=== PATIENT | male | born 1950 | race Caucasian/White ===

== ENCOUNTER 2017-11-19 14:47 | Inpatient (IN) | payer MEDICARE, MEDICAID ==
[2017-11-19 15:17] VITALS: BP 132/80
[2017-11-19] MEDS ORDERED: Magnesium Hydroxide (MOM) 30 mL UDC PO PRN (15:17)
[2017-11-19] MEDS ORDERED: Maalox 30 mL Cup PO PRN (15:17)
--- NOTE | 2017-11-20 07:03 | History and Physical ---
History of Present Illness - HPI Chief Complaint: Psychosis HPI: 66 y/o male who was transferred from [facility] to [facility] for a 5150 hold wanting to hurt himself. Yelling and screaming. Patient was noted to have auditory hallucination and agitation. Patient's brother noted the patient frequently hears voices at home. Patient was having increased agitation and screaming. Patient's home medications include .. seroquel 200mg PO HS, Lexapro 20mg PO daily, Hydroxyzine 50mg po TID, pantoprazole 40mg pO daily, and Tenormin 25mg PO daily. Initial Labwork Na 143, K 4.3 BUN/Cr 26/1.5 glu 140 WBC 11.1 H/H 13.9/40.8 plat 259K Patient was subsequently admitted to [facility] for further evaluation and treatment. Vital Signs: Last Vital Signs Temp 98.5 F 11/19/17 16:45 Pulse 97 11/19/17 16:45 Resp 20 11/19/17 16:45 BP 132/80 11/19/17 16:45 Pulse Ox 96 11/19/17 16:45 Past Medical History Cardiovascular: Report: HTN Pulmonary: Report: No Pertinent Hx PROPOSAL MANAGER WRITER: Report: No Pertinent Hx GI: Report: GERD Psych: Report: Psychosis Musculoskeletal: Report: No Pertinent Hx Rheumatologic: Report: No pertinent Hx Infectious Disease: Report: No Pertinent Hx Renal/: Report: Chronic Renal Insuff Endocrine: Report: No Pertinent Hx - Past Surgical History Past Surgical History: No pertinent Hx Family Medical History - Family Member Mother History Unknown: Yes Social History Smoke: No Alcohol: None Drugs: None Lives: With Family - Medications Home Medications: Home Medication Medication Instructions Recorded Type Atenolol [Tenormin*] 25 mg PO DAILY 11/19/17 History Escitalopram Oxalate [Lexapro] 20 mg PO DAILY 11/19/17 History Hydroxyzine Pamoate [Vistaril*] 50 mg PO TID 11/19/17 History Pantoprazole [Protonix] 40 mg PO DAILY 11/19/17 History QUEtiapine Fumarate [SEROquel] 200 mg PO HS 11/19/17 History - Allergies Allergies/Adverse Reactions: Allergies Allergy/AdvReac Type Severity Reaction Status Date / Time No Known Allergies Allergy Verified 11/19/17 15:12 Review of Systems - Review of Systems Constitutional: Report: No Significant Eyes: Report: No Significant ENT: Report: No Significant Respiratory: Report: No Significant Cardiovascular: Report: No Significant Gastrointestinal: Report: No Significant Genitourinary: Report: No Significant Musculoskeletal: Report: No Significant Skin: Report: No Significant Neurological: Report: No Significant Physical Exam - Physical Exam HEENT: Report: Ears Nose Throat within normal limits, Pharnyx within normal limits Neck: Report: Within normal limits Cardiovascular Systems: Report: +s1/s2 noted, Regular, Rate and Rhythm Respiratory: Report: Breath Sounds are within normal limits Abdomen: Report: Non-tender to palpation, Tender to palpation Back: Report: Inspection of back is within normal limits. Extremities: Report: Non-tender to palpation. Skin: Report: Color of skin is within normal limits Neuro/Psych: Report: Mood affect is within normal limits, A+Ox3 - Lab Results All Lab Results last 24 hours: Laboratory Results - last 24 hr 11/19/17 17:20 POC Glucose 106 H - Assessment Assessment: psychosis 5150 hold hypertension gerd chronic renal insufficiency - Plan Plan: admit to [facility] continue home meds.
--- NOTE | 2017-11-20 07:24 | Psychosocial Evaluation ---
DATE OF SERVICE: JUSTIFICATION FOR THE HOSPITALIZATION: The patient came to the hospital on hold, apparently suicidal, yelling, screaming, brought in by police. CHIEF COMPLAINT: "I got wild." HISTORY OF PRESENT ILLNESS: A 66-year-old male, poor historian, states he came to the hospital because "I got wild." The patient is not a good historian, unable to really tell me anything more than "I got wild." Denying depression, it is unclear as to why he got so upset or was brought in on a hold other than what is written on the hold. PAST PSYCH HISTORY: Unknown, although he states he does take medications. He does not give me a diagnosis. FAMILY HISTORY: Noncontributory. SOCIAL HISTORY: The patient was born in [place]. He states he lives in [place] with brother, not , no kids, no drugs of abuse. MEDICATIONS: Noted. MENTAL STATUS EXAMINATION: Stated age, fair eye contact. Mood, "okay." Psychomotorically normal. Affect flat. Thought processes were disorganized, somewhat disoriented. The patient was making suicidal statements. No HI. No overt psychotic symptoms. Insight and judgment diminished. PROVISIONAL DIAGNOSES: Psychosis, unspecified; mood, unspecified; anxiety, unspecified. MEDICAL: Please see full H and P. ASSESSMENT: The patient requiring inpatient hospitalization, suicidal, apparently psychotic, very upset, yelling and screaming. PLAN: We will try to find out what medications the patient had been on at home. Treatment and plan includes group as well as milieu therapy. Conditions for discharge: Improved mood, improved affect, cessation of any SI, better control of his mood symptoms. [facility]# [id number]
[2017-11-20] MEDS: Multivitamin Tab PO SCH (09:10)
[2017-11-20] MEDS: Pantoprazole 40 mg EC Tab PO SCH (09:10)
--- NOTE | 2017-11-21 08:14 | General Progress Note ---
Subjective - Review of Systems Service Date: 11/21/17 Subjective: awake, but confused. no acute distress. VS T97.9 P86 R19 BP 127/82 Objective - Results Recent Labs: Laboratory Last Values POC Glucose 106 MG/DL (70 - 105) H 11/19/17 17:20 - Physical Exam Vitals and I&O: Vital Signs Temp 97.9 F 11/21/17 06:09 Pulse 86 11/21/17 06:09 Resp 19 11/21/17 06:09 BP 127/82 11/21/17 06:09 Pulse Ox 97 11/21/17 06:09 Intake & Output 11/20/17 11/21/17 11/21/17 18:59 06:59 18:59 Intake Total 1149 Balance 1149 Intake: Oral 1149 Other: # Voids 1 # Bowel Movements 1 Active Medications: Current Medications Acetaminophen (Tylenol) 650 mg PO Q4HR PRN PRN Reason: Mild Pain / Temp above 100 Stop: 01/18/18 15:16 Al Hydrox/Mg Hydrox/Simethicone (Maalox) 30 ml PO Q4HR PRN PRN Reason: GI DISTRESS Stop: 01/18/18 15:16 Atenolol (Tenormin) 25 mg PO DAILY ISABEL Stop: 01/19/18 08:59 Last Admin: 11/20/17 09:10 Dose: 25 mg Lorazepam (Ativan) 0.5 mg PO Q4HR PRN; Protocol PRN Reason: Anxiety Stop: 12/19/17 15:16 Last Admin: 11/20/17 17:14 Dose: 0.5 mg Magnesium Hydroxide (Milk Of Magnesia) 30 ml PO HS PRN PRN Reason: Constipation Multivitamins/Vitamin C (Theragran) 1 tab PO DAILY ISABEL Stop: 01/19/18 08:59 Last Admin: 11/20/17 09:10 Dose: 1 tab Pantoprazole Sodium (Protonix) 40 mg PO DAILY ISABEL Stop: 01/19/18 08:59 Last Admin: 11/20/17 09:10 Dose: 40 mg Zolpidem Tartrate (Ambien) 5 mg PO HS PRN PRN Reason: Insomnia Stop: 01/18/18 15:16 General: Alert HEENT: Atraumatic, PERRLA, EOMI Neck: Supple Cardiovascular: Regular rate, Normal S1, Normal S2 Lungs: Clear to auscultation Abdomen: Bowel sounds, Soft Extremities: no Clubbing, no Cyanosis, no Edema Neurological: Normal gait, Normal speech - Procedures Procedures: Procedures Procedure Code Date BLOOD TRANSFUSION SERVICE 28608 06/05/03 COLONOSCOPY W/LESION REMOVAL 84058 06/05/03 EGD BIOPSY SINGLE/MULTIPLE 59659 06/05/03 EGD DIAGNOSTIC BRUSH WASH 07960 08/09/00 ENDOSC POLYPECTOMY OF LG INTEST 45.42 06/05/03 ESOPHAGOGASTRODUODENOSCOPY [EGD] W/CLOSED BIOPSY 45.16 06/05/03 OTHER ENDOSCOPY OF SM INTEST 45.13 08/09/00 PACKED CELL TRANSFUSION 99.04 06/05/03 Assessment/Plan - Assessment Assessment: psychosis 5150 hold hypertension gerd chronic renal insufficiency - Plan Plan: admit to [facility] continue home meds.
[2017-11-21] MEDS: Pantoprazole 40 mg EC Tab PO SCH (08:31)
[2017-11-21] MEDS: Multivitamin Tab PO SCH (08:32)
--- NOTE | 2017-11-21 23:44 | Progress Notes ---
DATE: 11/21/[address] Hanna. Case was discussed with staff of the patient, reviewed records. This is a 66-year-old male, who was admitted on 11/19/2017. He was suicidal and screaming, brought in by police. He was a poor historian. He reports he came to the hospital because he got wild. He was not a very good historian, unable to tell anything other than getting wild and is not clear how he got upset. Diagnosis, psychosis, ____ Dr. Hanna. He is not on any psychotropic medications. Observing the patient for further evaluation and we will continue to work with the patient in group therapy, milieu therapy, and adjust medication as needed. The patient was supposed to be on Seroquel, Ativan, Ambien, Lexapro and this information is coming from the facility where he was at. Also I will be initiating Seroquel on him because of his confusion. I am not sure of the dose he was on, but I am going to start him on a small dose. Discussed side effects We will continue to work with the patient in group therapy, milieu therapy, and adjust medication as needed. JOB# [id number]
--- NOTE | 2017-11-22 06:12 | General Progress Note ---
Subjective - Review of Systems Service Date: 11/22/17 Subjective: awake, but confused. no acute distress. VS T98 P95 R19 BP 141/86 Objective - Results Recent Labs: Laboratory Last Values POC Glucose 106 MG/DL (70 - 105) H 11/19/17 17:20 - Physical Exam Vitals and I&O: Vital Signs Temp 98 F 11/21/17 20:54 Pulse 95 11/21/17 20:54 Resp 19 11/21/17 20:54 BP 141/86 11/21/17 20:54 Pulse Ox 98 11/21/17 20:54 Intake & Output 11/21/17 11/21/17 11/22/17 06:59 18:59 06:59 Intake Total 1149 700 120 Balance 1149 700 120 Intake: Oral 1149 700 120 Other: # Voids 1 3 3 # Bowel Movements 1 1 0 Active Medications: Current Medications Acetaminophen (Tylenol) 650 mg PO Q4HR PRN PRN Reason: Mild Pain / Temp above 100 Stop: 01/18/18 15:16 Al Hydrox/Mg Hydrox/Simethicone (Maalox) 30 ml PO Q4HR PRN PRN Reason: GI DISTRESS Stop: 01/18/18 15:16 Atenolol (Tenormin) 25 mg PO DAILY [facility] Stop: 01/19/18 08:59 Last Admin: 11/21/17 08:32 Dose: 25 mg Escitalopram Oxalate (Lexapro) 5 mg PO DAILY ISABEL PRN Reason: Protocol Stop: 01/21/18 08:59 Lorazepam (Ativan) 0.5 mg PO Q4HR PRN; Protocol PRN Reason: Anxiety Stop: 12/19/17 15:16 Last Admin: 11/20/17 17:14 Dose: 0.5 mg Magnesium Hydroxide (Milk Of Magnesia) 30 ml PO HS PRN PRN Reason: Constipation Multivitamins/Vitamin C (Theragran) 1 tab PO DAILY ISABEL Stop: 01/19/18 08:59 Last Admin: 11/21/17 08:32 Dose: 1 tab Pantoprazole Sodium (Protonix) 40 mg PO DAILY ISABEL Stop: 01/19/18 08:59 Last Admin: 11/21/17 08:31 Dose: 40 mg Quetiapine Fumarate (Seroquel) 12.5 mg PO BID ISABEL PRN Reason: Protocol Stop: 01/20/18 16:59 Last Admin: 11/21/17 16:36 Dose: 12.5 mg Zolpidem Tartrate (Ambien) 5 mg PO HS PRN PRN Reason: Insomnia Stop: 01/18/18 15:16 General: Alert HEENT: Atraumatic, PERRLA, EOMI Neck: Supple Cardiovascular: Regular rate, Normal S1, Normal S2 Lungs: Clear to auscultation Abdomen: Bowel sounds, Soft Extremities: no Clubbing, no Cyanosis, no Edema Neurological: Normal gait, Normal speech - Procedures Procedures: Procedures Procedure Code Date BLOOD TRANSFUSION SERVICE 85550 06/05/03 COLONOSCOPY W/LESION REMOVAL 58597 06/05/03 EGD BIOPSY SINGLE/MULTIPLE 03910 06/05/03 EGD DIAGNOSTIC BRUSH WASH 36599 08/09/00 ENDOSC POLYPECTOMY OF LG INTEST 45.42 06/05/03 ESOPHAGOGASTRODUODENOSCOPY [EGD] W/CLOSED BIOPSY 45.16 06/05/03 OTHER ENDOSCOPY OF SM INTEST 45.13 08/09/00 PACKED CELL TRANSFUSION 99.04 06/05/03 Assessment/Plan - Assessment Assessment: psychosis 5150 hold hypertension gerd chronic renal insufficiency - Plan Plan: admit to [facility] continue home meds.
[2017-11-22] MEDS: Escitalopram Oxalate 5 mg Tab PO SCH (10:39)
[2017-11-22] MEDS: Pantoprazole 40 mg EC Tab PO SCH (10:39)
[2017-11-22] MEDS: Multivitamin Tab PO SCH (10:39)
--- NOTE | 2017-11-22 21:33 | Progress Notes ---
DATE: 11/22/[address] Hanna. SUBJECTIVE: Case was discussed with staff of the patient and reviewed records. The patient continues to be paranoid, loud, labile, unpredictable, impulsive, responding to internal stimuli, hard to be redirected, cannot make safe plan for self-care. PLAN: I did initiate him on Lexapro yesterday and he is also on Seroquel 12.5 mg twice a day that I increased yesterday to twice a day with no side effects, no sedation, no nausea, no extrapyramidal symptoms. Still not ready to go because of his psychosis, paranoia, agitation and depression and no side effects with the medication. I will continue to work the patient in group therapy, milieu therapy, and adjust medications as needed. JOB# [id number]
--- NOTE | 2017-11-23 08:33 | General Progress Note ---
Subjective - Review of Systems Service Date: 11/23/17 Subjective: awake, but confused. no acute distress. VS T97.3 P79 R20 BP 111/70 Objective - Results Recent Labs: Laboratory Last Values POC Glucose 106 MG/DL (70 - 105) H 11/19/17 17:20 - Physical Exam Vitals and I&O: Vital Signs Temp 97.3 F 11/23/17 06:41 Pulse 79 11/23/17 06:41 Resp 20 11/23/17 06:41 BP 111/70 11/23/17 06:41 Pulse Ox 97 11/23/17 06:41 Intake & Output 11/22/17 11/23/17 11/23/17 18:59 06:59 18:59 Intake Total 1200 120 Balance 1200 120 Intake: Oral 1200 120 Other: # Voids 3 3 Active Medications: Current Medications Acetaminophen (Tylenol) 650 mg PO Q4HR PRN PRN Reason: Mild Pain / Temp above 100 Stop: 01/18/18 15:16 Al Hydrox/Mg Hydrox/Simethicone (Maalox) 30 ml PO Q4HR PRN PRN Reason: GI DISTRESS Stop: 01/18/18 15:16 Atenolol (Tenormin) 25 mg PO DAILY ISABEL Stop: 01/19/18 08:59 Last Admin: 11/22/17 10:39 Dose: 25 mg Escitalopram Oxalate (Lexapro) 5 mg PO DAILY ISABEL PRN Reason: Protocol Stop: 01/21/18 08:59 Last Admin: 11/22/17 10:39 Dose: 5 mg Lorazepam (Ativan) 0.5 mg PO Q4HR PRN; Protocol PRN Reason: Anxiety Stop: 12/19/17 15:16 Last Admin: 11/22/17 21:07 Dose: 0.5 mg Magnesium Hydroxide (Milk Of Magnesia) 30 ml PO HS PRN PRN Reason: Constipation Multivitamins/Vitamin C (Theragran) 1 tab PO DAILY ISABEL Stop: 01/19/18 08:59 Last Admin: 11/22/17 10:39 Dose: 1 tab Pantoprazole Sodium (Protonix) 40 mg PO DAILY ISABEL Stop: 01/19/18 08:59 Last Admin: 11/22/17 10:39 Dose: 40 mg Quetiapine Fumarate (Seroquel) 12.5 mg PO BID ISABEL PRN Reason: Protocol Stop: 01/20/18 16:59 Last Admin: 11/22/17 18:30 Dose: 12.5 mg Zolpidem Tartrate (Ambien) 5 mg PO HS PRN PRN Reason: Insomnia Stop: 01/18/18 15:16 Last Admin: 11/22/17 21:07 Dose: 5 mg General: Alert HEENT: Atraumatic, PERRLA, EOMI Neck: Supple Cardiovascular: Regular rate, Normal S1, Normal S2 Lungs: Clear to auscultation Abdomen: Bowel sounds, Soft Extremities: no Clubbing, no Cyanosis, no Edema Neurological: Normal gait, Normal speech - Procedures Procedures: Procedures Procedure Code Date BLOOD TRANSFUSION SERVICE 86818 06/05/03 COLONOSCOPY W/LESION REMOVAL 25506 06/05/03 EGD BIOPSY SINGLE/MULTIPLE 96731 06/05/03 EGD DIAGNOSTIC BRUSH WASH 43898 08/09/00 ENDOSC POLYPECTOMY OF LG INTEST 45.42 06/05/03 ESOPHAGOGASTRODUODENOSCOPY [EGD] W/CLOSED BIOPSY 45.16 06/05/03 OTHER ENDOSCOPY OF SM INTEST 45.13 08/09/00 PACKED CELL TRANSFUSION 99.04 06/05/03 Assessment/Plan - Assessment Assessment: psychosis 5150 hold hypertension gerd chronic renal insufficiency - Plan Plan: admit to [facility] continue home meds.
[2017-11-23] MEDS: Escitalopram Oxalate 5 mg Tab PO SCH (08:57)
[2017-11-23] MEDS: Pantoprazole 40 mg EC Tab PO SCH (08:57)
[2017-11-23] MEDS: Multivitamin Tab PO SCH (08:58)
--- NOTE | 2017-11-24 08:20 | General Progress Note ---
Subjective - Review of Systems Service Date: 11/24/17 Subjective: awake, but confused. no acute distress. VS T97.9 P80 R20 BP 119/77 Objective - Results Recent Labs: Laboratory Last Values POC Glucose 106 MG/DL (70 - 105) H 11/19/17 17:20 - Physical Exam Vitals and I&O: Vital Signs Temp 97.9 F 11/24/17 06:31 Pulse 80 11/24/17 06:31 Resp 20 11/24/17 06:31 BP 119/77 11/24/17 06:31 Pulse Ox 95 11/24/17 06:31 Intake & Output 11/23/17 11/24/17 11/24/17 18:59 06:59 18:59 Intake Total 1560 Balance 1560 Intake: Oral 1560 Other: # Voids 3 Active Medications: Current Medications Acetaminophen (Tylenol) 650 mg PO Q4HR PRN PRN Reason: Mild Pain / Temp above 100 Stop: 01/18/18 15:16 Al Hydrox/Mg Hydrox/Simethicone (Maalox) 30 ml PO Q4HR PRN PRN Reason: GI DISTRESS Stop: 01/18/18 15:16 Atenolol (Tenormin) 25 mg PO DAILY ISABEL Stop: 01/19/18 08:59 Last Admin: 11/23/17 08:56 Dose: 25 mg Escitalopram Oxalate (Lexapro) 5 mg PO DAILY ISABEL PRN Reason: Protocol Stop: 01/21/18 08:59 Last Admin: 11/23/17 08:57 Dose: 5 mg Lorazepam (Ativan) 0.5 mg PO Q4HR PRN; Protocol PRN Reason: Anxiety Stop: 12/19/17 15:16 Last Admin: 11/23/17 14:06 Dose: 0.5 mg Magnesium Hydroxide (Milk Of Magnesia) 30 ml PO HS PRN PRN Reason: Constipation Multivitamins/Vitamin C (Theragran) 1 tab PO DAILY ISABEL Stop: 01/19/18 08:59 Last Admin: 11/23/17 08:58 Dose: 1 tab Pantoprazole Sodium (Protonix) 40 mg PO DAILY ISABEL Stop: 01/19/18 08:59 Last Admin: 11/23/17 08:57 Dose: 40 mg Quetiapine Fumarate (Seroquel) 12.5 mg PO BID ISABEL PRN Reason: Protocol Stop: 01/20/18 16:59 Last Admin: 11/23/17 16:45 Dose: 12.5 mg Zolpidem Tartrate (Ambien) 5 mg PO HS PRN PRN Reason: Insomnia Stop: 01/18/18 15:16 Last Admin: 11/22/17 21:07 Dose: 5 mg General: Alert HEENT: Atraumatic, PERRLA, EOMI Neck: Supple Cardiovascular: Regular rate, Normal S1, Normal S2 Lungs: Clear to auscultation Abdomen: Bowel sounds, Soft Extremities: no Clubbing, no Cyanosis, no Edema Neurological: Normal gait, Normal speech - Procedures Procedures: Procedures Procedure Code Date BLOOD TRANSFUSION SERVICE 85387 06/05/03 COLONOSCOPY W/LESION REMOVAL 06228 06/05/03 EGD BIOPSY SINGLE/MULTIPLE 26134 06/05/03 EGD DIAGNOSTIC BRUSH WASH 58107 08/09/00 ENDOSC POLYPECTOMY OF LG INTEST 45.42 06/05/03 ESOPHAGOGASTRODUODENOSCOPY [EGD] W/CLOSED BIOPSY 45.16 06/05/03 OTHER ENDOSCOPY OF SM INTEST 45.13 08/09/00 PACKED CELL TRANSFUSION 99.04 06/05/03 Assessment/Plan - Assessment Assessment: psychosis 5150 hold hypertension gerd chronic renal insufficiency - Plan Plan: admit to [facility] continue home meds.
[2017-11-24] MEDS: Multivitamin Tab PO SCH (09:50)
[2017-11-24] MEDS: Pantoprazole 40 mg EC Tab PO SCH (09:50)
[2017-11-24] MEDS: Escitalopram Oxalate 5 mg Tab PO SCH (09:50)
--- NOTE | 2017-11-24 14:42 | Progress Notes ---
DATE: 11/23/[address] Hanna. Case was discussed with staff of the patient. The patient continues to be demented and confused, continues to be internally preoccupied with episodes of agitation and irritability, unable to make safe plan for self-care, unpredictable, impulsive, needing redirection, and no side effects to the medications, no sedation, no nausea, and no extrapyramidal symptoms. PLAN: We will continue to work with the patient in group therapy, milieu therapy, and adjust the medications as needed. JOB# [id number]
--- NOTE | 2017-11-24 21:54 | Progress Notes ---
DATE: 11/24/2017 The patient in the hospital, noted to be paranoid, loud, labile, unpredictable, impulsive, responding to internal stimuli or to be redirected. Recent medications were started and adjusted. Brother at bedside, noting he is not at his baseline at this time. Does not know what happened or why he decompensated. Currently on Seroquel, but the dosage is quite a bit lower than what he was taking. Brother notes he was on a fairly high dose of Seroquel at nighttime, he is only on 12.5 mg twice daily at this time. Also, he was on Lexapro at a higher dose. The patient is feeding himself, mumbling to self, however. ASSESSMENT: The patient remains symptomatic, not at baseline per the brother. We will restart medications and slowly titrate. Discussed with brother. JOB# [id number]
--- NOTE | 2017-11-25 08:12 | General Progress Note ---
Subjective - Review of Systems Service Date: 11/25/17 Subjective: awake, but confused. no acute distress. VS T97.8 P67 R19 BP 142/73 Objective - Results Recent Labs: Laboratory Last Values POC Glucose 106 MG/DL (70 - 105) H 11/19/17 17:20 - Physical Exam Vitals and I&O: Vital Signs Temp 97.8 F 11/25/17 06:48 Pulse 67 11/25/17 06:48 Resp 19 11/25/17 06:48 BP 142/73 11/25/17 06:48 Pulse Ox 96 11/25/17 06:48 Intake & Output 11/24/17 11/25/17 11/25/17 18:59 06:59 18:59 Intake Total 1200 340 Balance 1200 340 Intake: Oral 1200 340 Other: # Voids 3 1 Active Medications: Current Medications Acetaminophen (Tylenol) 650 mg PO Q4HR PRN PRN Reason: Mild Pain / Temp above 100 Stop: 01/18/18 15:16 Al Hydrox/Mg Hydrox/Simethicone (Maalox) 30 ml PO Q4HR PRN PRN Reason: GI DISTRESS Stop: 01/18/18 15:16 Atenolol (Tenormin) 25 mg PO DAILY [facility] Stop: 01/19/18 08:59 Last Admin: 11/24/17 09:50 Dose: Not Given Escitalopram Oxalate (Lexapro) 10 mg PO DAILY ISABEL PRN Reason: Protocol Stop: 01/23/18 12:52 Lorazepam (Ativan) 0.5 mg PO Q4HR PRN; Protocol PRN Reason: Anxiety Stop: 12/19/17 15:16 Last Admin: 11/24/17 22:25 Dose: 0.5 mg Magnesium Hydroxide (Milk Of Magnesia) 30 ml PO HS PRN PRN Reason: Constipation Multivitamins/Vitamin C (Theragran) 1 tab PO DAILY ISABEL Stop: 01/19/18 08:59 Last Admin: 11/24/17 09:50 Dose: Not Given Pantoprazole Sodium (Protonix) 40 mg PO DAILY ISABEL Stop: 01/19/18 08:59 Last Admin: 11/24/17 09:50 Dose: Not Given Quetiapine Fumarate (Seroquel) 12.5 mg PO BID ISABEL PRN Reason: Protocol Stop: 01/20/18 16:59 Last Admin: 03/22/18 16:20 Dose: 12.5 mg Quetiapine Fumarate (Seroquel Xr) 100 mg PO HS ISABEL PRN Reason: Protocol Stop: 01/23/18 20:59 Last Admin: 11/24/17 21:29 Dose: Not Given Zolpidem Tartrate (Ambien) 5 mg PO HS PRN PRN Reason: Insomnia Stop: 01/18/18 15:16 Last Admin: 11/24/17 23:10 Dose: 5 mg General: Alert HEENT: Atraumatic, PERRLA, EOMI Neck: Supple Cardiovascular: Regular rate, Normal S1, Normal S2 Lungs: Clear to auscultation Abdomen: Bowel sounds, Soft Extremities: no Clubbing, no Cyanosis, no Edema Neurological: Normal gait, Normal speech - Procedures Procedures: Procedures Procedure Code Date BLOOD TRANSFUSION SERVICE 29384 06/05/03 COLONOSCOPY W/LESION REMOVAL 70329 06/05/03 EGD BIOPSY SINGLE/MULTIPLE 09742 06/05/03 EGD DIAGNOSTIC BRUSH WASH 30816 08/09/00 ENDOSC POLYPECTOMY OF LG INTEST 45.42 06/05/03 ESOPHAGOGASTRODUODENOSCOPY [EGD] W/CLOSED BIOPSY 45.16 06/05/03 OTHER ENDOSCOPY OF SM INTEST 45.13 08/09/00 PACKED CELL TRANSFUSION 99.04 06/05/03 Assessment/Plan - Assessment Assessment: psychosis 5150 hold hypertension gerd chronic renal insufficiency - Plan [facility]. Nutritional Asmnt/Malnutr-PDOC - Dietary Evaluation Malnutrition Findings (Please click <Entered> for more info): Nutritional Asmnt/Malnutrition Start: 11/24/17 13: 37 Text: Status: Complete Freq: Document 11/24/17 13:37 LCHENG (Rec: 11/24/17 13:42 [email or web address] [email or web address]) Nutritional Asmnt/Malnutrition Patient General Information Nutritional Screening Low Risk Diagnosis psychosis NOS Pertinent Medical Hx/Surgical Hx HTN, GERD, psychosis, chronic renal suff Subjective Information Pt seen sitting on bed eating lunch, confused. Family at bedside. Family stated pt likes beef. Observed pt was eating well.Per EMR, PO intake 100%. Current Diet Order/ Nutrition Support regular Pertinent Medications theragran, seroquel, protonix Pertinent Labs 11/19 POC 106 Nutritional Hx/Data Height 1.68 m Height (Calculated Centimeters) 167.6 Current Weight (lbs) 72.892 kg Weight (Calculated Kilograms) 72.9 Weight (Calculated Grams) 13203.3 [place] Body Weight 142 Body Mass Index (BMI) 25.9 Weight Status Overweight GI Symptoms GI Symptoms None Last BM 11/21 Difficult in: None Skin Integrity/Comment: intact Current %PO Good (75-100%) Estimated Nutritional Goals Calories/Kcals/Kg 28-30 based on IBW 65kg Kcals Calculated 5220-8323 Protein g/k-1.1 Protein Calculated 65-72 Fluid: ml 1625-1950ml (1ml/kcal) Nutritional Problem No current Nutrition Prob Problem N/A Malnutrition Alert Protein-Calorie Malnutrition N/A Is there a minimum of two criteria No selected? Query Text:Check all the applicable criteria. A minimum of two criteria are recommended for diagnosis of either severe or non-severe malnutrition. Intervention/Recommendation Comments 1. Continue with regular diet as ordered. 2. Monitor PO intake, wt, labs and skin integrity 3. F/U as low risk in 7 days, 12/01 Expected Outcomes/Goals Expected Outcomes/Goals 1. PO intake to meet at least 75% of nutritional needs. 2. Wt stability, skin to remain intact, labs WNL.
[2017-11-25 09:07] LABS: % EOSINOPHILS 1.3 % (0.0-5.0); % LYMPHOCYTES 17.9 % (20.0-50.0); % MONOCYTES 8.6 % (2.0-10.0); % NEUTROPHILS 72.2 % (40.0-80.0); EOSINOPHILE ABSOLUTE 0.1 Th/cmm (0.1-0.4); HEMATOCRIT 44.1 % (41.0-60); HEMOGLOBIN 14.7 gm/dL (12-16); LYMPHOCYTE ABSOLUTE 1.9 Th/cmm (1.5-3.0); MEAN CELL VOLUME 90.4 fl (80-99); MEAN CORPUSCULAR HEMOGLOBIN 30.2 pg (26.0-30.0); MEAN CORPUSCULAR HGB CONC 33.4 pg (28.0-36.0); MEAN PLATELET VOLUME 7.2 fl; MONOCYTE ABSOLUTE 0.9 Th/cmm (0.3-1.0); NEUTROPHILE ABSOLUTE 7.9 Th/cmm (1.8-8.0); PLATELET COUNT 307 Th/cmm (150-400); RED BLOOD COUNT 4.88 Mil/cmm (4.30-5.70); RED CELL DISTRIBUTION WIDTH 13.2 % (11.5-20.0); WHITE BLOOD COUNT 10.8 Th/cmm (4.8-10.8)
[2017-11-25 09:31] LABS: ANION GAP 13.2 (7.0-16.0); BUN - UREA NITROGEN 25 mg/dL (7-25); CALCIUM SERUM 9.6 mg/dL (8.6-10.3); CARBON DIOXIDE 24.2 mEq/L (21.0-31.0); CHLORIDE 111 mEq/L (98-107); CREATININE - SERUM 0.9 mg/dL (0.7-1.3); GFR AFRICAN-AMERICAN > 60.0 ml/min (>90); GFR NON AFRICAN-AMERICAN > 60.0 ml/min; GLUCOSE 155 mg/dL (70-105); POTASSIUM SERUM 3.4 mEq/L (3.5-5.1); SODIUM SERUM 145 mEq/L (136-145)
[2017-11-25] MEDS: Escitalopram Oxalate 5 mg Tab PO SCH (09:37)
[2017-11-25] MEDS: Multivitamin Tab PO SCH (09:39)
[2017-11-25] MEDS: Pantoprazole 40 mg EC Tab PO SCH (09:39)
--- NOTE | 2017-11-25 18:33 | Progress Notes ---
DATE: 11/25/2017 The patient at hospital noted to be paranoid, labile, unpredictable, still needing redirection. The patient quite not at baseline. I spoke with brother yesterday. He seems somewhat calmer today. The brother notes he is more calm, consistently calm and independent. I have been increasing his dose of medications. He was on daytime dosing of Seroquel, nighttime dosing of Seroquel as well as Lexapro. On [id number], the patient staring blankly, not answering any questions. He is awake and alert, but does not want to talk to me today. ASSESSMENT: The patient remains symptomatic, not quite yet at baseline, still unruly at times. PLAN: We will continue to monitor. I will be increasing his nighttime dosing of Seroquel to 150 mg. Continue increased dose of Lexapro as well. I will continue to titrate medications over the next day to a week. JOB# [id number]
[2017-11-26] MEDS ORDERED: Potassium Chloride 20 mEq ER Tab PO ONE (05:01)
--- NOTE | 2017-11-26 05:12 | General Progress Note ---
Subjective - Review of Systems Service Date: 11/26/17 Subjective: awake, but confused. no acute distress. VS T97.8 P98 R18 BP 131/82 Objective - Results Result Diagrams: 11/25/17 08:12 11/25/17 09:03 Recent Labs: Laboratory Last Values WBC 10.8 Th/cmm (4.8-10.8) 11/25/17 08:12 RBC 4.88 Mil/cmm (4.30-5.70) 11/25/17 08:12 Hgb 14.7 gm/dL (12-16) 11/25/17 08:12 Hct 44.1 % (41.0-60) 11/25/17 08:12 MCV 90.4 fl (80-99) 11/25/17 08:12 MCH 30.2 pg (26.0-30.0) H 11/25/17 08:12 MCHC Differential 33.4 pg (28.0-36.0) 11/25/17 08:12 RDW 13.2 % (11.5-20.0) 11/25/17 08:12 Plt Count 307 Th/cmm (150-400) 11/25/17 08:12 MPV 7.2 fl 11/25/17 08:12 Neutrophils % 72.2 % (40.0-80.0) 11/25/17 08:12 Lymphocytes % 17.9 % (20.0-50.0) L 11/25/17 08:12 Monocytes % 8.6 % (2.0-10.0) 11/25/17 08:12 Eosinophils % 1.3 % (0.0-5.0) 11/25/17 08:12 Basophils % 0.0 % (0.0-2.0) 11/25/17 08:12 Sodium 145 mEq/L (136-145) 11/25/17 09:03 Potassium 3.4 mEq/L (3.5-5.1) L 11/25/17 09:03 Chloride 111 mEq/L (98-107) H 11/25/17 09:03 Carbon Dioxide 24.2 mEq/L (21.0-31.0) 11/25/17 09:03 Anion Gap 13.2 (7.0-16.0) 11/25/17 09:03 BUN 25 mg/dL (7-25) 11/25/17 09:03 Creatinine 0.9 mg/dL (0.7-1.3) 11/25/17 09:03 Est GFR ( Amer) > 60.0 ml/min (>90) 11/25/17 09:03 Est GFR (Non-Af Amer) > 60.0 ml/min 11/25/17 09:03 BUN/Creatinine Ratio 27.8 11/25/17 09:03 Glucose 155 mg/dL (70-105) H 11/25/17 09:03 POC Glucose 106 MG/DL (70 - 105) H 11/19/17 17:20 Calcium 9.6 mg/dL (8.6-10.3) 11/25/17 09:03 - Physical Exam Vitals and I&O: Vital Signs Temp 97.8 F 11/25/17 20:51 Pulse 98 11/25/17 20:51 Resp 18 11/25/17 20:51 BP 131/82 11/25/17 20:51 Pulse Ox 94 11/25/17 20:51 Intake & Output 11/25/17 11/25/17 11/26/17 06:59 18:59 06:59 Intake Total 340 900 240 Balance 340 900 240 Intake: Oral 340 900 240 Other: # Voids 1 4 1 # Bowel Movements 1 Active Medications: Current Medications Acetaminophen (Tylenol) 650 mg PO Q4HR PRN PRN Reason: Mild Pain / Temp above 100 Stop: 01/18/18 15:16 Al Hydrox/Mg Hydrox/Simethicone (Maalox) 30 ml PO Q4HR PRN PRN Reason: GI DISTRESS Stop: 01/18/18 15:16 Atenolol (Tenormin) 25 mg PO DAILY [facility] Stop: 01/19/18 08:59 Last Admin: 11/25/17 09:38 Dose: 25 mg Escitalopram Oxalate (Lexapro) 10 mg PO DAILY [facility] PRN Reason: Protocol Stop: 01/23/18 12:52 Last Admin: 11/25/17 09:37 Dose: 10 mg Lorazepam (Ativan) 0.5 mg PO Q4HR PRN; Protocol PRN Reason: Anxiety Stop: 12/19/17 15:16 Last Admin: 11/24/17 22:25 Dose: 0.5 mg Magnesium Hydroxide (Milk Of Magnesia) 30 ml PO HS PRN PRN Reason: Constipation Multivitamins/Vitamin C (Theragran) 1 tab PO DAILY [facility] Stop: 01/19/18 08:59 Last Admin: 11/25/17 09:39 Dose: 1 tab Pantoprazole Sodium (Protonix) 40 mg PO DAILY [facility] Stop: 01/19/18 08:59 Last Admin: 11/25/17 09:39 Dose: 40 mg Potassium Chloride (Klor-Con) 20 meq PO X1 ONE Stop: 11/26/17 05:02 Quetiapine Fumarate (Seroquel) 12.5 mg PO BID [facility] PRN Reason: Protocol Stop: 01/20/18 16:59 Last Admin: 11/25/17 18:00 Dose: 12.5 mg Quetiapine Fumarate (Seroquel Xr) 150 mg PO HS [facility] PRN Reason: Protocol Stop: 01/24/18 16:02 Last Admin: 11/25/17 21:05 Dose: Not Given Zolpidem Tartrate (Ambien) 5 mg PO HS PRN PRN Reason: Insomnia Stop: 01/18/18 15:16 Last Admin: 11/25/17 21:03 Dose: 5 mg General: Alert HEENT: Atraumatic, PERRLA, EOMI Neck: Supple Cardiovascular: Regular rate, Normal S1, Normal S2 Lungs: Clear to auscultation Abdomen: Bowel sounds, Soft Extremities: no Clubbing, no Cyanosis, no Edema Neurological: Normal gait, Normal speech - Procedures Procedures: Procedures Procedure Code Date BLOOD TRANSFUSION SERVICE 72112 06/05/03 COLONOSCOPY W/LESION REMOVAL 20805 06/05/03 EGD BIOPSY SINGLE/MULTIPLE 98657 06/05/03 EGD DIAGNOSTIC BRUSH WASH 25563 08/09/00 ENDOSC POLYPECTOMY OF LG INTEST 45.42 06/05/03 ESOPHAGOGASTRODUODENOSCOPY [EGD] W/CLOSED BIOPSY 45.16 06/05/03 OTHER ENDOSCOPY OF SM INTEST 45.13 08/09/00 PACKED CELL TRANSFUSION 99.04 06/05/03 Assessment/Plan - Assessment Assessment: psychosis 5150 hold hypertension gerd chronic renal insufficiency - Plan Plan: admit to [facility] continue current treatment. Nutritional Asmnt/Malnutr-PDOC - Dietary Evaluation Malnutrition Findings (Please click <Entered> for more info): Nutritional Asmnt/Malnutrition Start: 11/24/17 13: 37 Text: Status: Complete Freq: Document 11/24/17 13:37 MAUREEN (Rec: 11/24/17 13:42 MAUREEN [email or web address]) Nutritional Asmnt/Malnutrition Patient General Information Nutritional Screening Low Risk Diagnosis psychosis NOS Pertinent Medical Hx/Surgical Hx HTN, GERD, psychosis, chronic renal suff Subjective Information Pt seen sitting on bed eating lunch, confused. Family at bedside. Family stated pt likes beef. Observed pt was eating well.Per EMR, PO intake 100%. Current Diet Order/ Nutrition Support regular Pertinent Medications theragran, seroquel, protonix Pertinent Labs 11/19 POC 106 Nutritional Hx/Data Height 1.68 m Height (Calculated Centimeters) 167.6 Current Weight (lbs) 72.892 kg Weight (Calculated Kilograms) 72.9 Weight (Calculated Grams) 05038.3 [place] Body Weight 142 Body Mass Index (BMI) 25.9 Weight Status Overweight GI Symptoms GI Symptoms None Last BM 11/21 Difficult in: None Skin Integrity/Comment: intact Current %PO Good (75-100%) Estimated Nutritional Goals Calories/Kcals/Kg 28-30 based on IBW 65kg Kcals Calculated 2128-0420 Protein g/k-1.1 Protein Calculated 65-72 Fluid: ml 1625-1950ml (1ml/kcal) Nutritional Problem No current Nutrition Prob Problem N/A Malnutrition Alert Protein-Calorie Malnutrition N/A Is there a minimum of two criteria No selected? Query Text:Check all the applicable criteria. A minimum of two criteria are recommended for diagnosis of either severe or non-severe malnutrition. Intervention/Recommendation Comments 1. Continue with regular diet as ordered. 2. Monitor PO intake, wt, labs and skin integrity 3. F/U as low risk in 7 days, 12/01 Expected Outcomes/Goals Expected Outcomes/Goals 1. PO intake to meet at least 75% of nutritional needs. 2. Wt stability, skin to remain intact, labs WNL.
[2017-11-26] MEDS: Escitalopram Oxalate 5 mg Tab PO SCH (08:55)
[2017-11-26] MEDS: Pantoprazole 40 mg EC Tab PO SCH (08:56)
[2017-11-26] MEDS: Multivitamin Tab PO SCH (09:00)
--- NOTE | 2017-11-27 05:32 | General Progress Note ---
Subjective - Review of Systems Service Date: 11/27/17 Subjective: awake, but confused. no acute distress. VS T97.8 P85 R20 BP 144/80 Objective - Results Result Diagrams: 11/25/17 08:12 11/25/17 09:03 Recent Labs: Laboratory Last Values WBC 10.8 Th/cmm (4.8-10.8) 11/25/17 08:12 RBC 4.88 Mil/cmm (4.30-5.70) 11/25/17 08:12 Hgb 14.7 gm/dL (12-16) 11/25/17 08:12 Hct 44.1 % (41.0-60) 11/25/17 08:12 MCV 90.4 fl (80-99) 11/25/17 08:12 MCH 30.2 pg (26.0-30.0) H 11/25/17 08:12 MCHC Differential 33.4 pg (28.0-36.0) 11/25/17 08:12 RDW 13.2 % (11.5-20.0) 11/25/17 08:12 Plt Count 307 Th/cmm (150-400) 11/25/17 08:12 MPV 7.2 fl 11/25/17 08:12 Neutrophils % 72.2 % (40.0-80.0) 11/25/17 08:12 Lymphocytes % 17.9 % (20.0-50.0) L 11/25/17 08:12 Monocytes % 8.6 % (2.0-10.0) 11/25/17 08:12 Eosinophils % 1.3 % (0.0-5.0) 11/25/17 08:12 Basophils % 0.0 % (0.0-2.0) 11/25/17 08:12 Sodium 145 mEq/L (136-145) 11/25/17 09:03 Potassium 3.4 mEq/L (3.5-5.1) L 11/25/17 09:03 Chloride 111 mEq/L (98-107) H 11/25/17 09:03 Carbon Dioxide 24.2 mEq/L (21.0-31.0) 11/25/17 09:03 Anion Gap 13.2 (7.0-16.0) 11/25/17 09:03 BUN 25 mg/dL (7-25) 11/25/17 09:03 Creatinine 0.9 mg/dL (0.7-1.3) 11/25/17 09:03 Est GFR ( Amer) > 60.0 ml/min (>90) 11/25/17 09:03 Est GFR (Non-Af Amer) > 60.0 ml/min 11/25/17 09:03 BUN/Creatinine Ratio 27.8 11/25/17 09:03 Glucose 155 mg/dL (70-105) H 11/25/17 09:03 POC Glucose 106 MG/DL (70 - 105) H 11/19/17 17:20 Calcium 9.6 mg/dL (8.6-10.3) 11/25/17 09:03 - Physical Exam Vitals and I&O: Vital Signs Temp 97.8 F 11/26/17 21:00 Pulse 85 11/26/17 21:00 Resp 20 11/26/17 21:00 BP 144/80 11/26/17 21:00 Pulse Ox 97 11/26/17 21:00 Intake & Output 11/26/17 11/26/17 11/27/17 06:59 18:59 06:59 Intake Total 480 1600 240 Output Total 1 Balance 479 1600 240 Intake: Oral 480 1600 240 Output: Stool 1 Other: # Voids 1 4 1 # Bowel Movements 0 Active Medications: Current Medications Acetaminophen (Tylenol) 650 mg PO Q4HR PRN PRN Reason: Mild Pain / Temp above 100 Stop: 01/18/18 15:16 Al Hydrox/Mg Hydrox/Simethicone (Maalox) 30 ml PO Q4HR PRN PRN Reason: GI DISTRESS Stop: 01/18/18 15:16 Atenolol (Tenormin) 25 mg PO DAILY [facility] Stop: 01/19/18 08:59 Last Admin: 11/26/17 08:54 Dose: 25 mg Escitalopram Oxalate (Lexapro) 10 mg PO DAILY [facility] PRN Reason: Protocol Stop: 01/23/18 12:52 Last Admin: 11/26/17 08:55 Dose: 10 mg Magnesium Hydroxide (Milk Of Magnesia) 30 ml PO HS PRN PRN Reason: Constipation Multivitamins/Vitamin C (Theragran) 1 tab PO DAILY [facility] Stop: 01/19/18 08:59 Last Admin: 11/26/17 09:00 Dose: 1 tab Pantoprazole Sodium (Protonix) 40 mg PO DAILY [facility] Stop: 01/19/18 08:59 Last Admin: 11/26/17 08:56 Dose: 40 mg Quetiapine Fumarate (Seroquel) 12.5 mg PO BID [facility] PRN Reason: Protocol Stop: 01/20/18 16:59 Last Admin: 11/26/17 17:33 Dose: 12.5 mg Quetiapine Fumarate (Seroquel Xr) 150 mg PO HS [facility] PRN Reason: Protocol Stop: 01/24/18 16:02 Last Admin: 11/26/17 21:10 Dose: Not Given General: Alert HEENT: Atraumatic, PERRLA, EOMI Neck: Supple Cardiovascular: Regular rate, Normal S1, Normal S2 Lungs: Clear to auscultation Abdomen: Bowel sounds, Soft Extremities: no Clubbing, no Cyanosis, no Edema Neurological: Normal gait, Normal speech - Procedures Procedures: Procedures Procedure Code Date BLOOD TRANSFUSION SERVICE 94825 06/05/03 COLONOSCOPY W/LESION REMOVAL 87555 06/05/03 EGD BIOPSY SINGLE/MULTIPLE 00849 06/05/03 EGD DIAGNOSTIC BRUSH WASH 77508 08/09/00 ENDOSC POLYPECTOMY OF LG INTEST 45.42 06/05/03 ESOPHAGOGASTRODUODENOSCOPY [EGD] W/CLOSED BIOPSY 45.16 06/05/03 OTHER ENDOSCOPY OF SM INTEST 45.13 08/09/00 PACKED CELL TRANSFUSION 99.04 06/05/03 Assessment/Plan - Assessment Assessment: psychosis 5150 hold hypertension gerd chronic renal insufficiency - Plan [facility]. Nutritional Asmnt/Malnutr-PDOC - Dietary Evaluation Malnutrition Findings (Please click <Entered> for more info): Nutritional Asmnt/Malnutrition Start: 11/24/17 13: 37 Text: Status: Complete Freq: Document 11/24/17 13:37 MAUREEN (Rec: 11/24/17 13:42 MAUREEN [email or web address]) Nutritional Asmnt/Malnutrition Patient General Information Nutritional Screening Low Risk Diagnosis psychosis NOS Pertinent Medical Hx/Surgical Hx HTN, GERD, psychosis, chronic renal suff Subjective Information Pt seen sitting on bed eating lunch, confused. Family at bedside. Family stated pt likes beef. Observed pt was eating well.Per EMR, PO intake 100%. Current Diet Order/ Nutrition Support regular Pertinent Medications theragran, seroquel, protonix Pertinent Labs 11/19 POC 106 Nutritional Hx/Data Height 1.68 m Height (Calculated Centimeters) 167.6 Current Weight (lbs) 72.892 kg Weight (Calculated Kilograms) 72.9 Weight (Calculated Grams) 65116.3 [place] Body Weight 142 Body Mass Index (BMI) 25.9 Weight Status Overweight GI Symptoms GI Symptoms None Last BM 11/21 Difficult in: None Skin Integrity/Comment: intact Current %PO Good (75-100%) Estimated Nutritional Goals Calories/Kcals/Kg 28-30 based on IBW 65kg Kcals Calculated 7491-1382 Protein g/k-1.1 Protein Calculated 65-72 Fluid: ml 1625-1950ml (1ml/kcal) Nutritional Problem No current Nutrition Prob Problem N/A Malnutrition Alert Protein-Calorie Malnutrition N/A Is there a minimum of two criteria No selected? Query Text:Check all the applicable criteria. A minimum of two criteria are recommended for diagnosis of either severe or non-severe malnutrition. Intervention/Recommendation Comments 1. Continue with regular diet as ordered. 2. Monitor PO intake, wt, labs and skin integrity 3. F/U as low risk in 7 days, 12/01 Expected Outcomes/Goals Expected Outcomes/Goals 1. PO intake to meet at least 75% of nutritional needs. 2. Wt stability, skin to remain intact, labs WNL.
--- NOTE | 2017-11-27 07:49 | Progress Notes ---
DATE: SUBJECTIVE: The patient was seen and evaluated. The patient's chart reviewed. This is Dr. Anderson covering for Dr. Hanna. Overnight, nursing staff reporting the patient has been verbally aggressive, refusing ADL care. IDENTIFYING DATA: A 66-year-old male, extremely poor historian "He got wild", disengaged. Today on [id number] evaluation, the patient continues to be disengaged with the interview, irritable and noted by the primary doctor to be little more calmer, has been having difficulty sleeping at times not answer to most of questions and disengaged. MENTAL STATUS EXAMINATION: Disengaged, withdrawn. ASSESSMENT AND PLAN: The patient continues to be symptomatic. We will continue increasing Seroquel to 150 mg and continue increase the dose of Lexapro without complications. He is tolerating medications well at this point without complications. JOB# [id number]
[2017-11-27] MEDS: Pantoprazole 40 mg EC Tab PO SCH (09:54)
[2017-11-27] MEDS: Multivitamin Tab PO SCH (09:54)
[2017-11-27] MEDS: Escitalopram Oxalate 5 mg Tab PO SCH (09:54)
--- NOTE | 2017-11-28 08:18 | General Progress Note ---
Subjective - Review of Systems Service Date: 11/28/17 Subjective: awake, but confused. no acute distress. VS T97 P82 R18 BP 139/75 Objective - Results Result Diagrams: 11/25/17 08:12 11/25/17 09:03 Recent Labs: Laboratory Last Values WBC 10.8 Th/cmm (4.8-10.8) 11/25/17 08:12 RBC 4.88 Mil/cmm (4.30-5.70) 11/25/17 08:12 Hgb 14.7 gm/dL (12-16) 11/25/17 08:12 Hct 44.1 % (41.0-60) 11/25/17 08:12 MCV 90.4 fl (80-99) 11/25/17 08:12 MCH 30.2 pg (26.0-30.0) H 11/25/17 08:12 MCHC Differential 33.4 pg (28.0-36.0) 11/25/17 08:12 RDW 13.2 % (11.5-20.0) 11/25/17 08:12 Plt Count 307 Th/cmm (150-400) 11/25/17 08:12 MPV 7.2 fl 11/25/17 08:12 Neutrophils % 72.2 % (40.0-80.0) 11/25/17 08:12 Lymphocytes % 17.9 % (20.0-50.0) L 11/25/17 08:12 Monocytes % 8.6 % (2.0-10.0) 11/25/17 08:12 Eosinophils % 1.3 % (0.0-5.0) 11/25/17 08:12 Basophils % 0.0 % (0.0-2.0) 11/25/17 08:12 Sodium 145 mEq/L (136-145) 11/25/17 09:03 Potassium 3.4 mEq/L (3.5-5.1) L 11/25/17 09:03 Chloride 111 mEq/L (98-107) H 11/25/17 09:03 Carbon Dioxide 24.2 mEq/L (21.0-31.0) 11/25/17 09:03 Anion Gap 13.2 (7.0-16.0) 11/25/17 09:03 BUN 25 mg/dL (7-25) 11/25/17 09:03 Creatinine 0.9 mg/dL (0.7-1.3) 11/25/17 09:03 Est GFR ( Amer) > 60.0 ml/min (>90) 11/25/17 09:03 Est GFR (Non-Af Amer) > 60.0 ml/min 11/25/17 09:03 BUN/Creatinine Ratio 27.8 11/25/17 09:03 Glucose 155 mg/dL (70-105) H 11/25/17 09:03 POC Glucose 106 MG/DL (70 - 105) H 11/19/17 17:20 Calcium 9.6 mg/dL (8.6-10.3) 11/25/17 09:03 - Physical Exam Vitals and I&O: Vital Signs Temp 97 F 11/28/17 06:42 Pulse 82 11/28/17 06:42 Resp 18 11/28/17 06:42 BP 139/75 11/28/17 06:42 Pulse Ox 97 11/28/17 06:42 Intake & Output 11/27/17 11/28/17 11/28/17 18:59 06:59 18:59 Intake Total 1600 240 Balance 1600 240 Intake: Oral 1600 240 Other: # Voids 4 1 # Bowel Movements 1 1 Stool Characteristics Soft Active Medications: Current Medications Acetaminophen (Tylenol) 650 mg PO Q4HR PRN PRN Reason: Mild Pain / Temp above 100 Stop: 01/18/18 15:16 Al Hydrox/Mg Hydrox/Simethicone (Maalox) 30 ml PO Q4HR PRN PRN Reason: GI DISTRESS Stop: 01/18/18 15:16 Atenolol (Tenormin) 25 mg PO DAILY [facility] Stop: 01/19/18 08:59 Last Admin: 11/27/17 09:54 Dose: Not Given Escitalopram Oxalate (Lexapro) 10 mg PO DAILY [facility] PRN Reason: Protocol Stop: 01/23/18 12:52 Last Admin: 11/27/17 09:54 Dose: Not Given Magnesium Hydroxide (Milk Of Magnesia) 30 ml PO HS PRN PRN Reason: Constipation Multivitamins/Vitamin C (Theragran) 1 tab PO DAILY [facility] Stop: 01/19/18 08:59 Last Admin: 11/27/17 09:54 Dose: Not Given Pantoprazole Sodium (Protonix) 40 mg PO DAILY [facility] Stop: 01/19/18 08:59 Last Admin: 11/27/17 09:54 Dose: Not Given Quetiapine Fumarate (Seroquel) 12.5 mg PO BID [facility] PRN Reason: Protocol Stop: 01/20/18 16:59 Last Admin: 11/27/17 16:50 Dose: 12.5 mg Quetiapine Fumarate (Seroquel Xr) 150 mg PO HS [facility] PRN Reason: Protocol Stop: 01/24/18 16:02 Last Admin: 11/27/17 21:06 Dose: Not Given General: Alert HEENT: Atraumatic, PERRLA, EOMI Neck: Supple Cardiovascular: Regular rate, Normal S1, Normal S2 Lungs: Clear to auscultation Abdomen: Bowel sounds, Soft Extremities: no Clubbing, no Cyanosis, no Edema Neurological: Normal gait, Normal speech - Procedures Procedures: Procedures Procedure Code Date BLOOD TRANSFUSION SERVICE 69295 06/05/03 COLONOSCOPY W/LESION REMOVAL 20467 06/05/03 EGD BIOPSY SINGLE/MULTIPLE 65583 06/05/03 EGD DIAGNOSTIC BRUSH WASH 29772 08/09/00 ENDOSC POLYPECTOMY OF LG INTEST 45.42 06/05/03 ESOPHAGOGASTRODUODENOSCOPY [EGD] W/CLOSED BIOPSY 45.16 06/05/03 OTHER ENDOSCOPY OF SM INTEST 45.13 08/09/00 PACKED CELL TRANSFUSION 99.04 06/05/03 Assessment/Plan - Assessment Assessment: psychosis 5150 hold hypertension gerd chronic renal insufficiency - Plan Plan: admit to [facility] continue current treatment. Nutritional Asmnt/Malnutr-PDOC - Dietary Evaluation Malnutrition Findings (Please click <Entered> for more info): Nutritional Asmnt/Malnutrition Start: 11/24/17 13: 37 Text: Status: Complete Freq: Document 11/24/17 13:37 LCMALENA (Rec: 11/24/17 13:42 LCMALENA JEAN-FN) Nutritional Asmnt/Malnutrition Patient General Information Nutritional Screening Low Risk Diagnosis psychosis NOS Pertinent Medical Hx/Surgical Hx HTN, GERD, psychosis, chronic renal suff Subjective Information Pt seen sitting on bed eating lunch, confused. Family at bedside. Family stated pt likes beef. Observed pt was eating well.Per EMR, PO intake 100%. Current Diet Order/ Nutrition Support regular Pertinent Medications theragran, seroquel, protonix Pertinent Labs 11/19 POC 106 Nutritional Hx/Data Height 1.68 m Height (Calculated Centimeters) 167.6 Current Weight (lbs) 72.892 kg Weight (Calculated Kilograms) 72.9 Weight (Calculated Grams) 04642.3 [place] Body Weight 142 Body Mass Index (BMI) 25.9 Weight Status Overweight GI Symptoms GI Symptoms None Last BM 11/21 Difficult in: None Skin Integrity/Comment: intact Current %PO Good (75-100%) Estimated Nutritional Goals Calories/Kcals/Kg 28-30 based on IBW 65kg Kcals Calculated 3190-2660 Protein g/k-1.1 Protein Calculated 65-72 Fluid: ml 1625-1950ml (1ml/kcal) Nutritional Problem No current Nutrition Prob Problem N/A Malnutrition Alert Protein-Calorie Malnutrition N/A Is there a minimum of two criteria No selected? Query Text:Check all the applicable criteria. A minimum of two criteria are recommended for diagnosis of either severe or non-severe malnutrition. Intervention/Recommendation Comments 1. Continue with regular diet as ordered. 2. Monitor PO intake, wt, labs and skin integrity 3. F/U as low risk in 7 days, 12/01 Expected Outcomes/Goals Expected Outcomes/Goals 1. PO intake to meet at least 75% of nutritional needs. 2. Wt stability, skin to remain intact, labs WNL.
[2017-11-28] MEDS: Pantoprazole 40 mg EC Tab PO SCH (10:00)
[2017-11-28] MEDS: Multivitamin Tab PO SCH (10:00)
[2017-11-28] MEDS: Escitalopram Oxalate 5 mg Tab PO SCH (10:00)
--- NOTE | 2017-11-28 10:05 | Progress Notes ---
DATE: 11/27/2017 SUBJECTIVE: The patient was seen and evaluated. The patient's chart reviewed. Covering for Dr. Hanna. Today on [id number] evaluation, the patient is in his room, he is eating breakfast. Upon approach, becomes very irritable interrupted with his meal and gets very angry and asks his medical doctor and a later time when asked to come and interview again, still continues to be easily irritable. MENTAL STATUS EXAMINATION: Irritable, disengaged, and withdrawn. Poor insight, judgment and impulse control. ASSESSMENT AND PLAN: The patient continues to be symptomatic, agitated, tolerating the recent increase of Seroquel to mg a day and also the Lexapro without complications or side effects of medications. We will continue with the current medication regimen reaching a steady state to target the patient residual state. JOB# [id number]
--- NOTE | 2017-11-28 20:52 | Progress Notes ---
DATE: 11/28/2017 SUBJECTIVE: The patient seen, chart reviewed, discussed with staff. The patient is very paranoid, delusional, "stay away, stay away, stay away," yelling, unruly, not at baseline. Brother still comes to visit. Staff concerned due to his paranoid behaviors. ASSESSMENT: The patient remains psychotic, irritable, not at baseline. PLAN: We will continue to monitor, increase Seroquel today. I will be increasing his nighttime dosing of Seroquel. JOB# [id number]
--- NOTE | 2017-11-29 08:32 | General Progress Note ---
Subjective - Review of Systems Service Date: 11/29/17 Subjective: awake, but confused. no acute distress. VS T98.0 P69 R20 BP 125/74 Objective - Results Result Diagrams: 11/25/17 08:12 11/25/17 09:03 Recent Labs: Laboratory Last Values WBC 10.8 Th/cmm (4.8-10.8) 11/25/17 08:12 RBC 4.88 Mil/cmm (4.30-5.70) 11/25/17 08:12 Hgb 14.7 gm/dL (12-16) 11/25/17 08:12 Hct 44.1 % (41.0-60) 11/25/17 08:12 MCV 90.4 fl (80-99) 11/25/17 08:12 MCH 30.2 pg (26.0-30.0) H 11/25/17 08:12 MCHC Differential 33.4 pg (28.0-36.0) 11/25/17 08:12 RDW 13.2 % (11.5-20.0) 11/25/17 08:12 Plt Count 307 Th/cmm (150-400) 11/25/17 08:12 MPV 7.2 fl 11/25/17 08:12 Neutrophils % 72.2 % (40.0-80.0) 11/25/17 08:12 Lymphocytes % 17.9 % (20.0-50.0) L 11/25/17 08:12 Monocytes % 8.6 % (2.0-10.0) 11/25/17 08:12 Eosinophils % 1.3 % (0.0-5.0) 11/25/17 08:12 Basophils % 0.0 % (0.0-2.0) 11/25/17 08:12 Sodium 145 mEq/L (136-145) 11/25/17 09:03 Potassium 3.4 mEq/L (3.5-5.1) L 11/25/17 09:03 Chloride 111 mEq/L (98-107) H 11/25/17 09:03 Carbon Dioxide 24.2 mEq/L (21.0-31.0) 11/25/17 09:03 Anion Gap 13.2 (7.0-16.0) 11/25/17 09:03 BUN 25 mg/dL (7-25) 11/25/17 09:03 Creatinine 0.9 mg/dL (0.7-1.3) 11/25/17 09:03 Est GFR ( Amer) > 60.0 ml/min (>90) 11/25/17 09:03 Est GFR (Non-Af Amer) > 60.0 ml/min 11/25/17 09:03 BUN/Creatinine Ratio 27.8 11/25/17 09:03 Glucose 155 mg/dL (70-105) H 11/25/17 09:03 POC Glucose 106 MG/DL (70 - 105) H 11/19/17 17:20 Calcium 9.6 mg/dL (8.6-10.3) 11/25/17 09:03 - Physical Exam Vitals and I&O: Vital Signs Temp 98 F 11/29/17 06:42 Pulse 69 11/29/17 06:42 Resp 20 11/29/17 06:42 BP 125/74 11/29/17 06:42 Pulse Ox 94 11/29/17 06:42 Intake & Output 11/28/17 11/29/17 11/29/17 18:59 06:59 18:59 Intake Total 800 240 Output Total 1 Balance 800 239 Intake: Oral 800 240 Output: Stool 1 Other: # Voids 4 3 # Bowel Movements 1 1 Stool Characteristics Soft Active Medications: Current Medications Acetaminophen (Tylenol) 650 mg PO Q4HR PRN PRN Reason: Mild Pain / Temp above 100 Stop: 01/18/18 15:16 Al Hydrox/Mg Hydrox/Simethicone (Maalox) 30 ml PO Q4HR PRN PRN Reason: GI DISTRESS Stop: 01/18/18 15:16 Atenolol (Tenormin) 25 mg PO DAILY [facility] Stop: 01/19/18 08:59 Last Admin: 11/28/17 10:00 Dose: 25 mg Escitalopram Oxalate (Lexapro) 10 mg PO DAILY [facility] Stop: 01/28/18 08:59 Magnesium Hydroxide (Milk Of Magnesia) 30 ml PO HS PRN PRN Reason: Constipation Multivitamins/Vitamin C (Theragran) 1 tab PO DAILY [facility] Stop: 01/19/18 08:59 Last Admin: 11/28/17 10:00 Dose: 1 tab Pantoprazole Sodium (Protonix) 40 mg PO DAILY [facility] Stop: 01/19/18 08:59 Last Admin: 11/28/17 10:00 Dose: 40 mg Quetiapine Fumarate (Seroquel) 12.5 mg PO BID [facility] PRN Reason: Protocol Stop: 01/20/18 16:59 Last Admin: 11/28/17 17:17 Dose: 12.5 mg Quetiapine Fumarate (Seroquel Xr) 200 mg PO HS [facility] Stop: 01/27/18 20:59 Last Admin: 11/28/17 21:00 Dose: 200 mg General: Alert HEENT: Atraumatic, PERRLA, EOMI Neck: Supple Cardiovascular: Regular rate, Normal S1, Normal S2 Lungs: Clear to auscultation Abdomen: Bowel sounds, Soft Extremities: no Clubbing, no Cyanosis, no Edema Neurological: Normal gait, Normal speech - Procedures Procedures: Procedures Procedure Code Date BLOOD TRANSFUSION SERVICE 88790 06/05/03 COLONOSCOPY W/LESION REMOVAL 66954 06/05/03 EGD BIOPSY SINGLE/MULTIPLE 96283 06/05/03 EGD DIAGNOSTIC BRUSH WASH 24637 08/09/00 ENDOSC POLYPECTOMY OF LG INTEST 45.42 06/05/03 ESOPHAGOGASTRODUODENOSCOPY [EGD] W/CLOSED BIOPSY 45.16 06/05/03 OTHER ENDOSCOPY OF SM INTEST 45.13 08/09/00 PACKED CELL TRANSFUSION 99.04 06/05/03 Assessment/Plan - Assessment Assessment: psychosis 5150 hold hypertension gerd chronic renal insufficiency - Plan Plan: admit to [facility] continue current treatment. Nutritional Asmnt/Malnutr-PDOC - Dietary Evaluation Malnutrition Findings (Please click <Entered> for more info): Nutritional Asmnt/Malnutrition Start: 11/24/17 13: 37 Text: Status: Complete Freq: Document 11/24/17 13:37 LCHENG (Rec: 11/24/17 13:42 [email or web address] [email or web address]) Nutritional Asmnt/Malnutrition Patient General Information Nutritional Screening Low Risk Diagnosis psychosis NOS Pertinent Medical Hx/Surgical Hx HTN, GERD, psychosis, chronic renal suff Subjective Information Pt seen sitting on bed eating lunch, confused. Family at bedside. Family stated pt likes beef. Observed pt was eating well.Per EMR, PO intake 100%. Current Diet Order/ Nutrition Support regular Pertinent Medications theragran, seroquel, protonix Pertinent Labs 11/19 POC 106 Nutritional Hx/Data Height 1.68 m Height (Calculated Centimeters) 167.6 Current Weight (lbs) 72.892 kg Weight (Calculated Kilograms) 72.9 Weight (Calculated Grams) 75233.3 [place] Body Weight 142 Body Mass Index (BMI) 25.9 Weight Status Overweight GI Symptoms GI Symptoms None Last BM 11/21 Difficult in: None Skin Integrity/Comment: intact Current %PO Good (75-100%) Estimated Nutritional Goals Calories/Kcals/Kg 28-30 based on IBW 65kg Kcals Calculated 5526-4029 Protein g/k-1.1 Protein Calculated 65-72 Fluid: ml 1625-1950ml (1ml/kcal) Nutritional Problem No current Nutrition Prob Problem N/A Malnutrition Alert Protein-Calorie Malnutrition N/A Is there a minimum of two criteria No selected? Query Text:Check all the applicable criteria. A minimum of two criteria are recommended for diagnosis of either severe or non-severe malnutrition. Intervention/Recommendation Comments 1. Continue with regular diet as ordered. 2. Monitor PO intake, wt, labs and skin integrity 3. F/U as low risk in 7 days, 12/01 Expected Outcomes/Goals Expected Outcomes/Goals 1. PO intake to meet at least 75% of nutritional needs. 2. Wt stability, skin to remain intact, labs WNL.
[2017-11-29] MEDS: Pantoprazole 40 mg EC Tab PO SCH (09:21)
[2017-11-29] MEDS: Multivitamin Tab PO SCH (09:21)
--- NOTE | 2017-11-29 17:45 | Progress Notes ---
DATE: 11/29/2017 SUBJECTIVE: The patient is currently in the hospital, calmer today. I did adjust his medications. He is more amenable to interview, pretty impoverished in regards to his thought process, not saying much, just saying "okay." The patient seems less psychotic today. Less suspicious. Yesterday, he was telling me to clinical stay away, stay away, stay away, and was highly scared and anxious. He remains pretty reclusive, also isolative. ASSESSMENT: The patient is still with residual psychotic symptoms, highly impulsive, and unpredictable. I did increase the Seroquel yesterday, seems to be tolerating this increase well without any overt side effects. PLAN: We will be monitoring and we will continue treatment and will continue to adjust and titrate medications. JOB# [id number]
--- NOTE | 2017-11-30 08:23 | General Progress Note ---
Subjective - Review of Systems Service Date: 11/30/17 Events since last encounter: Awake but confused VS T97.6 P85 R20 BP 125/76 Subjective: awake, but confused. no acute distress. VS T98.0 P69 R20 BP 125/74 Objective - Results Result Diagrams: 11/25/17 08:12 11/25/17 09:03 Recent Labs: Laboratory Last Values WBC 10.8 Th/cmm (4.8-10.8) 11/25/17 08:12 RBC 4.88 Mil/cmm (4.30-5.70) 11/25/17 08:12 Hgb 14.7 gm/dL (12-16) 11/25/17 08:12 Hct 44.1 % (41.0-60) 11/25/17 08:12 MCV 90.4 fl (80-99) 11/25/17 08:12 MCH 30.2 pg (26.0-30.0) H 11/25/17 08:12 MCHC Differential 33.4 pg (28.0-36.0) 11/25/17 08:12 RDW 13.2 % (11.5-20.0) 11/25/17 08:12 Plt Count 307 Th/cmm (150-400) 11/25/17 08:12 MPV 7.2 fl 11/25/17 08:12 Neutrophils % 72.2 % (40.0-80.0) 11/25/17 08:12 Lymphocytes % 17.9 % (20.0-50.0) L 11/25/17 08:12 Monocytes % 8.6 % (2.0-10.0) 11/25/17 08:12 Eosinophils % 1.3 % (0.0-5.0) 11/25/17 08:12 Basophils % 0.0 % (0.0-2.0) 11/25/17 08:12 Sodium 145 mEq/L (136-145) 11/25/17 09:03 Potassium 3.4 mEq/L (3.5-5.1) L 11/25/17 09:03 Chloride 111 mEq/L (98-107) H 11/25/17 09:03 Carbon Dioxide 24.2 mEq/L (21.0-31.0) 11/25/17 09:03 Anion Gap 13.2 (7.0-16.0) 11/25/17 09:03 BUN 25 mg/dL (7-25) 11/25/17 09:03 Creatinine 0.9 mg/dL (0.7-1.3) 11/25/17 09:03 Est GFR ( Amer) > 60.0 ml/min (>90) 11/25/17 09:03 Est GFR (Non-Af Amer) > 60.0 ml/min 11/25/17 09:03 BUN/Creatinine Ratio 27.8 11/25/17 09:03 Glucose 155 mg/dL (70-105) H 11/25/17 09:03 POC Glucose 106 MG/DL (70 - 105) H 11/19/17 17:20 Calcium 9.6 mg/dL (8.6-10.3) 11/25/17 09:03 - Physical Exam Vitals and I&O: Vital Signs Temp 97.6 F 11/30/17 06:32 Pulse 85 11/30/17 06:32 Resp 20 11/30/17 06:32 BP 125/76 11/30/17 06:32 Pulse Ox 95 11/30/17 06:32 Intake & Output 11/29/17 11/30/17 11/30/17 18:59 06:59 18:59 Intake Total 900 300 Balance 900 300 Intake: Oral 900 300 Other: # Voids 4 2 # Bowel Movements 1 1 Active Medications: Current Medications Acetaminophen (Tylenol) 650 mg PO Q4HR PRN PRN Reason: Mild Pain / Temp above 100 Stop: 01/18/18 15:16 Al Hydrox/Mg Hydrox/Simethicone (Maalox) 30 ml PO Q4HR PRN PRN Reason: GI DISTRESS Stop: 01/18/18 15:16 Atenolol (Tenormin) 25 mg PO DAILY [facility] Stop: 01/19/18 08:59 Last Admin: 11/29/17 09:21 Dose: 25 mg Escitalopram Oxalate (Lexapro) 10 mg PO DAILY [facility] Stop: 01/28/18 08:59 Last Admin: 11/29/17 09:22 Dose: 10 mg Magnesium Hydroxide (Milk Of Magnesia) 30 ml PO HS PRN PRN Reason: Constipation Multivitamins/Vitamin C (Theragran) 1 tab PO DAILY [facility] Stop: 01/19/18 08:59 Last Admin: 11/29/17 09:21 Dose: 1 tab Pantoprazole Sodium (Protonix) 40 mg PO DAILY [facility] Stop: 01/19/18 08:59 Last Admin: 11/29/17 09:21 Dose: 40 mg Quetiapine Fumarate (Seroquel) 12.5 mg PO BID [facility] PRN Reason: Protocol Stop: 01/20/18 16:59 Last Admin: 11/29/17 17:21 Dose: 12.5 mg Quetiapine Fumarate (Seroquel Xr) 200 mg PO HS [facility] Stop: 01/27/18 20:59 Last Admin: 11/29/17 21:21 Dose: 200 mg General: Alert HEENT: Atraumatic, PERRLA, EOMI Neck: Supple Cardiovascular: Regular rate, Normal S1, Normal S2 Lungs: Clear to auscultation Abdomen: Bowel sounds, Soft Extremities: no Clubbing, no Cyanosis, no Edema Neurological: Normal gait, Normal speech - Procedures Procedures: Procedures Procedure Code Date BLOOD TRANSFUSION SERVICE 03865 06/05/03 COLONOSCOPY W/LESION REMOVAL 10084 06/05/03 EGD BIOPSY SINGLE/MULTIPLE 98689 06/05/03 EGD DIAGNOSTIC BRUSH WASH 04529 08/09/00 ENDOSC POLYPECTOMY OF LG INTEST 45.42 06/05/03 ESOPHAGOGASTRODUODENOSCOPY [EGD] W/CLOSED BIOPSY 45.16 06/05/03 OTHER ENDOSCOPY OF SM INTEST 45.13 08/09/00 PACKED CELL TRANSFUSION 99.04 06/05/03 Assessment/Plan - Assessment Assessment: psychosis 5150 hold hypertension gerd chronic renal insufficiency hypokalemia - Plan [facility]: [facility]. repeat bmp, to check K+ level Nutritional Asmnt/Malnutr-PDOC - Dietary Evaluation Malnutrition Findings (Please click <Entered> for more info): Nutritional Asmnt/Malnutrition Start: 11/24/17 13: 37 Text: Status: Complete Freq: Document 11/24/17 13:37 LCJUANISG (Rec: 11/24/17 13:42 [email or web address] [email or web address]) Nutritional Asmnt/Malnutrition Patient General Information Nutritional Screening Low Risk Diagnosis psychosis NOS Pertinent Medical Hx/Surgical Hx HTN, GERD, psychosis, chronic renal suff Subjective Information Pt seen sitting on bed eating lunch, confused. Family at bedside. Family stated pt likes beef. Observed pt was eating well.Per EMR, PO intake 100%. Current Diet Order/ Nutrition Support regular Pertinent Medications theragran, seroquel, protonix Pertinent Labs 11/19 POC 106 Nutritional Hx/Data Height 1.68 m Height (Calculated Centimeters) 167.6 Current Weight (lbs) 72.892 kg Weight (Calculated Kilograms) 72.9 Weight (Calculated Grams) 14735.3 [place] Body Weight 142 Body Mass Index (BMI) 25.9 Weight Status Overweight GI Symptoms GI Symptoms None Last BM 11/21 Difficult in: None Skin Integrity/Comment: intact Current %PO Good (75-100%) Estimated Nutritional Goals Calories/Kcals/Kg 28-30 based on IBW 65kg Kcals Calculated 2746-2556 Protein g/k-1.1 Protein Calculated 65-72 Fluid: ml 1625-1950ml (1ml/kcal) Nutritional Problem No current Nutrition Prob Problem N/A Malnutrition Alert Protein-Calorie Malnutrition N/A Is there a minimum of two criteria No selected? Query Text:Check all the applicable criteria. A minimum of two criteria are recommended for diagnosis of either severe or non-severe malnutrition. Intervention/Recommendation Comments 1. Continue with regular diet as ordered. 2. Monitor PO intake, wt, labs and skin integrity 3. F/U as low risk in 7 days, 12/01 Expected Outcomes/Goals Expected Outcomes/Goals 1. PO intake to meet at least 75% of nutritional needs. 2. Wt stability, skin to remain intact, labs WNL.
[2017-11-30] MEDS: Pantoprazole 40 mg EC Tab PO SCH (08:57)
[2017-11-30] MEDS: Multivitamin Tab PO SCH (08:57)
--- NOTE | 2017-11-30 18:01 | Progress Notes ---
DATE: 11/30/2017 The patient in the hospital, suicidal, yelling, screaming, brought in by police. On [id number] noted to be somewhat calmer, more cooperative, seems to be awake and engaged on exam. Not saying much today, just saying "okay." Brother at bedside, noting that his brother has been saying that he is more depressed as of late, but approaching his baseline, calmer, more cooperative. Brother noting that this patient had been on a higher dose of Seroquel previously. The patient no longer psychotic or paranoid. ASSESSMENT: The patient seems more cooperative, approaching his baseline, but complaining of some depression. Medications were reviewed. PLAN: Increase Seroquel today. I did speak with brother today. JOB# [id number]
[2017-11-30] MEDS: QUETIAPINE FUMARATE PO SCH (20:54)
--- NOTE | 2017-12-01 08:03 | General Progress Note ---
Subjective - Review of Systems Service Date: 12/01/17 Subjective: awake, but confused. no acute distress. VS T97.0 P79 R19 BP 129/74 Objective - Results Result Diagrams: 11/25/17 08:12 11/25/17 09:03 Recent Labs: Laboratory Last Values WBC 10.8 Th/cmm (4.8-10.8) 11/25/17 08:12 RBC 4.88 Mil/cmm (4.30-5.70) 11/25/17 08:12 Hgb 14.7 gm/dL (12-16) 11/25/17 08:12 Hct 44.1 % (41.0-60) 11/25/17 08:12 MCV 90.4 fl (80-99) 11/25/17 08:12 MCH 30.2 pg (26.0-30.0) H 11/25/17 08:12 MCHC Differential 33.4 pg (28.0-36.0) 11/25/17 08:12 RDW 13.2 % (11.5-20.0) 11/25/17 08:12 Plt Count 307 Th/cmm (150-400) 11/25/17 08:12 MPV 7.2 fl 11/25/17 08:12 Neutrophils % 72.2 % (40.0-80.0) 11/25/17 08:12 Lymphocytes % 17.9 % (20.0-50.0) L 11/25/17 08:12 Monocytes % 8.6 % (2.0-10.0) 11/25/17 08:12 Eosinophils % 1.3 % (0.0-5.0) 11/25/17 08:12 Basophils % 0.0 % (0.0-2.0) 11/25/17 08:12 Sodium 145 mEq/L (136-145) 11/25/17 09:03 Potassium 3.4 mEq/L (3.5-5.1) L 11/25/17 09:03 Chloride 111 mEq/L (98-107) H 11/25/17 09:03 Carbon Dioxide 24.2 mEq/L (21.0-31.0) 11/25/17 09:03 Anion Gap 13.2 (7.0-16.0) 11/25/17 09:03 BUN 25 mg/dL (7-25) 11/25/17 09:03 Creatinine 0.9 mg/dL (0.7-1.3) 11/25/17 09:03 Est GFR ( Amer) > 60.0 ml/min (>90) 11/25/17 09:03 Est GFR (Non-Af Amer) > 60.0 ml/min 11/25/17 09:03 BUN/Creatinine Ratio 27.8 11/25/17 09:03 Glucose 155 mg/dL (70-105) H 11/25/17 09:03 POC Glucose 106 MG/DL (70 - 105) H 11/19/17 17:20 Calcium 9.6 mg/dL (8.6-10.3) 11/25/17 09:03 - Physical Exam Vitals and I&O: Vital Signs Temp 97 F 12/01/17 06:31 Pulse 79 12/01/17 06:31 Resp 19 12/01/17 06:31 BP 129/74 12/01/17 06:31 Pulse Ox 97 12/01/17 06:31 Intake & Output 11/30/17 12/01/17 12/01/17 18:59 06:59 18:59 Intake Total 1420 120 Balance 1420 120 Intake: Oral 1420 120 Other: # Voids 3 3 Active Medications: Current Medications Acetaminophen (Tylenol) 650 mg PO Q4HR PRN PRN Reason: Mild Pain / Temp above 100 Stop: 01/18/18 15:16 Al Hydrox/Mg Hydrox/Simethicone (Maalox) 30 ml PO Q4HR PRN PRN Reason: GI DISTRESS Stop: 01/18/18 15:16 Atenolol (Tenormin) 25 mg PO DAILY [facility] Stop: 01/19/18 08:59 Last Admin: 11/30/17 08:57 Dose: 25 mg Escitalopram Oxalate (Lexapro) 10 mg PO DAILY [facility] Stop: 01/28/18 08:59 Last Admin: 11/30/17 08:57 Dose: 10 mg Magnesium Hydroxide (Milk Of Magnesia) 30 ml PO HS PRN PRN Reason: Constipation Multivitamins/Vitamin C (Theragran) 1 tab PO DAILY [facility] Stop: 01/19/18 08:59 Last Admin: 11/30/17 08:57 Dose: 1 tab Pantoprazole Sodium (Protonix) 40 mg PO DAILY [facility] Stop: 01/19/18 08:59 Last Admin: 11/30/17 08:57 Dose: 40 mg Quetiapine Fumarate (Seroquel) 12.5 mg PO BID [facility] PRN Reason: Protocol Stop: 01/20/18 16:59 Last Admin: 11/30/17 16:17 Dose: 12.5 mg Quetiapine Fumarate 200 mg/ (Quetiapine Fumarate 50 mg) 250 mg PO HS [facility] Stop: 01/29/18 20:59 Last Admin: 11/30/17 20:54 Dose: Not Given General: Alert HEENT: Atraumatic, PERRLA, EOMI Neck: Supple Cardiovascular: Regular rate, Normal S1, Normal S2 Lungs: Clear to auscultation Abdomen: Bowel sounds, Soft Extremities: no Clubbing, no Cyanosis, no Edema Neurological: Normal gait, Normal speech - Procedures Procedures: Procedures Procedure Code Date BLOOD TRANSFUSION SERVICE 30303 06/05/03 COLONOSCOPY W/LESION REMOVAL 78388 06/05/03 EGD BIOPSY SINGLE/MULTIPLE 95429 06/05/03 EGD DIAGNOSTIC BRUSH WASH 02923 08/09/00 ENDOSC POLYPECTOMY OF LG INTEST 45.42 06/05/03 ESOPHAGOGASTRODUODENOSCOPY [EGD] W/CLOSED BIOPSY 45.16 06/05/03 OTHER ENDOSCOPY OF SM INTEST 45.13 08/09/00 PACKED CELL TRANSFUSION 99.04 06/05/03 Assessment/Plan - Assessment Assessment: psychosis 5150 hold hypertension gerd chronic renal insufficiency hypokalemia - Plan Plan: admit to [facility] continue current treatment. repeat bmp, to check K+ level Nutritional Asmnt/Malnutr-PDOC - Dietary Evaluation Malnutrition Findings (Please click <Entered> for more info): Nutritional Asmnt/Malnutrition Start: 11/24/17 13: 37 Text: Status: Complete Freq: Document 11/24/17 13:37 MAUREEN (Rec: 11/24/17 13:42 MAUREEN [email or web address]-[email or web address]) Nutritional Asmnt/Malnutrition Patient General Information Nutritional Screening Low Risk Diagnosis psychosis NOS Pertinent Medical Hx/Surgical Hx HTN, GERD, psychosis, chronic renal suff Subjective Information Pt seen sitting on bed eating lunch, confused. Family at bedside. Family stated pt likes beef. Observed pt was eating well.Per EMR, PO intake 100%. Current Diet Order/ Nutrition Support regular Pertinent Medications theragran, seroquel, protonix Pertinent Labs 11/19 POC 106 Nutritional Hx/Data Height 1.68 m Height (Calculated Centimeters) 167.6 Current Weight (lbs) 72.892 kg Weight (Calculated Kilograms) 72.9 Weight (Calculated Grams) 87615.3 [place] Body Weight 142 Body Mass Index (BMI) 25.9 Weight Status Overweight GI Symptoms GI Symptoms None Last BM 11/21 Difficult in: None Skin Integrity/Comment: intact Current %PO Good (75-100%) Estimated Nutritional Goals Calories/Kcals/Kg 28-30 based on IBW 65kg Kcals Calculated 3971-1384 Protein g/k-1.1 Protein Calculated 65-72 Fluid: ml 1625-1950ml (1ml/kcal) Nutritional Problem No current Nutrition Prob Problem N/A Malnutrition Alert Protein-Calorie Malnutrition N/A Is there a minimum of two criteria No selected? Query Text:Check all the applicable criteria. A minimum of two criteria are recommended for diagnosis of either severe or non-severe malnutrition. Intervention/Recommendation Comments 1. Continue with regular diet as ordered. 2. Monitor PO intake, wt, labs and skin integrity 3. F/U as low risk in 7 days, 12/01 Expected Outcomes/Goals Expected Outcomes/Goals 1. PO intake to meet at least 75% of nutritional needs. 2. Wt stability, skin to remain intact, labs WNL.
[2017-12-01] MEDS: Pantoprazole 40 mg EC Tab PO SCH (08:12)
[2017-12-01] MEDS: Multivitamin Tab PO SCH (08:13)
[2017-12-01] MEDS ORDERED: Haloperidol Lactate 5 mg/mL 1mL Vial IM ONE (09:17)
[2017-12-01] MEDS ORDERED: Haloperidol Lactate 5 mg/mL 1mL Vial ONE (09:18)
--- NOTE | 2017-12-01 20:36 | Progress Notes ---
DATE: 12/01/2017 The patient is currently in the hospital, paranoid, refused medicine yesterday. He seems very sensitive to medication and if he does not take it he gets really paranoid and when he does take it, he does much better. The patient unruly, agitated, not at his baseline, highly psychotic. When I come in the room he states "no, no, no," "go, go, go." Medications were noted. ASSESSMENT: The patient has poor med compliance, last night unruly and highly paranoid. PLAN: We will continue to monitor. Given recent dose increase of Seroquel, we will continue at current dose. I did encourage better medication compliance and spoke with staff. JOB# [id number]
[2017-12-01] MEDS: QUETIAPINE FUMARATE PO SCH (21:23)
--- NOTE | 2017-12-02 07:55 | General Progress Note ---
Subjective - Review of Systems Service Date: 12/02/17 Subjective: awake, but confused. no acute distress. VS T97.0 P79 R19 BP 129/74 Objective - Results Result Diagrams: 11/25/17 08:12 11/25/17 09:03 Recent Labs: Laboratory Last Values WBC 10.8 Th/cmm (4.8-10.8) 11/25/17 08:12 RBC 4.88 Mil/cmm (4.30-5.70) 11/25/17 08:12 Hgb 14.7 gm/dL (12-16) 11/25/17 08:12 Hct 44.1 % (41.0-60) 11/25/17 08:12 MCV 90.4 fl (80-99) 11/25/17 08:12 MCH 30.2 pg (26.0-30.0) H 11/25/17 08:12 MCHC Differential 33.4 pg (28.0-36.0) 11/25/17 08:12 RDW 13.2 % (11.5-20.0) 11/25/17 08:12 Plt Count 307 Th/cmm (150-400) 11/25/17 08:12 MPV 7.2 fl 11/25/17 08:12 Neutrophils % 72.2 % (40.0-80.0) 11/25/17 08:12 Lymphocytes % 17.9 % (20.0-50.0) L 11/25/17 08:12 Monocytes % 8.6 % (2.0-10.0) 11/25/17 08:12 Eosinophils % 1.3 % (0.0-5.0) 11/25/17 08:12 Basophils % 0.0 % (0.0-2.0) 11/25/17 08:12 Sodium 145 mEq/L (136-145) 11/25/17 09:03 Potassium 3.4 mEq/L (3.5-5.1) L 11/25/17 09:03 Chloride 111 mEq/L (98-107) H 11/25/17 09:03 Carbon Dioxide 24.2 mEq/L (21.0-31.0) 11/25/17 09:03 Anion Gap 13.2 (7.0-16.0) 11/25/17 09:03 BUN 25 mg/dL (7-25) 11/25/17 09:03 Creatinine 0.9 mg/dL (0.7-1.3) 11/25/17 09:03 Est GFR ( Amer) > 60.0 ml/min (>90) 11/25/17 09:03 Est GFR (Non-Af Amer) > 60.0 ml/min 11/25/17 09:03 BUN/Creatinine Ratio 27.8 11/25/17 09:03 Glucose 155 mg/dL (70-105) H 11/25/17 09:03 POC Glucose 106 MG/DL (70 - 105) H 11/19/17 17:20 Calcium 9.6 mg/dL (8.6-10.3) 11/25/17 09:03 - Physical Exam Vitals and I&O: Vital Signs Temp 97.8 F 12/02/17 06:51 Pulse 98 12/02/17 06:51 Resp 19 12/02/17 06:51 BP 115/73 12/02/17 06:51 Pulse Ox 98 12/02/17 06:51 Intake & Output 12/01/17 12/02/17 12/02/17 18:59 06:59 18:59 Intake Total 1200 240 Balance 1200 240 Intake: Oral 1200 240 Other: # Voids 3 2 Active Medications: Current Medications Acetaminophen (Tylenol) 650 mg PO Q4HR PRN PRN Reason: Mild Pain / Temp above 100 Stop: 01/18/18 15:16 Al Hydrox/Mg Hydrox/Simethicone (Maalox) 30 ml PO Q4HR PRN PRN Reason: GI DISTRESS Stop: 01/18/18 15:16 Atenolol (Tenormin) 25 mg PO DAILY [facility] Stop: 01/19/18 08:59 Last Admin: 12/01/17 08:13 Dose: 25 mg Escitalopram Oxalate (Lexapro) 10 mg PO DAILY [facility] Stop: 01/28/18 08:59 Last Admin: 12/01/17 08:13 Dose: 10 mg Lorazepam (Ativan) 0.5 mg PO Q6HR PRN; Protocol PRN Reason: Agitation Stop: 01/30/18 09:13 Magnesium Hydroxide (Milk Of Magnesia) 30 ml PO HS PRN PRN Reason: Constipation Multivitamins/Vitamin C (Theragran) 1 tab PO DAILY [facility] Stop: 01/19/18 08:59 Last Admin: 12/01/17 08:13 Dose: 1 tab Pantoprazole Sodium (Protonix) 40 mg PO DAILY [facility] Stop: 01/19/18 08:59 Last Admin: 12/01/17 08:12 Dose: 40 mg Quetiapine Fumarate (Seroquel) 12.5 mg PO BID [facility] PRN Reason: Protocol Stop: 01/20/18 16:59 Last Admin: 12/01/17 17:25 Dose: 12.5 mg Quetiapine Fumarate 200 mg/ (Quetiapine Fumarate 50 mg) 250 mg PO HS [facility] Stop: 01/29/18 20:59 Last Admin: 12/01/17 21:23 Dose: 250 mg General: Alert HEENT: Atraumatic, PERRLA, EOMI Neck: Supple Cardiovascular: Regular rate, Normal S1, Normal S2 Lungs: Clear to auscultation Abdomen: Bowel sounds, Soft Extremities: no Clubbing, no Cyanosis, no Edema Neurological: Normal gait, Normal speech - Procedures Procedures: Procedures Procedure Code Date BLOOD TRANSFUSION SERVICE 83148 06/05/03 COLONOSCOPY W/LESION REMOVAL 28244 06/05/03 EGD BIOPSY SINGLE/MULTIPLE 69109 06/05/03 EGD DIAGNOSTIC BRUSH WASH 33845 08/09/00 ENDOSC POLYPECTOMY OF LG INTEST 45.42 06/05/03 ESOPHAGOGASTRODUODENOSCOPY [EGD] W/CLOSED BIOPSY 45.16 06/05/03 OTHER ENDOSCOPY OF SM INTEST 45.13 08/09/00 PACKED CELL TRANSFUSION 99.04 06/05/03 Assessment/Plan - Assessment Assessment: psychosis 5150 hold hypertension gerd chronic renal insufficiency hypokalemia - Plan Plan: admit to [facility] continue current treatment. repeat bmp, to check K+ level Nutritional Asmnt/Malnutr-PDOC - Dietary Evaluation Malnutrition Findings (Please click <Entered> for more info): Nutritional Asmnt/Malnutrition Start: 11/24/17 13: 37 Text: Status: Complete Freq: Document 11/24/17 13:37 MAUREEN (Rec: 11/24/17 13:42 [email or web address]) Nutritional Asmnt/Malnutrition Patient General Information Nutritional Screening Low Risk Diagnosis psychosis NOS Pertinent Medical Hx/Surgical Hx HTN, GERD, psychosis, chronic renal suff Subjective Information Pt seen sitting on bed eating lunch, confused. Family at bedside. Family stated pt likes beef. Observed pt was eating well.Per EMR, PO intake 100%. Current Diet Order/ Nutrition Support regular Pertinent Medications theragran, seroquel, protonix Pertinent Labs 11/19 POC 106 Nutritional Hx/Data Height 1.68 m Height (Calculated Centimeters) 167.6 Current Weight (lbs) 72.892 kg Weight (Calculated Kilograms) 72.9 Weight (Calculated Grams) 58803.3 [place] Body Weight 142 Body Mass Index (BMI) 25.9 Weight Status Overweight GI Symptoms GI Symptoms None Last BM 11/21 Difficult in: None Skin Integrity/Comment: intact Current %PO Good (75-100%) Estimated Nutritional Goals Calories/Kcals/Kg 28-30 based on IBW 65kg Kcals Calculated 6730-4956 Protein g/k-1.1 Protein Calculated 65-72 Fluid: ml 1625-1950ml (1ml/kcal) Nutritional Problem No current Nutrition Prob Problem N/A Malnutrition Alert Protein-Calorie Malnutrition N/A Is there a minimum of two criteria No selected? Query Text:Check all the applicable criteria. A minimum of two criteria are recommended for diagnosis of either severe or non-severe malnutrition. Intervention/Recommendation Comments 1. Continue with regular diet as ordered. 2. Monitor PO intake, wt, labs and skin integrity 3. F/U as low risk in 7 days, 12/01 Expected Outcomes/Goals Expected Outcomes/Goals 1. PO intake to meet at least 75% of nutritional needs. 2. Wt stability, skin to remain intact, labs WNL.
[2017-12-02] MEDS: Pantoprazole 40 mg EC Tab PO SCH (09:50)
[2017-12-02] MEDS: Multivitamin Tab PO SCH (09:50)
--- NOTE | 2017-12-02 18:56 | Progress Notes ---
DATE: 12/02/2017 The patient remains unruly, highly paranoid. He seems to decompensate when he refuses medications, he refused medications today. He did take medications last night, however. The patient does not allow me to even get near him, "no, no, no, no, no, no" is what he says. The patient yelling, moaning, requiring a lot of redirection, prompting, childlike behaviors, behaviors indicative of attention seeking as well. Medications were reviewed. The patient requiring a lot of redirection as well as prompting. ASSESSMENT: The patient remains unruly, loud, yelling, screaming, not at his baseline, highly paranoid. PLAN: I will increase the Seroquel XR today at nighttime, encourage med compliance. JOB# [id number]
[2017-12-02] MEDS: QUEtiapine Fumarate ER 200 MG, QUEtiapine Fumarate ER 100 MG PO SCH (21:34)
--- NOTE | 2017-12-03 05:46 | General Progress Note ---
Subjective - Review of Systems Service Date: 12/03/17 Subjective: awake, but confused. no acute distress. VS T97.0 P79 R19 BP 129/74 Objective - Results Result Diagrams: 11/25/17 08:12 11/25/17 09:03 Recent Labs: Laboratory Last Values WBC 10.8 Th/cmm (4.8-10.8) 11/25/17 08:12 RBC 4.88 Mil/cmm (4.30-5.70) 11/25/17 08:12 Hgb 14.7 gm/dL (12-16) 11/25/17 08:12 Hct 44.1 % (41.0-60) 11/25/17 08:12 MCV 90.4 fl (80-99) 11/25/17 08:12 MCH 30.2 pg (26.0-30.0) H 11/25/17 08:12 MCHC Differential 33.4 pg (28.0-36.0) 11/25/17 08:12 RDW 13.2 % (11.5-20.0) 11/25/17 08:12 Plt Count 307 Th/cmm (150-400) 11/25/17 08:12 MPV 7.2 fl 11/25/17 08:12 Neutrophils % 72.2 % (40.0-80.0) 11/25/17 08:12 Lymphocytes % 17.9 % (20.0-50.0) L 11/25/17 08:12 Monocytes % 8.6 % (2.0-10.0) 11/25/17 08:12 Eosinophils % 1.3 % (0.0-5.0) 11/25/17 08:12 Basophils % 0.0 % (0.0-2.0) 11/25/17 08:12 Sodium 145 mEq/L (136-145) 11/25/17 09:03 Potassium 3.4 mEq/L (3.5-5.1) L 11/25/17 09:03 Chloride 111 mEq/L (98-107) H 11/25/17 09:03 Carbon Dioxide 24.2 mEq/L (21.0-31.0) 11/25/17 09:03 Anion Gap 13.2 (7.0-16.0) 11/25/17 09:03 BUN 25 mg/dL (7-25) 11/25/17 09:03 Creatinine 0.9 mg/dL (0.7-1.3) 11/25/17 09:03 Est GFR ( Amer) > 60.0 ml/min (>90) 11/25/17 09:03 Est GFR (Non-Af Amer) > 60.0 ml/min 11/25/17 09:03 BUN/Creatinine Ratio 27.8 11/25/17 09:03 Glucose 155 mg/dL (70-105) H 11/25/17 09:03 POC Glucose 106 MG/DL (70 - 105) H 11/19/17 17:20 Calcium 9.6 mg/dL (8.6-10.3) 11/25/17 09:03 - Physical Exam Vitals and I&O: Vital Signs Temp 97.8 F 12/02/17 06:51 Pulse 98 12/02/17 06:51 Resp 19 12/02/17 06:51 BP 115/73 12/02/17 06:51 Pulse Ox 98 12/02/17 06:51 Intake & Output 12/02/17 12/02/17 12/03/17 06:59 18:59 06:59 Intake Total 240 900 Balance 240 900 Intake: Oral 240 900 Other: # Voids 2 2 Active Medications: Current Medications Acetaminophen (Tylenol) 650 mg PO Q4HR PRN PRN Reason: Mild Pain / Temp above 100 Stop: 01/18/18 15:16 Al Hydrox/Mg Hydrox/Simethicone (Maalox) 30 ml PO Q4HR PRN PRN Reason: GI DISTRESS Stop: 01/18/18 15:16 Atenolol (Tenormin) 25 mg PO DAILY [facility] Stop: 01/19/18 08:59 Last Admin: 12/02/17 09:50 Dose: Not Given Escitalopram Oxalate (Lexapro) 10 mg PO DAILY [facility] Stop: 01/28/18 08:59 Last Admin: 12/02/17 09:50 Dose: Not Given Lorazepam (Ativan) 0.5 mg PO Q6HR PRN; Protocol PRN Reason: Agitation Stop: 01/30/18 09:13 Last Admin: 12/02/17 17:05 Dose: 0.5 mg Magnesium Hydroxide (Milk Of Magnesia) 30 ml PO HS PRN PRN Reason: Constipation Multivitamins/Vitamin C (Theragran) 1 tab PO DAILY [facility] Stop: 01/19/18 08:59 Last Admin: 12/02/17 09:50 Dose: Not Given Pantoprazole Sodium (Protonix) 40 mg PO DAILY [facility] Stop: 01/19/18 08:59 Last Admin: 12/02/17 09:50 Dose: Not Given Quetiapine Fumarate (Seroquel) 12.5 mg PO BID [facility] PRN Reason: Protocol Stop: 01/20/18 16:59 Last Admin: 12/02/17 17:05 Dose: 12.5 mg Quetiapine Fumarate 200 mg/ (Quetiapine Fumarate 100 mg) 300 mg PO HS [facility]PL[facility] BY [facility] Stop: 01/31/18 20:59 Last Admin: 12/02/17 21:34 Dose: 300 mg General: Alert HEENT: Atraumatic, PERRLA, EOMI Neck: Supple Cardiovascular: Regular rate, Normal S1, Normal S2 Lungs: Clear to auscultation Abdomen: Bowel sounds, Soft Extremities: no Clubbing, no Cyanosis, no Edema Neurological: Normal gait, Normal speech - Procedures Procedures: Procedures Procedure Code Date BLOOD TRANSFUSION SERVICE 40371 06/05/03 COLONOSCOPY W/LESION REMOVAL 95894 06/05/03 EGD BIOPSY SINGLE/MULTIPLE 01594 06/05/03 EGD DIAGNOSTIC BRUSH WASH 06076 08/09/00 ENDOSC POLYPECTOMY OF LG INTEST 45.42 06/05/03 ESOPHAGOGASTRODUODENOSCOPY [EGD] W/CLOSED BIOPSY 45.16 06/05/03 OTHER ENDOSCOPY OF SM INTEST 45.13 08/09/00 PACKED CELL TRANSFUSION 99.04 06/05/03 Assessment/Plan - Assessment Assessment: psychosis 5150 hold hypertension gerd chronic renal insufficiency hypokalemia - Plan Plan: [facility] continue current treatment. repeat bmp, to check K+ level Nutritional Asmnt/Malnutr-PDOC - Dietary Evaluation Malnutrition Findings (Please click <Entered> for more info): Nutritional Asmnt/Malnutrition Start: 11/24/17 13: 37 Text: Status: Complete Freq: Document 11/24/17 13:37 MAUREEN (Rec: 11/24/17 13:42 LCMALENA [email or web address]) Nutritional Asmnt/Malnutrition Patient General Information Nutritional Screening Low Risk Diagnosis psychosis NOS Pertinent Medical Hx/Surgical Hx HTN, GERD, psychosis, chronic renal suff Subjective Information Pt seen sitting on bed eating lunch, confused. Family at bedside. Family stated pt likes beef. Observed pt was eating well.Per EMR, PO intake 100%. Current Diet Order/ Nutrition Support regular Pertinent Medications theragran, seroquel, protonix Pertinent Labs 11/19 POC 106 Nutritional Hx/Data Height 1.68 m Height (Calculated Centimeters) 167.6 Current Weight (lbs) 72.892 kg Weight (Calculated Kilograms) 72.9 Weight (Calculated Grams) 83013.3 [place] Body Weight 142 Body Mass Index (BMI) 25.9 Weight Status Overweight GI Symptoms GI Symptoms None Last BM 11/21 Difficult in: None Skin Integrity/Comment: intact Current %PO Good (75-100%) Estimated Nutritional Goals Calories/Kcals/Kg 28-30 based on IBW 65kg Kcals Calculated 1182-0528 Protein g/k-1.1 Protein Calculated 65-72 Fluid: ml 1625-1950ml (1ml/kcal) Nutritional Problem No current Nutrition Prob Problem N/A Malnutrition Alert Protein-Calorie Malnutrition N/A Is there a minimum of two criteria No selected? Query Text:Check all the applicable criteria. A minimum of two criteria are recommended for diagnosis of either severe or non-severe malnutrition. Intervention/Recommendation Comments 1. Continue with regular diet as ordered. 2. Monitor PO intake, wt, labs and skin integrity 3. F/U as low risk in 7 days, 12/01 Expected Outcomes/Goals Expected Outcomes/Goals 1. PO intake to meet at least 75% of nutritional needs. 2. Wt stability, skin to remain intact, labs WNL.
[2017-12-03] MEDS: Pantoprazole 40 mg EC Tab PO SCH (08:49)
[2017-12-03] MEDS: Multivitamin Tab PO SCH (08:50)
[2017-12-03] MEDS: QUEtiapine Fumarate ER 200 MG, QUEtiapine Fumarate ER 100 MG PO SCH (21:09)
--- NOTE | 2017-12-04 01:34 | Progress Notes ---
DATE: 12/03/2017 SUBJECTIVE: The patient currently still remains highly paranoid, pointing his fingers at me, stating "go, go, go, no, no, no." The patient delusional, still yelling, screaming, highly impulsive, unpredictable, causing disruptions on the unit, attention seeking, still needing a lot of redirection and prompting, erratic and medication compliance, sometimes refuses, Seroquel for example. ASSESSMENT: The patient loud, yelling, screaming and paranoid. PLAN: We will continue to monitor. Given recent dose increase of Seroquel, will continue at current dose. Encourage medication compliance. JOB# [id number]
--- NOTE | 2017-12-04 06:40 | General Progress Note ---
Subjective - Review of Systems Service Date: 12/04/17 Subjective: awake, but confused. no acute distress. VS T97.6 P92 R19 BP 124/74 Objective - Results Result Diagrams: 11/25/17 08:12 11/25/17 09:03 Recent Labs: Laboratory Last Values WBC 10.8 Th/cmm (4.8-10.8) 11/25/17 08:12 RBC 4.88 Mil/cmm (4.30-5.70) 11/25/17 08:12 Hgb 14.7 gm/dL (12-16) 11/25/17 08:12 Hct 44.1 % (41.0-60) 11/25/17 08:12 MCV 90.4 fl (80-99) 11/25/17 08:12 MCH 30.2 pg (26.0-30.0) H 11/25/17 08:12 MCHC Differential 33.4 pg (28.0-36.0) 11/25/17 08:12 RDW 13.2 % (11.5-20.0) 11/25/17 08:12 Plt Count 307 Th/cmm (150-400) 11/25/17 08:12 MPV 7.2 fl 11/25/17 08:12 Neutrophils % 72.2 % (40.0-80.0) 11/25/17 08:12 Lymphocytes % 17.9 % (20.0-50.0) L 11/25/17 08:12 Monocytes % 8.6 % (2.0-10.0) 11/25/17 08:12 Eosinophils % 1.3 % (0.0-5.0) 11/25/17 08:12 Basophils % 0.0 % (0.0-2.0) 11/25/17 08:12 Sodium 145 mEq/L (136-145) 11/25/17 09:03 Potassium 3.4 mEq/L (3.5-5.1) L 11/25/17 09:03 Chloride 111 mEq/L (98-107) H 11/25/17 09:03 Carbon Dioxide 24.2 mEq/L (21.0-31.0) 11/25/17 09:03 Anion Gap 13.2 (7.0-16.0) 11/25/17 09:03 BUN 25 mg/dL (7-25) 11/25/17 09:03 Creatinine 0.9 mg/dL (0.7-1.3) 11/25/17 09:03 Est GFR ( Amer) > 60.0 ml/min (>90) 11/25/17 09:03 Est GFR (Non-Af Amer) > 60.0 ml/min 11/25/17 09:03 BUN/Creatinine Ratio 27.8 11/25/17 09:03 Glucose 155 mg/dL (70-105) H 11/25/17 09:03 POC Glucose 106 MG/DL (70 - 105) H 11/19/17 17:20 Calcium 9.6 mg/dL (8.6-10.3) 11/25/17 09:03 - Physical Exam Vitals and I&O: Vital Signs Temp 97.6 F 12/04/17 06:11 Pulse 92 12/04/17 06:11 Resp 19 12/04/17 06:11 BP 124/74 12/04/17 06:11 Pulse Ox 94 12/04/17 06:11 Intake & Output 12/03/17 12/03/17 12/04/17 06:59 18:59 06:59 Intake Total 900 0 Balance 900 0 Intake: Oral 900 0 Other: # Voids 2 1 Active Medications: Current Medications Acetaminophen (Tylenol) 650 mg PO Q4HR PRN PRN Reason: Mild Pain / Temp above 100 Stop: 01/18/18 15:16 Last Admin: 12/03/17 14:16 Dose: 650 mg Al Hydrox/Mg Hydrox/Simethicone (Maalox) 30 ml PO Q4HR PRN PRN Reason: GI DISTRESS Stop: 01/18/18 15:16 Atenolol (Tenormin) 25 mg PO DAILY [facility] Stop: 01/19/18 08:59 Last Admin: 12/03/17 08:49 Dose: 25 mg Escitalopram Oxalate (Lexapro) 10 mg PO DAILY [facility] Stop: 01/28/18 08:59 Last Admin: 12/03/17 08:49 Dose: 10 mg Lorazepam (Ativan) 0.5 mg PO Q6HR PRN; Protocol PRN Reason: Agitation Stop: 01/30/18 09:13 Last Admin: 12/02/17 17:05 Dose: 0.5 mg Magnesium Hydroxide (Milk Of Magnesia) 30 ml PO HS PRN PRN Reason: Constipation Multivitamins/Vitamin C (Theragran) 1 tab PO DAILY [facility] Stop: 01/19/18 08:59 Last Admin: 12/03/17 08:50 Dose: 1 tab Pantoprazole Sodium (Protonix) 40 mg PO DAILY [facility] Stop: 01/19/18 08:59 Last Admin: 12/03/17 08:49 Dose: 40 mg Quetiapine Fumarate (Seroquel) 12.5 mg PO BID [facility] PRN Reason: Protocol Stop: 01/20/18 16:59 Last Admin: 12/03/17 16:41 Dose: 12.5 mg Quetiapine Fumarate 200 mg/ (Quetiapine Fumarate 100 mg) 300 mg PO HS [facility] Stop: 01/31/18 20:59 Last Admin: 12/03/17 21:09 Dose: 300 mg General: Alert HEENT: Atraumatic, PERRLA, EOMI Neck: Supple Cardiovascular: Regular rate, Normal S1, Normal S2 Lungs: Clear to auscultation Abdomen: Bowel sounds, Soft Extremities: no Clubbing, no Cyanosis, no Edema Neurological: Normal gait, Normal speech - Procedures Procedures: Procedures Procedure Code Date BLOOD TRANSFUSION SERVICE 76396 06/05/03 COLONOSCOPY W/LESION REMOVAL 88183 06/05/03 EGD BIOPSY SINGLE/MULTIPLE 12906 06/05/03 EGD DIAGNOSTIC BRUSH WASH 81424 08/09/00 ENDOSC POLYPECTOMY OF LG INTEST 45.42 06/05/03 ESOPHAGOGASTRODUODENOSCOPY [EGD] W/CLOSED BIOPSY 45.16 06/05/03 OTHER ENDOSCOPY OF SM INTEST 45.13 08/09/00 PACKED CELL TRANSFUSION 99.04 06/05/03 Assessment/Plan - Assessment Assessment: psychosis 5150 hold hypertension gerd chronic renal insufficiency hypokalemia - Plan Plan: admit to [facility] continue current treatment. repeat bmp, to check K+ level Nutritional Asmnt/Malnutr-PDOC - Dietary Evaluation Malnutrition Findings (Please click <Entered> for more info): Nutritional Asmnt/Malnutrition Start: 11/24/17 13: 37 Text: Status: Complete Freq: Document 11/24/17 13:37 MAUREEN (Rec: 11/24/17 13:42 LCMALENA [email or web address]) Nutritional Asmnt/Malnutrition Patient General Information Nutritional Screening Low Risk Diagnosis psychosis NOS Pertinent Medical Hx/Surgical Hx HTN, GERD, psychosis, chronic renal suff Subjective Information Pt seen sitting on bed eating lunch, confused. Family at bedside. Family stated pt likes beef. Observed pt was eating well.Per EMR, PO intake 100%. Current Diet Order/ Nutrition Support regular Pertinent Medications theragran, seroquel, protonix Pertinent Labs 11/19 POC 106 Nutritional Hx/Data Height 1.68 m Height (Calculated Centimeters) 167.6 Current Weight (lbs) 72.892 kg Weight (Calculated Kilograms) 72.9 Weight (Calculated Grams) 85212.3 [place] Body Weight 142 Body Mass Index (BMI) 25.9 Weight Status Overweight GI Symptoms GI Symptoms None Last BM 11/21 Difficult in: None Skin Integrity/Comment: intact Current %PO Good (75-100%) Estimated Nutritional Goals Calories/Kcals/Kg 28-30 based on IBW 65kg Kcals Calculated 1603-6158 Protein g/k-1.1 Protein Calculated 65-72 Fluid: ml 1625-1950ml (1ml/kcal) Nutritional Problem No current Nutrition Prob Problem N/A Malnutrition Alert Protein-Calorie Malnutrition N/A Is there a minimum of two criteria No selected? Query Text:Check all the applicable criteria. A minimum of two criteria are recommended for diagnosis of either severe or non-severe malnutrition. Intervention/Recommendation Comments 1. Continue with regular diet as ordered. 2. Monitor PO intake, wt, labs and skin integrity 3. F/U as low risk in 7 days, 12/01 Expected Outcomes/Goals Expected Outcomes/Goals 1. PO intake to meet at least 75% of nutritional needs. 2. Wt stability, skin to remain intact, labs WNL.
[2017-12-04] MEDS: Multivitamin Tab PO SCH (08:24)
[2017-12-04] MEDS: Pantoprazole 40 mg EC Tab PO SCH (08:24)
--- NOTE | 2017-12-04 17:11 | Progress Notes ---
DATE: 12/04/2017 The patient is seen today, 12/04/2017, remains symptomatic, still with yelling episodes, paranoid, stating "go, go, go" and stating "don't hurt me, don't hurt me, don't hurt me." Brother noting he had been doing well with a somewhat higher dose of Seroquel during the daytime. The patient tolerant of treatment. No side effects. He is certainly not over sedated. He remains pretty psychotic. Eating with prompting. Sleeping with surveyor hydrographic awakenings. ASSESSMENT: The patient remains symptomatic, paranoid, believes that staff is trying to hurt him. I will be increasing his daytime dosing of Seroquel. We will continue to monitor. [facility]# [id number]
[2017-12-04] MEDS: QUEtiapine Fumarate ER 200 MG, QUEtiapine Fumarate ER 100 MG PO SCH (21:19)
--- NOTE | 2017-12-05 07:32 | General Progress Note ---
Subjective - Review of Systems Service Date: 12/05/17 Subjective: awake, but confused. no acute distress. VS T97.4 P88 R20 BP 107/72 Objective - Results Result Diagrams: 11/25/17 08:12 11/25/17 09:03 Recent Labs: Laboratory Last Values WBC 10.8 Th/cmm (4.8-10.8) 11/25/17 08:12 RBC 4.88 Mil/cmm (4.30-5.70) 11/25/17 08:12 Hgb 14.7 gm/dL (12-16) 11/25/17 08:12 Hct 44.1 % (41.0-60) 11/25/17 08:12 MCV 90.4 fl (80-99) 11/25/17 08:12 MCH 30.2 pg (26.0-30.0) H 11/25/17 08:12 MCHC Differential 33.4 pg (28.0-36.0) 11/25/17 08:12 RDW 13.2 % (11.5-20.0) 11/25/17 08:12 Plt Count 307 Th/cmm (150-400) 11/25/17 08:12 MPV 7.2 fl 11/25/17 08:12 Neutrophils % 72.2 % (40.0-80.0) 11/25/17 08:12 Lymphocytes % 17.9 % (20.0-50.0) L 11/25/17 08:12 Monocytes % 8.6 % (2.0-10.0) 11/25/17 08:12 Eosinophils % 1.3 % (0.0-5.0) 11/25/17 08:12 Basophils % 0.0 % (0.0-2.0) 11/25/17 08:12 Sodium 145 mEq/L (136-145) 11/25/17 09:03 Potassium 3.4 mEq/L (3.5-5.1) L 11/25/17 09:03 Chloride 111 mEq/L (98-107) H 11/25/17 09:03 Carbon Dioxide 24.2 mEq/L (21.0-31.0) 11/25/17 09:03 Anion Gap 13.2 (7.0-16.0) 11/25/17 09:03 BUN 25 mg/dL (7-25) 11/25/17 09:03 Creatinine 0.9 mg/dL (0.7-1.3) 11/25/17 09:03 Est GFR ( Amer) > 60.0 ml/min (>90) 11/25/17 09:03 Est GFR (Non-Af Amer) > 60.0 ml/min 11/25/17 09:03 BUN/Creatinine Ratio 27.8 11/25/17 09:03 Glucose 155 mg/dL (70-105) H 11/25/17 09:03 POC Glucose 106 MG/DL (70 - 105) H 11/19/17 17:20 Calcium 9.6 mg/dL (8.6-10.3) 11/25/17 09:03 - Physical Exam Vitals and I&O: Vital Signs Temp 97.4 F 12/05/17 06:59 Pulse 88 12/05/17 06:59 Resp 20 12/05/17 06:59 BP 107/72 12/05/17 06:59 Pulse Ox 93 12/05/17 06:59 Intake & Output 12/04/17 12/05/17 12/05/17 18:59 06:59 18:59 Intake Total 850 Balance 850 Intake: Oral 850 Other: # Voids 4 # Bowel Movements 1 Active Medications: Current Medications Acetaminophen (Tylenol) 650 mg PO Q4HR PRN PRN Reason: Mild Pain / Temp above 100 Stop: 01/18/18 15:16 Last Admin: 12/03/17 14:16 Dose: 650 mg Al Hydrox/Mg Hydrox/Simethicone (Maalox) 30 ml PO Q4HR PRN PRN Reason: GI DISTRESS Stop: 01/18/18 15:16 Atenolol (Tenormin) 25 mg PO DAILY [facility] Stop: 01/19/18 08:59 Last Admin: 12/04/17 08:25 Dose: 25 mg Escitalopram Oxalate (Lexapro) 10 mg PO DAILY [facility] Stop: 01/28/18 08:59 Last Admin: 12/04/17 08:24 Dose: 10 mg Lorazepam (Ativan) 0.5 mg PO Q6HR PRN; Protocol PRN Reason: Agitation Stop: 01/30/18 09:13 Last Admin: 12/02/17 17:05 Dose: 0.5 mg Magnesium Hydroxide (Milk Of Magnesia) 30 ml PO HS PRN PRN Reason: Constipation Multivitamins/Vitamin C (Theragran) 1 tab PO DAILY [facility] Stop: 01/19/18 08:59 Last Admin: 12/04/17 08:24 Dose: 1 tab Pantoprazole Sodium (Protonix) 40 mg PO DAILY [facility] Stop: 01/19/18 08:59 Last Admin: 12/04/17 08:24 Dose: 40 mg Quetiapine Fumarate 200 mg/ (Quetiapine Fumarate 100 mg) 300 mg PO HS [facility]CLUD[facility] Stop: 01/31/18 20:59 Last Admin: 12/04/17 21:19 Dose: 300 mg Quetiapine Fumarate (Seroquel) 25 mg PO BID [facility] PRN Reason: Protocol Stop: 02/02/18 06:40 Last Admin: 12/04/17 17:16 Dose: 25 mg General: Alert HEENT: Atraumatic, PERRLA, EOMI Neck: Supple Cardiovascular: Regular rate, Normal S1, Normal S2 Lungs: Clear to auscultation Abdomen: Bowel sounds, Soft Extremities: no Clubbing, no Cyanosis, no Edema Neurological: Normal gait, Normal speech - Procedures Procedures: Procedures Procedure Code Date BLOOD TRANSFUSION SERVICE 84727 06/05/03 COLONOSCOPY W/LESION REMOVAL 58921 06/05/03 EGD BIOPSY SINGLE/MULTIPLE 39720 06/05/03 EGD DIAGNOSTIC BRUSH WASH 96587 08/09/00 ENDOSC POLYPECTOMY OF LG INTEST 45.42 06/05/03 ESOPHAGOGASTRODUODENOSCOPY [EGD] W/CLOSED BIOPSY 45.16 06/05/03 OTHER ENDOSCOPY OF SM INTEST 45.13 08/09/00 PACKED CELL TRANSFUSION 99.04 06/05/03 Assessment/Plan - Assessment Assessment: psychosis 5150 hold hypertension gerd chronic renal insufficiency hypokalemia - Plan Plan: admit to geropsy[facility] continue current treatment. repeat bmp, to check K+ level Nutritional Asmnt/Malnutr-PDOC - Dietary Evaluation Malnutrition Findings (Please click <Entered> for more info): Nutritional Asmnt/Malnutrition Start: 11/24/17 13: 37 Text: Status: Complete Freq: Document 11/24/17 13:37 MAUREEN (Rec: 11/24/17 13:42 MAUREEN [email or web address]) Nutritional Asmnt/Malnutrition Patient General Information Nutritional Screening Low Risk Diagnosis psychosis NOS Pertinent Medical Hx/Surgical Hx HTN, GERD, psychosis, chronic renal suff Subjective Information Pt seen sitting on bed eating lunch, confused. Family at bedside. Family stated pt likes beef. Observed pt was eating well.Per EMR, PO intake 100%. Current Diet Order/ Nutrition Support regular Pertinent Medications theragran, seroquel, protonix Pertinent Labs 11/19 POC 106 Nutritional Hx/Data Height 1.68 m Height (Calculated Centimeters) 167.6 Current Weight (lbs) 72.892 kg Weight (Calculated Kilograms) 72.9 Weight (Calculated Grams) 37124.3 [place] Body Weight 142 Body Mass Index (BMI) 25.9 Weight Status Overweight GI Symptoms GI Symptoms None Last BM 11/21 Difficult in: None Skin Integrity/Comment: intact Current %PO Good (75-100%) Estimated Nutritional Goals Calories/Kcals/Kg 28-30 based on IBW 65kg Kcals Calculated 0543-9880 Protein g/k-1.1 Protein Calculated 65-72 Fluid: ml 1625-1950ml (1ml/kcal) Nutritional Problem No current Nutrition Prob Problem N/A Malnutrition Alert Protein-Calorie Malnutrition N/A Is there a minimum of two criteria No selected? Query Text:Check all the applicable criteria. A minimum of two criteria are recommended for diagnosis of either severe or non-severe malnutrition. Intervention/Recommendation Comments 1. Continue with regular diet as ordered. 2. Monitor PO intake, wt, labs and skin integrity 3. F/U as low risk in 7 days, 12/01 Expected Outcomes/Goals Expected Outcomes/Goals 1. PO intake to meet at least 75% of nutritional needs. 2. Wt stability, skin to remain intact, labs WNL.
[2017-12-05] MEDS: Pantoprazole 40 mg EC Tab PO SCH (09:07)
[2017-12-05] MEDS: Multivitamin Tab PO SCH (09:07)
--- NOTE | 2017-12-05 20:35 | Progress Notes ---
DATE: 12/05/2017 HISTORY OF PRESENT ILLNESS: A 66-year-old male likely approaching his baseline, currently on increased doses of Seroquel with good efficacy, less paranoid, less hostile, amenable to me talking to him today. He is pretty impoverished on exam, so it is a limited conversation. He is sleeping well, eating well. Still remains somewhat isolative and withdrawn. Ongoing concerns about his med compliance as he had been refusing previously, but he has been more compliant with medications. Sleeping fairly well, less moaning episodes. ASSESSMENT: The patient remains symptomatic, underlying psychosis is residual but improvement noted. Given recent dose increase of medications, we will continue at current dose. The patient is significantly calmer today. [facility]# [id number]
[2017-12-05] MEDS: QUEtiapine Fumarate ER 200 MG, QUEtiapine Fumarate ER 100 MG PO SCH (21:38)
--- NOTE | 2017-12-06 07:50 | General Progress Note ---
Subjective - Review of Systems Service Date: 12/06/17 Subjective: awake, but confused. no acute distress. VS T97.3 P80 R20 BP 112/64 Objective - Results Result Diagrams: 11/25/17 08:12 11/25/17 09:03 Recent Labs: Laboratory Last Values WBC 10.8 Th/cmm (4.8-10.8) 11/25/17 08:12 RBC 4.88 Mil/cmm (4.30-5.70) 11/25/17 08:12 Hgb 14.7 gm/dL (12-16) 11/25/17 08:12 Hct 44.1 % (41.0-60) 11/25/17 08:12 MCV 90.4 fl (80-99) 11/25/17 08:12 MCH 30.2 pg (26.0-30.0) H 11/25/17 08:12 MCHC Differential 33.4 pg (28.0-36.0) 11/25/17 08:12 RDW 13.2 % (11.5-20.0) 11/25/17 08:12 Plt Count 307 Th/cmm (150-400) 11/25/17 08:12 MPV 7.2 fl 11/25/17 08:12 Neutrophils % 72.2 % (40.0-80.0) 11/25/17 08:12 Lymphocytes % 17.9 % (20.0-50.0) L 11/25/17 08:12 Monocytes % 8.6 % (2.0-10.0) 11/25/17 08:12 Eosinophils % 1.3 % (0.0-5.0) 11/25/17 08:12 Basophils % 0.0 % (0.0-2.0) 11/25/17 08:12 Sodium 145 mEq/L (136-145) 11/25/17 09:03 Potassium 3.4 mEq/L (3.5-5.1) L 11/25/17 09:03 Chloride 111 mEq/L (98-107) H 11/25/17 09:03 Carbon Dioxide 24.2 mEq/L (21.0-31.0) 11/25/17 09:03 Anion Gap 13.2 (7.0-16.0) 11/25/17 09:03 BUN 25 mg/dL (7-25) 11/25/17 09:03 Creatinine 0.9 mg/dL (0.7-1.3) 11/25/17 09:03 Est GFR ( Amer) > 60.0 ml/min (>90) 11/25/17 09:03 Est GFR (Non-Af Amer) > 60.0 ml/min 11/25/17 09:03 BUN/Creatinine Ratio 27.8 11/25/17 09:03 Glucose 155 mg/dL (70-105) H 11/25/17 09:03 POC Glucose 106 MG/DL (70 - 105) H 11/19/17 17:20 Calcium 9.6 mg/dL (8.6-10.3) 11/25/17 09:03 - Physical Exam Vitals and I&O: Vital Signs Temp 97.3 F 12/06/17 06:14 Pulse 80 12/06/17 06:14 Resp 20 12/06/17 06:14 BP 112/64 12/06/17 06:14 Pulse Ox 94 12/06/17 06:14 Intake & Output 12/05/17 12/06/17 12/06/17 18:59 06:59 18:59 Intake Total 1200 360 Balance 1200 360 Intake: Oral 1200 360 Other: # Voids 3 2 # Bowel Movements 1 Active Medications: Current Medications Acetaminophen (Tylenol) 650 mg PO Q4HR PRN PRN Reason: Mild Pain / Temp above 100 Stop: 01/18/18 15:16 Last Admin: 12/03/17 14:16 Dose: 650 mg Al Hydrox/Mg Hydrox/Simethicone (Maalox) 30 ml PO Q4HR PRN PRN Reason: GI DISTRESS Stop: 01/18/18 15:16 Atenolol (Tenormin) 25 mg PO DAILY [facility] Stop: 01/19/18 08:59 Last Admin: 12/05/17 09:06 Dose: 25 mg Escitalopram Oxalate (Lexapro) 10 mg PO DAILY [facility] Stop: 01/28/18 08:59 Last Admin: 12/05/17 09:07 Dose: 10 mg Lorazepam (Ativan) 0.5 mg PO Q6HR PRN; Protocol PRN Reason: Agitation Stop: 01/30/18 09:13 Last Admin: 12/05/17 21:38 Dose: 0.5 mg Magnesium Hydroxide (Milk Of Magnesia) 30 ml PO HS PRN PRN Reason: Constipation Multivitamins/Vitamin C (Theragran) 1 tab PO DAILY [facility] Stop: 01/19/18 08:59 Last Admin: 12/05/17 09:07 Dose: 1 tab Pantoprazole Sodium (Protonix) 40 mg PO DAILY [facility] Stop: 01/19/18 08:59 Last Admin: 12/05/17 09:07 Dose: 40 mg Quetiapine Fumarate 200 mg/ (Quetiapine Fumarate 100 mg) 300 mg PO HS [facility] Stop: 01/31/18 20:59 Last Admin: 12/05/17 21:38 Dose: 300 mg Quetiapine Fumarate (Seroquel) 25 mg PO BID [facility] PRN Reason: Protocol Stop: 02/02/18 06:40 Last Admin: 12/05/17 17:54 Dose: 25 mg General: Alert HEENT: Atraumatic, PERRLA, EOMI Neck: Supple Cardiovascular: Regular rate, Normal S1, Normal S2 Lungs: Clear to auscultation Abdomen: Bowel sounds, Soft Extremities: no Clubbing, no Cyanosis, no Edema Neurological: Normal gait, Normal speech - Procedures Procedures: Procedures Procedure Code Date BLOOD TRANSFUSION SERVICE 41669 06/05/03 COLONOSCOPY W/LESION REMOVAL 67880 06/05/03 EGD BIOPSY SINGLE/MULTIPLE 04780 06/05/03 EGD DIAGNOSTIC BRUSH WASH 22225 08/09/00 ENDOSC POLYPECTOMY OF LG INTEST 45.42 06/05/03 ESOPHAGOGASTRODUODENOSCOPY [EGD] W/CLOSED BIOPSY 45.16 06/05/03 OTHER ENDOSCOPY OF SM INTEST 45.13 08/09/00 PACKED CELL TRANSFUSION 99.04 06/05/03 Assessment/Plan - Assessment Assessment: psychosis 5150 hold hypertension gerd chronic renal insufficiency hypokalemia - Plan Plan: admit to geropsyche continue current treatment. repeat bmp, to check K+ level Nutritional Asmnt/Malnutr-PDOC - Dietary Evaluation Malnutrition Findings (Please click <Entered> for more info): Nutritional Asmnt/Malnutrition Start: 11/24/17 13: 37 Text: Status: Complete Freq: Document 11/24/17 13:37 MAUREEN (Rec: 11/24/17 13:42 LCMALENA [email or web address]) Nutritional Asmnt/Malnutrition Patient General Information Nutritional Screening Low Risk Diagnosis psychosis NOS Pertinent Medical Hx/Surgical Hx HTN, GERD, psychosis, chronic renal suff Subjective Information Pt seen sitting on bed eating lunch, confused. Family at bedside. Family stated pt likes beef. Observed pt was eating well.Per EMR, PO intake 100%. Current Diet Order/ Nutrition Support regular Pertinent Medications theragran, seroquel, protonix Pertinent Labs 11/19 POC 106 Nutritional Hx/Data Height 1.68 m Height (Calculated Centimeters) 167.6 Current Weight (lbs) 72.892 kg Weight (Calculated Kilograms) 72.9 Weight (Calculated Grams) 39189.3 [place] Body Weight 142 Body Mass Index (BMI) 25.9 Weight Status Overweight GI Symptoms GI Symptoms None Last BM 11/21 Difficult in: None Skin Integrity/Comment: intact Current %PO Good (75-100%) Estimated Nutritional Goals Calories/Kcals/Kg 28-30 based on IBW 65kg Kcals Calculated 5394-1798 Protein g/k-1.1 Protein Calculated 65-72 Fluid: ml 1625-1950ml (1ml/kcal) Nutritional Problem No current Nutrition Prob Problem N/A Malnutrition Alert Protein-Calorie Malnutrition N/A Is there a minimum of two criteria No selected? Query Text:Check all the applicable criteria. A minimum of two criteria are recommended for diagnosis of either severe or non-severe malnutrition. Intervention/Recommendation Comments 1. Continue with regular diet as ordered. 2. Monitor PO intake, wt, labs and skin integrity 3. F/U as low risk in 7 days, 12/01 Expected Outcomes/Goals Expected Outcomes/Goals 1. PO intake to meet at least 75% of nutritional needs. 2. Wt stability, skin to remain intact, labs WNL.
[2017-12-06] MEDS: Multivitamin Tab PO SCH (09:25)
[2017-12-06] MEDS: Pantoprazole 40 mg EC Tab PO SCH (09:25)
--- NOTE | 2017-12-06 20:12 | Progress Notes ---
DATE: 12/06/2017 SUBJECTIVE: The patient seems to be approaching his baseline, but staff noting he is still banging, still resistant, still loud, still yelling at times. It is less, there has been some improvement, but these behaviors are ongoing and they are concerning. The patient certainly not as paranoid. He is more amenable to speaking with me today. He is tolerant to medications. I doubt there do not seem to be any overt side effects and the patient has been doing well as medications have been increased and he is doing well as he has been also more compliant with medications as that was a concern last week. ASSESSMENT AND PLAN: The patient remains symptomatic, still banging on the desk, and highly resistant to care and loud. We will increase Seroquel today. JOB# [id number]
--- NOTE | 2017-12-07 06:44 | General Progress Note ---
Subjective - Review of Systems Service Date: 12/07/17 Subjective: awake, but confused. no acute distress. VS T97.1 P68 R20 BP 117/65 Objective - Results Result Diagrams: 11/25/17 08:12 11/25/17 09:03 Recent Labs: Laboratory Last Values WBC 10.8 Th/cmm (4.8-10.8) 11/25/17 08:12 RBC 4.88 Mil/cmm (4.30-5.70) 11/25/17 08:12 Hgb 14.7 gm/dL (12-16) 11/25/17 08:12 Hct 44.1 % (41.0-60) 11/25/17 08:12 MCV 90.4 fl (80-99) 11/25/17 08:12 MCH 30.2 pg (26.0-30.0) H 11/25/17 08:12 MCHC Differential 33.4 pg (28.0-36.0) 11/25/17 08:12 RDW 13.2 % (11.5-20.0) 11/25/17 08:12 Plt Count 307 Th/cmm (150-400) 11/25/17 08:12 MPV 7.2 fl 11/25/17 08:12 Neutrophils % 72.2 % (40.0-80.0) 11/25/17 08:12 Lymphocytes % 17.9 % (20.0-50.0) L 11/25/17 08:12 Monocytes % 8.6 % (2.0-10.0) 11/25/17 08:12 Eosinophils % 1.3 % (0.0-5.0) 11/25/17 08:12 Basophils % 0.0 % (0.0-2.0) 11/25/17 08:12 Sodium 145 mEq/L (136-145) 11/25/17 09:03 Potassium 3.4 mEq/L (3.5-5.1) L 11/25/17 09:03 Chloride 111 mEq/L (98-107) H 11/25/17 09:03 Carbon Dioxide 24.2 mEq/L (21.0-31.0) 11/25/17 09:03 Anion Gap 13.2 (7.0-16.0) 11/25/17 09:03 BUN 25 mg/dL (7-25) 11/25/17 09:03 Creatinine 0.9 mg/dL (0.7-1.3) 11/25/17 09:03 Est GFR ( Amer) > 60.0 ml/min (>90) 11/25/17 09:03 Est GFR (Non-Af Amer) > 60.0 ml/min 11/25/17 09:03 BUN/Creatinine Ratio 27.8 11/25/17 09:03 Glucose 155 mg/dL (70-105) H 11/25/17 09:03 POC Glucose 106 MG/DL (70 - 105) H 11/19/17 17:20 Calcium 9.6 mg/dL (8.6-10.3) 11/25/17 09:03 - Physical Exam Vitals and I&O: Vital Signs Temp 97.1 F 12/07/17 06:28 Pulse 68 12/07/17 06:28 Resp 20 12/07/17 06:28 BP 117/65 12/07/17 06:28 Pulse Ox 98 12/07/17 06:28 Intake & Output 12/06/17 12/06/17 12/07/17 06:59 18:59 06:59 Intake Total 360 1800 120 Balance 360 1800 120 Intake: Oral 360 1800 120 Other: # Voids 2 3 3 # Bowel Movements 1 1 Active Medications: Current Medications Acetaminophen (Tylenol) 650 mg PO Q4HR PRN PRN Reason: Mild Pain / Temp above 100 Stop: 01/18/18 15:16 Last Admin: 12/03/17 14:16 Dose: 650 mg Al Hydrox/Mg Hydrox/Simethicone (Maalox) 30 ml PO Q4HR PRN PRN Reason: GI DISTRESS Stop: 01/18/18 15:16 Atenolol (Tenormin) 25 mg PO DAILY [facility] Stop: 01/19/18 08:59 Last Admin: 12/06/17 09:24 Dose: 25 mg Escitalopram Oxalate (Lexapro) 10 mg PO DAILY [facility] Stop: 01/28/18 08:59 Last Admin: 12/06/17 09:25 Dose: 10 mg Lorazepam (Ativan) 0.5 mg PO Q6HR PRN; Protocol PRN Reason: Agitation Stop: 01/30/18 09:13 Last Admin: 12/06/17 17:11 Dose: 0.5 mg Magnesium Hydroxide (Milk Of Magnesia) 30 ml PO HS PRN PRN Reason: Constipation Multivitamins/Vitamin C (Theragran) 1 tab PO DAILY [facility] Stop: 01/19/18 08:59 Last Admin: 12/06/17 09:25 Dose: 1 tab Pantoprazole Sodium (Protonix) 40 mg PO DAILY [facility] Stop: 01/19/18 08:59 Last Admin: 12/06/17 09:25 Dose: 40 mg Quetiapine Fumarate (Seroquel) 25 mg PO BID [facility] PRN Reason: Protocol Stop: 02/02/18 06:40 Last Admin: 12/06/17 17:11 Dose: 25 mg Quetiapine Fumarate 300 mg/ (Quetiapine Fumarate 50 mg) 350 mg PO HS [facility] Stop: 02/04/18 20:59 Last Admin: 12/06/17 21:35 Dose: 350 mg General: Alert HEENT: Atraumatic, PERRLA, EOMI Neck: Supple Cardiovascular: Regular rate, Normal S1, Normal S2 Lungs: Clear to auscultation Abdomen: Bowel sounds, Soft Extremities: no Clubbing, no Cyanosis, no Edema Neurological: Normal gait, Normal speech - Procedures Procedures: Procedures Procedure Code Date BLOOD TRANSFUSION SERVICE 80083 06/05/03 COLONOSCOPY W/LESION REMOVAL 73771 06/05/03 EGD BIOPSY SINGLE/MULTIPLE 05845 06/05/03 EGD DIAGNOSTIC BRUSH WASH 80385 08/09/00 ENDOSC POLYPECTOMY OF LG INTEST 45.42 06/05/03 ESOPHAGOGASTRODUODENOSCOPY [EGD] W/CLOSED BIOPSY 45.16 06/05/03 OTHER ENDOSCOPY OF SM INTEST 45.13 08/09/00 PACKED CELL TRANSFUSION 99.04 06/05/03 Assessment/Plan - Assessment Assessment: psychosis 5150 hold hypertension gerd chronic renal insufficiency hypokalemia - Plan Plan: admit to geropsyche continue current treatment. repeat bmp, to check K+ level Nutritional Asmnt/Malnutr-PDOC - Dietary Evaluation Malnutrition Findings (Please click <Entered> for more info): Nutritional Asmnt/Malnutrition Start: 11/24/17 13: 37 Text: Status: Complete Freq: Document 11/24/17 13:37 LCHENG (Rec: 11/24/17 13:42 LCHENG [email or web address]) Nutritional Asmnt/Malnutrition Patient General Information Nutritional Screening Low Risk Diagnosis psychosis NOS Pertinent Medical Hx/Surgical Hx HTN, GERD, psychosis, chronic renal suff Subjective Information Pt seen sitting on bed eating lunch, confused. Family at bedside. Family stated pt likes beef. Observed pt was eating well.Per EMR, PO intake 100%. Current Diet Order/ Nutrition Support regular Pertinent Medications theragran, seroquel, protonix Pertinent Labs 11/19 POC 106 Nutritional Hx/Data Height 1.68 m Height (Calculated Centimeters) 167.6 Current Weight (lbs) 72.892 kg Weight (Calculated Kilograms) 72.9 Weight (Calculated Grams) 15320.3 [place] Body Weight 142 Body Mass Index (BMI) 25.9 Weight Status Overweight GI Symptoms GI Symptoms None Last BM 11/21 Difficult in: None Skin Integrity/Comment: intact Current %PO Good (75-100%) Estimated Nutritional Goals Calories/Kcals/Kg 28-30 based on IBW 65kg Kcals Calculated 1011-1891 Protein g/k-1.1 Protein Calculated 65-72 Fluid: ml 1625-1950ml (1ml/kcal) Nutritional Problem No current Nutrition Prob Problem N/A Malnutrition Alert Protein-Calorie Malnutrition N/A Is there a minimum of two criteria No selected? Query Text:Check all the applicable criteria. A minimum of two criteria are recommended for diagnosis of either severe or non-severe malnutrition. Intervention/Recommendation Comments 1. Continue with regular diet as ordered. 2. Monitor PO intake, wt, labs and skin integrity 3. F/U as low risk in 7 days, 12/01 Expected Outcomes/Goals Expected Outcomes/Goals 1. PO intake to meet at least 75% of nutritional needs. 2. Wt stability, skin to remain intact, labs WNL.
[2017-12-07] MEDS: Pantoprazole 40 mg EC Tab PO SCH (08:23)
[2017-12-07] MEDS: Multivitamin Tab PO SCH (08:23)
--- NOTE | 2017-12-07 08:54 | Progress Notes ---
DATE: The patient seen, chart reviewed, discussed with staff. The patient seems to be calming down, however still paranoid, still with periods of yelling, agitation, banging on the desk. It seems that these episodes have lessened but they are still ongoing, still with some residual paranoia, residual psychotic symptoms, very impoverished on exam, does not say much. Medications were noted. He seems to be sleeping fairly well at night, calmer. ASSESSMENT: The patient remains symptomatic, yelling, highly resistant to care at times, and still with some paranoia. PLAN: Given recent dose increase of Seroquel, I will continue at current dose and monitor for side effects. JOB# [id number]
[2017-12-08] MEDS: Multivitamin Tab PO SCH (08:58)
[2017-12-08] MEDS: Pantoprazole 40 mg EC Tab PO SCH (08:59)
--- NOTE | 2017-12-08 22:26 | Progress Notes ---
DATE: SUBJECTIVE: The patient was seen and evaluated. The patient's chart was reviewed. Overnight, nursing staff reported the patient continues to be at times intermittently screaming without any trigger, had some residual paranoia. Today on [id number] evaluation, he is a poor historian, mostly reports everything is okay. He does not give much information beyond that. Nursing staff also reporting some accomplishment in his examination, disengaged at times, some residual paranoia, and suspicious behavior. ASSESSMENT AND PLAN: Mr. Edgardo Posada is a 66-year-old male who continues to show some mild intermittently paranoia, highly resistant to care, yelling highly, agitated. Seroquel was recently increased by the primary psychiatrist, we will continue 25 mg p.o. b.i.d. in the less than 72 hours, with his nighttime dose at 350, a total of 400 mg. Given his age and the therapeutic ranges and dosages, we will allow medication to continue building up therapeutic ranges. Continue also with Lexapro 10 mg a day and Tylenol. JOB# [id number]
[2017-12-09] MEDS: Pantoprazole 40 mg EC Tab PO SCH (08:48)
[2017-12-09] MEDS: Multivitamin Tab PO SCH (08:48)
--- NOTE | 2017-12-09 18:01 | Progress Notes ---
DATE: 12/09/2017 The patient was seen and evaluated. The patient's chart reviewed. Overnight nursing staff reporting the patient continues to intermittently scream without trigger. Today on [id number] evaluation, the patient does not give much information. He reports he is okay. No complication. MENTAL STATUS EXAMINATION: Less disorganized, less distraught, engaged at times, residual paranoia and suspicious behavior continues to persist. ASSESSMENT AND PLAN: A 66-year-old male with a history of paranoia, continues to persist. We will continue with the current medication regimen as medication was recently increased to target the patient's severe psychotic state that continues to impair the patient. JOB# [id number]
[2017-12-10] MEDS: Pantoprazole 40 mg EC Tab PO SCH (08:32)
[2017-12-10] MEDS: Multivitamin Tab PO SCH (08:32)
--- NOTE | 2017-12-10 18:31 | Progress Notes ---
DATE: 12/10/[address] Hanna. Overnight nursing staff continues to report that the patient still needs a lot of redirections, intermittently yelling. Today on [id number] evaluation, upon approach, the patient gets very suspicious and starts yelling, needs a lot of redirection. No side effects, no complications noted with the medication. MENTAL STATUS EXAMINATION: Disorganized, intermittently yelling, easily suspicious. ASSESSMENT AND PLAN: A 66-year-old male with a history of paranoia, continues to persist, although less intense. We will continue monitoring and evaluating, continue working very closely with mental residential case manager for a safe dispo once the patient continues to further stabilize. JOB# [id number]
[2017-12-11] MEDS: Multivitamin Tab PO SCH (08:52)
[2017-12-11] MEDS: Pantoprazole 40 mg EC Tab PO SCH (08:54)
--- NOTE | 2017-12-11 10:01 | Progress Notes ---
DATE: 12/11/2017 The patient was seen and evaluated. The patient's chart reviewed. Covering for Dr. Hanna. Today on [id number] evaluation, the patient is in room disengaged. When approached, he becomes easily hypervigilant. Denies any side effects of medications. No complications. Continues to be at baseline, mildly disorganized, distraught and at times suspicious and paranoid. ASSESSMENT: A 66-year-old male with a history of paranoia, continues to disengage and withdrawn himself. We will continue to monitor and evaluate with the recent increase of medications. He started to show some mild improvement. [facility]# [id number]
--- NOTE | 2017-12-12 06:46 | General Progress Note ---
Subjective - Review of Systems Service Date: 12/12/17 Subjective: awake, but confused. no acute distress. VS T97.3 P83 R20 BP 101/63 Objective - Results Result Diagrams: 11/25/17 08:12 11/25/17 09:03 Recent Labs: Laboratory Last Values WBC 10.8 Th/cmm (4.8-10.8) 11/25/17 08:12 RBC 4.88 Mil/cmm (4.30-5.70) 11/25/17 08:12 Hgb 14.7 gm/dL (12-16) 11/25/17 08:12 Hct 44.1 % (41.0-60) 11/25/17 08:12 MCV 90.4 fl (80-99) 11/25/17 08:12 MCH 30.2 pg (26.0-30.0) H 11/25/17 08:12 MCHC Differential 33.4 pg (28.0-36.0) 11/25/17 08:12 RDW 13.2 % (11.5-20.0) 11/25/17 08:12 Plt Count 307 Th/cmm (150-400) 11/25/17 08:12 MPV 7.2 fl 11/25/17 08:12 Neutrophils % 72.2 % (40.0-80.0) 11/25/17 08:12 Lymphocytes % 17.9 % (20.0-50.0) L 11/25/17 08:12 Monocytes % 8.6 % (2.0-10.0) 11/25/17 08:12 Eosinophils % 1.3 % (0.0-5.0) 11/25/17 08:12 Basophils % 0.0 % (0.0-2.0) 11/25/17 08:12 Sodium 145 mEq/L (136-145) 11/25/17 09:03 Potassium 3.4 mEq/L (3.5-5.1) L 11/25/17 09:03 Chloride 111 mEq/L (98-107) H 11/25/17 09:03 Carbon Dioxide 24.2 mEq/L (21.0-31.0) 11/25/17 09:03 Anion Gap 13.2 (7.0-16.0) 11/25/17 09:03 BUN 25 mg/dL (7-25) 11/25/17 09:03 Creatinine 0.9 mg/dL (0.7-1.3) 11/25/17 09:03 Est GFR ( Amer) > 60.0 ml/min (>90) 11/25/17 09:03 Est GFR (Non-Af Amer) > 60.0 ml/min 11/25/17 09:03 BUN/Creatinine Ratio 27.8 11/25/17 09:03 Glucose 155 mg/dL (70-105) H 11/25/17 09:03 POC Glucose 106 MG/DL (70 - 105) H 11/19/17 17:20 Calcium 9.6 mg/dL (8.6-10.3) 11/25/17 09:03 - Physical Exam Vitals and I&O: Vital Signs Temp 97.3 F 12/12/17 05:54 Pulse 83 12/12/17 05:54 Resp 20 12/12/17 05:54 BP 101/63 12/12/17 05:54 Pulse Ox 94 12/12/17 05:54 Intake & Output 12/11/17 12/11/17 12/12/17 06:59 18:59 06:59 Intake Total 120 120 Balance 120 120 Intake: Oral 120 120 Other: # Voids 3 3 # Bowel Movements 0 Active Medications: Current Medications Acetaminophen (Tylenol) 650 mg PO Q4HR PRN PRN Reason: Mild Pain / Temp above 100 Stop: 01/18/18 15:16 Last Admin: 12/03/17 14:16 Dose: 650 mg Al Hydrox/Mg Hydrox/Simethicone (Maalox) 30 ml PO Q4HR PRN PRN Reason: GI DISTRESS Stop: 01/18/18 15:16 Atenolol (Tenormin) 25 mg PO DAILY [facility] Stop: 01/19/18 08:59 Last Admin: 12/11/17 08:53 Dose: 25 mg Escitalopram Oxalate (Lexapro) 10 mg PO DAILY [facility] Stop: 01/28/18 08:59 Last Admin: 12/11/17 08:56 Dose: 10 mg Lorazepam (Ativan) 0.5 mg PO Q6HR PRN; Protocol PRN Reason: Agitation Stop: 01/30/18 09:13 Last Admin: 12/11/17 20:44 Dose: 0.5 mg Magnesium Hydroxide (Milk Of Magnesia) 30 ml PO HS PRN PRN Reason: Constipation Multivitamins/Vitamin C (Theragran) 1 tab PO DAILY [facility] Stop: 01/19/18 08:59 Last Admin: 12/11/17 08:52 Dose: 1 tab Pantoprazole Sodium (Protonix) 40 mg PO DAILY [facility] Stop: 01/19/18 08:59 Last Admin: 12/11/17 08:54 Dose: 40 mg Quetiapine Fumarate (Seroquel) 25 mg PO BID [facility] PRN Reason: Protocol Stop: 02/02/18 06:40 Last Admin: 12/11/17 16:50 Dose: 25 mg Quetiapine Fumarate 300 mg/ (Quetiapine Fumarate 50 mg) 350 mg PO HS [facility] Stop: 02/04/18 20:59 Last Admin: 12/11/17 20:45 Dose: 350 mg General: Alert HEENT: Atraumatic, PERRLA, EOMI Neck: Supple Cardiovascular: Regular rate, Normal S1, Normal S2 Lungs: Clear to auscultation Abdomen: Bowel sounds, Soft Extremities: no Clubbing, no Cyanosis, no Edema Neurological: Normal gait, Normal speech - Procedures Procedures: Procedures Procedure Code Date BLOOD TRANSFUSION SERVICE 53850 06/05/03 COLONOSCOPY W/LESION REMOVAL 41492 06/05/03 EGD BIOPSY SINGLE/MULTIPLE 89888 06/05/03 EGD DIAGNOSTIC BRUSH WASH 11772 08/09/00 ENDOSC POLYPECTOMY OF LG INTEST 45.42 06/05/03 ESOPHAGOGASTRODUODENOSCOPY [EGD] W/CLOSED BIOPSY 45.16 06/05/03 OTHER ENDOSCOPY OF SM INTEST 45.13 08/09/00 PACKED CELL TRANSFUSION 99.04 06/05/03 Assessment/Plan - Assessment Assessment: psychosis 5150 hold hypertension gerd chronic renal insufficiency hypokalemia - Plan Plan: admit to [facility] continue current treatment. repeat bmp, to check K+ level Nutritional Asmnt/Malnutr-PDOC - Dietary Evaluation Malnutrition Findings (Please click <Entered> for more info): Nutritional Asmnt/Malnutrition Start: 11/24/17 13: 37 Text: Status: Complete Freq: Document 11/24/17 13:37 MAUREEN (Rec: 11/24/17 13:42 LCMALENA [email or web address]) Nutritional Asmnt/Malnutrition Patient General Information Nutritional Screening Low Risk Diagnosis psychosis NOS Pertinent Medical Hx/Surgical Hx HTN, GERD, psychosis, chronic renal suff Subjective Information Pt seen sitting on bed eating lunch, confused. Family at bedside. Family stated pt likes beef. Observed pt was eating well.Per EMR, PO intake 100%. Current Diet Order/ Nutrition Support regular Pertinent Medications theragran, seroquel, protonix Pertinent Labs 11/19 POC 106 Nutritional Hx/Data Height 1.68 m Height (Calculated Centimeters) 167.6 Current Weight (lbs) 72.892 kg Weight (Calculated Kilograms) 72.9 Weight (Calculated Grams) 22512.3 [place] Body Weight 142 Body Mass Index (BMI) 25.9 Weight Status Overweight GI Symptoms GI Symptoms None Last BM 11/21 Difficult in: None Skin Integrity/Comment: intact Current %PO Good (75-100%) Estimated Nutritional Goals Calories/Kcals/Kg 28-30 based on IBW 65kg Kcals Calculated 2947-3086 Protein g/k-1.1 Protein Calculated 65-72 Fluid: ml 1625-1950ml (1ml/kcal) Nutritional Problem No current Nutrition Prob Problem N/A Malnutrition Alert Protein-Calorie Malnutrition N/A Is there a minimum of two criteria No selected? Query Text:Check all the applicable criteria. A minimum of two criteria are recommended for diagnosis of either severe or non-severe malnutrition. Intervention/Recommendation Comments 1. Continue with regular diet as ordered. 2. Monitor PO intake, wt, labs and skin integrity 3. F/U as low risk in 7 days, 12/01 Expected Outcomes/Goals Expected Outcomes/Goals 1. PO intake to meet at least 75% of nutritional needs. 2. Wt stability, skin to remain intact, labs WNL.
[2017-12-12] MEDS: Pantoprazole 40 mg EC Tab PO SCH (08:33)
[2017-12-12] MEDS: Multivitamin Tab PO SCH (08:34)
--- NOTE | 2017-12-12 11:57 | Discharge Summary ---
DATE OF DISCHARGE: 12/12/2017 DATE OF ADMISSION: 11/19/2017 DATE OF DISCHARGE: 12/12/2017. JUSTIFICATION FOR HOSPITALIZATION: The patient came to the hospital on a hold, suicidal, yelling, screaming, brought in by police. HISTORY OF PRESENT ILLNESS: A 66-year-old male, poor historian, states he came to the hospital because "I got wild." The patient is not a good historian. Denying depression, yelling, screaming and paranoid. PAST PSYCHIATRIC HISTORY: Noted. He has been on Seroquel for quite some time. SOCIAL HISTORY: Noted, mainly supported by brother. MEDICATIONS: Noted. MENTAL STATUS EXAMINATION: Please see full psych eval for details. PROVISIONAL DIAGNOSIS: Psychosis, unspecified; mood, unspecified; anxiety, unspecified. Under medical, please see full H and P. HOSPITAL COURSE: After initial assessment, the patient was restarted back on medications including Seroquel and Lexapro. There were some issues with compliance. However, as his hospitalization course progressed, his compliance improved, mood improved, affect improved, less paranoid, less yelling, less screaming toward the latter end of his hospitalization, he was approaching his baseline and was discharged. I met with his brother a few times. CONDITION UPON DISCHARGE: Improved, better ADLs, allowing ADLs, less paranoid, still within impoverished thought process, no SI, no HI. No agitation, no escalation of behaviors, better insight, certainly better impulse control. PROVISIONAL DIAGNOSES: Psychosis, unspecified; mood, unspecified; anxiety, unspecified; rule out schizophrenia. Under medical, please see full H and P. PROGNOSIS: If the patient follows up with outpatient mental health services and remains compliant, prognosis will improve, otherwise guarded. [facility]# [id number]
[2017-12-13] MEDS: Pantoprazole 40 mg EC Tab PO SCH (09:16)
[2017-12-13] MEDS: Multivitamin Tab PO SCH (09:16)
--- NOTE | 2017-12-13 12:31 | Progress Notes ---
DATE: 12/13/2017 The patient was supposed to leave yesterday to brother but at the last moment brother changed his mind. The patient is confused, gravely disabled, cannot take care of himself. He has been significantly calmer, more cooperative. We will need to help with placement. Sleeping fairly well. Eating well. ASSESSMENT: The patient calmer, more cooperative, less yelling episodes, doing well with current medication regimen. PLAN: We will continue to monitor. The patient cannot take care of himself on his own. He needs a place to go and someone to take care of him and supervise him as his brother had been doing, but does not want to do now, we are working hard on placement. Medications were noted. JOB# [id number]
--- NOTE | 2017-12-14 08:12 | General Progress Note ---
Subjective - Review of Systems Service Date: 12/14/17 Subjective: awake, but confused. no acute distress. VS T97.9 P92 R20 BP 119/60 Objective - Results Result Diagrams: 11/25/17 08:12 11/25/17 09:03 Recent Labs: Laboratory Last Values WBC 10.8 Th/cmm (4.8-10.8) 11/25/17 08:12 RBC 4.88 Mil/cmm (4.30-5.70) 11/25/17 08:12 Hgb 14.7 gm/dL (12-16) 11/25/17 08:12 Hct 44.1 % (41.0-60) 11/25/17 08:12 MCV 90.4 fl (80-99) 11/25/17 08:12 MCH 30.2 pg (26.0-30.0) H 11/25/17 08:12 MCHC Differential 33.4 pg (28.0-36.0) 11/25/17 08:12 RDW 13.2 % (11.5-20.0) 11/25/17 08:12 Plt Count 307 Th/cmm (150-400) 11/25/17 08:12 MPV 7.2 fl 11/25/17 08:12 Neutrophils % 72.2 % (40.0-80.0) 11/25/17 08:12 Lymphocytes % 17.9 % (20.0-50.0) L 11/25/17 08:12 Monocytes % 8.6 % (2.0-10.0) 11/25/17 08:12 Eosinophils % 1.3 % (0.0-5.0) 11/25/17 08:12 Basophils % 0.0 % (0.0-2.0) 11/25/17 08:12 Sodium 145 mEq/L (136-145) 11/25/17 09:03 Potassium 3.4 mEq/L (3.5-5.1) L 11/25/17 09:03 Chloride 111 mEq/L (98-107) H 11/25/17 09:03 Carbon Dioxide 24.2 mEq/L (21.0-31.0) 11/25/17 09:03 Anion Gap 13.2 (7.0-16.0) 11/25/17 09:03 BUN 25 mg/dL (7-25) 11/25/17 09:03 Creatinine 0.9 mg/dL (0.7-1.3) 11/25/17 09:03 Est GFR ( Amer) > 60.0 ml/min (>90) 11/25/17 09:03 Est GFR (Non-Af Amer) > 60.0 ml/min 11/25/17 09:03 BUN/Creatinine Ratio 27.8 11/25/17 09:03 Glucose 155 mg/dL (70-105) H 11/25/17 09:03 POC Glucose 106 MG/DL (70 - 105) H 11/19/17 17:20 Calcium 9.6 mg/dL (8.6-10.3) 11/25/17 09:03 - Physical Exam Vitals and I&O: Vital Signs Temp 97.9 F 12/14/17 06:29 Pulse 92 12/14/17 06:29 Resp 20 12/14/17 06:29 BP 119/60 12/14/17 06:29 Pulse Ox 95 12/14/17 06:29 Intake & Output 12/13/17 12/14/17 12/14/17 18:59 06:59 18:59 Intake Total 850 240 Balance 850 240 Intake: Oral 850 240 Other: # Voids 3 2 # Bowel Movements 1 0 Active Medications: Current Medications Acetaminophen (Tylenol) 650 mg PO Q4HR PRN PRN Reason: Mild Pain / Temp above 100 Stop: 01/18/18 15:16 Last Admin: 12/03/17 14:16 Dose: 650 mg Al Hydrox/Mg Hydrox/Simethicone (Maalox) 30 ml PO Q4HR PRN PRN Reason: GI DISTRESS Stop: 01/18/18 15:16 Atenolol (Tenormin) 25 mg PO DAILY [facility] Stop: 01/19/18 08:59 Last Admin: 12/13/17 09:16 Dose: 25 mg Escitalopram Oxalate (Lexapro) 10 mg PO DAILY [facility] Stop: 01/28/18 08:59 Last Admin: 12/13/17 09:17 Dose: 10 mg Lorazepam (Ativan) 0.5 mg PO Q6HR PRN; Protocol PRN Reason: Agitation Stop: 01/30/18 09:13 Last Admin: 12/13/17 20:47 Dose: 0.5 mg Magnesium Hydroxide (Milk Of Magnesia) 30 ml PO HS PRN PRN Reason: Constipation Multivitamins/Vitamin C (Theragran) 1 tab PO DAILY [facility] Stop: 01/19/18 08:59 Last Admin: 12/13/17 09:16 Dose: 1 tab Pantoprazole Sodium (Protonix) 40 mg PO DAILY [facility] Stop: 01/19/18 08:59 Last Admin: 12/13/17 09:16 Dose: 40 mg Quetiapine Fumarate (Seroquel) 25 mg PO BID [facility] PRN Reason: Protocol Stop: 02/02/18 06:40 Last Admin: 12/13/17 17:29 Dose: 25 mg Quetiapine Fumarate 300 mg/ (Quetiapine Fumarate 50 mg) 350 mg PO HS [facility] Stop: 02/04/18 20:59 Last Admin: 12/13/17 20:47 Dose: 350 mg General: Alert HEENT: Atraumatic, PERRLA, EOMI Neck: Supple Cardiovascular: Regular rate, Normal S1, Normal S2 Lungs: Clear to auscultation Abdomen: Bowel sounds, Soft Extremities: no Clubbing, no Cyanosis, no Edema Neurological: Normal gait, Normal speech - Procedures Procedures: Procedures Procedure Code Date BLOOD TRANSFUSION SERVICE 58860 06/05/03 COLONOSCOPY W/LESION REMOVAL 19242 06/05/03 EGD BIOPSY SINGLE/MULTIPLE 18385 06/05/03 EGD DIAGNOSTIC BRUSH WASH 06342 08/09/00 ENDOSC POLYPECTOMY OF LG INTEST 45.42 06/05/03 ESOPHAGOGASTRODUODENOSCOPY [EGD] W/CLOSED BIOPSY 45.16 06/05/03 OTHER ENDOSCOPY OF SM INTEST 45.13 08/09/00 PACKED CELL TRANSFUSION 99.04 06/05/03 Assessment/Plan - Assessment Assessment: psychosis 5150 hold hypertension gerd chronic renal insufficiency hypokalemia - Plan Plan: admit to [facility] continue current treatment. repeat bmp, to check K+ level Nutritional Asmnt/Malnutr-PDOC - Dietary Evaluation Malnutrition Findings (Please click <Entered> for more info): Nutritional Asmnt/Malnutrition Start: 11/24/17 13: 37 Text: Status: Complete Freq: Document 11/24/17 13:37 LCHENG (Rec: 11/24/17 13:42 LCHENG [email or web address]) Nutritional Asmnt/Malnutrition Patient General Information Nutritional Screening Low Risk Diagnosis psychosis NOS Pertinent Medical Hx/Surgical Hx HTN, GERD, psychosis, chronic renal suff Subjective Information Pt seen sitting on bed eating lunch, confused. Family at bedside. Family stated pt likes beef. Observed pt was eating well.Per EMR, PO intake 100%. Current Diet Order/ Nutrition Support regular Pertinent Medications theragran, seroquel, protonix Pertinent Labs 11/19 POC 106 Nutritional Hx/Data Height 1.68 m Height (Calculated Centimeters) 167.6 Current Weight (lbs) 72.892 kg Weight (Calculated Kilograms) 72.9 Weight (Calculated Grams) 21280.3 [place] Body Weight 142 Body Mass Index (BMI) 25.9 Weight Status Overweight GI Symptoms GI Symptoms None Last BM 11/21 Difficult in: None Skin Integrity/Comment: intact Current %PO Good (75-100%) Estimated Nutritional Goals Calories/Kcals/Kg 28-30 based on IBW 65kg Kcals Calculated 7001-1958 Protein g/k-1.1 Protein Calculated 65-72 Fluid: ml 1625-1950ml (1ml/kcal) Nutritional Problem No current Nutrition Prob Problem N/A Malnutrition Alert Protein-Calorie Malnutrition N/A Is there a minimum of two criteria No selected? Query Text:Check all the applicable criteria. A minimum of two criteria are recommended for diagnosis of either severe or non-severe malnutrition. Intervention/Recommendation Comments 1. Continue with regular diet as ordered. 2. Monitor PO intake, wt, labs and skin integrity 3. F/U as low risk in 7 days, 12/01 Expected Outcomes/Goals Expected Outcomes/Goals 1. PO intake to meet at least 75% of nutritional needs. 2. Wt stability, skin to remain intact, labs WNL.
[2017-12-14] MEDS: Multivitamin Tab PO SCH (09:04)
[2017-12-14] MEDS: Pantoprazole 40 mg EC Tab PO SCH (09:04)
--- NOTE | 2017-12-14 16:57 | Discharge Summary ---
DATE OF DISCHARGE: 12/14/2017 DATE OF DISCHARGE: 12/14/2017. The patient apparently suicidal, yelling and screaming. The patient was to have been discharged on 12/12/2017 but due to placement issues the brother wanted him in a alf to work on his rehabilitation. MCC today was identified and confirmed and brother was okay with it. The patient to be discharged today to alf. No SI, no HI. No combative symptoms. JOB# [id number]
== END 2017-12-14 18:35 | DRG 885 ==
LOC: GERO 14:47
PROVIDERS: ADMIT Psychiatry & Neurology Psychiatry; ATTEND Psychiatry & Neurology Psychiatry
DX: F29 Unspecified psychosis not due to a substance or known physiological condition (principal); N18.9 Chronic kidney disease, unspecified; F39 Unspecified mood [affective] disorder; F41.9 Anxiety disorder, unspecified; K21.9 Gastro-esophageal reflux disease without esophagitis; I12.9 Hypertensive chronic kidney disease with stage 1 through stage 4 chronic kidney disease, or unspecified chronic kidney disease; E87.6 Hypokalemia
CPT/HCPCS: 36415-UA; 80048-TC; 82948-90; 85025-TC; G0410; J1200; J1630; Z7610

== ENCOUNTER 2017-12-19 22:05 | Inpatient (IN) | payer MEDICARE, MEDICAID ==
--- NOTE | 2017-12-19 22:28 | ED Physician Chart ---
ED Chief Complaint/HPI - Patient Information Date Seen:: 12/19/17 Time Seen:: 22:15 Chief Complaint:: coffee-ground emesis History of Present Illness:: Patient reportedly had coffee grounds emesis 3 times today. Patient denies abdominal pain. Patient was transferred here on 11/19/2017 from [facility] for expressing the desire to hurt himself. He was yelling and screaming and noted to have auditory hallucinations and agitation at that time. Allergies:: Allergies Allergy/AdvReac Type Severity Reaction Status Date / Time No Known Allergies Allergy Verified 11/19/17 15:12 Historian:: EMS Review:: Transfer documents Reviewed ED Review of Systems - Review of Systems General/Constitutional: No fever, No chills Skin: No skin lesions Head: No headache Eyes: No loss of vision ENT: No earache Neck: No neck pain, No swelling Cardio Vascular: No chest pain, No palpitations Pulmonary: No SOB GI: Hematemesis G/U: No dysuria Musculoskeletal: No bone or joint pain Endocrine: No polyuria, No polydipsia Psychiatric: Prior psych history Hematopoietic: No bruising Allergic/Immuno: No urticaria Neurological: No syncope, No focal symptoms ED Past Medical History - Past Medical History Past Medical History: PUD/GERD, Other (disease and mood disorder) Family History: Other (unavailable) Social History: Care Facility Surgical History: other (unavailable) Psychiatricy History: Other (mood disorder) Medication: Reviewed Family Medical History - Family Member Mother History Unknown: Yes ED Physical Exam - Physical Examination General/Constitutional: Awake Other Gen/Cons comments:: Chronically ill-appearing Head: Atraumatic Eyes: Lids, conjuctiva normal Skin: Nl inspection, No rash, No skin lesions, No ecchymosis ENMT: External ears, nose nl Other ENMT comments:: Dentures Neck: No nuchal rigidity Respiratory: Nl effort/Exclusion, Clear to Auscultation Cardio Vascular: RRR, No murmur, gallop, rubs, NL S1 S2 GI: No tenderness/rebounding/guarding, No organomegaly : No CVA tenderness Extremities: Normal digits & nails Neuro/Psych: No focal deficits Misc: No paraspinal tenderness ED Labs/Radiology/EKG Results - Lab Results Results: Laboratory Results - last 24 hr 12/19/17 12/19/17 12/19/17 22:35 22:35 22:35 WBC 10.9 H RBC 3.95 L Hgb 11.9 L Hct 35.8 L MCV 90.5 MCH 30.0 MCHC Differential 33.2 RDW 14.0 Plt Count 260 MPV 7.4 Neutrophils % 55.3 Lymphocytes % 34.3 Monocytes % 7.0 Eosinophils % 2.4 Basophils % 1.0 PT 10.3 INR 0.99 PTT (Actin FS) 19.8 L Sodium 141 Potassium 3.4 L Chloride 107 Carbon Dioxide 26.4 Anion Gap 11.0 BUN 30 H Creatinine 0.9 Est GFR ( Amer) > 60.0 Est GFR (Non-Af Amer) > 60.0 BUN/Creatinine Ratio 33.3 Glucose 134 H Calcium 8.7 Lipase 22 ED Septic Shock - . Is Septic Shock (SBP<90, OR Lactate>4 mmol\L) present?: No ED Reassessment (Disposition) - Reassessment Reassessment Condition:: Unchanged - Diagnosis Diagnosis:: Upper GI bleeding; anemia; hypokalemia - Patient Disposition Admitted to:: Med/Surg Spoke to:: Kj Briones Admitting Medical Physician:: Kj Briones Condition at Disposition:: Stable, Unchanged
[2017-12-19 22:50] LABS: % EOSINOPHILS 2.4 % (0.0-5.0); % LYMPHOCYTES 34.3 % (20.0-50.0); % NEUTROPHILS 55.3 % (40.0-80.0); BASOPHILE ABSOLUTE 0.1 Th/cumm (0-0.2); EOSINOPHILE ABSOLUTE 0.3 Th/cmm (0.1-0.4); HEMATOCRIT 35.8 % (41.0-60); HEMOGLOBIN 11.9 gm/dL (12-16); LYMPHOCYTE ABSOLUTE 3.7 Th/cmm (1.5-3.0); MEAN CELL VOLUME 90.5 fl (80-99); MEAN CORPUSCULAR HGB CONC 33.2 pg (28.0-36.0); MEAN PLATELET VOLUME 7.4 fl; MONOCYTE ABSOLUTE 0.8 Th/cmm (0.3-1.0); PLATELET COUNT 260 Th/cmm (150-400); RED BLOOD COUNT 3.95 Mil/cmm (4.30-5.70); WHITE BLOOD COUNT 10.9 Th/cmm (4.8-10.8)
[2017-12-19 23:07] LABS: INR 0.99 (0.5-1.4); PROTHROMBIN TIME (TEST) 10.3 SECONDS (9.5-11.5)
[2017-12-19 23:09] LABS: BUN - UREA NITROGEN 30 mg/dL (7-25); CALCIUM SERUM 8.7 mg/dL (8.6-10.3); CARBON DIOXIDE 26.4 mEq/L (21.0-31.0); CHLORIDE 107 mEq/L (98-107); CREATININE - SERUM 0.9 mg/dL (0.7-1.3); GFR AFRICAN-AMERICAN > 60.0 ml/min (>90); GFR NON AFRICAN-AMERICAN > 60.0 ml/min; GLUCOSE 134 mg/dL (70-105); LIPASE 22 U/L (11-82); POTASSIUM SERUM 3.4 mEq/L (3.5-5.1); SODIUM SERUM 141 mEq/L (136-145)
[2017-12-20] MEDS ORDERED: D5-0.45NS 1,000 ML IV SCH (04:59)
--- NOTE | 2017-12-20 08:18 | History and Physical ---
History of Present Illness - HPI Chief Complaint: coffee-ground emesis HPI: 67 y/o male who presents to [facility] for coffee ground emesis x 3 yesterday. Patient reportedly had coffee grounds emesis 3 times today. Patient denies abdominal pain. Patient was transferred here on 2017 from [facility] for expressing the desire to hurt himself. He was yelling and screaming and noted to have auditory hallucinations and agitation at that time. - Past Medical History Past Medical History: PUD/GERD, Other (disease and mood disorder) Family History: Other (unavailable) Social History: Care Facility Surgical History: other (unavailable) Psychiatricy History: Other (mood disorder) Medication: Reviewed While in the ER patient had routine labwork done... - Lab Results Results: Laboratory Results - last 24 hr 12/19/17 12/19/17 12/19/17 22:35 22:35 22:35 WBC 10.9 H RBC 3.95 L Hgb 11.9 L Hct 35.8 L MCV 90.5 MCH 30.0 MCHC Differential 33.2 RDW 14.0 Plt Count 260 MPV 7.4 Neutrophils % 55.3 Lymphocytes % 34.3 Monocytes % 7.0 Eosinophils % 2.4 Basophils % 1.0 PT 10.3 INR 0.99 PTT (Actin FS) 19.8 L Sodium 141 Potassium 3.4 L Chloride 107 Carbon Dioxide 26.4 Anion Gap 11.0 BUN 30 H Creatinine 0.9 Est GFR ( Amer) > 60.0 Est GFR (Non-Af Amer) > 60.0 BUN/Creatinine Ratio 33.3 Glucose 134 H Calcium 8.7 Lipase 22 Patient was subsequently admitted for possible GI Bleed. Vital Signs: Last Vital Signs Temp 96.8 F 12/20/17 04:59 Pulse 81 12/20/17 04:59 Resp 18 12/20/17 06:50 BP 129/58 12/20/17 04:59 Pulse Ox 98 12/20/17 04:59 Past Medical History Cardiovascular: Report: No Pertinent Hx Pulmonary: Report: No Pertinent Hx ENERGY ANALYST: Report: No Pertinent Hx GI: Report: GI Bleed Psych: Report: Psychosis Musculoskeletal: Report: No Pertinent Hx Rheumatologic: Report: No pertinent Hx Infectious Disease: Report: No Pertinent Hx Renal/: Report: No Pertinent Hx Endocrine: Report: No Pertinent Hx Dermatology: Report: No Pertinent Hx - Past Surgical History Past Surgical History: No pertinent Hx Family Medical History - Family Member Mother History Unknown: Yes Social History Smoke: No Alcohol: None Drugs: None Lives: Alone - Medications Home Medications: Home Medication Medication Instructions Recorded Type Acetaminophen [Tylenol] 650 mg PO Q4HR PRN tab 12/14/17 Rx Al Hyd/Mg Hyd/Simethicone [Maalox] 30 ml PO Q4HR PRN udc 12/14/17 Rx Atenolol [Tenormin*] 25 mg PO DAILY #0 12/14/17 Rx Escitalopram Oxalate [Lexapro] 10 mg PO DAILY tab 12/14/17 Rx Lorazepam [Ativan] 0.5 mg PO Q6HR PRN tab 12/14/17 Rx Magnesium Hydroxide [Milk of 30 ml PO HS PRN udc 12/14/17 Rx Magnesia] Multivitamin [Theragran] 1 tab PO DAILY tab 12/14/17 Rx Pantoprazole [Protonix] 40 mg PO DAILY #0 12/14/17 Rx QUEtiapine Fumarate [SEROquel] 25 mg PO BID tab 12/14/17 Rx QUEtiapine Fumarate [SEROquel] 350 mg PO HS tab 12/14/17 Rx QUEtiapine Fumarate [SEROquel] 350 mg PO HS tab 12/14/17 Rx cloNIDine HCl [Catapres] 0.1 mg PO Q8HR PRN tab 12/14/17 Rx - Allergies Allergies/Adverse Reactions: Allergies Allergy/AdvReac Type Severity Reaction Status Date / Time No Known Allergies Allergy Verified 11/19/17 15:12 Review of Systems - Review of Systems Constitutional: Report: No Significant Eyes: Report: No Significant ENT: Report: No Significant Respiratory: Report: No Significant Cardiovascular: Report: No Significant Gastrointestinal: Report: Abdominal Pain Genitourinary: Report: No Significant Musculoskeletal: Report: No Significant Skin: Report: No Significant Neurological: Report: No Significant Physical Exam - Physical Exam HEENT: Report: Ears Nose Throat within normal limits, Pharnyx within normal limits Neck: Report: Within normal limits Cardiovascular Systems: Report: +s1/s2 noted, Regular, Rate and Rhythm Respiratory: Report: Breath Sounds are within normal limits, Clear to Auscultation of lung mendez Abdomen: Report: Non-tender to palpation Extremities: Report: Non-tender to palpation. Skin: Report: Color of skin is within normal limits - Assessment Assessment: Possible GI Bleed PUD/GERD ANEMIA Hypokalemia Dehydration Psychosis - Plan Plan: Will order GI consult IV fluids repeat CBC,CMP this AM IV PPI Psychiatric consult
[2017-12-20] MEDS ORDERED: VTE Chemical Prophylaxis Screen/Admission MC PRN (08:45)
[2017-12-20 08:48] LABS: % BASOPHILS 0.8 % (0.0-2.0); % EOSINOPHILS 2.5 % (0.0-5.0); % LYMPHOCYTES 26.5 % (20.0-50.0); % NEUTROPHILS 64.2 % (40.0-80.0); BASOPHILE ABSOLUTE 0.1 Th/cumm (0-0.2); EOSINOPHILE ABSOLUTE 0.3 Th/cmm (0.1-0.4); HEMATOCRIT 35.2 % (41.0-60); HEMOGLOBIN 11.8 gm/dL (12-16); LYMPHOCYTE ABSOLUTE 2.9 Th/cmm (1.5-3.0); MEAN CORPUSCULAR HEMOGLOBIN 30.4 pg (27.0-31.0); MEAN CORPUSCULAR HGB CONC 33.4 pg (28.0-36.0); MEAN PLATELET VOLUME 7.1 fl; MONOCYTE ABSOLUTE 0.7 Th/cmm (0.3-1.0); PLATELET COUNT 302 Th/cmm (150-400); RED BLOOD COUNT 3.87 Mil/cmm (3.80-5.80); RED CELL DISTRIBUTION WIDTH 13.9 % (11.5-20.0)
[2017-12-20 09:06] LABS: BUN - UREA NITROGEN 27 mg/dL (7-25); CALCIUM SERUM 8.7 mg/dL (8.6-10.3); CARBON DIOXIDE 23.7 mEq/L (21.0-31.0); CHLORIDE 107 mEq/L (98-107); CREATININE - SERUM 1.1 mg/dL (0.7-1.3); GFR AFRICAN-AMERICAN > 60.0 ml/min (>90); GFR NON AFRICAN-AMERICAN > 60.0 ml/min; GLUCOSE 147 mg/dL (70-105); POTASSIUM SERUM 3.7 mEq/L (3.5-5.1); SODIUM SERUM 142 mEq/L (136-145)
[2017-12-20] MEDS ORDERED: Propofol 10 mg/mL 20mL Vial **SURGERY USE ONLY IV ONE (16:00)
[2017-12-20] MEDS ORDERED: Lidocaine 2% Gel 5 mL TP ONE (16:00)
--- NOTE | 2017-12-20 23:00 | Consultation ---
DATE OF CONSULTATION: 12/20/2017 The patient is currently in the hospital. He is a 67-year-old male well known to this clinician coming in for coffee-ground emesis. The patient has been in the hospital previously for SI, yelling and screaming episodes. On [id number], the patient is more interactive than he had been previously, AO to name. He knows he is in the hospital; he is not quite sure the [facility] of the [facility] and knows the year 2017, the month is December. He knows the day is the 20 of December. He is not quite sure about the day of the week. Denying overt depression, but some anxiety, social anxiety, stating "afraid of people." He is not a paranoid as he had been in the Geropsych Unit. He states he is sleeping okay. PAST PSYCHIATRIC HISTORY: Recent discharge from Geropsych Unit. FAMILY HISTORY: Noncontributory. SOCIAL HISTORY: The patient is living at a assisted. Brother very involved. I have spoken to the brother a few times and met him [id number]. The medications were noted. The patient does well on Seroquel. He responded very well. Seroquel dosing was titrated last month. Without the Seroquel he decompensates very quickly and becomes very paranoid. MENTAL STATUS EXAMINATION: Stated age. Fair eye contact . Thought processes fairly well oriented. No SI, no HI, no overt psychotic symptoms, no paranoia. Insight and judgment fair. PROVISIONAL DIAGNOSES: Psychosis, unspecified; mood, unspecified; anxiety, unspecified; likely underlying history of schizophrenia. MEDICAL: Please see full H and P. RECOMMENDATIONS AND PLAN: The patient will need to be placed back on Seroquel dosing. Otherwise, he will decompensate quite quickly and become paranoid, would recommend restarting this dose of medication if there are no contraindications at this time. [facility]# [id number]
--- NOTE | 2017-12-20 23:29 | Operative Report ---
DATE OF SURGERY: 12/20/2017 PROCEDURE: Esophagogastroduodenoscopy with biopsies. PREOPERATIVE DIAGNOSIS: Upper gastrointestinal bleed. POSTOPERATIVE DIAGNOSES: 1. Mild esophagitis, likely cause of recent upper gastrointestinal bleed, now stopped. 2. Small hiatal hernia. 3. Few benign appearing gastric body polyps sampled for biopsy forceps. 4. Mild gastritis, status post CLOtest. INDICATIONS: A 67-year-old male admitted for upper GI bleed. CONSENT: Informed consent was obtained from the patient's durable power of finance attorney prior to procedure after after detailed explanation of risks, benefits, and alternatives including but not limited to infection, perforation, , and . SEDATION: Monitored anesthesia care. DESCRIPTION AND FINDINGS: The procedure took place as an inpatient in the GI suite of [facility]. After adequate sedation was achieved, an Olympus diagnostic upper endoscope was advanced through the patient's mouth and into the esophagus. Here, there was mild reflux esophagitis distally, the Z-line was noted at about 37 cm from the gums. Retroflexion stomach revealed a small hiatal hernia, no GE junction mass or varices were identified. A few benign appearing gastric body polyps were sampled with biopsy forceps. Mild gastritis was identified in the antrum and this was also biopsied and submitted for CLOtest. The pyloric channel and duodenum appeared normal. The scope was withdrawn from the patient. The patient tolerated the procedure well and no complications are anticipated. IMPRESSION: 1. Follow biopsy results. 2. Protonix. 3. Antiemetics as needed. 4. Diet as tolerated. 5. Monitor leukocytosis. We will obtain an abdominal ultrasound. Consider CT imaging if leukocytosis persists and if ultrasound is negative. Also, check liver labs. Thank you, Dr. Kj Briones for involving us in the care of your patient. If you have any further questions, please call us. JOB# [id number] [place]
--- NOTE | 2017-12-21 02:34 | Consultation ---
DATE OF CONSULTATION: 12/20/2017 GASTROENTEROLOGY CONSULTATION REQUESTING PHYSICIAN: Kj Briones M.D. REASON FOR CONSULTATION: Upper GI bleed. HISTORY OF PRESENT ILLNESS: A 67-year-old male with history of possible GERD and peptic ulcer disease, mood disorder, initially seen in [facility] ER for a desired to hurt himself. He was transferred to this ER for further evaluation and possible admission. He also was noted to have auditory hallucinations and agitation at home. He was noted to have coffee-ground emesis, presented to the ER. We were asked to evaluate the patient for upper GI bleed. PAST MEDICAL HISTORY: As above. Otherwise negative. MEDICATIONS: Here are Tenormin, Ativan, Protonix, Seroquel. ALLERGIES: None. SOCIAL HISTORY: No recent tobacco, alcohol or drugs. FAMILY HISTORY: Noncontributory. REVIEW OF SYSTEMS: A comprehensive 12-point review of systems conducted and is only positive for those signs and symptoms present in history of present illness. PHYSICAL EXAMINATION: VITAL SIGNS: Temperature 97.5, blood pressure 108/61, pulse of 76, respirations 19, O2 sats 96%. GENERAL: The patient is well-developed, well-nourished male who is in no acute distress. HEENT: Sclerae are anicteric. Oropharynx is clear. CARDIOVASCULAR: Regular rate and rhythm. LUNGS: Clear to auscultation bilaterally. ABDOMEN: Soft, nontender, nondistended. EXTREMITIES: No clubbing, cyanosis or edema. RECTAL: Deferred. LABORATORY DATA AND IMAGING: WBC 11, hemoglobin 11.8, platelet count is 302. INR is 0.99, creatinine is 1.1. Lipase is normal. IMPRESSION: 1. Upper gastrointestinal bleed, rule out esophagitis, gastritis, peptic ulcer disease, etc. 2. Mild anemia. 3. Leukocytosis. 4. Psych disorder. RECOMMENDATIONS: 1. Upper endoscopy to follow. 2. Protonix. 3. Monitor hemoglobin. 4. Check liver labs. 5. Consider abdominal ultrasound. The patient has abdominal pain or persistent leukocytosis. Thank you, Dr. Kj Briones for involving us in the care of your patient. If you have any further questions, please call us. JOB# [id number]
[2017-12-21 06:43] LABS: % BASOPHILS 3.1 % (0.0-2.0); % EOSINOPHILS 3.9 % (0.0-5.0); % LYMPHOCYTES 33.5 % (20.0-50.0); % MONOCYTES 6.5 % (2.0-10.0); BASOPHILE ABSOLUTE 0.2 Th/cumm (0-0.2); EOSINOPHILE ABSOLUTE 0.2 Th/cmm (0.1-0.4); HEMOGLOBIN 9.4 gm/dL (12-16); LYMPHOCYTE ABSOLUTE 1.9 Th/cmm (1.5-3.0); MEAN CORPUSCULAR HEMOGLOBIN 30.2 pg (27.0-31.0); MEAN CORPUSCULAR HGB CONC 33.1 pg (28.0-36.0); MEAN PLATELET VOLUME 7.4 fl; MONOCYTE ABSOLUTE 0.4 Th/cmm (0.3-1.0); NEUTROPHILE ABSOLUTE 3.1 Th/cmm (1.8-8.0); RED BLOOD COUNT 3.11 Mil/cmm (3.80-5.80); RED CELL DISTRIBUTION WIDTH 13.5 % (11.5-20.0)
[2017-12-21 07:09] LABS: ALB/GLOB RATIO 1.5 (1.0-1.8); ALBUMIN 2.9 gm/dL (4.2-5.5); ALKALINE PHOSPHATASE 50 U/L (34-104); BILIRUBIN,TOTAL 0.3 mg/dL (0.3-1.0); BUN - UREA NITROGEN 19 mg/dL (7-25); CALCIUM SERUM 8.1 mg/dL (8.6-10.3); CARBON DIOXIDE 29.9 mEq/L (21.0-31.0); CHLORIDE 111 mEq/L (98-107); CREATININE - SERUM 0.9 mg/dL (0.7-1.3); GFR AFRICAN-AMERICAN > 60.0 ml/min (>90); GFR NON AFRICAN-AMERICAN > 60.0 ml/min; GLUCOSE 110 mg/dL (70-105); POTASSIUM SERUM 3.9 mEq/L (3.5-5.1); SGOT 17 U/L (13-39); SGPT/ALT 23 U/L (7-52); SODIUM SERUM 144 mEq/L (136-145); TOTAL PROTEIN,SERUM 4.9 gm/dL (6.0-8.3)
[2017-12-21 07:32] LABS: WHITE BLOOD COUNT 5.8 Th/cmm (4.8-10.8)
[2017-12-21 07:33] LABS: HEMATOCRIT 28.3 % (41.0-60); PLATELET COUNT 207 Th/cmm (150-400)
--- NOTE | 2017-12-21 08:20 | General Progress Note ---
Subjective - Review of Systems Service Date: 12/21/17 Subjective: Patient was seen and examined. no acute distress. EGD done yesterday. Note Appreciated. Patient NPO this AM for abd US. Hemoglobin 9 this AM Objective - Results Result Diagrams: 12/21/17 06:15 12/21/17 06:15 Recent Labs: Laboratory Last Values WBC 5.8 Th/cmm (4.8-10.8) D 12/21/17 06:15 RBC 3.11 Mil/cmm (3.80-5.80) L 12/21/17 06:15 Hgb 9.4 gm/dL (12-16) L 12/21/17 06:15 Hct 28.3 % (41.0-60) L D 12/21/17 06:15 MCV 91.0 fl (80-99) 12/21/17 06:15 MCH 30.2 pg (27.0-31.0) 12/21/17 06:15 MCHC Differential 33.1 pg (28.0-36.0) 12/21/17 06:15 RDW 13.5 % (11.5-20.0) 12/21/17 06:15 Plt Count 207 Th/cmm (150-400) D 12/21/17 06:15 MPV 7.4 fl 12/21/17 06:15 Neutrophils % 53.0 % (40.0-80.0) 12/21/17 06:15 Lymphocytes % 33.5 % (20.0-50.0) 12/21/17 06:15 Monocytes % 6.5 % (2.0-10.0) 12/21/17 06:15 Eosinophils % 3.9 % (0.0-5.0) 12/21/17 06:15 Basophils % 3.1 % (0.0-2.0) H 12/21/17 06:15 PT 10.3 SECONDS (9.5-11.5) 12/19/17 22:35 INR 0.99 (0.5-1.4) 12/19/17 22:35 PTT (Actin FS) 19.8 SECONDS (26.0-38.0) L 12/19/17 22:35 Sodium 144 mEq/L (136-145) 12/21/17 06:15 Potassium 3.9 mEq/L (3.5-5.1) 12/21/17 06:15 Chloride 111 mEq/L (98-107) H 12/21/17 06:15 Carbon Dioxide 29.9 mEq/L (21.0-31.0) 12/21/17 06:15 Anion Gap 7.0 (7.0-16.0) 12/21/17 06:15 BUN 19 mg/dL (7-25) 12/21/17 06:15 Creatinine 0.9 mg/dL (0.7-1.3) 12/21/17 06:15 Est GFR ( Amer) > 60.0 ml/min (>90) 12/21/17 06:15 Est GFR (Non-Af Amer) > 60.0 ml/min 12/21/17 06:15 BUN/Creatinine Ratio 21.1 12/21/17 06:15 Glucose 110 mg/dL (70-105) H 12/21/17 06:15 Calcium 8.1 mg/dL (8.6-10.3) L 12/21/17 06:15 Total Bilirubin 0.3 mg/dL (0.3-1.0) 12/21/17 06:15 AST 17 U/L (13-39) 12/21/17 06:15 ALT 23 U/L (7-52) 12/21/17 06:15 Alkaline Phosphatase 50 U/L (34-104) 12/21/17 06:15 Total Protein 4.9 gm/dL (6.0-8.3) L 12/21/17 06:15 Albumin 2.9 gm/dL (4.2-5.5) L 12/21/17 06:15 Globulin 2.0 gm/dL 12/21/17 06:15 Albumin/Globulin Ratio 1.5 (1.0-1.8) 12/21/17 06:15 Lipase 22 U/L (11-82) 12/19/17 22:35 - Physical Exam Vitals and I&O: Vital Signs Temp 97.8 F 12/21/17 07:54 Pulse 93 12/21/17 07:54 Resp 17 12/21/17 07:54 BP 104/58 12/21/17 07:54 Pulse Ox 96 12/21/17 07:54 Intake & Output 0412/21/17 12/21/17 18:59 06:59 18:59 Intake Total 0 Balance 0 Weight (lbs) 71.758 kg 71.123 kg Intake: Oral 0 Other[facility]ations: Current Medications Atenolol (Tenormin) 25 mg PO DAILY ISABEL Stop: 02/18/18 08:59 Last Admin: 12/20/17 09:47 Dose: Not Given Potassium Chloride/Dextrose/Sod Cl (D5-0.9ns W/Kcl 20meq) 1,000 mls @ 50 mls/ hr IV .Q20H ISABEL Stop: 02/18/18 08:59 Lorazepam (Ativan) 1 mg IVP Q4HR PRN; Protocol PRN Reason: Agitation Stop: 02/18/18 08:24 Last Admin: 12/21/17 08:01 Dose: 1 mg Miscellaneous (Vte Chemical Prophylaxis Screen/ Admission) 1 ea [facility] PRN PRN PRN Reason: PROTOCOL Stop: 02/18/18 08:44 Ondansetron HCl (Zofran) 4 mg IV Q6H PRN PRN Reason: Nausea / Vomiting Stop: 02/19/18 08:15 Pantoprazole Sodium (Protonix) 40 mg IVP DAILY ISABEL Stop: 02/18/18 08:59 Last Admin: 12/20/17 08:22 Dose: 40 mg Quetiapine Fumarate (Seroquel) 200 mg PO HS ISABEL PRN Reason: Protocol Stop: 02/18/18 20:59 Last Admin: 12/20/17 22:11 Dose: 200 mg General: Alert, Oriented x3, No acute distress HEENT: Atraumatic, PERRLA, EOMI Neck: Supple Cardiovascular: Regular rate, Normal S1, Normal S2 Lungs: Clear to auscultation Abdomen: Bowel sounds, Soft Extremities: no Clubbing, no Cyanosis, no Edema - Procedures Procedures: Procedures Procedure Code Date BLOOD TRANSFUSION SERVICE 70181 06/05/03 COLONOSCOPY W/LESION REMOVAL 26120 06/05/03 EGD BIOPSY SINGLE/MULTIPLE 63908 06/05/03 EGD DIAGNOSTIC BRUSH WASH 38190 08/09/00 ENDOSC POLYPECTOMY OF LG INTEST 45.42 06/05/03 ESOPHAGOGASTRODUODENOSCOPY [EGD] W/CLOSED BIOPSY 45.16 06/05/03 OTHER ENDOSCOPY OF SM INTEST 45.13 08/09/00 PACKED CELL TRANSFUSION 99.04 06/05/03 Assessment/Plan - Assessment Assessment: Possible GI Bleed PUD/GERD ANEMIA Hypokalemia resolved Dehydration resolved Psychosis - Plan Plan: Will order GI consult IV fluids repeat CBC,CMP this AM IV PPI Psychiatric consult For abd this AM NPO
[2017-12-21] MEDS: D5-0.9NS w/KCL 20mEq 1,000 ML IV SCH (11:47)
--- NOTE | 2017-12-21 13:58 | Diagnostic Imaging Report ---
Abdominal ultrasound HISTORY: Leukocytosis, pain The liver exhibits a normal size. There is an increase in parenchymal echogenicity. The finding may be associated with fatty infiltration and should be correlated with liver function tests. No focal lesions. The gallbladder is distended. No intraluminal abnormalities. Centrally, no definite calculi. No biliary dilatation. Pancreas cannot be seen due to bowel gas. The kidneys appear normal bilaterally. No other definite retroperitoneal or intra-abdominal abnormalities. IMPRESSION: 1. Increased hepatic parenchymal echogenicity. The finding may be associated fatty infiltration and should be correlated with liver function tests 2. No other definite abnormalities
[2017-12-21] MEDS ORDERED: Escitalopram Oxalate 5 mg Tab PO SCH (21:00)
--- NOTE | 2017-12-21 22:40 | GI Progress Note ---
Subjective - Review of Systems Service Date: 12/21/17 Subjective: EVENTS NOTED. PJ ORAL DIET. Objective - Results Result Diagrams: 12/21/17 06:15 12/21/17 06:15 Recent Labs: Laboratory Last Values WBC 5.8 Th/cmm (4.8-10.8) D 12/21/17 06:15 RBC 3.11 Mil/cmm (3.80-5.80) L 12/21/17 06:15 Hgb 9.4 gm/dL (12-16) L 12/21/17 06:15 Hct 28.3 % (41.0-60) L D 12/21/17 06:15 MCV 91.0 fl (80-99) 12/21/17 06:15 MCH 30.2 pg (27.0-31.0) 12/21/17 06:15 MCHC Differential 33.1 pg (28.0-36.0) 12/21/17 06:15 RDW 13.5 % (11.5-20.0) 12/21/17 06:15 Plt Count 207 Th/cmm (150-400) D 12/21/17 06:15 MPV 7.4 fl 12/21/17 06:15 Neutrophils % 53.0 % (40.0-80.0) 12/21/17 06:15 Lymphocytes % 33.5 % (20.0-50.0) 12/21/17 06:15 Monocytes % 6.5 % (2.0-10.0) 12/21/17 06:15 Eosinophils % 3.9 % (0.0-5.0) 12/21/17 06:15 Basophils % 3.1 % (0.0-2.0) H 12/21/17 06:15 PT 10.3 SECONDS (9.5-11.5) 12/19/17 22:35 INR 0.99 (0.5-1.4) 12/19/17 22:35 PTT (Actin FS) 19.8 SECONDS (26.0-38.0) L 12/19/17 22:35 Sodium 144 mEq/L (136-145) 12/21/17 06:15 Potassium 3.9 mEq/L (3.5-5.1) 12/21/17 06:15 Chloride 111 mEq/L (98-107) H 12/21/17 06:15 Carbon Dioxide 29.9 mEq/L (21.0-31.0) 12/21/17 06:15 Anion Gap 7.0 (7.0-16.0) 12/21/17 06:15 BUN 19 mg/dL (7-25) 12/21/17 06:15 Creatinine 0.9 mg/dL (0.7-1.3) 12/21/17 06:15 Est GFR ( Amer) > 60.0 ml/min (>90) 12/21/17 06:15 Est GFR (Non-Af Amer) > 60.0 ml/min 12/21/17 06:15 BUN/Creatinine Ratio 21.1 12/21/17 06:15 Glucose 110 mg/dL (70-105) H 12/21/17 06:15 Calcium 8.1 mg/dL (8.6-10.3) L 12/21/17 06:15 Total Bilirubin 0.3 mg/dL (0.3-1.0) 12/21/17 06:15 AST 17 U/L (13-39) 12/21/17 06:15 ALT 23 U/L (7-52) 12/21/17 06:15 Alkaline Phosphatase 50 U/L (34-104) 12/21/17 06:15 Total Protein 4.9 gm/dL (6.0-8.3) L 12/21/17 06:15 Albumin 2.9 gm/dL (4.2-5.5) L 12/21/17 06:15 Globulin 2.0 gm/dL 12/21/17 06:15 Albumin/Globulin Ratio 1.5 (1.0-1.8) 12/21/17 06:15 Lipase 22 U/L (11-82) 12/19/17 22:35 Stool Occult Blood NEGATIVE (NEGATIVE) 12/21/17 19:14 Helicobacter pylori Ab NEGATIVE (NEGATIVE) 12/20/17 15:55 - Physical Exam Vitals and I&O: Vital Signs Temp 98.5 F 12/21/17 20:00 Pulse 102 12/21/17 20:00 Resp 17 12/21/17 20:00 BP 113/62 12/21/17 20:00 Pulse Ox 92 12/21/17 20:00 Intake & Output 12/21/17 12/21/17 12/22/17 06:59 18:59 06:59 Intake Total 365.833 Balance 365.833 Weight (lbs) 71.123 kg Intake: Intake, IV Amount 365.833 D5-0.9NS w/KCL 20mEq 1, 365.833 000 ml @ 50 mls/hr IV . Q20H [facility] Rx#:[id number] Other: Weight Source Bedscale Active Medications: Current Medications Atenolol (Tenormin) 25 mg PO DAILY ISABEL Stop: 02/18/18 08:59 Last Admin: 12/21/17 10:00 Dose: Not Given Escitalopram Oxalate (Lexapro) 5 mg PO HS ISABEL PRN Reason: Protocol Stop: 02/19/18 20:59 Last Admin: 12/21/17 20:21 Dose: 5 mg Potassium Chloride/Dextrose/Sod Cl (D5-0.9ns W/Kcl 20meq) 1,000 mls @ 50 mls/ hr IV .Q20H ISABEL Stop: 02/18/18 08:59 Last Infusion: 12/21/17 19:06 Dose: 50 mls/hr Lorazepam (Ativan) 1 mg IVP Q4HR PRN; Protocol PRN Reason: Agitation Stop: 02/18/18 08:24 Last Admin: 12/21/17 08:01 Dose: 1 mg Miscellaneous (Vte Chemical Prophylaxis Screen/ Admission) 1 ea [facility] PRN PRN PRN Reason: PROTOCOL Stop: 02/18/18 08:44 Ondansetron HCl (Zofran) 4 mg IV Q6H PRN PRN Reason: Nausea / Vomiting Stop: 02/19/18 08:15 Pantoprazole Sodium (Protonix) 40 mg IVP DAILY ISABEL Stop: 02/18/18 08:59 Last Admin: 12/21/17 09:42 Dose: 40 mg Quetiapine Fumarate (Seroquel) 300 mg PO HS ISABEL PRN Reason: Protocol Stop: 02/19/18 20:59 Last Admin: 12/21/17 20:21 Dose: 300 mg Quetiapine Fumarate (Seroquel) 25 mg PO BID ISABEL PRN Reason: Protocol Stop: 02/19/18 16:59 Last Admin: 12/21/17 17:05 Dose: 25 mg General: Alert, No acute distress HEENT: Atraumatic Neck: Supple Cardiovascular: Regular rate Lungs: Clear to auscultation Abdomen: Bowel sounds, Soft, no Tender Extremities: no Clubbing, no Cyanosis, no Edema - Procedures Procedures: Procedures Procedure Code Date BLOOD TRANSFUSION SERVICE 44446 06/05/03 COLONOSCOPY W/LESION REMOVAL 11682 06/05/03 EGD BIOPSY SINGLE/MULTIPLE 75361 12/20/17 EGD DIAGNOSTIC BRUSH WASH 29016 08/09/00 ENDOSC POLYPECTOMY OF LG INTEST 45.42 06/05/03 ESOPHAGOGASTRODUODENOSCOPY [EGD] W/CLOSED BIOPSY 45.16 06/05/03 EXCISION OF STOMACH, ENDO, DIAGN [id number] 12/20/17 OTHER ENDOSCOPY OF SM INTEST 45.13 08/09/00 PACKED CELL TRANSFUSION 99.04 06/05/03 Assessment/Plan - Assessment Assessment: IMPRESSION: 1. UGIB - EGD SHOWED MILD ESOPHAITIS, SMALL HIATAL HERNIA, MILD GASTRITIS, FEW GASTRIC BODY POLYPS SAMPLED. 2. MILD ANEMIA. 3. US NEG FOR CHOLELITHIASIS. RECS: 1. ORAL DIET PJ. 2. PROTONIX. 3. ANTIEMETICS PRN. 4. F/U BX RESULTS.
[2017-12-22] MEDS: D5-0.9NS w/KCL 20mEq 1,000 ML IV SCH (05:16)
[2017-12-22 06:43] LABS: % BASOPHILS 0.2 % (0.0-2.0); % EOSINOPHILS 3.3 % (0.0-5.0); % LYMPHOCYTES 32.1 % (20.0-50.0); % MONOCYTES 7.8 % (2.0-10.0); % NEUTROPHILS 56.6 % (40.0-80.0); EOSINOPHILE ABSOLUTE 0.2 Th/cmm (0.1-0.4); HEMATOCRIT 28.7 % (41.0-60); HEMOGLOBIN 9.4 gm/dL (12-16); MEAN CELL VOLUME 91.8 fl (80-99); MEAN CORPUSCULAR HEMOGLOBIN 30.1 pg (27.0-31.0); MEAN CORPUSCULAR HGB CONC 32.7 pg (28.0-36.0); MEAN PLATELET VOLUME 7.5 fl; MONOCYTE ABSOLUTE 0.5 Th/cmm (0.3-1.0); NEUTROPHILE ABSOLUTE 3.4 Th/cmm (1.8-8.0); PLATELET COUNT 214 Th/cmm (150-400); RED BLOOD COUNT 3.13 Mil/cmm (3.80-5.80); RED CELL DISTRIBUTION WIDTH 13.6 % (11.5-20.0); WHITE BLOOD COUNT 6.1 Th/cmm (4.8-10.8)
--- NOTE | 2017-12-22 08:14 | General Progress Note ---
Subjective - Review of Systems Service Date: 12/22/17 Subjective: Patient was seen and examined. tolerating oral diet this morning. abdominal US neg for cholelithiasis. Note Appreciated. EGD noted to show mild esophagitis, small hiatal hernia, mild gastritis, gastric polyps noted. Hemoglobin 9.4 this AM...stable. Objective - Results Result Diagrams: 12/22/17 05:40 12/21/17 06:15 Recent Labs: Laboratory Last Values WBC 6.1 Th/cmm (4.8-10.8) 12/22/17 05:40 RBC 3.13 Mil/cmm (3.80-5.80) L 12/22/17 05:40 Hgb 9.4 gm/dL (12-16) L 12/22/17 05:40 Hct 28.7 % (41.0-60) L 12/22/17 05:40 MCV 91.8 fl (80-99) 12/22/17 05:40 MCH 30.1 pg (27.0-31.0) 12/22/17 05:40 MCHC Differential 32.7 pg (28.0-36.0) 12/22/17 05:40 RDW 13.6 % (11.5-20.0) 12/22/17 05:40 Plt Count 214 Th/cmm (150-400) 12/22/17 05:40 MPV 7.5 fl 12/22/17 05:40 Neutrophils % 56.6 % (40.0-80.0) 12/22/17 05:40 Lymphocytes % 32.1 % (20.0-50.0) 12/22/17 05:40 Monocytes % 7.8 % (2.0-10.0) 12/22/17 05:40 Eosinophils % 3.3 % (0.0-5.0) 12/22/17 05:40 Basophils % 0.2 % (0.0-2.0) 12/22/17 05:40 PT 10.3 SECONDS (9.5-11.5) 12/19/17 22:35 INR 0.99 (0.5-1.4) 12/19/17 22:35 PTT (Actin FS) 19.8 SECONDS (26.0-38.0) L 12/19/17 22:35 Sodium 144 mEq/L (136-145) 12/21/17 06:15 Potassium 3.9 mEq/L (3.5-5.1) 12/21/17 06:15 Chloride 111 mEq/L (98-107) H 12/21/17 06:15 Carbon Dioxide 29.9 mEq/L (21.0-31.0) 12/21/17 06:15 Anion Gap 7.0 (7.0-16.0) 12/21/17 06:15 BUN 19 mg/dL (7-25) 12/21/17 06:15 Creatinine 0.9 mg/dL (0.7-1.3) 12/21/17 06:15 Est GFR ( Amer) > 60.0 ml/min (>90) 12/21/17 06:15 Est GFR (Non-Af Amer) > 60.0 ml/min 12/21/17 06:15 BUN/Creatinine Ratio 21.1 12/21/17 06:15 Glucose 110 mg/dL (70-105) H 12/21/17 06:15 Calcium 8.1 mg/dL (8.6-10.3) L 12/21/17 06:15 Total Bilirubin 0.3 mg/dL (0.3-1.0) 12/21/17 06:15 AST 17 U/L (13-39) 12/21/17 06:15 ALT 23 U/L (7-52) 12/21/17 06:15 Alkaline Phosphatase 50 U/L (34-104) 12/21/17 06:15 Total Protein 4.9 gm/dL (6.0-8.3) L 12/21/17 06:15 Albumin 2.9 gm/dL (4.2-5.5) L 12/21/17 06:15 Globulin 2.0 gm/dL 12/21/17 06:15 Albumin/Globulin Ratio 1.5 (1.0-1.8) 12/21/17 06:15 Lipase 22 U/L (11-82) 12/19/17 22:35 Stool Occult Blood NEGATIVE (NEGATIVE) 12/21/17 19:14 Helicobacter pylori Ab NEGATIVE (NEGATIVE) 12/20/17 15:55 - Physical Exam Vitals and I&O: Vital Signs Temp 98 F 12/22/17 04:00 Pulse 82 12/22/17 04:00 Resp 18 12/22/17 08:04 BP 108/72 12/22/17 04:00 Pulse Ox 96 12/22/17 04:00 Intake & Output 12/21/17 12/22/17 12/22/17 18:59 06:59 18:59 Intake Total 994.166 Balance 994.166 Weight (lbs) 72.631 kg Intake: Intake, IV Amount 874.166 D5-0.9NS w/KCL 20mEq 1, 874.166 000 ml @ 50 mls/hr IV . Q20H [facility] Rx#:[id number] Oral 120 Other: # Voids 3 Weight Source Bedscale Active Medications: Current Medications Atenolol (Tenormin) 25 mg PO DAILY ISABEL Stop: 02/18/18 08:59 Last Admin: 12/21/17 10:00 Dose: Not Given Escitalopram Oxalate (Lexapro) 5 mg PO HS ISABEL PRN Reason: Protocol Stop: 02/19/18 20:59 Last Admin: 12/21/17 20:21 Dose: 5 mg Potassium Chloride/Dextrose/Sod Cl (D5-0.9ns W/Kcl 20meq) 1,000 mls @ 50 mls/ hr IV .Q20H ISABEL Stop: 02/18/18 08:59 Last Admin: 12/22/17 05:16 Dose: 50 mls/hr Lorazepam (Ativan) 1 mg IVP Q4HR PRN; Protocol PRN Reason: Agitation Stop: 02/18/18 08:24 Last Admin: 12/21/17 08:01 Dose: 1 mg Miscellaneous (Vte Chemical Prophylaxis Screen/ Admission) 1 ea [facility] PRN PRN PRN Reason: PROTOCOL Stop: 02/18/18 08:44 Ondansetron HCl (Zofran) 4 mg IV Q6H PRN PRN Reason: Nausea / Vomiting Stop: 02/19/18 08:15 Pantoprazole Sodium (Protonix) 40 mg IVP DAILY ISABEL Stop: 02/18/18 08:59 Last Admin: 12/21/17 09:42 Dose: 40 mg Quetiapine Fumarate (Seroquel) 300 mg PO HS ISABEL PRN Reason: Protocol Stop: 02/19/18 20:59 Last Admin: 12/21/17 20:21 Dose: 300 mg Quetiapine Fumarate (Seroquel) 25 mg PO BID ISABEL PRN Reason: Protocol Stop: 02/19/18 16:59 Last Admin: 12/21/17 17:05 Dose: 25 mg General: Alert, No acute distress HEENT: Atraumatic Neck: Supple Cardiovascular: Regular rate Lungs: Clear to auscultation Abdomen: Bowel sounds, Soft, no Tender Extremities: no Clubbing, no Cyanosis, no Edema - Procedures Procedures: Procedures Procedure Code Date BLOOD TRANSFUSION SERVICE 10224 06/05/03 COLONOSCOPY W/LESION REMOVAL 25194 06/05/03 EGD BIOPSY SINGLE/MULTIPLE 62813 12/20/17 EGD DIAGNOSTIC BRUSH WASH 13993 08/09/00 ENDOSC POLYPECTOMY OF LG INTEST 45.42 06/05/03 ESOPHAGOGASTRODUODENOSCOPY [EGD] W/CLOSED BIOPSY 45.16 06/05/03 EXCISION OF STOMACH, ENDO, DIAGN [id number] 12/20/17 OTHER ENDOSCOPY OF SM INTEST 45.13 08/09/00 PACKED CELL TRANSFUSION 99.04 06/05/03 Assessment/Plan - Assessment Assessment: mild esophagitis small hiatal hernia mild gastritis ANEMIA Hb 9.4 ... stool occult pending. will order FeSo4 325mg Po daily. Hypokalemia resolved Dehydration resolved tolerating oral diet Psychosis ... stable. - Plan Plan: discharge planning.
[2017-12-22] MEDS ORDERED: Ferrous Sulfate 325 MG TAB PO SCH (09:00)
--- NOTE | 2017-12-22 15:21 | Pathology Report ---
[id number] Collection Date: 12/20/2017 Surgeon: Dr. Yanelis Enciso Specimen Description: Gastric polyps Gross Description: Received in formalin are two johnson soft tissue fragments, each measuring 0.1 cm in greatest dimension. Totally submitted in one cassette. Microscopic Description: The histologic sections show gastric mucosa with multiple dilated benign gastric glands, consistent with benign hyperplastic polyp. The Giemsa stain shows no evidence for H. pylori. Diagnosis: Benign hyperplastic gastric polyp. [facility]# [id number] [facility]
--- NOTE | 2017-12-22 20:54 | Progress Notes ---
DATE: 12/22/2017 FOLLOWUP NOTE The patient seems to be calm, sleeping on exam, difficult to arouse, at one point he does open his eyes, but then goes back to sleep, he does not want to speak with me. No noted events, no agitation. Medications were noted. No overt paranoia or anxieties at this time. I did see the patient yesterday. I spoke with brother yesterday. Increased medications. He seems to be tolerating it well. ASSESSMENT: The patient is calm, does not want to talk to me this morning, sleeping, but arousable. No overt psychosis, no SI, no HI, no suicidal gestures. PLAN: Continue to monitor. We will need to reassess further when patient is more amenable to interview. Medications were reviewed including dosages and frequencies. JOB# [id number]
--- NOTE | 2017-12-22 20:56 | Progress Notes ---
DATE: 12/21/2017 SUBJECTIVE: The patient with brother at bedside; brother noting he feels the patient was decompensating, not on his typical medications. The patient somewhat suspicious, noted his baseline very fearful, he remains pretty interactive, not overtly psychotic, still with good orientation. He has been calm and cooperative. He is just getting more fearful. Medications were noted including dosages and frequencies. ASSESSMENT: The patient with fair ADLs, somewhat tearful on exam. Good orientation, calm, cooperative, no SI, no HI. Again, no SI, no HI. No overt paranoia. PLAN: I will increase medications to his typical dosages, daytime order of Seroquel as well as a high nighttime dose. Discussed with brother. JOB# [id number]
--- NOTE | 2017-12-24 10:55 | Consultation ---
DATE OF CONSULTATION: 12/22/2017 GASTROENTEROLOGY PROGRESS NOTE SUBJECTIVE: No active events noted. Tolerating oral diet. OBJECTIVE: VITAL SIGNS: Noted. GENERAL: The patient is a well-developed, well-nourished male in no acute distress. HEENT: Sclerae nonicteric. Oropharynx is clear. CARDIOVASCULAR: Regular rate and rhythm. LUNGS: Clear to auscultation bilaterally. ABDOMEN: Soft, nontender, nondistended. EXTREMITIES: No edema. RELEVANT LABORATORY DATA: Hemoglobin 9.4. IMPRESSION: 1. Upper gastrointestinal bleed with upper endoscopy showing mild esophagitis, small hiatal hernia, gastritis and few gastric body polyps. 2. Mild anemia. 3. Cholelithiasis. RECOMMENDATIONS: 1. Oral diet as tolerated. 2. Protonix. 3. Antiemetics as needed. 4. Follow biopsy results. JOB# [id number] MTDD
== END 2017-12-22 16:31 | DRG 393 ==
LOC: ER 22:05 → MSI 12-20 04:10
PROVIDERS: ADMIT Family Medicine; ATTEND Family Medicine
PROC: 0DB68ZX Excision of Stomach, Via Natural or Artificial Opening Endoscopic, Diagnostic (ICD-10-PCS; principal; 2017-12-20)
DX: K31.7 Polyp of stomach and duodenum (principal); K29.71 Gastritis, unspecified, with bleeding; K27.4 Chronic or unspecified peptic ulcer, site unspecified, with hemorrhage; E44.1 Mild protein-calorie malnutrition; D64.9 Anemia, unspecified; E87.6 Hypokalemia; E86.0 Dehydration; F41.9 Anxiety disorder, unspecified; K80.20 Calculus of gallbladder without cholecystitis without obstruction; D72.829 Elevated white blood cell count, unspecified; K44.9 Diaphragmatic hernia without obstruction or gangrene; K21.0 Gastro-esophageal reflux disease with esophagitis; F29 Unspecified psychosis not due to a substance or known physiological condition; F39 Unspecified mood [affective] disorder; Z87.11 Personal history of peptic ulcer disease; Z82.5 Family history of asthma and other chronic lower respiratory diseases
CPT/HCPCS: 36415-UA; 76700-TC; 80048-TC; 80053-TC; 82270-TC; 83690-TC; 85025-TC; 85610-TC; 85730-TC; 87338-TC; C9113; J2060; J2704; Z7508; Z7610

== ENCOUNTER 2017-12-22 16:36 | Inpatient (IN) | payer MEDICARE, MEDICAID ==
[2017-12-22 17:47] VITALS: BP 138/79
[2017-12-22] MEDS ORDERED: Magnesium Hydroxide (MOM) 30 mL UDC PO PRN (17:48)
[2017-12-22] MEDS ORDERED: Maalox 30 mL Cup PO PRN (17:48)
--- NOTE | 2017-12-23 08:27 | History and Physical ---
History of Present Illness - HPI Chief Complaint: Psychosis HPI: 67 y/o male transferred to [facility]. He was originally admitted for possible GI Bleednoted for coffee ground emesis x 3 one day prior to admission. Patient reportedly had coffee grounds emesis 3 times at the SNF. Patient denies abdominal pain. Patient was transferred here on 11/19/2017 from [facility] for expressing the desire to hurt himself. He was yelling and screaming and noted to have auditory hallucinations and agitation at that time. Was admitted to [facility] and underwent upper endoscopy. Was found to have esophagitis and gastritis, hiatal hernia. He was medically cleared and transferred to [facility] for further evaluation and treatment. - Past Medical History Past Medical History: PUD/GERD, Other (disease and mood disorder) Family History: Other (unavailable) Social History: Care Facility Surgical History: other (unavailable) Psychiatricy History: Other (mood disorder) Medication: Reviewed While in the ER patient had routine labwork done... - Lab Results Results: Laboratory Results - last 24 hr 12/19/17 12/19/17 12/19/17 22:35 22:35 22:35 WBC 10.9 H RBC 3.95 L Hgb 11.9 L Hct 35.8 L MCV 90.5 MCH 30.0 MCHC Differential 33.2 RDW 14.0 Plt Count 260 MPV 7.4 Neutrophils % 55.3 Lymphocytes % 34.3 Monocytes % 7.0 Eosinophils % 2.4 Basophils % 1.0 PT 10.3 INR 0.99 PTT (Actin FS) 19.8 L Sodium 141 Potassium 3.4 L Chloride 107 Carbon Dioxide 26.4 Anion Gap 11.0 BUN 30 H Creatinine 0.9 Est GFR ( Amer) > 60.0 Est GFR (Non-Af Amer) > 60.0 BUN/Creatinine Ratio 33.3 Glucose 134 H Calcium 8.7 Lipase 22 Patient was subsequently admitted for possible GI Bleed. Vital Signs: Last Vital Signs Temp 96.8 F 12/20/17 04:59 Pulse 81 12/20/17 04:59 Resp 18 12/20/17 06:50 BP 129/58 12/20/17 04:59 Pulse Ox 98 12/20/17 04:59 Vital Signs: Last Vital Signs Temp 98.6 F 12/23/17 07:08 Pulse 72 12/23/17 07:08 Resp 20 12/23/17 07:08 BP 120/62 12/23/17 07:08 Pulse Ox 97 12/23/17 07:08 Past Medical History Cardiovascular: Report: HTN Family Medical History - Family Member Mother History Unknown: Yes Social History Smoke: No Alcohol: None Drugs: None Lives: Long Term - Medications Home Medications: Home Medication Medication Instructions Recorded Type Atenolol [Tenormin*] 25 mg PO DAILY tab 12/22/17 Rx Escitalopram Oxalate [Lexapro] 5 mg PO HS tab 12/22/17 Rx Ferrous Sulfate [Iron] 325 mg PO DAILY tab 12/22/17 Rx QUEtiapine Fumarate [SEROquel] 25 mg PO BID tab 12/22/17 Rx QUEtiapine Fumarate [SEROquel] 300 mg PO HS tab 12/22/17 Rx - Allergies Allergies/Adverse Reactions: Allergies Allergy/AdvReac Type Severity Reaction Status Date / Time No Known Allergies Allergy Verified 11/19/17 15:12 Review of Systems - Review of Systems Constitutional: Report: No Significant Eyes: Report: No Significant ENT: Report: No Significant Respiratory: Report: No Significant Cardiovascular: Report: No Significant Gastrointestinal: Report: No Significant Genitourinary: Report: No Significant Musculoskeletal: Report: No Significant Skin: Report: No Significant Neurological: Report: No Significant - Assessment Assessment: mild esophagitis small hiatal hernia mild gastritis ANEMIA Hb 9.4 ... stool occult pending. will order FeSo4 325mg Po daily. Hypokalemia resolved Dehydration resolved tolerating oral diet Psychosis ... stable. - Plan Plan: admit to [facility] continue current meds.
[2017-12-23] MEDS ORDERED: Ferrous Sulfate 325 MG TAB PO SCH (09:00)
[2017-12-23] MEDS ORDERED: Multivitamin Tab PO SCH (09:00)
[2017-12-23 15:25] LABS: % EOSINOPHILS 0.7 % (0.0-5.0); % LYMPHOCYTES 10.8 % (20.0-50.0); % MONOCYTES 4.3 % (2.0-10.0); % NEUTROPHILS 84.2 % (40.0-80.0); EOSINOPHILE ABSOLUTE 0.1 Th/cmm (0.1-0.4); HEMATOCRIT 34.2 % (41.0-60); HEMOGLOBIN 11.5 gm/dL (12-16); LYMPHOCYTE ABSOLUTE 1.4 Th/cmm (1.5-3.0); MEAN CELL VOLUME 91.4 fl (80-99); MEAN CORPUSCULAR HEMOGLOBIN 30.8 pg (27.0-31.0); MEAN CORPUSCULAR HGB CONC 33.7 pg (28.0-36.0); MEAN PLATELET VOLUME 7.5 fl; MONOCYTE ABSOLUTE 0.6 Th/cmm (0.3-1.0); PLATELET COUNT 381 Th/cmm (150-400); RED BLOOD COUNT 3.74 Mil/cmm (3.80-5.80); RED CELL DISTRIBUTION WIDTH 14.2 % (11.5-20.0)
[2017-12-23 15:58] LABS: WHITE BLOOD COUNT 13.1 Th/cmm (4.8-10.8)
[2017-12-23] MEDS ORDERED: Escitalopram Oxalate 5 mg Tab PO SCH (21:00)
[2017-12-24] MEDS ORDERED: Pantoprazole 40 mg EC Tab PO SCH (07:30)
--- NOTE | 2017-12-24 20:42 | Psychosocial Evaluation ---
DATE OF SERVICE: 12/23/2017 JUSTIFICATION FOR HOSPITALIZATION: Paranoia, fear, is resistant to care. CHIEF COMPLAINT: "I am okay." HISTORY OF PRESENT ILLNESS: A 67-year-old male with history of mental illness, likely schizophrenia, seen on the Med-Surg Unit, fearful, paranoid at times and not on his medications. On [id number], the patient calmer, more cooperative, still with some suspicions, paranoia, "I am afraid of people." Denies overt depression. PAST PSYCHIATRIC HISTORY: Recent admission to the hospital, history of schizophrenia. MEDICAL HISTORY: Please see full H and P. MEDICATIONS: Noted. SOCIAL HISTORY: Brother involved. The patient is coming from long term. MENTAL STATUS EXAMINATION: Stated age. Fair eye contact. Speech impoverished. Mood "okay." Affect flat. Thought processes were impoverished, but better oriented. He knows his name. He knows where he is. He knows the year. No overt SI or HI. Some paranoia is noted. Insight and judgment diminished. Impulse control, poor. PROVISIONAL DIAGNOSES: Schizophrenia, also anxiety, unspecified; mood, unspecified. Brother concerned about depressive symptoms. ASSESSMENT: The patient requiring inpatient hospitalization. Paranoid. He had been off his medications. Unstable for discharge. PLAN: We will continue to monitor. We will restart medications. Treatment plan includes group as well as milieu therapy. CONDITIONS FOR DISCHARGE: Improved mood, improved affect, cessation of any SI or HI, better control of his paranoia. [facility]# [id number]
== END 2017-12-23 20:51 | DRG 885 ==
LOC: GERO 16:36
PROVIDERS: ADMIT Psychiatry & Neurology Psychiatry; ATTEND Psychiatry & Neurology Psychiatry
DX: F20.9 Schizophrenia, unspecified (principal); F41.9 Anxiety disorder, unspecified; F29 Unspecified psychosis not due to a substance or known physiological condition; I10 Essential (primary) hypertension; K44.9 Diaphragmatic hernia without obstruction or gangrene; K21.0 Gastro-esophageal reflux disease with esophagitis; K29.70 Gastritis, unspecified, without bleeding; E87.6 Hypokalemia; E86.0 Dehydration; D64.9 Anemia, unspecified; F39 Unspecified mood [affective] disorder; Z87.11 Personal history of peptic ulcer disease
CPT/HCPCS: 36415-UA; 85025-TC; Z7610

== ENCOUNTER 2017-12-23 21:18 | Inpatient (IN) | payer MEDICARE, MEDICAID ==
[~2017-12-23 21:18] MED LIST: Propofol 10 mg/mL 20mL Vial **SURGERY USE ONLY IV ONE
[2017-12-23 21:36] VITALS: BP 136/78
[2017-12-24] MEDS: D5-0.45NS 1,000 ML IV SCH ×2 (01:00→21:00)
[2017-12-24 05:13] LABS: % BASOPHILS 0.2 % (0.0-2.0); % EOSINOPHILS 1.1 % (0.0-5.0); % MONOCYTES 4.5 % (2.0-10.0); % NEUTROPHILS 72.2 % (40.0-80.0); EOSINOPHILE ABSOLUTE 0.1 Th/cmm (0.1-0.4); HEMATOCRIT 31.4 % (41.0-60); HEMOGLOBIN 10.6 gm/dL (12-16); LYMPHOCYTE ABSOLUTE 2.7 Th/cmm (1.5-3.0); MEAN CELL VOLUME 90.3 fl (80-99); MEAN CORPUSCULAR HEMOGLOBIN 30.5 pg (27.0-31.0); MEAN CORPUSCULAR HGB CONC 33.8 pg (28.0-36.0); MEAN PLATELET VOLUME 7.7 fl; MONOCYTE ABSOLUTE 0.5 Th/cmm (0.3-1.0); NEUTROPHILE ABSOLUTE 8.8 Th/cmm (1.8-8.0); PLATELET COUNT 306 Th/cmm (150-400); RED BLOOD COUNT 3.48 Mil/cmm (3.80-5.80); RED CELL DISTRIBUTION WIDTH 14.1 % (11.5-20.0)
[2017-12-24 05:22] LABS: WHITE BLOOD COUNT 12.1 Th/cmm (4.8-10.8)
[2017-12-24 05:24] LABS: ANION GAP 10.2 (7.0-16.0); BUN - UREA NITROGEN 20 mg/dL (7-25); CALCIUM SERUM 9.1 mg/dL (8.6-10.3); CARBON DIOXIDE 28.8 mEq/L (21.0-31.0); CHLORIDE 105 mEq/L (98-107); CREATININE - SERUM 0.9 mg/dL (0.7-1.3); GFR AFRICAN-AMERICAN > 60.0 ml/min (>90); GFR NON AFRICAN-AMERICAN > 60.0 ml/min; GLUCOSE 123 mg/dL (70-105); SODIUM SERUM 140 mEq/L (136-145)
--- NOTE | 2017-12-24 07:57 | History and Physical ---
History of Present Illness - HPI Chief Complaint: coffee ground emesis HPI: 67 y/o male who was transferred from [facility] to ICU for coffee ground emesis x2 yesterday. Patient recently underwent EGD which revealed esophagitis, gastritis, hiatal hernia. He was originally admitted for possible GI Bleed noted for coffee ground emesis x 3 one day prior to admission. Patient reportedly had coffee grounds emesis 3 times at the SNF. Patient denies abdominal pain. Patient was transferred here on 11/19/2017 from [facility] for expressing the desire to hurt himself. He was yelling and screaming and noted to have auditory hallucinations and agitation at that time. Was admitted to [facility] and underwent upper endoscopy. Was found to have esophagitis and gastritis, hiatal hernia. He was medically cleared and transferred to the medical center for further evaluation and treatment. While in [facility] he had two additional episodes of coffee ground emesis x2 and was subsequently transferred to ICU for close observation. Since his transferred he has been kept NPO and no further vomiting was noted. Patient was noted to have cardiac arrhythmmia and a cardiac consult with Dr. Eben Cortés was ordered. Vital Signs: Last Vital Signs Temp 98.1 F 12/24/17 04:00 Pulse 72 12/24/17 06:00 Resp 18 12/24/17 06:00 BP 95/52 12/24/17 06:00 Pulse Ox 99 12/24/17 06:00 Past Medical History Cardiovascular: Report: HTN Pulmonary: Report: No Pertinent Hx [employer]: Report: No Pertinent Hx GI: Report: Gastritis, Other (esophagitis, hiatal hernia) Psych: Report: Psychosis, Schizophrenia Musculoskeletal: Report: No Pertinent Hx Rheumatologic: Report: No pertinent Hx Infectious Disease: Report: No Pertinent Hx Renal/: Report: No Pertinent Hx Endocrine: Report: No Pertinent Hx Dermatology: Report: No Pertinent Hx - Past Surgical History Past Surgical History: No pertinent Hx Family Medical History - Family Member Mother History Unknown: Yes Hx Family Psychiatric Problems: Yes Social History Smoke: No Alcohol: None Drugs: None Lives: Intermediate - Medications Home Medications: Home Medication Medication Instructions Recorded Type Acetaminophen [Tylenol] 650 mg PO Q4HR PRN tab 12/23/17 Rx Al Hyd/Mg Hyd/Simethicone [Maalox] 30 ml PO Q4HR PRN udc 12/23/17 Rx Atenolol [Tenormin*] 25 mg PO DAILY #0 tab 12/23/17 Rx Escitalopram Oxalate [Lexapro] 5 mg PO HS #0 tab 12/23/17 Rx Ferrous Sulfate [Iron] 325 mg PO DAILY #0 tab 12/23/17 Rx Lorazepam [Ativan] 0.5 mg PO Q4HR PRN tab 12/23/17 Rx Magnesium Hydroxide [Milk of 30 ml PO HS PRN udc 12/23/17 Rx Magnesia] Multivitamin [Theragran] 1 tab PO DAILY tab 12/23/17 Rx Pantoprazole [Protonix] 40 mg PO QDAC ect 12/23/17 Rx QUEtiapine Fumarate [SEROquel] 25 mg PO BID tab 12/23/17 Rx QUEtiapine Fumarate [SEROquel] 300 mg PO HS tab 12/23/17 Rx Zolpidem Tartrate [Ambien] 5 mg PO HS PRN tab 12/23/17 Rx - Allergies Allergies/Adverse Reactions: Allergies Allergy/AdvReac Type Severity Reaction Status Date / Time No Known Allergies Allergy Verified 11/19/17 15:12 Review of Systems - Review of Systems Constitutional: Report: No Significant Eyes: Report: No Significant ENT: Report: No Significant Respiratory: Report: No Significant Cardiovascular: Report: No Significant Gastrointestinal: Report: Nausea, Vomiting, Abdominal Pain Genitourinary: Report: No Significant Musculoskeletal: Report: No Significant Skin: Report: No Significant Neurological: Report: No Significant Physical Exam - Physical Exam HEENT: Report: Ears Nose Throat within normal limits, Pharnyx within normal limits Neck: Report: Within normal limits. Denies: Thyromegaly Cardiovascular Systems: Report: +s1/s2 noted, Regular, Rate and Rhythm Respiratory: Report: Breath Sounds are within normal limits, Clear to Auscultation of lung mendez Abdomen: Report: Non-tender to palpation Back: Report: Inspection of back is within normal limits. Extremities: Report: Non-tender to palpation. Skin: Report: Color of skin is within normal limits Neuro/Psych: Report: Mood affect is within normal limits, A+Ox3 - Lab Results All Lab Results last 24 hours: Laboratory Results - last 24 hr 12/24/17 12/24/17 04:30 04:30 WBC 12.1 H RBC 3.48 L Hgb 10.6 L Hct 31.4 L MCV 90.3 MCH 30.5 MCHC Differential 33.8 RDW 14.1 Plt Count 306 MPV 7.7 Neutrophils % 72.2 Lymphocytes % 22.0 Monocytes % 4.5 Eosinophils % 1.1 Basophils % 0.2 Sodium 140 Potassium 4.0 Chloride 105 Carbon Dioxide 28.8 Anion Gap 10.2 BUN 20 Creatinine 0.9 Est GFR ( Amer) > 60.0 Est GFR (Non-Af Amer) > 60.0 BUN/Creatinine Ratio 22.2 Glucose 123 H Calcium 9.1 - Assessment Assessment: coffee ground emesis x 2 esophagitis gastritis hiatal hernia hypertension psychosis cardiac arrhythmmia - Plan Plan: for GI evaluation NPO continue IVfluids Protonix drip cardiology consult
[2017-12-24 08:28] LABS: PROTHROMBIN TIME (TEST) 10.4 SECONDS (9.5-11.5)
--- NOTE | 2017-12-24 08:37 | GI Progress Note ---
Subjective - Review of Systems Service Date: 12/24/17 Subjective: Pt had coffee ground emesis last night, witnessed and photographed Objective - Results Result Diagrams: 12/24/17 04:30 12/24/17 04:30 Recent Labs: Laboratory Last Values WBC 12.1 Th/cmm (4.8-10.8) H 12/24/17 04:30 RBC 3.48 Mil/cmm (3.80-5.80) L 12/24/17 04:30 Hgb 10.6 gm/dL (12-16) L 12/24/17 04:30 Hct 31.4 % (41.0-60) L 12/24/17 04:30 MCV 90.3 fl (80-99) 12/24/17 04:30 MCH 30.5 pg (27.0-31.0) 12/24/17 04:30 MCHC Differential 33.8 pg (28.0-36.0) 12/24/17 04:30 RDW 14.1 % (11.5-20.0) 12/24/17 04:30 Plt Count 306 Th/cmm (150-400) 12/24/17 04:30 MPV 7.7 fl 12/24/17 04:30 Neutrophils % 72.2 % (40.0-80.0) 12/24/17 04:30 Lymphocytes % 22.0 % (20.0-50.0) 12/24/17 04:30 Monocytes % 4.5 % (2.0-10.0) 12/24/17 04:30 Eosinophils % 1.1 % (0.0-5.0) 12/24/17 04:30 Basophils % 0.2 % (0.0-2.0) 12/24/17 04:30 PT 10.4 SECONDS (9.5-11.5) 12/24/17 04:30 INR 1.00 (0.5-1.4) 12/24/17 04:30 Sodium 140 mEq/L (136-145) 12/24/17 04:30 Potassium 4.0 mEq/L (3.5-5.1) 12/24/17 04:30 Chloride 105 mEq/L (98-107) 12/24/17 04:30 Carbon Dioxide 28.8 mEq/L (21.0-31.0) 12/24/17 04:30 Anion Gap 10.2 (7.0-16.0) 12/24/17 04:30 BUN 20 mg/dL (7-25) 12/24/17 04:30 Creatinine 0.9 mg/dL (0.7-1.3) 12/24/17 04:30 Est GFR ( Amer) > 60.0 ml/min (>90) 12/24/17 04:30 Est GFR (Non-Af Amer) > 60.0 ml/min 12/24/17 04:30 BUN/Creatinine Ratio 22.2 12/24/17 04:30 Glucose 123 mg/dL (70-105) H 12/24/17 04:30 Calcium 9.1 mg/dL (8.6-10.3) 12/24/17 04:30 - Physical Exam Vitals and I&O: Vital Signs Temp 98.1 F 12/24/17 04:00 Pulse 72 12/24/17 06:00 Resp 18 12/24/17 06:00 BP 95/52 12/24/17 06:00 Pulse Ox 99 12/24/17 06:00 Intake & Output 12/23/17 12/24/17 12/24/17 18:59 06:59 18:59 Weight (lbs) 72.631 kg Other: Weight Source Estimated Active Medications: Current Medications Dextrose/Sodium Chloride (D5-0.45ns) 1,000 mls @ 50 mls/hr IV .Q20H ISABEL Stop: 02/21/18 22:15 Last Admin: 12/24/17 01:00 Dose: 50 mls/hr Lorazepam (Ativan) 1 mg IM Q2HR PRN; Protocol PRN Reason: Agitation Stop: 02/21/18 22:14 Last Admin: 12/23/17 22:38 Dose: 1 mg Pantoprazole Sodium (Protonix) 40 mg IVP DAILY ISABEL Stop: 02/22/18 08:59 General: Alert HEENT: Atraumatic Neck: Supple Cardiovascular: Regular rate Abdomen: Bowel sounds, Soft, no Tender, no Distended, no Rebound, no Mass, no Guarding, no Obese Extremities: no Clubbing Skin: no Rash - Procedures Procedures: Procedures Procedure Code Date BLOOD TRANSFUSION SERVICE 48440 06/05/03 COLONOSCOPY W/LESION REMOVAL 05561 06/05/03 EGD BIOPSY SINGLE/MULTIPLE 94695 12/20/17 EGD DIAGNOSTIC BRUSH WASH 94565 08/09/00 ENDOSC POLYPECTOMY OF LG INTEST 45.42 06/05/03 ESOPHAGOGASTRODUODENOSCOPY [EGD] W/CLOSED BIOPSY 45.16 06/05/03 EXCISION OF STOMACH, ENDO, DIAGN [id number] 12/20/17 OTHER ENDOSCOPY OF SM INTEST 45.13 08/09/00 PACKED CELL TRANSFUSION 99.04 06/05/03 Assessment/Plan - Assessment Assessment: # Coffee ground emesis # Anemia Pt had EGD last week that revealed mild esophagitis, mild gastritis, hiatal hernia, gastric polyps. Biopsy revealed benign gastric polyp. Etiology of current bleed may be from the esophagitis, or possibly payton vergara tear from retching. We will start protonix gtt and observe conservatively today. If he has further episodes, he will need another EGD. Plan: - protonix drip - clears - short course of reglan to prevent retching - NG tube if he has further vomiting - cbc q12 - repeat EGD if he has further coffee ground emesis
[2017-12-24] MEDS: Pantoprazole 80 MG in Sodium Chloride 0.9% 100 ML IV SCH ×2 (09:19→17:21)
[2017-12-24 15:00] LABS: % BASOPHILS 0.4 % (0.0-2.0); % EOSINOPHILS 1.9 % (0.0-5.0); % LYMPHOCYTES 18.6 % (20.0-50.0); % MONOCYTES 5.7 % (2.0-10.0); % NEUTROPHILS 73.4 % (40.0-80.0); EOSINOPHILE ABSOLUTE 0.2 Th/cmm (0.1-0.4); HEMATOCRIT 32.2 % (41.0-60); HEMOGLOBIN 10.7 gm/dL (12-16); LYMPHOCYTE ABSOLUTE 1.9 Th/cmm (1.5-3.0); MEAN CELL VOLUME 91.4 fl (80-99); MEAN CORPUSCULAR HEMOGLOBIN 30.4 pg (27.0-31.0); MEAN CORPUSCULAR HGB CONC 33.3 pg (28.0-36.0); MEAN PLATELET VOLUME 7.2 fl; MONOCYTE ABSOLUTE 0.6 Th/cmm (0.3-1.0); NEUTROPHILE ABSOLUTE 7.7 Th/cmm (1.8-8.0); PLATELET COUNT 320 Th/cmm (150-400); RED BLOOD COUNT 3.52 Mil/cmm (3.80-5.80); RED CELL DISTRIBUTION WIDTH 14.3 % (11.5-20.0); WHITE BLOOD COUNT 10.4 Th/cmm (4.8-10.8)
--- NOTE | 2017-12-25 04:33 | Consultation ---
DATE OF CONSULTATION: 12/24/2017 HISTORY OF PRESENT ILLNESS: This 67-year-old male was seen and examined at the courtesy of Dr. Briones. The patient transferred from [facility] with possible [facility] bleeding. He was noticed to have some PVCs. At present, the patient seems to be in stable sinus rhythm. The patient does have a history of hypertension, was found to have esophagitis, hiatal hernia, anemia, peptic ulcer disease and psych problems. No proper history available from the patient. Denies any history of chest pains, shortness of breath, dizziness, no syncope, no palpitations, no history of cough, no history of fever, no history of hemoptysis. PAST MEDICAL HISTORY: Usual childhood diseases, no history of rheumatic fever. No history of scarlet fever. Other positives as mentioned above. FAMILY HISTORY: Not available from the patient. REVIEW OF SYSTEMS: Not much available from the patient. PHYSICAL EXAMINATION VITAL SIGNS: Heart rate is 70, blood pressure is 138/80. SKIN: Normal. HEAD: Normocephalic. EYES: Conjunctivae were pink. There is no icterus in the eyes. Pupils reacting to light. NECK: There was no increased jugular venous distention, no thyromegaly, no lymphadenopathy. Carotids equal both sides. CHEST: Bilaterally symmetrical, moved well with respiration. Respiratory movements equal both sides. Trachea is central. There is note to percussion. Breath sounds unremarkable. CARDIOVASCULAR SYSTEM: PMI not well localized. There is no pulsation or thrill. No parasternal heave. S1 normal, S2 physiologic. There was no S3, no rub. ABDOMEN: Soft, no tenderness, no rigidity, no guarding and no organomegaly. Bowel sounds normal. EXTREMITIES: There was no calf tenderness. LABORATORY DATA: EKG showed sinus rhythm, heart rate of 64, T-wave changes. IMPRESSION: According to nurse, PVCs were noted with cardiac arrhythmia with premature ventricular contractions, now resolved; hypertension; anemia; gastrointestinal bleeding; esophagitis; hiatal hernia; peptic ulcer disease; psych problems. PLAN: He is to continue present management. Advised to keep the patient on beta-deon and may be CORINNA inhibitor, also lipid profile should be done and accordingly if LDL is high, the patient should be on statins also. JOB# [id number]
--- NOTE | 2017-12-25 04:55 | General Progress Note ---
Subjective - Review of Systems Service Date: 12/25/17 Subjective: Patient was seen and examined. currently on clear liquid diet. no further episodes of emesis. Objective - Results Result Diagrams: 12/24/17 14:52 12/24/17 04:30 Recent Labs: Laboratory Last Values WBC 10.4 Th/cmm (4.8-10.8) 12/24/17 14:52 RBC 3.52 Mil/cmm (3.80-5.80) L 12/24/17 14:52 Hgb 10.7 gm/dL (12-16) L 12/24/17 14:52 Hct 32.2 % (41.0-60) L 12/24/17 14:52 MCV 91.4 fl (80-99) 12/24/17 14:52 MCH 30.4 pg (27.0-31.0) 12/24/17 14:52 MCHC Differential 33.3 pg (28.0-36.0) 12/24/17 14:52 RDW 14.3 % (11.5-20.0) 12/24/17 14:52 Plt Count 320 Th/cmm (150-400) 12/24/17 14:52 MPV 7.2 fl 12/24/17 14:52 Neutrophils % 73.4 % (40.0-80.0) 12/24/17 14:52 Lymphocytes % 18.6 % (20.0-50.0) L 12/24/17 14:52 Monocytes % 5.7 % (2.0-10.0) 12/24/17 14:52 Eosinophils % 1.9 % (0.0-5.0) 12/24/17 14:52 Basophils % 0.4 % (0.0-2.0) 12/24/17 14:52 PT 10.4 SECONDS (9.5-11.5) 12/24/17 04:30 INR 1.00 (0.5-1.4) 12/24/17 04:30 Sodium 140 mEq/L (136-145) 12/24/17 04:30 Potassium 4.0 mEq/L (3.5-5.1) 12/24/17 04:30 Chloride 105 mEq/L (98-107) 12/24/17 04:30 Carbon Dioxide 28.8 mEq/L (21.0-31.0) 12/24/17 04:30 Anion Gap 10.2 (7.0-16.0) 12/24/17 04:30 BUN 20 mg/dL (7-25) 12/24/17 04:30 Creatinine 0.9 mg/dL (0.7-1.3) 12/24/17 04:30 Est GFR ( Amer) > 60.0 ml/min (>90) 12/24/17 04:30 Est GFR (Non-Af Amer) > 60.0 ml/min 12/24/17 04:30 BUN/Creatinine Ratio 22.2 12/24/17 04:30 Glucose 123 mg/dL (70-105) H 12/24/17 04:30 Calcium 9.1 mg/dL (8.6-10.3) 12/24/17 04:30 - Physical Exam Vitals and I&O: Vital Signs Temp 98.2 F 12/24/17 16:00 Pulse 77 12/24/17 18:00 Resp 16 12/24/17 18:00 BP 106/76 12/24/17 18:00 Pulse Ox 98 12/24/17 22:00 Intake & Output 12/24/17 12/24/17 12/25/17 06:59 18:59 06:59 Intake Total 80.333 Output Total 400 Balance -319.667 Weight (lbs) 72.631 kg 72.575 kg Intake: Intake, IV Amount 80.333 Pantoprazole 80 mg In 80.333 Sodium Chloride 0.9% 100 ml @ 10 mls/hr IV Q10H [facility] Rx#:[id number] Output: Urine 400 Other: # Bowel Movements 0 Weight Source Estimated Bedscale Active Medications: Current Medications Dextrose/Sodium Chloride (D5-0.45ns) 1,000 mls @ 50 mls/hr IV .Q20H ISABEL Stop: 02/21/18 22:15 Last Admin: 12/24/17 01:00 Dose: 50 mls/hr Pantoprazole Sodium 80 mg/ (Sodium Chloride) 100 mls @ 10 mls/hr IV Q10H ISABEL Stop: 02/22/18 08:44 Last Admin: 12/24/17 17:21 Dose: 10 mls/hr Lorazepam (Ativan) 1 mg IM Q2HR PRN; Protocol PRN Reason: Agitation Stop: 02/21/18 22:14 Last Admin: 12/23/17 22:38 Dose: 1 mg Ondansetron HCl (Zofran) 4 mg IV Q6H PRN PRN Reason: Nausea / Vomiting Stop: 02/22/18 12:53 General: Alert HEENT: Atraumatic Neck: Supple Cardiovascular: Regular rate Abdomen: Bowel sounds, Soft, no Tender, no Distended, no Rebound, no Mass, no Guarding, no Obese Extremities: no Clubbing Skin: no Rash - Procedures Procedures: Procedures Procedure Code Date BLOOD TRANSFUSION SERVICE 81909 06/05/03 COLONOSCOPY W/LESION REMOVAL 30055 06/05/03 EGD BIOPSY SINGLE/MULTIPLE 93611 12/20/17 EGD DIAGNOSTIC BRUSH WASH 12770 08/09/00 ENDOSC POLYPECTOMY OF LG INTEST 45.42 06/05/03 ESOPHAGOGASTRODUODENOSCOPY [EGD] W/CLOSED BIOPSY 45.16 06/05/03 EXCISION OF STOMACH, ENDO, DIAGN [id number] 12/20/17 OTHER ENDOSCOPY OF SM INTEST 45.13 08/09/00 PACKED CELL TRANSFUSION 99.04 06/05/03 Assessment/Plan - Assessment Assessment: coffee ground emesis x 2 esophagitis gastritis hiatal hernia hypertension anemia - Plan Plan: clear liquid diet continue IV fluids repeat CBC this AM for GI evaluation Cardiology evaluation
[2017-12-25 05:09] LABS: % BASOPHILS 0.3 % (0.0-2.0); % EOSINOPHILS 2.7 % (0.0-5.0); % LYMPHOCYTES 23.7 % (20.0-50.0); % NEUTROPHILS 67.3 % (40.0-80.0); EOSINOPHILE ABSOLUTE 0.2 Th/cmm (0.1-0.4); HEMATOCRIT 28.5 % (41.0-60); HEMOGLOBIN 9.7 gm/dL (12-16); LYMPHOCYTE ABSOLUTE 2.2 Th/cmm (1.5-3.0); MEAN CELL VOLUME 91.1 fl (80-99); MEAN CORPUSCULAR HEMOGLOBIN 30.9 pg (27.0-31.0); MEAN CORPUSCULAR HGB CONC 33.9 pg (28.0-36.0); MEAN PLATELET VOLUME 7.4 fl; MONOCYTE ABSOLUTE 0.6 Th/cmm (0.3-1.0); NEUTROPHILE ABSOLUTE 6.2 Th/cmm (1.8-8.0); PLATELET COUNT 276 Th/cmm (150-400); RED BLOOD COUNT 3.12 Mil/cmm (3.80-5.80); RED CELL DISTRIBUTION WIDTH 14.2 % (11.5-20.0); WHITE BLOOD COUNT 9.2 Th/cmm (4.8-10.8)
--- NOTE | 2017-12-25 08:16 | GI Progress Note ---
Subjective - Review of Systems Service Date: 12/25/17 Subjective: No further emesis, there is thought that what was photographed was pudding Objective - Results Result Diagrams: 12/25/17 04:15 12/24/17 04:30 Recent Labs: Laboratory Last Values WBC 9.2 Th/cmm (4.8-10.8) 12/25/17 04:15 RBC 3.12 Mil/cmm (3.80-5.80) L 12/25/17 04:15 Hgb 9.7 gm/dL (12-16) L 12/25/17 04:15 Hct 28.5 % (41.0-60) L 12/25/17 04:15 MCV 91.1 fl (80-99) 12/25/17 04:15 MCH 30.9 pg (27.0-31.0) 12/25/17 04:15 MCHC Differential 33.9 pg (28.0-36.0) 12/25/17 04:15 RDW 14.2 % (11.5-20.0) 12/25/17 04:15 Plt Count 276 Th/cmm (150-400) 12/25/17 04:15 MPV 7.4 fl 12/25/17 04:15 Neutrophils % 67.3 % (40.0-80.0) 12/25/17 04:15 Lymphocytes % 23.7 % (20.0-50.0) 12/25/17 04:15 Monocytes % 6.0 % (2.0-10.0) 12/25/17 04:15 Eosinophils % 2.7 % (0.0-5.0) 12/25/17 04:15 Basophils % 0.3 % (0.0-2.0) 12/25/17 04:15 PT 10.4 SECONDS (9.5-11.5) 12/24/17 04:30 INR 1.00 (0.5-1.4) 12/24/17 04:30 Sodium 140 mEq/L (136-145) 12/24/17 04:30 Potassium 4.0 mEq/L (3.5-5.1) 12/24/17 04:30 Chloride 105 mEq/L (98-107) 12/24/17 04:30 Carbon Dioxide 28.8 mEq/L (21.0-31.0) 12/24/17 04:30 Anion Gap 10.2 (7.0-16.0) 12/24/17 04:30 BUN 20 mg/dL (7-25) 12/24/17 04:30 Creatinine 0.9 mg/dL (0.7-1.3) 12/24/17 04:30 Est GFR ( Amer) > 60.0 ml/min (>90) 12/24/17 04:30 Est GFR (Non-Af Amer) > 60.0 ml/min 12/24/17 04:30 BUN/Creatinine Ratio 22.2 12/24/17 04:30 Glucose 123 mg/dL (70-105) H 12/24/17 04:30 Calcium 9.1 mg/dL (8.6-10.3) 12/24/17 04:30 - Physical Exam Vitals and I&O: Vital Signs Temp 98.2 F 12/25/17 04:00 Pulse 80 12/25/17 06:00 Resp 14 12/25/17 06:00 BP 115/70 12/25/17 06:00 Pulse Ox 98 12/25/17 06:00 Intake & Output 12/24/17 12/25/17 12/25/17 18:59 06:59 18:59 Intake Total 80.333 1100 480 Output Total 400 100 Balance -190.254 4868 380 Weight (lbs) 72.575 kg 72.575 kg Intake: Intake, IV Amount 80.333 1100 D5-0.45NS 1,000 ml @ 50 1000 mls/hr IV .Q20H [facility] Rx#: [id number] Pantoprazole 80 mg In 80.333 100 Sodium Chloride 0.9% 100 ml @ 10 mls/hr IV Q10H [facility] Rx#:[id number] Oral 480 Output: Urine 400 100 Other: # Voids 1 # Bowel Movements 0 Weight Source Bedscale Bedscale Active Medications: Current Medications Dextrose/Sodium Chloride (D5-0.45ns) 1,000 mls @ 50 mls/hr IV .Q20H [facility] Stop: 02/21/18 22:15 Last Admin: 12/24/17 21:00 Dose: 50 mls/hr Lorazepam (Ativan) 1 mg IM Q2HR PRN; Protocol PRN Reason: Agitation Stop: 02/21/18 22:14 Last Admin: 12/23/17 22:38 Dose: 1 mg Ondansetron HCl (Zofran) 4 mg IV Q6H PRN PRN Reason: Nausea / Vomiting Stop: 02/22/18 12:53 Pantoprazole Sodium (Protonix) 40 mg IVP DAILY [facility] Stop: 02/23/18 08:59 General: Alert HEENT: Atraumatic Neck: Supple Cardiovascular: Regular rate Abdomen: Bowel sounds, Soft, no Tender, no Distended, no Rebound, no Mass, no Guarding, no Obese Extremities: no Clubbing Skin: no Rash - Procedures Procedures: Procedures Procedure Code Date BLOOD TRANSFUSION SERVICE 43736 06/05/03 COLONOSCOPY W/LESION REMOVAL 94884 06/05/03 EGD BIOPSY SINGLE/MULTIPLE 07398 12/20/17 EGD DIAGNOSTIC BRUSH WASH 47355 08/09/00 ENDOSC POLYPECTOMY OF LG INTEST 45.42 06/05/03 ESOPHAGOGASTRODUODENOSCOPY [EGD] W/CLOSED BIOPSY 45.16 06/05/03 EXCISION OF STOMACH, ENDO, DIAGN [id number] 12/20/17 OTHER ENDOSCOPY OF SM INTEST 45.13 08/09/00 PACKED CELL TRANSFUSION 99.04 06/05/03 Assessment/Plan - Assessment Assessment: # Coffee ground emesis # Anemia Pt had EGD last week that revealed mild esophagitis, mild gastritis, hiatal hernia, gastric polyps. Biopsy revealed benign gastric polyp. Etiology of current bleed may be from the esophagitis, or possibly payton vergara tear from retching. Alternatively, this may not have been GI bleeding at all, as the pt apparently had some dark colored pudding prior to emesis. Hgb stable, no further emesis. Plan: - ppi bid for 30 days, then daily - advance diet as tolerated - short course of reglan to prevent retching - NG tube if he has further vomiting - trend h/h, transfuse to keep hgb > 7 - repeat EGD if he has further coffee ground emesis Ok to transfer to [facility] from GI standpoint
[2017-12-25] MEDS ORDERED: Probiotic Screen MC PRN (13:57)
[2017-12-26] MEDS ORDERED: Magnesium Hydroxide (MOM) 30 mL UDC PO PRN (07:38)
[2017-12-26] MEDS ORDERED: Maalox 30 mL Cup PO PRN (07:38)
--- NOTE | 2017-12-26 07:44 | General Progress Note ---
Subjective - Review of Systems Service Date: 12/26/17 Subjective: Patient was seen and examined. currently on clear liquid diet. will advance diet as tolerated. no further episodes of emesis. hemoglobin stable. Objective - Results Result Diagrams: 12/25/17 04:15 12/24/17 04:30 Recent Labs: Laboratory Last Values WBC 9.2 Th/cmm (4.8-10.8) 12/25/17 04:15 RBC 3.12 Mil/cmm (3.80-5.80) L 12/25/17 04:15 Hgb 9.7 gm/dL (12-16) L 12/25/17 04:15 Hct 28.5 % (41.0-60) L 12/25/17 04:15 MCV 91.1 fl (80-99) 12/25/17 04:15 MCH 30.9 pg (27.0-31.0) 12/25/17 04:15 MCHC Differential 33.9 pg (28.0-36.0) 12/25/17 04:15 RDW 14.2 % (11.5-20.0) 12/25/17 04:15 Plt Count 276 Th/cmm (150-400) 12/25/17 04:15 MPV 7.4 fl 12/25/17 04:15 Neutrophils % 67.3 % (40.0-80.0) 12/25/17 04:15 Lymphocytes % 23.7 % (20.0-50.0) 12/25/17 04:15 Monocytes % 6.0 % (2.0-10.0) 12/25/17 04:15 Eosinophils % 2.7 % (0.0-5.0) 12/25/17 04:15 Basophils % 0.3 % (0.0-2.0) 12/25/17 04:15 PT 10.4 SECONDS (9.5-11.5) 12/24/17 04:30 INR 1.00 (0.5-1.4) 12/24/17 04:30 Sodium 140 mEq/L (136-145) 12/24/17 04:30 Potassium 4.0 mEq/L (3.5-5.1) 12/24/17 04:30 Chloride 105 mEq/L (98-107) 12/24/17 04:30 Carbon Dioxide 28.8 mEq/L (21.0-31.0) 12/24/17 04:30 Anion Gap 10.2 (7.0-16.0) 12/24/17 04:30 BUN 20 mg/dL (7-25) 12/24/17 04:30 Creatinine 0.9 mg/dL (0.7-1.3) 12/24/17 04:30 Est GFR ( Amer) > 60.0 ml/min (>90) 12/24/17 04:30 Est GFR (Non-Af Amer) > 60.0 ml/min 12/24/17 04:30 BUN/Creatinine Ratio 22.2 12/24/17 04:30 Glucose 123 mg/dL (70-105) H 12/24/17 04:30 Calcium 9.1 mg/dL (8.6-10.3) 12/24/17 04:30 - Physical Exam Vitals and I&O: Vital Signs Temp 97.4 F 12/26/17 00:17 Pulse 66 12/26/17 04:00 Resp 21 12/26/17 04:00 BP 120/75 12/26/17 04:00 Pulse Ox 97 12/26/17 04:00 Intake & Output 12/25/17 12/26/17 12/26/17 18:59 06:59 18:59 Intake Total 2980 200 Output Total 100 Balance 2880 200 Weight (lbs) 70.307 kg 70.307 kg Intake: Intake, IV Amount 1000 D5-0.45NS 1,000 ml @ 50 1000 mls/hr IV .Q20H [facility] Rx#: [id number] Oral 1980 200 Output: Urine 100 Other: # Voids 2 3 # Bowel Movements 1 0 Weight Source Bedscale Bedscale Active Medications: Current Medications Acetaminophen (Tylenol) 650 mg PO Q4HR PRN PRN Reason: Mild Pain / Temp above 100 Stop: 02/24/18 07:37 Al Hydrox/Mg Hydrox/Simethicone (Maalox) 30 ml PO Q4HR PRN PRN Reason: GI DISTRESS Stop: 02/24/18 07:37 Atenolol (Tenormin) 25 mg PO DAILY [facility] Stop: 02/24/18 08:59 Escitalopram Oxalate (Lexapro) 5 mg PO HS [facility] PRN Reason: Protocol Stop: 02/24/18 20:59 Ferrous Sulfate (Iron) 325 mg PO DAILY [facility] Stop: 02/24/18 08:59 Lactobacillus Rhamnosus (Culturelle 15b) 1 each PO DAILY [facility] Stop: 02/24/18 08:59 Lorazepam (Ativan) 1 mg IM Q2HR PRN; Protocol PRN Reason: Agitation Stop: 02/21/18 22:14 Last Admin: 12/25/17 22:00 Dose: 1 mg Lorazepam (Ativan) 0.5 mg PO Q4HR PRN; Protocol PRN Reason: agitation Stop: 02/24/18 07:37 Magnesium Hydroxide (Milk Of Magnesia) 30 ml PO HS PRN PRN Reason: Constipation Stop: 02/24/18 07:37 Miscellaneous (Probiotic Screen) 1 ea MC PRN PRN PRN Reason: PROTOCOL Stop: 02/23/18 13:56 Multivitamins/Vitamin C (Theragran) 1 tab PO DAILY [facility] Stop: 02/24/18 08:59 Ondansetron HCl (Zofran) 4 mg IV Q6H PRN PRN Reason: Nausea / Vomiting Stop: 02/22/18 12:53 Pantoprazole Sodium (Protonix) 40 mg PO DAILY [facility] Stop: 02/24/18 08:59 Pantoprazole Sodium (Protonix) 40 mg PO QDAC [facility] Stop: 02/25/18 07:29 Quetiapine Fumarate (Seroquel) 300 mg PO HS [facility] PRN Reason: Protocol Stop: 02/24/18 20:59 Quetiapine Fumarate (Seroquel) 25 mg PO BID [facility] PRN Reason: Protocol Stop: 02/24/18 08:59 Zolpidem Tartrate (Ambien) 5 mg PO HS PRN PRN Reason: Insomnia Stop: 02/24/18 07:37 General: Alert HEENT: Atraumatic Neck: Supple Cardiovascular: Regular rate Abdomen: Bowel sounds, Soft, no Tender, no Distended, no Rebound, no Mass, no Guarding, no Obese Extremities: no Clubbing Skin: no Rash - Procedures Procedures: Procedures Procedure Code Date BLOOD TRANSFUSION SERVICE 56229 06/05/03 COLONOSCOPY W/LESION REMOVAL 06313 06/05/03 EGD BIOPSY SINGLE/MULTIPLE 73448 12/20/17 EGD DIAGNOSTIC BRUSH WASH 23448 08/09/00 ENDOSC POLYPECTOMY OF LG INTEST 45.42 06/05/03 ESOPHAGOGASTRODUODENOSCOPY [EGD] W/CLOSED BIOPSY 45.16 06/05/03 EXCISION OF STOMACH, ENDO, DIAGN [id number] 12/20/17 OTHER ENDOSCOPY OF SM INTEST 45.13 08/09/00 PACKED CELL TRANSFUSION 99.04 06/05/03 Assessment/Plan - Assessment Assessment: esophagitis gastritis hiatal hernia hypertension psychosis cardiac arrhythmmia now sinus - Plan Plan: restart home meds adv diet as tolerated discontinue IV fluids Protonix drip off. may transfer to [facility] if okay with GI.
[2017-12-26] MEDS: Multivitamin Tab PO SCH (08:36)
[2017-12-26] MEDS: Pantoprazole 40 mg EC Tab PO SCH (08:37)
[2017-12-26] MEDS: Ferrous Sulfate 325 MG TAB PO SCH (08:37)
[2017-12-26] MEDS: Lactobacillus Rhamnosus GG 15 Billion CFU CAP.SPRINK PO SCH (08:37)
--- NOTE | 2017-12-26 11:24 | GI Progress Note ---
Subjective - Review of Systems Service Date: 12/26/17 Subjective: PJ CLEAR LIQUIDS. NO N/V. Objective - Results Result Diagrams: 12/25/17 04:15 12/24/17 04:30 Recent Labs: Laboratory Last Values WBC 9.2 Th/cmm (4.8-10.8) 12/25/17 04:15 RBC 3.12 Mil/cmm (3.80-5.80) L 12/25/17 04:15 Hgb 9.7 gm/dL (12-16) L 12/25/17 04:15 Hct 28.5 % (41.0-60) L 12/25/17 04:15 MCV 91.1 fl (80-99) 12/25/17 04:15 MCH 30.9 pg (27.0-31.0) 12/25/17 04:15 MCHC Differential 33.9 pg (28.0-36.0) 12/25/17 04:15 RDW 14.2 % (11.5-20.0) 12/25/17 04:15 Plt Count 276 Th/cmm (150-400) 12/25/17 04:15 MPV 7.4 fl 12/25/17 04:15 Neutrophils % 67.3 % (40.0-80.0) 12/25/17 04:15 Lymphocytes % 23.7 % (20.0-50.0) 12/25/17 04:15 Monocytes % 6.0 % (2.0-10.0) 12/25/17 04:15 Eosinophils % 2.7 % (0.0-5.0) 12/25/17 04:15 Basophils % 0.3 % (0.0-2.0) 12/25/17 04:15 PT 10.4 SECONDS (9.5-11.5) 12/24/17 04:30 INR 1.00 (0.5-1.4) 12/24/17 04:30 Sodium 140 mEq/L (136-145) 12/24/17 04:30 Potassium 4.0 mEq/L (3.5-5.1) 12/24/17 04:30 Chloride 105 mEq/L (98-107) 12/24/17 04:30 Carbon Dioxide 28.8 mEq/L (21.0-31.0) 12/24/17 04:30 Anion Gap 10.2 (7.0-16.0) 12/24/17 04:30 BUN 20 mg/dL (7-25) 12/24/17 04:30 Creatinine 0.9 mg/dL (0.7-1.3) 12/24/17 04:30 Est GFR ( Amer) > 60.0 ml/min (>90) 12/24/17 04:30 Est GFR (Non-Af Amer) > 60.0 ml/min 12/24/17 04:30 BUN/Creatinine Ratio 22.2 12/24/17 04:30 Glucose 123 mg/dL (70-105) H 12/24/17 04:30 Calcium 9.1 mg/dL (8.6-10.3) 12/24/17 04:30 - Physical Exam Vitals and I&O: Vital Signs Temp 97.6 F 12/26/17 08:00 Pulse 86 12/26/17 08:36 Resp 20 12/26/17 08:00 BP 143/84 12/26/17 08:36 Pulse Ox 97 12/26/17 08:00 Intake & Output 12/25/17 12/26/17 12/26/17 18:59 06:59 18:59 Intake Total 2980 200 Output Total 100 Balance 2880 200 Weight (lbs) 70.307 kg 70.307 kg Intake: Intake, IV Amount 1000 D5-0.45NS 1,000 ml @ 50 1000 mls/hr IV .Q20H [facility] Rx#: [id number] Oral 1980 200 Output: Urine 100 Other: # Voids 2 3 # Bowel Movements 1 0 Weight Source Bedscale Bedscale Active Medications: Current Medications Acetaminophen (Tylenol) 650 mg PO Q4HR PRN PRN Reason: Mild Pain / Temp above 100 Stop: 02/24/18 07:37 Al Hydrox/Mg Hydrox/Simethicone (Maalox) 30 ml PO Q4HR PRN PRN Reason: GI DISTRESS Stop: 02/24/18 07:37 Atenolol (Tenormin) 25 mg PO DAILY [facility] Stop: 02/24/18 08:59 Last Admin: 12/26/17 08:36 Dose: 25 mg Escitalopram Oxalate (Lexapro) 5 mg PO HS [facility] PRN Reason: Protocol Stop: 02/24/18 20:59 Ferrous Sulfate (Iron) 325 mg PO DAILY [facility] Stop: 02/24/18 08:59 Last Admin: 12/26/17 08:37 Dose: 325 mg Lactobacillus Rhamnosus (Culturelle 15b) 1 each PO DAILY [facility] Stop: 02/24/18 08:59 Last Admin: 12/26/17 08:37 Dose: 1 each Lorazepam (Ativan) 1 mg IM Q2HR PRN; Protocol PRN Reason: Agitation Stop: 02/21/18 22:14 Last Admin: 12/25/17 22:00 Dose: 1 mg Lorazepam (Ativan) 0.5 mg PO Q4H PRN; Protocol PRN Reason: agitation Stop: 02/24/18 07:37 Magnesium Hydroxide (Milk Of Magnesia) 30 ml PO HS PRN PRN Reason: Constipation Stop: 02/24/18 07:37 Miscellaneous (Probiotic Screen) 1 ea [facility] PRN PRN PRN Reason: PROTOCOL Stop: 02/23/18 13:56 Multivitamins/Vitamin C (Theragran) 1 tab PO DAILY [facility] Stop: 02/24/18 08:59 Last Admin: 12/26/17 08:36 Dose: 1 tab Ondansetron HCl (Zofran) 4 mg IV Q6H PRN PRN Reason: Nausea / Vomiting Stop: 02/22/18 12:53 Pantoprazole Sodium (Protonix) 40 mg PO DAILY [facility] Stop: 02/24/18 08:59 Last Admin: 12/26/17 08:37 Dose: 40 mg Pantoprazole Sodium (Protonix) 40 mg PO QDAC [facility] Stop: 02/25/18 07:29 Quetiapine Fumarate (Seroquel) 300 mg PO HS [facility] PRN Reason: Protocol Stop: 02/24/18 20:59 Quetiapine Fumarate (Seroquel) 25 mg PO BID [facility] PRN Reason: Protocol Stop: 02/24/18 10:44 Zolpidem Tartrate (Ambien) 5 mg PO HS PRN PRN Reason: Insomnia Stop: 02/24/18 07:37 General: Alert, No acute distress HEENT: Atraumatic Neck: Supple Cardiovascular: Regular rate Abdomen: Bowel sounds, Soft, no Tender, no Distended, no Rebound, no Mass, no Guarding, no Obese Extremities: Clubbing - Procedures Procedures: Procedures Procedure Code Date BLOOD TRANSFUSION SERVICE 42953 06/05/03 COLONOSCOPY W/LESION REMOVAL 13673 06/05/03 EGD BIOPSY SINGLE/MULTIPLE 27759 12/20/17 EGD DIAGNOSTIC BRUSH WASH 70254 08/09/00 ENDOSC POLYPECTOMY OF LG INTEST 45.42 06/05/03 ESOPHAGOGASTRODUODENOSCOPY [EGD] W/CLOSED BIOPSY 45.16 06/05/03 EXCISION OF STOMACH, ENDO, DIAGN [id number] 12/20/17 OTHER ENDOSCOPY OF SM INTEST 45.13 08/09/00 PACKED CELL TRANSFUSION 99.04 06/05/03 Assessment/Plan - Assessment Assessment: # Coffee ground emesis # Anemia Pt had EGD last week that revealed mild esophagitis, mild gastritis, hiatal hernia, gastric polyps. Biopsy revealed benign gastric polyp. Etiology of current bleed may be from the esophagitis, or possibly payton vergara tear from retching. Alternatively, this may not have been GI bleeding at all, as the pt apparently had some dark colored pudding prior to emesis. Hgb stable, no further emesis. Plan: - ppi bid for 30 days, then daily - advance diet as tolerated - short course of reglan to prevent retching - NG tube if he has further vomiting - trend h/h, transfuse to keep hgb > 7 - repeat EGD if he has further coffee ground emesis Ok to transfer to [facility] from GI standpoint
--- NOTE | 2017-12-26 19:59 | Progress Notes ---
DATE: 12/26/2017 This is a 67-year-old male transferred to the ICU for coffee ground emesis. He had esophagitis, gastritis, hiatal hernia, admitted for possible gastrointestinal bleed. The patient to be downgraded back to the med/surg floor being seen by Gastroenterology Service noting no further emesis, possibly a diagnosis of Luly-Rodriguez tear from retching and there is also concern that perhaps he had some dark colored . The patient AO to name, place, situation, year, not month. He denies any overt suspicions, fears at this time. No fears, no paranoia. Calm, cooperative, no agitation. PAST PSYCHIATRIC HISTORY: History of the Geropsych placement likely schizophrenia. MEDICAL: Please see full H and P. MENTAL STATUS EXAMINATION: Stated age. Fair eye contact. Speech diminished. Mood "okay." Affect flat. Thought processes were impoverished. No SI, no HI. No psychosis. PROVISIONAL DIAGNOSIS: Likely Schizophrenia. RECOMMENDATIONS AND PLAN: The patient can tolerate Seroquel. Would restart Seroquel immediately. Otherwise, the patient will start to decompensate, deteriorate and become increasingly paranoid. We will continue to monitor and followup. JOB# [id number]
[2017-12-26] MEDS ORDERED: Escitalopram Oxalate 5 mg Tab PO SCH (21:00)
[2017-12-27] MEDS ORDERED: Pantoprazole 40 mg EC Tab PO SCH (07:30)
--- NOTE | 2017-12-27 08:47 | General Progress Note ---
Subjective - Review of Systems Service Date: 12/27/17 Subjective: Patient was seen and examined. eating regular diet. no further episodes of emesis. hemoglobin stable. Objective - Results Result Diagrams: 12/25/17 04:15 12/24/17 04:30 Recent Labs: Laboratory Last Values WBC 9.2 Th/cmm (4.8-10.8) 12/25/17 04:15 RBC 3.12 Mil/cmm (3.80-5.80) L 12/25/17 04:15 Hgb 9.7 gm/dL (12-16) L 12/25/17 04:15 Hct 28.5 % (41.0-60) L 12/25/17 04:15 MCV 91.1 fl (80-99) 12/25/17 04:15 MCH 30.9 pg (27.0-31.0) 12/25/17 04:15 MCHC Differential 33.9 pg (28.0-36.0) 12/25/17 04:15 RDW 14.2 % (11.5-20.0) 12/25/17 04:15 Plt Count 276 Th/cmm (150-400) 12/25/17 04:15 MPV 7.4 fl 12/25/17 04:15 Neutrophils % 67.3 % (40.0-80.0) 12/25/17 04:15 Lymphocytes % 23.7 % (20.0-50.0) 12/25/17 04:15 Monocytes % 6.0 % (2.0-10.0) 12/25/17 04:15 Eosinophils % 2.7 % (0.0-5.0) 12/25/17 04:15 Basophils % 0.3 % (0.0-2.0) 12/25/17 04:15 PT 10.4 SECONDS (9.5-11.5) 12/24/17 04:30 INR 1.00 (0.5-1.4) 12/24/17 04:30 Sodium 140 mEq/L (136-145) 12/24/17 04:30 Potassium 4.0 mEq/L (3.5-5.1) 12/24/17 04:30 Chloride 105 mEq/L (98-107) 12/24/17 04:30 Carbon Dioxide 28.8 mEq/L (21.0-31.0) 12/24/17 04:30 Anion Gap 10.2 (7.0-16.0) 12/24/17 04:30 BUN 20 mg/dL (7-25) 12/24/17 04:30 Creatinine 0.9 mg/dL (0.7-1.3) 12/24/17 04:30 Est GFR ( Amer) > 60.0 ml/min (>90) 12/24/17 04:30 Est GFR (Non-Af Amer) > 60.0 ml/min 12/24/17 04:30 BUN/Creatinine Ratio 22.2 12/24/17 04:30 Glucose 123 mg/dL (70-105) H 12/24/17 04:30 Calcium 9.1 mg/dL (8.6-10.3) 12/24/17 04:30 - Physical Exam Vitals and I&O: Vital Signs Temp 97.1 F 12/27/17 07:50 Pulse 84 12/27/17 07:50 Resp 18 12/27/17 07:50 BP 106/69 12/27/17 07:50 Pulse Ox 97 12/27/17 07:50 Intake & Output 12/26/17 12/27/17 12/27/17 18:59 06:59 18:59 Intake Total 500 Balance 500 Weight (lbs) 72.575 kg 72.575 kg Intake: Oral 500 Other: # Voids 2 # Bowel Movements 0 Weight Source Bedscale Bedscale Active Medications: Current Medications Acetaminophen (Tylenol) 650 mg PO Q4HR PRN PRN Reason: Mild Pain / Temp above 100 Stop: 02/24/18 07:37 Al Hydrox/Mg Hydrox/Simethicone (Maalox) 30 ml PO Q4HR PRN PRN Reason: GI DISTRESS Stop: 02/24/18 07:37 Atenolol (Tenormin) 25 mg PO DAILY [facility] Stop: 02/24/18 08:59 Last Admin: 12/26/17 08:36 Dose: 25 mg Escitalopram Oxalate (Lexapro) 5 mg PO [facility] PRN Reason: Protocol Stop: 02/24/18 20:59 Ferrous Sulfate (Iron) 325 mg PO DAILY [facility] Stop: 02/24/18 08:59 Last Admin: 12/26/17 08:37 Dose: 325 mg Lactobacillus Rhamnosus (Culturelle 15b) 1 each PO DAILY [facility] Stop: 02/24/18 08:59 Last Admin: 12/26/17 08:37 Dose: 1 each Lorazepam (Ativan) 1 mg IM Q2HR PRN; Protocol PRN Reason: Agitation Stop: 02/21/18 22:14 Last Admin: 12/26/17 15:06 Dose: 1 mg Lorazepam (Ativan) 0.5 mg PO Q4H PRN; Protocol PRN Reason: agitation Stop: 02/24/18 07:37 Last Admin: 12/26/17 13:24 Dose: 0.5 mg Magnesium Hydroxide (Milk Of Magnesia) 30 ml PO HS PRN PRN Reason: Constipation Stop: 02/24/18 07:37 Miscellaneous (Probiotic Screen) 1 ea [facility] PRN PRN PRN Reason: PROTOCOL Stop: 02/23/18 13:56 Multivitamins/Vitamin C (Theragran) 1 tab PO DAILY [facility] Stop: 02/24/18 08:59 Last Admin: 12/26/17 08:36 Dose: 1 tab Ondansetron HCl (Zofran) 4 mg IV Q6H PRN PRN Reason: Nausea / Vomiting Stop: 02/22/18 12:53 Pantoprazole Sodium (Protonix) 40 mg PO DAILY [facility] Stop: 02/24/18 08:59 Last Admin: 12/26/17 08:37 Dose: 40 mg Pantoprazole Sodium (Protonix) 40 mg PO QDAC [facility] Stop: 02/25/18 07:29 Last Admin: 12/27/17 06:57 Dose: 40 mg Quetiapine Fumarate (Seroquel) 300 mg PO HS [facility] PRN Reason: Protocol Stop: 02/24/18 20:59 Last Admin: 12/26/17 21:06 Dose: 300 mg Quetiapine Fumarate (Seroquel) 25 mg PO BID [facility] PRN Reason: Protocol Stop: 02/24/18 10:44 Last Admin: 12/26/17 16:08 Dose: 25 mg Zolpidem Tartrate (Ambien) 5 mg PO HS PRN PRN Reason: Insomnia Stop: 02/24/18 07:37 General: Alert, No acute distress HEENT: Atraumatic Neck: Supple Cardiovascular: Regular rate Abdomen: Bowel sounds, Soft, no Tender, no Distended, no Rebound, no Mass, no Guarding, no Obese Extremities: Clubbing Skin: no Rash - Procedures Procedures: Procedures Procedure Code Date BLOOD TRANSFUSION SERVICE 15515 06/05/03 COLONOSCOPY W/LESION REMOVAL 81683 06/05/03 EGD BIOPSY SINGLE/MULTIPLE 22260 12/20/17 EGD DIAGNOSTIC BRUSH WASH 39547 08/09/00 ENDOSC POLYPECTOMY OF LG INTEST 45.42 06/05/03 ESOPHAGOGASTRODUODENOSCOPY [EGD] W/CLOSED BIOPSY 45.16 06/05/03 EXCISION OF STOMACH, ENDO, DIAGN [id number] 12/20/17 OTHER ENDOSCOPY OF SM INTEST 45.13 08/09/00 PACKED CELL TRANSFUSION 99.04 06/05/03 Assessment/Plan - Assessment Assessment: esophagitis gastritis hiatal hernia hypertension psychosis cardiac arrhythmmia now sinus anemia stable. - Plan Plan: restart home meds adv diet as tolerated discontinue IV fluids Protonix drip off. may transfer to [facility] if okay with GI. Protonix 40mg Po BID x 30 days, then daily repeat cbc this am... if h/h okay may be discharged back to SNF
[2017-12-27] MEDS: Ferrous Sulfate 325 MG TAB PO SCH (08:48)
[2017-12-27] MEDS: Multivitamin Tab PO SCH (08:48)
[2017-12-27] MEDS: Pantoprazole 40 mg EC Tab PO SCH (08:48)
[2017-12-27] MEDS: Lactobacillus Rhamnosus GG 15 Billion CFU CAP.SPRINK PO SCH (08:48)
[2017-12-27] MEDS ORDERED: Pantoprazole 40 mg/Packet PO SCH (09:00)
[2017-12-27 09:03] LABS: % BASOPHILS 0.1 % (0.0-2.0); % LYMPHOCYTES 21.9 % (20.0-50.0); % MONOCYTES 2.6 % (2.0-10.0); % NEUTROPHILS 73.4 % (40.0-80.0); EOSINOPHILE ABSOLUTE 0.2 Th/cmm (0.1-0.4); HEMATOCRIT 32.1 % (41.0-60); HEMOGLOBIN 10.7 gm/dL (12-16); LYMPHOCYTE ABSOLUTE 1.8 Th/cmm (1.5-3.0); MEAN CELL VOLUME 90.7 fl (80-99); MEAN CORPUSCULAR HEMOGLOBIN 30.2 pg (27.0-31.0); MEAN CORPUSCULAR HGB CONC 33.3 pg (28.0-36.0); MEAN PLATELET VOLUME 6.9 fl; MONOCYTE ABSOLUTE 0.2 Th/cmm (0.3-1.0); NEUTROPHILE ABSOLUTE 5.8 Th/cmm (1.8-8.0); PLATELET COUNT 315 Th/cmm (150-400); RED BLOOD COUNT 3.54 Mil/cmm (3.80-5.80); RED CELL DISTRIBUTION WIDTH 14.2 % (11.5-20.0)
--- NOTE | 2017-12-27 22:25 | Progress Notes ---
DATE: 12/27/2017 SUBJECTIVE: The patient is out of the ICU, calm, more cooperative. He knows his name. He knows he is in the hospital. He is not quite sure of the name of the hospital. He knows the year is 2017, not quite sure about the month. No more vomiting episodes. No suspicions at this time. No paranoia. PAST PSYCHIATRIC HISTORY: Noted. MENTAL STATUS EXAMINATION: Calm, withdrawn. Thought processes were impoverished. Fair orientation. No SI, no HI. No overt psychosis. PROVISIONAL DIAGNOSIS: Likely schizophrenia. RECOMMENDATIONS AND PLAN: The patient is doing fairly well with current dosing of Seroquel. We will consider adding a daytime dose if there is any decompensation. JOB# [id number]
== END 2017-12-27 14:31 | DRG 391 ==
LOC: ICU 21:18 → MSI 12-26 08:19
PROVIDERS: ADMIT Family Medicine; ATTEND Family Medicine
DX: K20.9 Esophagitis, unspecified (principal); K29.71 Gastritis, unspecified, with bleeding; K31.7 Polyp of stomach and duodenum; K44.9 Diaphragmatic hernia without obstruction or gangrene; F29 Unspecified psychosis not due to a substance or known physiological condition; F20.9 Schizophrenia, unspecified; I10 Essential (primary) hypertension; I49.9 Cardiac arrhythmia, unspecified; D64.9 Anemia, unspecified; Z87.11 Personal history of peptic ulcer disease
CPT/HCPCS: 36415-UA; 80048-TC; 85025-TC; 85610-TC; 93005; C9113; J2001; J2060; J2704; Z7610

== ENCOUNTER 2018-02-13 07:55 | Inpatient (IN) | payer MEDICARE, MEDICAID ==
[2018-02-13] MEDS ORDERED: Haloperidol Lactate 5 mg/mL 1mL Vial IM STA (08:23)
[2018-02-13] MEDS ORDERED: Haloperidol Lactate 5 mg/mL 1mL Vial ONE (08:24)
[2018-02-13] MEDS ORDERED: Sodium Chloride 0.9% 1,000 ML IV ONE (08:24)
--- NOTE | 2018-02-13 08:27 | ED Physician Chart ---
ED Chief Complaint/HPI - Patient Information Date Seen:: 02/13/18 Time Seen:: 07:55 Chief Complaint:: Vomiting History of Present Illness:: onset x one day of N/V, and hematemisis; no report of trauma, H/As, neck pain, C /P, SOB, Abd. Pain, A/D/C, fever, chills, or urinary s/s Allergies:: Allergies Allergy/AdvReac Type Severity Reaction Status Date / Time No Known Allergies Allergy Verified 02/13/18 08:17 Vitals:: Vital Signs - 8 hr 02/13/18 07:55 Temp 97.0 F HR 136 RR 18 BP 137/66 O2 Sat % 98 Historian:: Patient, EMS Review:: Nurse's Note Reviewed, Old Chart Reviewed, EMS run form Reviewed ED Review of Systems - Review of Systems General/Constitutional: No fever, No chills, No weight loss, No weakness, No diaphoresis, No edema, No loss of appetite Skin: No skin lesions, No rash, No bruising Head: No headache, No light-headedness Eyes: No loss of vision, No pain, No diplopia ENT: No earache, No nasal drainage, No sore throat, No tinnitus Neck: No neck pain, No swelling, No thyromegaly, No stiffness, No mass noted Cardio Vascular: No chest pain, No palpitations, No PND, No orthopnea, No edema Pulmonary: No SOB, No cough, No sputum, No wheezing GI: Nausea, Vomiting, Diarrhea, No pain, Melena, No hematochezia, No constipation, Hematemesis G/U: No dysuria, No frequency, No hematuria, No nacturia Musculoskeletal: No bone or joint pain, No back pain, No muscle pain Endocrine: No polyuria, No polydipsia Psychiatric: Prior psych history, Depression, Anxiety, No suicidal ideation, No homicidal ideation, No auditory hallucination, No visual hallucination Hematopoietic: No bruising, No lymphadenopathy Allergic/Immuno: No urticaria, No angioedema Neurological: No syncope, No focal symptoms, No weakness, No paresthesia, No headache, No seizure, No dizziness, No confusion, No vertigo ED Past Medical History - Past Medical History Obtainable: Yes Past Medical History: HTN, CAD, Dyslipidemia, PUD/GERD Family History: HTN Social History: Non Smoker, No Alcohol, Single, Care Facility Surgical History: None Psychiatricy History: Depression, Bipolar Medication: Reviewed Family Medical History - Family Member Mother History Unknown: Yes Hx Family Psychiatric Problems: Yes ED Physical Exam - Physical Examination General/Constitutional: Awake, Well-developed, well-nourished, Alert, No distress, GCS 15, Non-toxic appearing, Ambulatory Head: Atraumatic Eyes: Lids, conjuctiva normal, PERRL, EOMI Skin: Nl inspection, No rash, No skin lesions, No ecchymosis, Well hydrated, No lymphadenopathy ENMT: External ears, nose nl, TM canals nl, Nasal exam nl, Lips, teeth, gums nl , Oropharynx nl, Tonsils nl Neck: Nontender, Full ROM w/o pain, No JVD, No nuchal rigidity, No bruit, No mass, No stridor Respiratory: Nl effort/Exclusion, Clear to Auscultation, No Wheeze/Rhonchi/Rales Cardio Vascular: RRR, No murmur, gallop, rubs, NL S1 S2, Carotid/Femoral/Distal pulses equal bilaterally GI: No tenderness/rebounding/guarding, No organomegaly, No hernia, Normal BS's, Nondistended, No mass/bruits, No McBurney tenderness, Rectum exam nl : No CVA tenderness Extremities: No tenderness or effusion, Full ROM, normal strength in all extremities, No edema, Normal digits & nails Neuro/Psych: Alert/oriented, DTR's symmetric, Normal sensory exam, Normal motor strength, Judgement/insight normal, Mood normal, Normal gait, No focal deficits Misc: Normal back, No paraspinal tenderness ED Labs/Radiology/EKG Results - Lab Results Comments:: WBC: 15.8; LA: 9.08 - EKG Interpretations EKG Time:: 08:40 Rate & Rhythm: 127; ST Comments:: non-specific st-t changes ED Septic Shock - . Is Septic Shock (SBP<90, OR Lactate>4 mmol\L) present?: No - <6hrs of presentation: Vital Signs: Vital Signs - 8 hr 02/13/18 07:55 Temp 97.0 F HR 136 RR 18 BP 137/66 O2 Sat % 98 ED Reassessment (Disposition) - Reassessment Reassessment Condition:: Improved - Diagnosis Diagnosis:: Dx: Acidosis; Leukocytosis; Tachycaedia; Dehydration; N/V; UGI Bleed; Hematemsis ; UTI; Sepsis
[2018-02-13 08:54] LABS: % EOSINOPHILS 0.4 % (0.0-5.0); % LYMPHOCYTES 15.4 % (20.0-50.0); % MONOCYTES 3.7 % (2.0-10.0); % NEUTROPHILS 80.5 % (40.0-80.0); EOSINOPHILE ABSOLUTE 0.1 Th/cmm (0.1-0.4); HEMATOCRIT 40.8 % (41.0-60); HEMOGLOBIN 13.3 gm/dL (12-16); LYMPHOCYTE ABSOLUTE 2.4 Th/cmm (1.5-3.0); MEAN CELL VOLUME 84.6 fl (80-99); MEAN CORPUSCULAR HEMOGLOBIN 27.5 pg (27.0-31.0); MEAN CORPUSCULAR HGB CONC 32.5 pg (28.0-36.0); MEAN PLATELET VOLUME 8.1 fl; MONOCYTE ABSOLUTE 0.6 Th/cmm (0.3-1.0); NEUTROPHILE ABSOLUTE 12.7 Th/cmm (1.8-8.0); PLATELET COUNT 396 Th/cmm (150-400); RED BLOOD COUNT 4.82 Mil/cmm (3.80-5.80); RED CELL DISTRIBUTION WIDTH 14.1 % (11.5-20.0)
[2018-02-13 08:57] LABS: INR 1.01 (0.5-1.4); PROTHROMBIN TIME (TEST) 10.5 SECONDS (9.5-11.5)
[2018-02-13 08:59] LABS: WHITE BLOOD COUNT 15.8 Th/cmm (4.8-10.8)
[2018-02-13 09:04] LABS: ALB/GLOB RATIO 1.3 (1.0-1.8); ALBUMIN 4.1 gm/dL (4.2-5.5); ALKALINE PHOSPHATASE 68 U/L (34-104); ANION GAP 22.1 (7.0-16.0); BILIRUBIN,TOTAL 0.4 mg/dL (0.3-1.0); BUN - UREA NITROGEN 28 mg/dL (7-25); CALCIUM SERUM 9.4 mg/dL (8.6-10.3); CHLORIDE 101 mEq/L (98-107); CHOLESTEROL 186 mg/dL (<200); CREATININE - SERUM 1.1 mg/dL (0.7-1.3); CREATININE KINASE 29 U/L (30-223); GFR AFRICAN-AMERICAN > 60.0 ml/min (>90); GFR NON AFRICAN-AMERICAN > 60.0 ml/min; GLUCOSE 182 mg/dL (70-105); HDL -HIGH DENSITY LIPOPROTEIN 37 mg/dL (23-92); POTASSIUM SERUM 4.1 mEq/L (3.5-5.1); SGOT 17 U/L (13-39); SGPT/ALT 15 U/L (7-52); SODIUM SERUM 140 mEq/L (136-145); TOTAL PROTEIN,SERUM 7.3 gm/dL (6.0-8.3); TRIGLYCERIDES 150 mg/dL (<150)
[2018-02-13 09:05] LABS: AMYLASE SERUM 38 U/L (29-103); LIPASE 16 U/L (11-82)
[2018-02-13] MEDS ORDERED: cefTRIAXone 1 GM in Sodium Chloride 0.9% 50 ML IV ONE (10:03)
[2018-02-13] MEDS: D5-0.45NS 1,000 ML IV SCH (13:01)
[2018-02-13 14:47] VITALS: BP 112/78
--- NOTE | 2018-02-13 15:51 | Consultation ---
Consult Note - Consult Note Service Date: 02/13/18 Referring Physician: Kj Briones Consult Note: PHYSICIAN Consultation Note: Date of Admission: 02/13/18 Purpose of Consultation: Sepsis, lactic acidosis. Chief Complaint: Patient ISAEL ZENG was admitted to [facility] with UROSEPSIS. History of Present Illness: 67-year-old male with past medical history of HTN, CAD, Dyslipidemia, PUD/GERD . The ER with nausea and vomiting. He had vomited 3 times yesterday. Denies ny fever and chills, denies any diarrhea or constipation. On initial evaluation, his temperature was 97F with heart rate of 136 bpm and WBC count was 14,800. The case it was 9.08. It came down to 3.12. Rocephin 1 g IV given in the ER and admitted to the hospital for further care. Past Medical History: HTN, CAD, Dyslipidemia, PUD/GERD Allergies Allergy/AdvReac Type Severity Reaction Status Date / Time No Known Allergies Allergy Verified 02/13/18 08:17 Vital Signs Temp 99.4 F 02/13/18 15:39 Pulse 97 02/13/18 15:39 Resp 18 02/13/18 15:39 BP 117/70 02/13/18 15:39 Pulse Ox 94 02/13/18 15:39 Intake & Output 02/12/18 02/13/18 02/13/18 18:59 06:59 18:59 Weight (lbs) 71.668 kg Other: Weight Source Patient stated Laboratory Results - last 24 hr 02/13/18 02/13/18 02/13/18 08:38 08:38 08:38 WBC 15.8 H RBC 4.82 Hgb 13.3 Hct 40.8 L MCV 84.6 MCH 27.5 MCHC Differential 32.5 RDW 14.1 Plt Count 396 MPV 8.1 Neutrophils % 80.5 H Lymphocytes % 15.4 L Monocytes % 3.7 Eosinophils % 0.4 Basophils % 0.0 PT 10.5 INR 1.01 Sodium 140 Potassium 4.1 Chloride 101 Carbon Dioxide 21.0 Anion Gap 22.1 H BUN 28 H Creatinine 1.1 Est GFR ( Amer) > 60.0 Est GFR (Non-Af Amer) > 60.0 BUN/Creatinine Ratio 25.5 Glucose 182 H Whole Bld Lactic Acid Calcium 9.4 Total Bilirubin 0.4 AST 17 ALT 15 Alkaline Phosphatase 68 Creatine Kinase 29 L Troponin I B-Natriuretic Peptide Total Protein 7.3 Albumin 4.1 L Globulin 3.2 Albumin/Globulin Ratio 1.3 Triglycerides 150 Cholesterol 186 LDL Cholesterol Direct 131 HDL Cholesterol 37 Amylase Lipase 02/13/18 02/13/18 02/13/18 08:38 08:38 08:38 WBC RBC Hgb Hct MCV MCH MCHC Differential RDW Plt Count MPV Neutrophils % Lymphocytes % Monocytes % Eosinophils % Basophils % PT INR Sodium Potassium Chloride Carbon Dioxide Anion Gap BUN Creatinine Est GFR ( Amer) Est GFR (Non-Af Amer) BUN/Creatinine Ratio Glucose Whole Bld Lactic Acid Calcium Total Bilirubin AST ALT Alkaline Phosphatase Creatine Kinase Troponin I < 0.01 L B-Natriuretic Peptide 31.3 Total Protein Albumin Globulin Albumin/Globulin Ratio Triglycerides Cholesterol LDL Cholesterol Direct HDL Cholesterol Amylase 38 Lipase 16 02/13/18 02/13/18 08:40 10:30 WBC RBC Hgb Hct MCV MCH MCHC Differential RDW Plt Count MPV Neutrophils % Lymphocytes % Monocytes % Eosinophils % Basophils % PT INR Sodium Potassium Chloride Carbon Dioxide Anion Gap BUN Creatinine Est GFR ( Amer) Est GFR (Non-Af Amer) BUN/Creatinine Ratio Glucose Whole Bld Lactic Acid 9.08 H* 3.12 H* Calcium Total Bilirubin AST ALT Alkaline Phosphatase Creatine Kinase Troponin I B-Natriuretic Peptide Total Protein Albumin Globulin Albumin/Globulin Ratio Triglycerides Cholesterol LDL Cholesterol Direct HDL Cholesterol Amylase Lipase Home Medication Medication Instructions Recorded Type Atenolol [Tenormin*] 25 mg PO DAILY #0 tab 12/23/17 Rx Escitalopram Oxalate [Lexapro] 5 mg PO HS #0 tab 12/23/17 Rx Ferrous Sulfate [Iron] 325 mg PO DAILY #0 tab 12/23/17 Rx Multivitamin [Theragran] 1 tab PO DAILY tab 12/23/17 Rx Pantoprazole [Protonix] 40 mg PO QDAC ect 12/23/17 Rx QUEtiapine Fumarate [SEROquel] 25 mg PO BID tab 12/23/17 Rx QUEtiapine Fumarate [SEROquel] 300 mg PO HS tab 12/23/17 Rx Ascorbic Acid [Vitamin C] 500 mg PO DAILY 02/13/18 History Lactobacillus Acidophilus 1 each PO DAILY 02/13/18 History [Acidophilus Lactobacillus] Lorazepam [Ativan] 1 mg PO BID 02/13/18 History Current Medications Generic Name Dose Route Start Last Admin Trade Name Freq PRN Reason Stop Dose Admin Atenolol 25 mg 02/14/18 09:00 Tenormin PO 04/15/18 08:59 DAILY ISABEL Escitalopram Oxalate 5 mg 02/13/18 21:00 Lexapro PO 04/14/18 20:59 HS [facility] Protocol Dextrose/Sodium Chloride 1,000 mls @ 50 mls/hr 02/13/18 12:30 02/13/18 13:01 D5-0.45ns IV 04/14/18 12:29 50 mls/hr .Q20H ISABEL Administration Lorazepam 0.5 mg 02/13/18 11:45 Ativan PO 04/14/18 11:44 Q6H PRN Agitation Protocol Quetiapine Fumarate 25 mg 02/13/18 17:00 Seroquel PO 04/14/18 16:59 BID ISABEL Protocol Quetiapine Fumarate 300 mg 02/13/18 21:00 Seroquel PO 04/14/18 20:59 HS [facility] Protocol Review of Systems: A 12 point ROS was reviewed with the pertinent positive and negatives noted in the HPI. GENERAL : Denies any fever or chills. Denies any weight loss. HEENT: No diplopia, photophobia. No sore throat. No use of accessory neck muscles. Pulmonary: Patient denies any cough and shortness of breath. CVS: No chest pain, no swelling of leg, no palpitation. GI: Patient complained of nausea and vomiting . No diarrhea, no constipation or abdominal pain. : No dysuria, no hematuria. [employer]: Denies any headache, dizziness or focal test. Social History Lives at home. Smoking Status Smoker, status unknown Drug Use No Alcohol Use No Physical Exam: General: Comfortable. Not in acute distress. HEENT: Head: Normocephalic, atraumatic. Oral cavity: Moist, pink tongue. Eyes : No pallor and icterus. Pupil PERRLA. Neck: Supple, no JVD. No use of accessory neck muscles. Cardio: S1 and S2 with within normal limits. Respiratory: Vesicular breath sounds. No crackles no wheezing. Abdominal: Soft, nontender, nondistended bowel sounds present. Genital/Urinary: Deferred. Extremities: No cyanosis, no clubbing, no edema. Neurological: Alert, awake, oriented 3. Assessment: 1. Sepsis. 2. Probably UTI or gastroenteritis. 3. Hypertension. 4. CAD. 5. Dyslipidemia. 6. PUD/GERD. Plan: Continue IV fluid and continue Rocephin at this time. UA was sent to the lab but canceled by the lab. Patient has received Rocephin in the ER. Further cultures and studies regarding sepsis may have false negativity, as patient has received antibiotics in the ER. KUB. Sepsis w/u. Thank you, Dr. Briones, for involving me in taking care of this patient Signed, Dom Cortés M.D. [id number]
[2018-02-13 16:14] LABS: URINE MICROSCOPIC INDICATED? YES; URINE SOURCE CATH
[2018-02-13 16:15] LABS: URINE BILIRUBIN NEGATIVE (NEGATIVE); URINE BLOOD MODERATE (NEGATIVE); URINE GLUCOSE (UA) NEGATIVE (NEGATIVE); URINE KETONE 40 mg/dL (NEGATIVE); URINE NITRATE NEGATIVE (NEGATIVE); URINE PROTEIN 100 mg/dL (NEGATIVE)
[2018-02-13 16:34] LABS: URINE CLARITY CLOUDY (CLEAR); URINE COLOR YELLOW; URINE LEUKOCYTE ESTERASE MODERATE (NEGATIVE)
[2018-02-13 16:40] LABS: URINE WBC 25-50 /hpf (0-5)
[2018-02-13 16:41] LABS: URINE BACTERIA FEW /hpf (NONE SEEN); URINE EPITHELIAL CELLS NONE SEEN /lpf (FEW)
[2018-02-13] MEDS: Escitalopram Oxalate 5 mg Tab PO SCH (22:50)
[2018-02-14 06:19] LABS: % BASOPHILS 0.7 % (0.0-2.0); % LYMPHOCYTES 32.9 % (20.0-50.0); % MONOCYTES 8.5 % (2.0-10.0); % NEUTROPHILS 54.9 % (40.0-80.0); BASOPHILE ABSOLUTE 0.1 Th/cumm (0-0.2); EOSINOPHILE ABSOLUTE 0.2 Th/cmm (0.1-0.4); LYMPHOCYTE ABSOLUTE 2.5 Th/cmm (1.5-3.0); MEAN CELL VOLUME 84.2 fl (80-99); MEAN CORPUSCULAR HEMOGLOBIN 28.1 pg (27.0-31.0); MEAN CORPUSCULAR HGB CONC 33.4 pg (28.0-36.0); MONOCYTE ABSOLUTE 0.7 Th/cmm (0.3-1.0); NEUTROPHILE ABSOLUTE 4.2 Th/cmm (1.8-8.0); RED BLOOD COUNT 3.61 Mil/cmm (3.80-5.80); RED CELL DISTRIBUTION WIDTH 14.3 % (11.5-20.0)
[2018-02-14 06:31] LABS: WHITE BLOOD COUNT 7.7 Th/cmm (4.8-10.8)
[2018-02-14 06:32] LABS: HEMATOCRIT 30.4 % (41.0-60); HEMOGLOBIN 10.1 gm/dL (12-16); PLATELET COUNT 255 Th/cmm (150-400)
[2018-02-14 06:36] LABS: ALB/GLOB RATIO 1.4 (1.0-1.8); ALBUMIN 3.3 gm/dL (4.2-5.5); ALKALINE PHOSPHATASE 48 U/L (34-104); ANION GAP 9.3 (7.0-16.0); BILIRUBIN,TOTAL 0.2 mg/dL (0.3-1.0); BUN - UREA NITROGEN 18 mg/dL (7-25); CALCIUM SERUM 8.5 mg/dL (8.6-10.3); CARBON DIOXIDE 28.1 mEq/L (21.0-31.0); CHLORIDE 108 mEq/L (98-107); CREATININE - SERUM 0.8 mg/dL (0.7-1.3); GFR AFRICAN-AMERICAN > 60.0 ml/min (>90); GFR NON AFRICAN-AMERICAN > 60.0 ml/min; GLUCOSE 120 mg/dL (70-105); POTASSIUM SERUM 3.4 mEq/L (3.5-5.1); SGOT 19 U/L (13-39); SGPT/ALT 12 U/L (7-52); SODIUM SERUM 142 mEq/L (136-145); TOTAL PROTEIN,SERUM 5.7 gm/dL (6.0-8.3)
--- NOTE | 2018-02-14 08:03 | History and Physical ---
History of Present Illness - HPI Chief Complaint: Vomiting HPI: 67 y/o male who presents to [facility] ER for detention facility for one day onset of nausea and vomiting, and hematemisis. While in the ER patient had initial labwork which revealed the following... h/h 13.3/40.8 Bun/Cr 28/1.1 Sepsis 3.12 UA Blood Moderate Leukocyte Moderate RBC 10-25 WBC 25-50 no report of trauma, H/As, neck pain, C/P, SOB, Abd. Pain, A/D/C, fever, chills , or urinary s/s Vital Signs: Last Vital Signs Temp 98.0 F 02/14/18 04:00 Pulse 92 02/14/18 04:00 Resp 18 02/14/18 04:00 BP 109/67 02/14/18 04:00 Pulse Ox 96 02/14/18 04:00 Past Medical History Cardiovascular: Report: CAD, HTN, Hyperlipidemia Pulmonary: Report: No Pertinent Hx PRICK STITCHER: Report: No Pertinent Hx GI: Report: Gastritis, Peptic Ulcer Psych: Report: Anxiety, Depression, Other (Bipolar disorder) Musculoskeletal: Report: No Pertinent Hx Rheumatologic: Report: No pertinent Hx Infectious Disease: Report: No Pertinent Hx Renal/: Report: No Pertinent Hx Endocrine: Report: No Pertinent Hx Dermatology: Report: No Pertinent Hx Other History: Past Medical History Obtainable: Yes Past Medical History: HTN, CAD, Dyslipidemia, PUD/GERD Family History: HTN Social History: Non Smoker, No Alcohol, Single, Care Facility Surgical History: None Psychiatricy History: Depression, Bipolar Medication: Reviewed - Past Surgical History Past Surgical History: No pertinent Hx Family Medical History - Family Member Mother History Unknown: Yes Hx Family Psychiatric Problems: Yes Social History Smoke: No Alcohol: None Drugs: None Lives: Usp - Medications Home Medications: Home Medication Medication Instructions Recorded Type Atenolol [Tenormin*] 25 mg PO DAILY #0 tab 12/23/17 Rx Escitalopram Oxalate [Lexapro] 5 mg PO HS #0 tab 12/23/17 Rx Ferrous Sulfate [Iron] 325 mg PO DAILY #0 tab 12/23/17 Rx Multivitamin [Theragran] 1 tab PO DAILY tab 12/23/17 Rx Pantoprazole [Protonix] 40 mg PO QDAC ect 12/23/17 Rx QUEtiapine Fumarate [SEROquel] 25 mg PO BID tab 12/23/17 Rx QUEtiapine Fumarate [SEROquel] 300 mg PO HS tab 12/23/17 Rx Ascorbic Acid [Vitamin C] 500 mg PO DAILY 02/13/18 History Lactobacillus Acidophilus 1 each PO DAILY 02/13/18 History [Acidophilus Lactobacillus] Lorazepam [Ativan] 1 mg PO BID 02/13/18 History - Allergies Allergies/Adverse Reactions: Allergies Allergy/AdvReac Type Severity Reaction Status Date / Time No Known Allergies Allergy Verified 02/13/18 08:17 Review of Systems - Review of Systems Constitutional: Report: No Significant Eyes: Report: No Significant ENT: Report: No Significant Respiratory: Report: No Significant Cardiovascular: Report: No Significant Gastrointestinal: Report: No Significant, Nausea, Vomiting, Abdominal Pain. Denies: Diarrhea, Constipation Genitourinary: Report: No Significant Musculoskeletal: Report: No Significant Skin: Report: No Significant Neurological: Report: No Significant Physical Exam - Physical Exam HEENT: Report: Ears Nose Throat within normal limits, Pharnyx within normal limits Neck: Report: Within normal limits Cardiovascular Systems: Report: +s1/s2 noted, Regular, Rate and Rhythm Respiratory: Report: Breath Sounds are within normal limits, Clear to Auscultation of lung mendez Abdomen: Report: Non-tender to palpation Back: Report: Inspection of back is within normal limits. Extremities: Report: Non-tender to palpation. Skin: Report: Color of skin is within normal limits Neuro/Psych: Report: Mood affect is within normal limits, A+Ox3 - Lab Results All Lab Results last 24 hours: Laboratory Results - last 24 hr 02/13/18 02/13/18 02/13/18 08:38 08:38 08:38 WBC 15.8 H RBC 4.82 Hgb 13.3 Hct 40.8 L MCV 84.6 MCH 27.5 MCHC Differential 32.5 RDW 14.1 Plt Count 396 MPV 8.1 Neutrophils % 80.5 H Lymphocytes % 15.4 L Monocytes % 3.7 Eosinophils % 0.4 Basophils % 0.0 PT 10.5 INR 1.01 Sodium 140 Potassium 4.1 Chloride 101 Carbon Dioxide 21.0 Anion Gap 22.1 H BUN 28 H Creatinine 1.1 Est GFR ( Amer) > 60.0 Est GFR (Non-Af Amer) > 60.0 BUN/Creatinine Ratio 25.5 Glucose 182 H POC Glucose Hemoglobin A1c % Whole Bld Lactic Acid Calcium 9.4 Total Bilirubin 0.4 AST 17 ALT 15 Alkaline Phosphatase 68 Creatine Kinase 29 L Troponin I B-Natriuretic Peptide Total Protein 7.3 Albumin 4.1 L Globulin 3.2 Albumin/Globulin Ratio 1.3 Triglycerides 150 Cholesterol 186 LDL Cholesterol Direct 131 HDL Cholesterol 37 Amylase Lipase Urine Source Urine Color Urine Clarity Urine pH Ur Specific Bird In Hand Urine Protein Urine Glucose (UA) Urine Ketones Urine Blood Urine Nitrate Urine Bilirubin Urine Urobilinogen Ur Leukocyte Esterase Urine RBC Urine WBC Ur Epithelial Cells Urine Bacteria 02/13/18 02/13/18 02/13/18 08:38 08:38 08:38 WBC RBC Hgb Hct MCV MCH MCHC Differential RDW Plt Count MPV Neutrophils % Lymphocytes % Monocytes % Eosinophils % Basophils % PT INR Sodium Potassium Chloride Carbon Dioxide Anion Gap BUN Creatinine Est GFR ( Amer) Est GFR (Non-Af Amer) BUN/Creatinine Ratio Glucose POC Glucose Hemoglobin A1c % Whole Bld Lactic Acid Calcium Total Bilirubin AST ALT Alkaline Phosphatase Creatine Kinase Troponin I < 0.01 L B-Natriuretic Peptide 31.3 Total Protein Albumin Globulin Albumin/Globulin Ratio Triglycerides Cholesterol LDL Cholesterol Direct HDL Cholesterol Amylase 38 Lipase 16 Urine Source Urine Color Urine Clarity Urine pH Ur Specific Bird In Hand Urine Protein Urine Glucose (UA) Urine Ketones Urine Blood Urine Nitrate Urine Bilirubin Urine Urobilinogen Ur Leukocyte Esterase Urine RBC Urine WBC Ur Epithelial Cells Urine Bacteria 02/13/18 02/13/18 02/13/18 08:40 08:40 10:15 WBC RBC Hgb Hct MCV MCH MCHC Differential RDW Plt Count MPV Neutrophils % Lymphocytes % Monocytes % Eosinophils % Basophils % PT INR Sodium Potassium Chloride Carbon Dioxide Anion Gap BUN Creatinine Est GFR ( Amer) Est GFR (Non-Af Amer) BUN/Creatinine Ratio Glucose POC Glucose Hemoglobin A1c % 5.0 Whole Bld Lactic Acid 9.08 H* Calcium Total Bilirubin AST ALT Alkaline Phosphatase Creatine Kinase Troponin I B-Natriuretic Peptide Total Protein Albumin Globulin Albumin/Globulin Ratio Triglycerides Cholesterol LDL Cholesterol Direct HDL Cholesterol Amylase Lipase Urine Source CATH Urine Color YELLOW Urine Clarity CLOUDY Urine pH 6.0 Ur Specific Bird In Hand 1.025 Urine Protein 100 H Urine Glucose (UA) NEGATIVE Urine Ketones 40 H Urine Blood MODERATE H Urine Nitrate NEGATIVE Urine Bilirubin NEGATIVE Urine Urobilinogen 1.0 Ur Leukocyte Esterase MODERATE H Urine RBC 10-25 H Urine WBC 25-50 H Ur Epithelial Cells NONE SEEN Urine Bacteria FEW 02/13/18 02/13/18 02/14/18 10:30 21:45 06:00 WBC 7.7 D RBC 3.61 L Hgb 10.1 L D Hct 30.4 L D MCV 84.2 MCH 28.1 MCHC Differential 33.4 RDW 14.3 Plt Count 255 D MPV 7.0 Neutrophils % 54.9 Lymphocytes % 32.9 Monocytes % 8.5 Eosinophils % 3.0 Basophils % 0.7 PT INR Sodium Potassium Chloride Carbon Dioxide Anion Gap BUN Creatinine Est GFR ( Amer) Est GFR (Non-Af Amer) BUN/Creatinine Ratio Glucose POC Glucose 124 H Hemoglobin A1c % Whole Bld Lactic Acid 3.12 H* Calcium Total Bilirubin AST ALT Alkaline Phosphatase Creatine Kinase Troponin I B-Natriuretic Peptide Total Protein Albumin Globulin Albumin/Globulin Ratio Triglycerides Cholesterol LDL Cholesterol Direct HDL Cholesterol Amylase Lipase Urine Source Urine Color Urine Clarity Urine pH Ur Specific Bird In Hand Urine Protein Urine Glucose (UA) Urine Ketones Urine Blood Urine Nitrate Urine Bilirubin Urine Urobilinogen Ur Leukocyte Esterase Urine RBC Urine WBC Ur Epithelial Cells Urine Bacteria 02/14/18 06:00 WBC RBC Hgb Hct MCV MCH MCHC Differential RDW Plt Count MPV Neutrophils % Lymphocytes % Monocytes % Eosinophils % Basophils % PT INR Sodium 142 Potassium 3.4 L Chloride 108 H Carbon Dioxide 28.1 Anion Gap 9.3 BUN 18 Creatinine 0.8 Est GFR ( Amer) > 60.0 Est GFR (Non-Af Amer) > 60.0 BUN/Creatinine Ratio 22.5 Glucose 120 H POC Glucose Hemoglobin A1c % Whole Bld Lactic Acid Calcium 8.5 L Total Bilirubin 0.2 L AST 19 ALT 12 Alkaline Phosphatase 48 Creatine Kinase Troponin I B-Natriuretic Peptide Total Protein 5.7 L Albumin 3.3 L Globulin 2.4 Albumin/Globulin Ratio 1.4 Triglycerides Cholesterol LDL Cholesterol Direct HDL Cholesterol Amylase Lipase Urine Source Urine Color Urine Clarity Urine pH Ur Specific Bird In Hand Urine Protein Urine Glucose (UA) Urine Ketones Urine Blood Urine Nitrate Urine Bilirubin Urine Urobilinogen Ur Leukocyte Esterase Urine RBC Urine WBC Ur Epithelial Cells Urine Bacteria - Assessment Assessment: UGI Bleed UTI Sepsis Leukocytosis Dehydration HTN CAD Dyslipidemia PUD/GERD - Plan Plan: GI consult repeat CBC,CMP psyche consult soft diet continue current meds.
--- NOTE | 2018-02-14 08:20 | Diagnostic Imaging Report ---
CHEST X-RAY: AP view INDICATION: Sepsis COMPARISON: None FINDINGS: Bibasal atelectatic changes are noted. No focal consolidation or effusions. Mild cardiomegaly is noted. There is mild spinal scoliosis. IMPRESSION: Bibasal atelectatic changes. No focal consolidation identified.
--- NOTE | 2018-02-14 08:20 | Diagnostic Imaging Report ---
KUB single view HISTORY: Ileus COMPARISON: None FINDINGS: There is copious stool with distal fecal impaction. Joint gas-filled loops of bowel are noted. No gross free air identified. Degenerative changes of the spine are noted. IMPRESSION: Copious stool with distal fecal impaction generalized gas distention also bowel. Findings may be due to combination of constipation and ileus.
--- NOTE | 2018-02-14 08:30 | General Progress Note ---
Subjective - Review of Systems Service Date: 02/14/18 Subjective: Patient was seen and examine. No acute distress. soft diet currently. KUB shows constipation. Objective - Results Result Diagrams: 02/14/18 06:00 02/14/18 06:00 Recent Labs: Laboratory Last Values WBC 7.7 Th/cmm (4.8-10.8) D 02/14/18 06:00 RBC 3.61 Mil/cmm (3.80-5.80) L 02/14/18 06:00 Hgb 10.1 gm/dL (12-16) L D 02/14/18 06:00 Hct 30.4 % (41.0-60) L D 02/14/18 06:00 MCV 84.2 fl (80-99) 02/14/18 06:00 MCH 28.1 pg (27.0-31.0) 02/14/18 06:00 MCHC Differential 33.4 pg (28.0-36.0) 02/14/18 06:00 RDW 14.3 % (11.5-20.0) 02/14/18 06:00 Plt Count 255 Th/cmm (150-400) D 02/14/18 06:00 MPV 7.0 fl 02/14/18 06:00 Neutrophils % 54.9 % (40.0-80.0) 02/14/18 06:00 Lymphocytes % 32.9 % (20.0-50.0) 02/14/18 06:00 Monocytes % 8.5 % (2.0-10.0) 02/14/18 06:00 Eosinophils % 3.0 % (0.0-5.0) 02/14/18 06:00 Basophils % 0.7 % (0.0-2.0) 02/14/18 06:00 PT 10.5 SECONDS (9.5-11.5) 02/13/18 08:38 INR 1.01 (0.5-1.4) 02/13/18 08:38 Sodium 142 mEq/L (136-145) 02/14/18 06:00 Potassium 3.4 mEq/L (3.5-5.1) L 02/14/18 06:00 Chloride 108 mEq/L (98-107) H 02/14/18 06:00 Carbon Dioxide 28.1 mEq/L (21.0-31.0) 02/14/18 06:00 Anion Gap 9.3 (7.0-16.0) 02/14/18 06:00 BUN 18 mg/dL (7-25) 02/14/18 06:00 Creatinine 0.8 mg/dL (0.7-1.3) 02/14/18 06:00 Est GFR ( Amer) > 60.0 ml/min (>90) 02/14/18 06:00 Est GFR (Non-Af Amer) > 60.0 ml/min 02/14/18 06:00 BUN/Creatinine Ratio 22.5 02/14/18 06:00 Glucose 120 mg/dL (70-105) H 02/14/18 06:00 POC Glucose 124 MG/DL (70 - 105) H 02/13/18 21:45 Hemoglobin A1c % 5.0 % (4.0-6.0) 02/13/18 08:40 Whole Bld Lactic Acid 3.12 mmol/L (0.60-1.99) H* 02/13/18 10:30 Calcium 8.5 mg/dL (8.6-10.3) L 02/14/18 06:00 Total Bilirubin 0.2 mg/dL (0.3-1.0) L 02/14/18 06:00 AST 19 U/L (13-39) 02/14/18 06:00 ALT 12 U/L (7-52) 02/14/18 06:00 Alkaline Phosphatase 48 U/L (34-104) 02/14/18 06:00 Creatine Kinase 29 U/L (30-223) L 02/13/18 08:38 Troponin I < 0.01 ng/mL (0.01-0.05) L 02/13/18 08:38 B-Natriuretic Peptide 31.3 pg/mL (5.0-100.0) 02/13/18 08:38 Total Protein 5.7 gm/dL (6.0-8.3) L 02/14/18 06:00 Albumin 3.3 gm/dL (4.2-5.5) L 02/14/18 06:00 Globulin 2.4 gm/dL 02/14/18 06:00 Albumin/Globulin Ratio 1.4 (1.0-1.8) 02/14/18 06:00 Triglycerides 150 mg/dL (<150) 02/13/18 08:38 Cholesterol 186 mg/dL (<200) 02/13/18 08:38 LDL Cholesterol Direct 131 mg/dL (75-193) 02/13/18 08:38 HDL Cholesterol 37 mg/dL (23-92) 02/13/18 08:38 Amylase 38 U/L (29-103) 02/13/18 08:38 Lipase 16 U/L (11-82) 02/13/18 08:38 Urine Source CATH 02/13/18 10:15 Urine Color YELLOW 02/13/18 10:15 Urine Clarity CLOUDY (CLEAR) 02/13/18 10:15 Urine pH 6.0 (4.6 - 8.0) 02/13/18 10:15 Ur Specific [place] 1.025 (1.005-1.030) 02/13/18 10:15 Urine Protein 100 mg/dL (NEGATIVE) H 02/13/18 10:15 Urine Glucose (UA) NEGATIVE mg/dL (NEGATIVE) 02/13/18 10:15 Urine Ketones 40 mg/dL (NEGATIVE) H 02/13/18 10:15 Urine Blood MODERATE (NEGATIVE) H 02/13/18 10:15 Urine Nitrate NEGATIVE (NEGATIVE) 02/13/18 10:15 Urine Bilirubin NEGATIVE (NEGATIVE) 02/13/18 10:15 Urine Urobilinogen 1.0 E.U./dL (0.2 - 1.0) 02/13/18 10:15 Ur Leukocyte Esterase MODERATE (NEGATIVE) H 02/13/18 10:15 Urine RBC 10-25 /hpf (0-5) H 02/13/18 10:15 Urine WBC 25-50 /hpf (0-5) H 02/13/18 10:15 Ur Epithelial Cells NONE SEEN /lpf (FEW) 02/13/18 10:15 Urine Bacteria FEW /hpf (NONE SEEN) 02/13/18 10:15 - Physical Exam Vitals and I&O: Vital Signs Temp 98.0 F 02/14/18 04:00 Pulse 92 02/14/18 04:00 Resp 18 02/14/18 04:00 BP 109/67 02/14/18 04:00 Pulse Ox 96 02/14/18 04:00 Intake & Output 02/13/181218 18 18:59 06:59 18:59 Intake Total 1020 50 Balance 1020 50 Weight (lbs) 71.668 kg 71.668 kg Intake: Oral 1020 50 Other: Weight Source Estimated Estimated Active Medications: Current Medications Atenolol (Tenormin) 25 mg PO DAILY [facility] Stop: 04/15/18 08:59 Escitalopram Oxalate (Lexapro) 5 mg PO HS [facility]; Protocol Stop: 04/14/18 20:59 Last Admin: 02/13/18 22:50 Dose: 5 mg Dextrose/Sodium Chloride (D5-0.45ns) 1,000 mls @ 50 mls/hr IV .Q20H [facility] Stop: 04/14/18 12:29 Last Admin: 02/13/18 13:01 Dose: 50 mls/hr Lorazepam (Ativan) 0.5 mg PO Q6H PRN; Protocol PRN Reason: Agitation Stop: 04/14/18 11:44 Last Admin: 02/13/18 16:43 Dose: 0.5 mg Pantoprazole Sodium (Protonix) 40 mg IVP BID [facility] Stop: 04/14/18 17:29 Last Admin: 02/13/18 18:30 Dose: 40 mg Potassium Chloride (Klor-Con) 20 meq PO X1 ONE Stop: 02/14/18 09:01 Quetiapine Fumarate (Seroquel) 25 mg PO BID [facility]; Protocol Stop: 04/14/18 16:59 Last Admin: 02/13/18 16:43 Dose: 25 mg Quetiapine Fumarate (Seroquel) 300 mg PO HS [facility]; Protocol Stop: 04/14/18 20:59 Last Admin: 02/13/18 22:51 Dose: 300 mg Sennosides (Senna Plus 50 Mg-8.6 Mg) 1 tab PO BID [facility] Stop: 04/15/18 08:59 General: Alert, Oriented x3, No acute distress HEENT: Atraumatic, PERRLA, EOMI Neck: Supple Cardiovascular: Regular rate, Normal S1, Normal S2 Lungs: Clear to auscultation Abdomen: Bowel sounds, Soft Extremities: no Clubbing, no Cyanosis, no Edema Neurological: Normal gait, Normal speech - Procedures Procedures: Procedures Procedure Code Date BLOOD TRANSFUSION SERVICE 33184 06/05/03 COLONOSCOPY W/LESION REMOVAL 37452 06/05/03 EGD BIOPSY SINGLE/MULTIPLE 34582 12/20/17 EGD DIAGNOSTIC BRUSH WASH 08084 08/09/00 ENDOSC POLYPECTOMY OF LG INTEST 45.42 06/05/03 ESOPHAGOGASTRODUODENOSCOPY [EGD] W/CLOSED BIOPSY 45.16 06/05/03 EXCISION OF STOMACH, ENDO, DIAGN [id number] 12/20/17 OTHER ENDOSCOPY OF SM INTEST 45.13 08/09/00 PACKED CELL TRANSFUSION 99.04 06/05/03 Assessment/Plan - Assessment Assessment: UGI Bleed ... no change UTI Sepsis Leukocytosis improved Dehydration improved constipation hypokalemia HTN CAD Dyslipidemia PUD/GERD - Plan Plan: GI consult repeat CBC,CMP psyche consult add stool softners soft diet kdur 20me PO x1 continue current meds.
[2018-02-14] MEDS: Ferrous Sulfate 325 MG TAB PO SCH (08:51)
[2018-02-14] MEDS: Docusate Sodium/Senna Tab PO SCH ×2 (08:51→16:11)
[2018-02-14] MEDS ORDERED: Potassium Chloride 20 mEq ER Tab PO ONE (09:00)
--- NOTE | 2018-02-14 13:14 | Consultation ---
DATE OF CONSULTATION: 02/13/2018 REASON FOR CONSULT: GI bleed. This consult was obtained through the request of Dr. Briones for this 67-year-old with multiple medical problems including hypertension, hyperlipidemia, coronary artery disease, possibly mentally challenged, presented to the hospital for altered level of consciousness, found to have sepsis, lactic acidosis, but also was complaining of coffee-ground emesis, but now is better. GI consult was called in for further evaluation. The patient at this time is responsive. Denies any abdominal pain. No more vomiting blood. No more coffee-ground emesis. He feels better. He is hungry. PAST MEDICAL HISTORY: Hypertension, coronary artery disease, hyperlipidemia, peptic ulcer disease, esophagitis, bipolar, depression. PAST SURGICAL HISTORY: Not known. SOCIAL HISTORY: Nonsmoker, nonalcoholic, IV drug abuser. FAMILY HISTORY: Noncontributory. ALLERGIES: No known drug allergies. MEDICATIONS: The patient is on atenolol, Lexapro, dextrose, lorazepam, Seroquel. REVIEW OF SYSTEMS: The patient denies any abdominal pain, nausea, vomiting, hematemesis. PHYSICAL EXAMINATION: GENERAL: The patient is awake, oriented to self. VITAL SIGNS: Blood pressure is 117/70, heart rate 97, respiratory rate 18, temperature is 99.4. HEAD AND NECK: Pupils reactive to light and accommodation. Extraocular muscles could not be tested. Oral cavity, no lesion. NECK: Supple. CHEST: Good air entry. LUNGS: Clear to auscultation. CARDIOVASCULAR: Regular rate and rhythm. No murmur or gallop. ABDOMEN: Soft, positive bowel sounds, not tender. EXTREMITIES: Lower extremities, no edema. CENTRAL NERVOUS SYSTEM: Grossly nonfocal, but unable to evaluate thoroughly. LABORATORY DATA: White blood count 15.88. Albumin is 4.1. Urine, white blood cells 25-50. IMPRESSION: A 67-year-old with sepsis, now with gastrointestinal bleed. ASSESSMENT AND PLAN: Gastrointestinal bleed. The patient was here in December. She had an endoscopy, which showed gastritis and esophagitis. So, at this time, there is no reason to repeat it. H and H remained stable. So, continue to monitor H and H, transfuse if needed. Continue with PPI. If future bleeding, then endoscopy will be repeated for therapeutic purposes. Other medical problems such as hypertension, bipolar, depression, coronary artery disease, etc as per Dr. Briones. Thank you, Dr. Briones for allowing me to participate in the care of Edgardo. If you have any further questions, please let me know. JOB# [id number]
[2018-02-14] MEDS: D5-0.45NS 1,000 ML IV SCH (13:24)
[2018-02-14] MEDS: cefTRIAXone 1 GM in Sodium Chloride 0.9% 50 ML IV SCH (20:37)
[2018-02-14] MEDS: Escitalopram Oxalate 5 mg Tab PO SCH (20:38)
--- NOTE | 2018-02-14 22:32 | Infectious Disease Prog Note ---
Infectious Disease Subjective - Review of Systems Service Date: 02/14/18 Subjective: NO change no fever. Infectious Disease Objective - Results Result Diagrams: 02/14/18 06:00 02/14/18 06:00 Recent Labs: Laboratory Last Values WBC 7.7 Th/cmm (4.8-10.8) D 02/14/18 06:00 RBC 3.61 Mil/cmm (3.80-5.80) L 02/14/18 06:00 Hgb 10.1 gm/dL (12-16) L D 02/14/18 06:00 Hct 30.4 % (41.0-60) L D 02/14/18 06:00 MCV 84.2 fl (80-99) 02/14/18 06:00 MCH 28.1 pg (27.0-31.0) 02/14/18 06:00 MCHC Differential 33.4 pg (28.0-36.0) 02/14/18 06:00 RDW 14.3 % (11.5-20.0) 02/14/18 06:00 Plt Count 255 Th/cmm (150-400) D 02/14/18 06:00 MPV 7.0 fl 02/14/18 06:00 Neutrophils % 54.9 % (40.0-80.0) 02/14/18 06:00 Lymphocytes % 32.9 % (20.0-50.0) 02/14/18 06:00 Monocytes % 8.5 % (2.0-10.0) 02/14/18 06:00 Eosinophils % 3.0 % (0.0-5.0) 02/14/18 06:00 Basophils % 0.7 % (0.0-2.0) 02/14/18 06:00 PT 10.5 SECONDS (9.5-11.5) 02/13/18 08:38 INR 1.01 (0.5-1.4) 02/13/18 08:38 Sodium 142 mEq/L (136-145) 02/14/18 06:00 Potassium 3.4 mEq/L (3.5-5.1) L 02/14/18 06:00 Chloride 108 mEq/L (98-107) H 02/14/18 06:00 Carbon Dioxide 28.1 mEq/L (21.0-31.0) 02/14/18 06:00 Anion Gap 9.3 (7.0-16.0) 02/14/18 06:00 BUN 18 mg/dL (7-25) 02/14/18 06:00 Creatinine 0.8 mg/dL (0.7-1.3) 02/14/18 06:00 Est GFR ( Amer) > 60.0 ml/min (>90) 02/14/18 06:00 Est GFR (Non-Af Amer) > 60.0 ml/min 02/14/18 06:00 BUN/Creatinine Ratio 22.5 02/14/18 06:00 Glucose 120 mg/dL (70-105) H 02/14/18 06:00 POC Glucose 124 MG/DL (70 - 105) H 02/13/18 21:45 Hemoglobin A1c % 5.0 % (4.0-6.0) 02/13/18 08:40 Whole Bld Lactic Acid 3.12 mmol/L (0.60-1.99) H* 02/13/18 10:30 Calcium 8.5 mg/dL (8.6-10.3) L 02/14/18 06:00 Magnesium 2.0 mg/dL (1.9-2.7) 02/14/18 06:00 Total Bilirubin 0.2 mg/dL (0.3-1.0) L 02/14/18 06:00 AST 19 U/L (13-39) 02/14/18 06:00 ALT 12 U/L (7-52) 02/14/18 06:00 Alkaline Phosphatase 48 U/L (34-104) 02/14/18 06:00 Creatine Kinase 29 U/L (30-223) L 02/13/18 08:38 Troponin I < 0.01 ng/mL (0.01-0.05) L 02/13/18 08:38 B-Natriuretic Peptide 31.3 pg/mL (5.0-100.0) 02/13/18 08:38 Total Protein 5.7 gm/dL (6.0-8.3) L 02/14/18 06:00 Albumin 3.3 gm/dL (4.2-5.5) L 02/14/18 06:00 Globulin 2.4 gm/dL 02/14/18 06:00 Albumin/Globulin Ratio 1.4 (1.0-1.8) 02/14/18 06:00 Triglycerides 150 mg/dL (<150) 02/13/18 08:38 Cholesterol 186 mg/dL (<200) 02/13/18 08:38 LDL Cholesterol Direct 131 mg/dL (75-193) 02/13/18 08:38 HDL Cholesterol 37 mg/dL (23-92) 02/13/18 08:38 Amylase 38 U/L (29-103) 02/13/18 08:38 Lipase 16 U/L (11-82) 02/13/18 08:38 Urine Source CATH 02/13/18 10:15 Urine Color YELLOW 02/13/18 10:15 Urine Clarity CLOUDY (CLEAR) 02/13/18 10:15 Urine pH 6.0 (4.6 - 8.0) 02/13/18 10:15 Ur Specific [place] 1.025 (1.005-1.030) 02/13/18 10:15 Urine Protein 100 mg/dL (NEGATIVE) H 02/13/18 10:15 Urine Glucose (UA) NEGATIVE mg/dL (NEGATIVE) 02/13/18 10:15 Urine Ketones 40 mg/dL (NEGATIVE) H 02/13/18 10:15 Urine Blood MODERATE (NEGATIVE) H 02/13/18 10:15 Urine Nitrate NEGATIVE (NEGATIVE) 02/13/18 10:15 Urine Bilirubin NEGATIVE (NEGATIVE) 02/13/18 10:15 Urine Urobilinogen 1.0 E.U./dL (0.2 - 1.0) 02/13/18 10:15 Ur Leukocyte Esterase MODERATE (NEGATIVE) H 02/13/18 10:15 Urine RBC 10-25 /hpf (0-5) H 02/13/18 10:15 Urine WBC 25-50 /hpf (0-5) H 02/13/18 10:15 Ur Epithelial Cells NONE SEEN /lpf (FEW) 02/13/18 10:15 Urine Bacteria FEW /hpf (NONE SEEN) 02/13/18 10:15 - Physical Exam Vitals and I&O: Vital Signs Temp 98.4 F 02/14/18 20:00 Pulse 108 02/14/18 20:00 Resp 20 02/14/18 20:00 BP 123/84 02/14/18 20:00 Pulse Ox 96 06/12/18 20:00 Intake & Output 02/14/18 02/14/18 02/15/18 06:59 18:59 06:59 Intake Total 50 2320 Balance 50 2320 Weight (lbs) 71.668 kg 71.668 kg Intake: Intake, IV Amount 1000 D5-0.45NS 1,000 ml @ 50 1000 mls/hr IV .Q20H [facility] Rx#: [id number] Oral 50 1320 Other: # Voids 3 # Bowel Movements 0 Weight Source Estimated Bedscale Active Medications: Current Medications Atenolol (Tenormin) 25 mg PO DAILY [facility] Stop: 04/15/18 08:59 Last Admin: 02/14/18 08:47 Dose: Not Given Escitalopram Oxalate (Lexapro) 5 mg PO HS [facility]; Protocol Stop: 04/14/18 20:59 Last Admin: 02/14/18 20:38 Dose: 5 mg Ferrous Sulfate (Iron) 325 mg PO DAILY [facility] Stop: 04/15/18 08:59 Last Admin: 02/14/18 08:51 Dose: 325 mg Dextrose/Sodium Chloride (D5-0.45ns) 1,000 mls @ 50 mls/hr IV .Q20H [facility] Stop: 04/14/18 12:29 Last Admin: 02/14/18 13:24 Dose: 50 mls/hr Ceftriaxone Sodium 1 gm/ (Sodium Chloride) 50 mls @ 100 mls/hr IV Q24HR [facility] Stop: 04/15/18 20:59 Last Admin: 02/14/18 20:37 Dose: 100 mls/hr Lorazepam (Ativan) 0.5 mg PO Q6H PRN; Protocol PRN Reason: Agitation Stop: 04/14/18 11:44 Last Admin: 02/13/18 16:43 Dose: 0.5 mg Lorazepam (Ativan) 1 mg PO BID [facility]; Protocol Stop: 04/15/18 08:59 Last Admin: 02/14/18 16:11 Dose: 1 mg Pantoprazole Sodium (Protonix) 40 mg IVP BID [facility] Stop: 04/14/18 17:29 Last Admin: 02/14/18 16:11 Dose: 40 mg Quetiapine Fumarate (Seroquel) 25 mg PO BID [facility]; Protocol Stop: 04/14/18 16:59 Last Admin: 02/14/18 16:11 Dose: 25 mg Quetiapine Fumarate (Seroquel) 300 mg PO HS [facility]; Protocol Stop: 04/14/18 20:59 Last Admin: 02/14/18 20:38 Dose: 300 mg Sennosides (Senna Plus 50 Mg-8.6 Mg) 1 tab PO BID [facility] Stop: 04/15/18 08:59 Last Admin: 02/14/18 16:11 Dose: 1 tab General: no acute distress, well developed HEENT: atraumatic, normocephalic, PERRLA, EOMI Neck: supple Cardiovascular: S1S2, regular Lungs: clear to auscultation bilaterally, clear to percussion Abdomen: soft, no tender, no distended, no rebound Extremities: no cyanosis, no clubbing, no edema Neurological: awake - Procedures Procedures: Procedures Procedure Code Date BLOOD TRANSFUSION SERVICE 68472 06/05/03 COLONOSCOPY W/LESION REMOVAL 39708 06/05/03 EGD BIOPSY SINGLE/MULTIPLE 80099 12/20/17 EGD DIAGNOSTIC BRUSH WASH 15760 08/09/00 ENDOSC POLYPECTOMY OF LG INTEST 45.42 06/05/03 ESOPHAGOGASTRODUODENOSCOPY [EGD] W/CLOSED BIOPSY 45.16 06/05/03 EXCISION OF STOMACH, ENDO, DIAGN [id number] 12/20/17 OTHER ENDOSCOPY OF SM INTEST 45.13 08/09/00 PACKED CELL TRANSFUSION 99.04 06/05/03 Infectious Disease Assmt/Plan - Assessment Assessment: 1. Sepsis. 2. UTI . 3. Hypertension. 4. CAD. 5. Dyslipidemia. 6. PUD/GERD. - Plan Plan: Continue IV fluid and continue Rocephin at this time. Nutritional Asmnt/Malnutr-PDOC - Dietary Evaluation Malnutrition Findings (Please click <Entered> for more info): Nutritional Asmnt/Malnutrition Start: 02/14/18 15: 38 Text: Status: Complete Freq: Protocol: Document 02/14/18 15:38 NEOG (Rec: 02/14/18 15:58 [email or web address] [id number]) Nutritional Asmnt/Malnutrition Patient General Information Nutritional Screening High Risk Consult Diagnosis urosepsis Pertinent Medical Hx/Surgical Hx HTN, CAD, dyslipidemia, PUD/ GERD, depression, bipolar Subjective Information Pt seen sitting up in bed having lunch, emotional and crying, confused, not able to get more infomarion from pt. Per EMR, pt consumed 100% op Current Diet Order/ Nutrition Support soft/bland Pertinent Medications D5-0.45ns, iron, protonix, seroquel, senna Pertinent Labs 02/14 K 3.4, Cl 108, glucose 120 (improving) 02/13 BUN 28, glucose 182, POC 120, A1c 5.0 Nutritional Hx/Data Height 1.65 m Height (Calculated Centimeters) 165.1 Current Weight (lbs) 71.668 kg Weight (Calculated Kilograms) 71.7 Weight (Calculated Grams) 31212.6 [place] Body Weight 136 Body Mass Index (BMI) 26.2 Weight Status Approriate GI Symptoms GI Symptoms None Last BM not indicated Difficult in: None Skin Integrity/Comment: erythema, redness to back Current %PO Good (75-100%) Estimated Nutritional Goals Calories/Kcals/Kg 25-30 based on IBW 62kg Kcals Calculated 3976-4146 Protein g/k-1.1 Protein Calculated 62-68 Fluid: ml 1550-1860ml (1ml/kcal) Nutritional Problem 1. Problem Problem altered nutrition related labs Etiology endocrine dysfunction Signs/Symptoms: glucose 120-182 Malnutrition Alert Is there a minimum of two criteria No selected? Query Text:Check all the applicable criteria. A minimum of two criteria are recommended for diagnosis of either severe or non-severe malnutrition. Malnutrition Related to Morbid Obesity Malnutrition related to morbid obesity No Intervention/Recommendation Comments 1. Continue with current diet as ordered. If glucose continue high, will consider adding CCHO diet. 2. Monitor PO intake, wt, labs and skin integrity 3. F/U as moderate risk in 3-5 days, 02/17-02/19 Expected Outcomes/Goals Expected Outcomes/Goals 1. PO intake to meet at least 75% of nutritional needs. 2. Wt stability, skin to remain intact, labs to approach WNL.
--- NOTE | 2018-02-15 04:08 | Psychosocial Evaluation ---
DATE OF SERVICE: 02/14/2018 HISTORY OF PRESENT ILLNESS: A 67-year-old male well known to this clinician, likely diagnosis of schizophrenia versus psychosis, unspecified. When I have seen him in the past, he has either been off of his Seroquel or underdosed with Seroquel. He normally gets very fearful and scared and will tremble and yell and scream around other people. He is calm today. He has no idea why he is here. He states he is "not scared." He denies depression. He states he is sleeping "okay." He is amenable to my exam and is not showing any signs of paranoia as he has in the past. PAST PSYCHIATRIC HISTORY: Hospital admissions in the past likely schizophrenia. Under medical, please see full H and P. MEDICATIONS: Noted. SOCIAL HISTORY: Good family support from brother. The patient is residing at a fdc in [place]. MENTAL STATUS EXAMINATION: Stated age. Fair eye contact. Speech impoverished. Mood "okay." Affect flat. Thought processes were impoverished, but he is answering most questions appropriately. He is somewhat disoriented. For example, does not know why he is in the hospital. No SI, no HI. No overt psychotic symptoms. Insight and judgment reasonable. PROVISIONAL DIAGNOSES: Schizophrenia; also anxiety, unspecified; also mood, unspecified. Under medical, please see full H and P. RECOMMENDATIONS AND PLAN: Continue Seroquel at current dose. The patient is fairly stable from a psychiatric perspective. JOB# [id number]
[2018-02-15 06:29] LABS: % BASOPHILS 0.5 % (0.0-2.0); % EOSINOPHILS 4.8 % (0.0-5.0); % LYMPHOCYTES 38.5 % (20.0-50.0); % MONOCYTES 6.3 % (2.0-10.0); % NEUTROPHILS 49.9 % (40.0-80.0); EOSINOPHILE ABSOLUTE 0.4 Th/cmm (0.1-0.4); HEMATOCRIT 29.2 % (41.0-60); HEMOGLOBIN 9.8 gm/dL (12-16); LYMPHOCYTE ABSOLUTE 2.8 Th/cmm (1.5-3.0); MEAN CELL VOLUME 84.5 fl (80-99); MEAN CORPUSCULAR HEMOGLOBIN 28.2 pg (27.0-31.0); MEAN CORPUSCULAR HGB CONC 33.4 pg (28.0-36.0); MEAN PLATELET VOLUME 7.9 fl; MONOCYTE ABSOLUTE 0.5 Th/cmm (0.3-1.0); NEUTROPHILE ABSOLUTE 3.6 Th/cmm (1.8-8.0); PLATELET COUNT 215 Th/cmm (150-400); RED BLOOD COUNT 3.46 Mil/cmm (3.80-5.80); RED CELL DISTRIBUTION WIDTH 14.1 % (11.5-20.0); WHITE BLOOD COUNT 7.3 Th/cmm (4.8-10.8)
[2018-02-15 06:42] LABS: ALB/GLOB RATIO 1.4 (1.0-1.8); ALBUMIN 3.5 gm/dL (4.2-5.5); ALKALINE PHOSPHATASE 48 U/L (34-104); ANION GAP 10.5 (7.0-16.0); BILIRUBIN,TOTAL 0.2 mg/dL (0.3-1.0); BUN - UREA NITROGEN 14 mg/dL (7-25); CALCIUM SERUM 8.7 mg/dL (8.6-10.3); CARBON DIOXIDE 26.2 mEq/L (21.0-31.0); CHLORIDE 107 mEq/L (98-107); CREATININE - SERUM 0.9 mg/dL (0.7-1.3); GFR AFRICAN-AMERICAN > 60.0 ml/min (>90); GFR NON AFRICAN-AMERICAN > 60.0 ml/min; GLUCOSE 102 mg/dL (70-105); POTASSIUM SERUM 3.7 mEq/L (3.5-5.1); SGOT 21 U/L (13-39); SGPT/ALT 14 U/L (7-52); SODIUM SERUM 140 mEq/L (136-145)
--- NOTE | 2018-02-15 08:25 | General Progress Note ---
Subjective - Review of Systems Service Date: 02/15/18 Subjective: Patient was seen and examine. No acute distress. soft diet currently. no new changes. Objective - Results Result Diagrams: 02/15/18 05:46 02/15/18 05:46 Recent Labs: Laboratory Last Values WBC 7.3 Th/cmm (4.8-10.8) 02/15/18 05:46 RBC 3.46 Mil/cmm (3.80-5.80) L 02/15/18 05:46 Hgb 9.8 gm/dL (12-16) L 02/15/18 05:46 Hct 29.2 % (41.0-60) L 02/15/18 05:46 MCV 84.5 fl (80-99) 02/15/18 05:46 MCH 28.2 pg (27.0-31.0) 02/15/18 05:46 MCHC Differential 33.4 pg (28.0-36.0) 02/15/18 05:46 RDW 14.1 % (11.5-20.0) 02/15/18 05:46 Plt Count 215 Th/cmm (150-400) 02/15/18 05:46 MPV 7.9 fl 02/15/18 05:46 Neutrophils % 49.9 % (40.0-80.0) 02/15/18 05:46 Lymphocytes % 38.5 % (20.0-50.0) 02/15/18 05:46 Monocytes % 6.3 % (2.0-10.0) 02/15/18 05:46 Eosinophils % 4.8 % (0.0-5.0) 02/15/18 05:46 Basophils % 0.5 % (0.0-2.0) 02/15/18 05:46 PT 10.5 SECONDS (9.5-11.5) 02/13/18 08:38 INR 1.01 (0.5-1.4) 02/13/18 08:38 Sodium 140 mEq/L (136-145) 02/15/18 05:46 Potassium 3.7 mEq/L (3.5-5.1) 02/15/18 05:46 Chloride 107 mEq/L (98-107) 02/15/18 05:46 Carbon Dioxide 26.2 mEq/L (21.0-31.0) 02/15/18 05:46 Anion Gap 10.5 (7.0-16.0) 02/15/18 05:46 BUN 14 mg/dL (7-25) 02/15/18 05:46 Creatinine 0.9 mg/dL (0.7-1.3) 02/15/18 05:46 Est GFR ( Amer) > 60.0 ml/min (>90) 02/15/18 05:46 Est GFR (Non-Af Amer) > 60.0 ml/min 02/15/18 05:46 BUN/Creatinine Ratio 15.6 02/15/18 05:46 Glucose 102 mg/dL (70-105) 02/15/18 05:46 POC Glucose 124 MG/DL (70 - 105) H 02/13/18 21:45 Hemoglobin A1c % 5.0 % (4.0-6.0) 02/13/18 08:40 Whole Bld Lactic Acid 3.12 mmol/L (0.60-1.99) H* 02/13/18 10:30 Calcium 8.7 mg/dL (8.6-10.3) 02/15/18 05:46 Magnesium 2.0 mg/dL (1.9-2.7) 02/14/18 06:00 Total Bilirubin 0.2 mg/dL (0.3-1.0) L 02/15/18 05:46 AST 21 U/L (13-39) 02/15/18 05:46 ALT 14 U/L (7-52) 02/15/18 05:46 Alkaline Phosphatase 48 U/L (34-104) 02/15/18 05:46 Creatine Kinase 29 U/L (30-223) L 02/13/18 08:38 Troponin I < 0.01 ng/mL (0.01-0.05) L 02/13/18 08:38 B-Natriuretic Peptide 31.3 pg/mL (5.0-100.0) 02/13/18 08:38 Total Protein 6.0 gm/dL (6.0-8.3) 02/15/18 05:46 Albumin 3.5 gm/dL (4.2-5.5) L 02/15/18 05:46 Globulin 2.5 gm/dL 02/15/18 05:46 Albumin/Globulin Ratio 1.4 (1.0-1.8) 02/15/18 05:46 Triglycerides 150 mg/dL (<150) 02/13/18 08:38 Cholesterol 186 mg/dL (<200) 02/13/18 08:38 LDL Cholesterol Direct 131 mg/dL (75-193) 02/13/18 08:38 HDL Cholesterol 37 mg/dL (23-92) 02/13/18 08:38 Amylase 38 U/L (29-103) 02/13/18 08:38 Lipase 16 U/L (11-82) 02/13/18 08:38 Urine Source CATH 02/13/18 10:15 Urine Color YELLOW 02/13/18 10:15 Urine Clarity CLOUDY (CLEAR) 02/13/18 10:15 Urine pH 6.0 (4.6 - 8.0) 02/13/18 10:15 Ur Specific [place] 1.025 (1.005-1.030) 02/13/18 10:15 Urine Protein 100 mg/dL (NEGATIVE) H 02/13/18 10:15 Urine Glucose (UA) NEGATIVE mg/dL (NEGATIVE) 02/13/18 10:15 Urine Ketones 40 mg/dL (NEGATIVE) H 02/13/18 10:15 Urine Blood MODERATE (NEGATIVE) H 02/13/18 10:15 Urine Nitrate NEGATIVE (NEGATIVE) 02/13/18 10:15 Urine Bilirubin NEGATIVE (NEGATIVE) 02/13/18 10:15 Urine Urobilinogen 1.0 E.U./dL (0.2 - 1.0) 02/13/18 10:15 Ur Leukocyte Esterase MODERATE (NEGATIVE) H 02/13/18 10:15 Urine RBC 10-25 /hpf (0-5) H 02/13/18 10:15 Urine WBC 25-50 /hpf (0-5) H 02/13/18 10:15 Ur Epithelial Cells NONE SEEN /lpf (FEW) 02/13/18 10:15 Urine Bacteria FEW /hpf (NONE SEEN) 02/13/18 10:15 - Physical Exam Vitals and I&O: Vital Signs Temp 98.7 F 02/15/18 04:00 Pulse 92 02/15/18 04:00 Resp 19 02/15/18 04:00 BP 116/68 02/15/18 04:00 Pulse Ox 95 06/13/18 04:00 Intake & Output 02/14/18 02/15/18 02/15/18 18:59 06:59 18:59 Intake Total 2320 50 Balance 2320 50 Weight (lbs) 71.668 kg Intake: Intake, IV Amount 1000 50 D5-0.45NS 1,000 ml @ 50 1000 mls/hr IV .Q20H [facility] [place] Rx#: [id number] cefTRIAXone 1 gm In 50 Sodium Chloride 0.9% 50 ml @ 100 mls/hr IV Q24HR [facility] [place] Rx#:[id number] Oral 1320 Other: # Voids 3 # Bowel Movements 0 Weight Source Bedscale Active Medications: Current Medications Atenolol (Tenormin) 25 mg PO DAILY [facility] [place] Stop: 04/15/18 08:59 Last Admin: 02/14/18 08:47 Dose: Not Given Escitalopram Oxalate (Lexapro) 5 mg PO HS [facility] [place]; Protocol Stop: 04/14/18 20:59 Last Admin: 02/14/18 20:38 Dose: 5 mg Ferrous Sulfate (Iron) 325 mg PO DAILY [facility] [place] Stop: 04/15/18 08:59 Last Admin: 02/14/18 08:51 Dose: 325 mg Dextrose/Sodium Chloride (D5-0.45ns) 1,000 mls @ 50 mls/hr IV .Q20H [facility] [place] Stop: 04/14/18 12:29 Last Admin: 02/14/18 13:24 Dose: 50 mls/hr Ceftriaxone Sodium 1 gm/ (Sodium Chloride) 50 mls @ 100 mls/hr IV Q24HR [facility] [place] Stop: 04/15/18 20:59 Last Infusion: 02/14/18 21:07 Dose: Infused Lorazepam (Ativan) 0.5 mg PO Q6H PRN; Protocol PRN Reason: Agitation Stop: 04/14/18 11:44 Last Admin: 02/13/18 16:43 Dose: 0.5 mg Lorazepam (Ativan) 1 mg PO BID [facility] [place]; Protocol Stop: 04/15/18 08:59 Last Admin: 02/14/18 16:11 Dose: 1 mg Pantoprazole Sodium (Protonix) 40 mg IVP BID [facility] [place] Stop: 04/14/18 17:29 Last Admin: 02/14/18 16:11 Dose: 40 mg Quetiapine Fumarate (Seroquel) 25 mg PO BID [facility]; Protocol Stop: 04/14/18 16:59 Last Admin: 02/14/18 16:11 Dose: 25 mg Quetiapine Fumarate (Seroquel) 300 mg PO HS [facility]; Protocol Stop: 04/14/18 20:59 Last Admin: 02/14/18 20:38 Dose: 300 mg Sennosides (Senna Plus 50 Mg-8.6 Mg) 1 tab PO BID [facility] Stop: 04/15/18 08:59 Last Admin: 02/14/18 16:11 Dose: 1 tab General: Alert, Oriented x3, No acute distress HEENT: Atraumatic, PERRLA, EOMI Neck: Supple Cardiovascular: Regular rate, Normal S1, Normal S2 Lungs: Clear to auscultation Abdomen: Bowel sounds, Soft Extremities: no Clubbing, no Cyanosis, no Edema Neurological: Normal gait, Normal speech - Procedures Procedures: Procedures Procedure Code Date BLOOD TRANSFUSION SERVICE 11410 06/05/03 COLONOSCOPY W/LESION REMOVAL 33390 06/05/03 EGD BIOPSY SINGLE/MULTIPLE 37999 12/20/17 EGD DIAGNOSTIC BRUSH WASH 57744 08/09/00 ENDOSC POLYPECTOMY OF LG INTEST 45.42 06/05/03 ESOPHAGOGASTRODUODENOSCOPY [EGD] W/CLOSED BIOPSY 45.16 06/05/03 EXCISION OF STOMACH, ENDO, DIAGN [id number] 12/20/17 OTHER ENDOSCOPY OF SM INTEST 45.13 08/09/00 PACKED CELL TRANSFUSION 99.04 06/05/03 Assessment/Plan - Assessment Assessment: UGI Bleed ... no change UTI Sepsis Leukocytosis improved Dehydration improved constipation ... repeat KUB hypokalemia ... resolved HTN ..stable CAD Dyslipidemia PUD/GERD - Plan Plan: GI consult psyche consult add stool softeners soft diet continue current meds. Nutritional Asmnt/Malnutr-PDOC - Dietary Evaluation Malnutrition Findings (Please click <Entered> for more info): Nutritional Asmnt/Malnutrition Start: 02/14/18 15: 38 Text: Status: Complete Freq: Protocol: Document 02/14/18 15:38 [email or web address] (Rec: 02/14/18 15:58 LCMALENA [email or web address]) Nutritional Asmnt/Malnutrition Patient General Information Nutritional Screening High Risk Consult Diagnosis urosepsis Pertinent Medical Hx/Surgical Hx HTN, CAD, dyslipidemia, PUD/ GERD, depression, bipolar Subjective Information Pt seen sitting up in bed having lunch, emotional and crying, confused, not able to get more infomarion from pt. Per EMR, pt consumed 100% op Current Diet Order/ Nutrition Support soft/bland Pertinent Medications D5-0.45ns, iron, protonix, seroquel, senna Pertinent Labs 02/14 K 3.4, Cl 108, glucose 120 (improving) 02/13 BUN 28, glucose 182, POC 120, A1c 5.0 Nutritional Hx/Data Height 1.65 m Height (Calculated Centimeters) 165.1 Current Weight (lbs) 71.668 kg Weight (Calculated Kilograms) 71.7 Weight (Calculated Grams) 88420.6 [place] Body Weight 136 Body Mass Index (BMI) 26.2 Weight Status Approriate GI Symptoms GI Symptoms None Last BM not indicated Difficult in: None Skin Integrity/Comment: erythema, redness to back Current %PO Good (75-100%) Estimated Nutritional Goals Calories/Kcals/Kg 25-30 based on IBW 62kg Kcals Calculated 1237-5069 Protein g/k-1.1 Protein Calculated 62-68 Fluid: ml 1550-1860ml (1ml/kcal) Nutritional Problem 1. Problem Problem altered nutrition related labs Etiology endocrine dysfunction Signs/Symptoms: glucose 120-182 Malnutrition Alert Is there a minimum of two criteria No selected? Query Text:Check all the applicable criteria. A minimum of two criteria are recommended for diagnosis of either severe or non-severe malnutrition. Malnutrition Related to Morbid Obesity Malnutrition related to morbid obesity No Intervention/Recommendation Comments 1. Continue with current diet as ordered. If glucose continue high, will consider adding CCHO diet. 2. Monitor PO intake, wt, labs and skin integrity 3. F/U as moderate risk in 3-5 days, 02/17-02/19 Expected Outcomes/Goals Expected Outcomes/Goals 1. PO intake to meet at least 75% of nutritional needs. 2. Wt stability, skin to remain intact, labs to approach WNL.
[2018-02-15] MEDS: Docusate Sodium/Senna Tab PO SCH ×2 (09:47→17:28)
[2018-02-15] MEDS: Ferrous Sulfate 325 MG TAB PO SCH (09:47)
[2018-02-15] MEDS: D5-0.45NS 1,000 ML IV SCH (09:48)
--- NOTE | 2018-02-15 10:53 | Diagnostic Imaging Report ---
KUB single view HISTORY: Abdominal pain. COMPARISON: 02/13/2018 FINDINGS: Moderate stool is noted with distal fecal impaction. Generalized gas-filled loops of bowel are noted. The osseous structures are intact. IMPRESSION: Moderate amount of stool with distal fecal impaction. There may be a mild ileus.
[2018-02-15] MEDS ORDERED: Magnesium Citrate 1.75 GM/300 mL Bottle PO ONE (13:00)
[2018-02-15] MEDS ORDERED: MINERAL OIL ENEMA 135 ML BOTTLE RC ONE (13:00)
[2018-02-15] MEDS: cefTRIAXone 1 GM in Sodium Chloride 0.9% 50 ML IV SCH (21:55)
[2018-02-15] MEDS: Escitalopram Oxalate 5 mg Tab PO SCH (21:55)
--- NOTE | 2018-02-16 00:14 | Consultation ---
DATE OF CONSULTATION: 02/15/2018 HISTORY OF PRESENT ILLNESS: A 67-year-old male well known to this clinician, likely diagnosis of schizophrenia. The patient is calm, cooperative, sleeping, stating "I want to sleep." States he is sleeping well at night, eating okay. Denying depression. Calm and comfortable. States he feels "fine." PAST PSYCHIATRIC HISTORY: Noted. SOCIAL HISTORY: Noted. MENTAL STATUS EXAMINATION: No overt changes from my exam yesterday. PROVISIONAL DIAGNOSIS: No changes. RECOMMENDATIONS AND PLAN: Medications were noted. No overt side effects. The patient is fairly stable from a psychiatric perspective. JOB# [id number]
[2018-02-16] MEDS: D5-0.45NS 1,000 ML IV SCH (06:17)
[2018-02-16 06:37] LABS: % BASOPHILS 0.7 % (0.0-2.0); % MONOCYTES 7.3 % (2.0-10.0); BASOPHILE ABSOLUTE 0.1 Th/cumm (0-0.2); EOSINOPHILE ABSOLUTE 0.3 Th/cmm (0.1-0.4); HEMATOCRIT 26.2 % (41.0-60); LYMPHOCYTE ABSOLUTE 2.5 Th/cmm (1.5-3.0); MEAN CELL VOLUME 83.5 fl (80-99); MEAN CORPUSCULAR HEMOGLOBIN 28.8 pg (27.0-31.0); MEAN CORPUSCULAR HGB CONC 34.5 pg (28.0-36.0); MEAN PLATELET VOLUME 7.4 fl; MONOCYTE ABSOLUTE 0.6 Th/cmm (0.3-1.0); NEUTROPHILE ABSOLUTE 4.2 Th/cmm (1.8-8.0); PLATELET COUNT 236 Th/cmm (150-400); RED BLOOD COUNT 3.14 Mil/cmm (3.80-5.80); RED CELL DISTRIBUTION WIDTH 13.9 % (11.5-20.0); WHITE BLOOD COUNT 7.7 Th/cmm (4.8-10.8)
[2018-02-16 06:54] LABS: ALB/GLOB RATIO 1.4 (1.0-1.8); ALBUMIN 3.1 gm/dL (4.2-5.5); ALKALINE PHOSPHATASE 55 U/L (34-104); ANION GAP 9.2 (7.0-16.0); BILIRUBIN,TOTAL 0.2 mg/dL (0.3-1.0); BUN - UREA NITROGEN 13 mg/dL (7-25); CALCIUM SERUM 8.4 mg/dL (8.6-10.3); CARBON DIOXIDE 27.7 mEq/L (21.0-31.0); CHLORIDE 109 mEq/L (98-107); CREATININE - SERUM 0.9 mg/dL (0.7-1.3); GFR AFRICAN-AMERICAN > 60.0 ml/min (>90); GFR NON AFRICAN-AMERICAN > 60.0 ml/min; GLUCOSE 92 mg/dL (70-105); POTASSIUM SERUM 3.9 mEq/L (3.5-5.1); SGOT 16 U/L (13-39); SGPT/ALT 13 U/L (7-52); SODIUM SERUM 142 mEq/L (136-145); TOTAL PROTEIN,SERUM 5.3 gm/dL (6.0-8.3)
--- NOTE | 2018-02-16 08:05 | General Progress Note ---
Subjective - Review of Systems Service Date: 02/16/18 Subjective: Patient was seen and examine. KUB yesterday done which revealed moderate stool. Patient had two large bowel movements within past 24hrs. patient to have repeat KUB. Objective - Results Result Diagrams: 02/16/18 05:21 02/16/18 05:21 Recent Labs: Laboratory Last Values WBC 7.7 Th/cmm (4.8-10.8) 02/16/18 05:21 RBC 3.14 Mil/cmm (3.80-5.80) L 02/16/18 05:21 Hgb 9.0 gm/dL (12-16) L 02/16/18 05:21 Hct 26.2 % (41.0-60) L 02/16/18 05:21 MCV 83.5 fl (80-99) 02/16/18 05:21 MCH 28.8 pg (27.0-31.0) 02/16/18 05:21 MCHC Differential 34.5 pg (28.0-36.0) 02/16/18 05:21 RDW 13.9 % (11.5-20.0) 02/16/18 05:21 Plt Count 236 Th/cmm (150-400) 02/16/18 05:21 MPV 7.4 fl 02/16/18 05:21 Neutrophils % 56.0 % (40.0-80.0) 02/16/18 05:21 Lymphocytes % 32.0 % (20.0-50.0) 02/16/18 05:21 Monocytes % 7.3 % (2.0-10.0) 02/16/18 05:21 Eosinophils % 4.0 % (0.0-5.0) 02/16/18 05:21 Basophils % 0.7 % (0.0-2.0) 02/16/18 05:21 PT 10.5 SECONDS (9.5-11.5) 02/13/18 08:38 INR 1.01 (0.5-1.4) 02/13/18 08:38 Sodium 142 mEq/L (136-145) 02/16/18 05:21 Potassium 3.9 mEq/L (3.5-5.1) 02/16/18 05:21 Chloride 109 mEq/L (98-107) H 02/16/18 05:21 Carbon Dioxide 27.7 mEq/L (21.0-31.0) 02/16/18 05:21 Anion Gap 9.2 (7.0-16.0) 02/16/18 05:21 BUN 13 mg/dL (7-25) 02/16/18 05:21 Creatinine 0.9 mg/dL (0.7-1.3) 02/16/18 05:21 Est GFR ( Amer) > 60.0 ml/min (>90) 02/16/18 05:21 Est GFR (Non-Af Amer) > 60.0 ml/min 02/16/18 05:21 BUN/Creatinine Ratio 14.4 02/16/18 05:21 Glucose 92 mg/dL (70-105) 02/16/18 05:21 POC Glucose 124 MG/DL (70 - 105) H 02/13/18 21:45 Hemoglobin A1c % 5.0 % (4.0-6.0) 02/13/18 08:40 Whole Bld Lactic Acid 3.12 mmol/L (0.60-1.99) H* 02/13/18 10:30 Calcium 8.4 mg/dL (8.6-10.3) L 02/16/18 05:21 Magnesium 2.0 mg/dL (1.9-2.7) 02/14/18 06:00 Total Bilirubin 0.2 mg/dL (0.3-1.0) L 02/16/18 05:21 AST 16 U/L (13-39) 02/16/18 05:21 ALT 13 U/L (7-52) 02/16/18 05:21 Alkaline Phosphatase 55 U/L (34-104) 02/16/18 05:21 Creatine Kinase 29 U/L (30-223) L 02/13/18 08:38 Troponin I < 0.01 ng/mL (0.01-0.05) L 02/13/18 08:38 B-Natriuretic Peptide 31.3 pg/mL (5.0-100.0) 02/13/18 08:38 Total Protein 5.3 gm/dL (6.0-8.3) L 02/16/18 05:21 Albumin 3.1 gm/dL (4.2-5.5) L 02/16/18 05:21 Globulin 2.2 gm/dL 02/16/18 05:21 Albumin/Globulin Ratio 1.4 (1.0-1.8) 02/16/18 05:21 Triglycerides 150 mg/dL (<150) 02/13/18 08:38 Cholesterol 186 mg/dL (<200) 02/13/18 08:38 LDL Cholesterol Direct 131 mg/dL (75-193) 02/13/18 08:38 HDL Cholesterol 37 mg/dL (23-92) 02/13/18 08:38 Amylase 38 U/L (29-103) 02/13/18 08:38 Lipase 16 U/L (11-82) 02/13/18 08:38 Urine Source CATH 02/13/18 10:15 Urine Color YELLOW 02/13/18 10:15 Urine Clarity CLOUDY (CLEAR) 02/13/18 10:15 Urine pH 6.0 (4.6 - 8.0) 02/13/18 10:15 Ur Specific [place] 1.025 (1.005-1.030) 02/13/18 10:15 Urine Protein 100 mg/dL (NEGATIVE) H 02/13/18 10:15 Urine Glucose (UA) NEGATIVE mg/dL (NEGATIVE) 02/13/18 10:15 Urine Ketones 40 mg/dL (NEGATIVE) H 02/13/18 10:15 Urine Blood MODERATE (NEGATIVE) H 02/13/18 10:15 Urine Nitrate NEGATIVE (NEGATIVE) 02/13/18 10:15 Urine Bilirubin NEGATIVE (NEGATIVE) 02/13/18 10:15 Urine Urobilinogen 1.0 E.U./dL (0.2 - 1.0) 02/13/18 10:15 Ur Leukocyte Esterase MODERATE (NEGATIVE) H 02/13/18 10:15 Urine RBC 10-25 /hpf (0-5) H 02/13/18 10:15 Urine WBC 25-50 /hpf (0-5) H 02/13/18 10:15 Ur Epithelial Cells NONE SEEN /lpf (FEW) 02/13/18 10:15 Urine Bacteria FEW /hpf (NONE SEEN) 02/13/18 10:15 - Physical Exam Vitals and I&O: Vital Signs Temp 98.2 F 02/16/18 04:00 Pulse 75 06/14/18 04:00 Resp 18 02/16/18 04:00 BP 105/64 02/16/18 04:00 Pulse Ox 93 02/16/18 04:00 Intake & Output 02/15/18 02/16/18 02/16/18 18:59 06:59 18:59 Intake Total 1500 1250 Balance 1500 1250 Weight (lbs) 71.668 kg 75.07 kg Intake: Intake, IV Amount 1000 1000 D5-0.45NS 1,000 ml @ 50 1000 1000 mls/hr IV .Q20H [facility] Rx#: [id number] Oral 500 250 Other: # Voids 3 3 # Bowel Movements 1 1 Weight Source Bedscale Bedscale Active Medications: Current Medications Atenolol (Tenormin) 25 mg PO DAILY [facility] Stop: 04/15/18 08:59 Last Admin: 02/15/18 09:47 Dose: 25 mg Escitalopram Oxalate (Lexapro) 5 mg PO HS [facility]; Protocol Stop: 04/14/18 20:59 Last Admin: 02/15/18 21:55 Dose: 5 mg Ferrous Sulfate (Iron) 325 mg PO DAILY [facility] Stop: 04/15/18 08:59 Last Admin: 02/15/18 09:47 Dose: 325 mg Dextrose/Sodium Chloride (D5-0.45ns) 1,000 mls @ 50 mls/hr IV .Q20H [facility] Stop: 04/14/18 12:29 Last Admin: 02/16/18 06:17 Dose: 50 mls/hr Ceftriaxone Sodium 1 gm/ (Sodium Chloride) 50 mls @ 100 mls/hr IV Q24HR [facility] Stop: 04/15/18 20:59 Last Admin: 02/15/18 21:55 Dose: 100 mls/hr Lorazepam (Ativan) 0.5 mg PO Q6H PRN; Protocol PRN Reason: Agitation Stop: 04/14/18 11:44 Last Admin: 02/15/18 22:14 Dose: 0.5 mg Lorazepam (Ativan) 1 mg PO BID [facility]; Protocol Stop: 04/15/18 08:59 Last Admin: 02/15/18 17:28 Dose: 1 mg Mineral Oil (Mineral Oil 30 Ml) 30 ml PO BID [facility] Stop: 04/16/18 16:59 Last Admin: 02/15/18 17:28 Dose: 30 ml Pantoprazole Sodium (Protonix) 40 mg IVP BID [facility] Stop: 04/14/18 17:29 Last Admin: 02/15/18 17:28 Dose: 40 mg Quetiapine Fumarate (Seroquel) 25 mg PO BID [facility]; Protocol Stop: 04/14/18 16:59 Last Admin: 02/15/18 17:28 Dose: 25 mg Quetiapine Fumarate (Seroquel) 300 mg PO HS [facility]; Protocol Stop: 04/14/18 20:59 Last Admin: 02/15/18 21:54 Dose: 300 mg Sennosides (Senna Plus 50 Mg-8.6 Mg) 1 tab PO BID [facility] Stop: 04/15/18 08:59 Last Admin: 02/15/18 17:28 Dose: 1 tab General: Alert, Oriented x3, No acute distress HEENT: Atraumatic, PERRLA, EOMI Neck: Supple Cardiovascular: Regular rate, Normal S1, Normal S2 Lungs: Clear to auscultation Abdomen: Bowel sounds, Soft Extremities: no Clubbing, no Cyanosis, no Edema Neurological: Normal gait, Normal speech - Procedures Procedures: Procedures Procedure Code Date BLOOD TRANSFUSION SERVICE 25405 06/05/03 COLONOSCOPY W/LESION REMOVAL 05169 06/05/03 EGD BIOPSY SINGLE/MULTIPLE 85269 12/20/17 EGD DIAGNOSTIC BRUSH WASH 36419 08/09/00 ENDOSC POLYPECTOMY OF LG INTEST 45.42 06/05/03 ESOPHAGOGASTRODUODENOSCOPY [EGD] W/CLOSED BIOPSY 45.16 06/05/03 EXCISION OF STOMACH, ENDO, DIAGN [id number] 12/20/17 OTHER ENDOSCOPY OF SM INTEST 45.13 08/09/00 PACKED CELL TRANSFUSION 99.04 06/05/03 Assessment/Plan - Assessment Assessment: Hematemesis...rule out GIB continue Protonix 40mg IV BID Anemia Hb 13-->9.... stool occult x2 .... UTI Sepsis Leukocytosis improved Dehydration improved constipation ... repeat KUB hypokalemia ... resolved HTN ..stable CAD Dyslipidemia PUD/GERD - Plan Plan: GI consult psyche consult add stool softeners soft diet continue current meds. Nutritional Asmnt/Malnutr-PDOC - Dietary Evaluation Malnutrition Findings (Please click <Entered> for more info): Nutritional Asmnt/Malnutrition Start: 02/14/18 15: 38 Text: Status: Complete Freq: Protocol: Document 02/14/18 15:38 MAUREEN (Rec: 02/14/18 15:58 ANILMALENA [email or web address]) Nutritional Asmnt/Malnutrition Patient General Information Nutritional Screening High Risk Consult Diagnosis urosepsis Pertinent Medical Hx/Surgical Hx HTN, CAD, dyslipidemia, PUD/ GERD, depression, bipolar Subjective Information Pt seen sitting up in bed having lunch, emotional and crying, confused, not able to get more infomarion from pt. Per EMR, pt consumed 100% op Current Diet Order/ Nutrition Support soft/bland Pertinent Medications D5-0.45ns, iron, protonix, seroquel, senna Pertinent Labs 02/14 K 3.4, Cl 108, glucose 120 (improving) 02/13 BUN 28, glucose 182, POC 120, A1c 5.0 Nutritional Hx/Data Height 1.65 m Height (Calculated Centimeters) 165.1 Current Weight (lbs) 71.668 kg Weight (Calculated Kilograms) 71.7 Weight (Calculated Grams) 09282.6 [place] Body Weight 136 Body Mass Index (BMI) 26.2 Weight Status Approriate GI Symptoms GI Symptoms None Last BM not indicated Difficult in: None Skin Integrity/Comment: erythema, redness to back Current %PO Good (75-100%) Estimated Nutritional Goals Calories/Kcals/Kg 25-30 based on IBW 62kg Kcals Calculated 1128-1569 Protein g/k-1.1 Protein Calculated 62-68 Fluid: ml 1550-1860ml (1ml/kcal) Nutritional Problem 1. Problem Problem altered nutrition related labs Etiology endocrine dysfunction Signs/Symptoms: glucose 120-182 Malnutrition Alert Is there a minimum of two criteria No selected? Query Text:Check all the applicable criteria. A minimum of two criteria are recommended for diagnosis of either severe or non-severe malnutrition. Malnutrition Related to Morbid Obesity Malnutrition related to morbid obesity No Intervention/Recommendation Comments 1. Continue with current diet as ordered. If glucose continue high, will consider adding CCHO diet. 2. Monitor PO intake, wt, labs and skin integrity 3. F/U as moderate risk in 3-5 days, 02/17-02/19 Expected Outcomes/Goals Expected Outcomes/Goals 1. PO intake to meet at least 75% of nutritional needs. 2. Wt stability, skin to remain intact, labs to approach WNL.
--- NOTE | 2018-02-16 09:13 | Diagnostic Imaging Report ---
KUB abdominal film HISTORY: Pain Compared with the prior exam of February 15, 2018, persistent yet decreased stool within the lower sigmoid colon and rectal region. Nonspecific gas pattern of nondilated bowel. IMPRESSION: 1. Decreased stool within the rectal and lower sigmoid colon regions. Otherwise nonspecific bowel gas pattern.
[2018-02-16 09:16] LABS: PROTHROMBIN TIME (TEST) 10.4 SECONDS (9.5-11.5)
[2018-02-16] MEDS: Docusate Sodium/Senna Tab PO SCH ×2 (09:17→17:27)
[2018-02-16] MEDS: Ferrous Sulfate 325 MG TAB PO SCH (09:18)
--- NOTE | 2018-02-16 13:00 | Infectious Disease Prog Note ---
Infectious Disease Subjective - Review of Systems Service Date: 02/16/18 Subjective: NO change no fever. Infectious Disease Objective - Results Result Diagrams: 02/16/18 05:21 02/16/18 05:21 Recent Labs: Laboratory Last Values WBC 7.7 Th/cmm (4.8-10.8) 02/16/18 05:21 RBC 3.14 Mil/cmm (3.80-5.80) L 02/16/18 05:21 Hgb 9.0 gm/dL (12-16) L 02/16/18 05:21 Hct 26.2 % (41.0-60) L 02/16/18 05:21 MCV 83.5 fl (80-99) 02/16/18 05:21 MCH 28.8 pg (27.0-31.0) 02/16/18 05:21 MCHC Differential 34.5 pg (28.0-36.0) 02/16/18 05:21 RDW 13.9 % (11.5-20.0) 02/16/18 05:21 Plt Count 236 Th/cmm (150-400) 02/16/18 05:21 MPV 7.4 fl 02/16/18 05:21 Neutrophils % 56.0 % (40.0-80.0) 02/16/18 05:21 Lymphocytes % 32.0 % (20.0-50.0) 02/16/18 05:21 Monocytes % 7.3 % (2.0-10.0) 02/16/18 05:21 Eosinophils % 4.0 % (0.0-5.0) 02/16/18 05:21 Basophils % 0.7 % (0.0-2.0) 02/16/18 05:21 PT 10.4 SECONDS (9.5-11.5) 02/16/18 05:21 INR 1.00 (0.5-1.4) 02/16/18 05:21 Sodium 142 mEq/L (136-145) 02/16/18 05:21 Potassium 3.9 mEq/L (3.5-5.1) 02/16/18 05:21 Chloride 109 mEq/L (98-107) H 02/16/18 05:21 Carbon Dioxide 27.7 mEq/L (21.0-31.0) 02/16/18 05:21 Anion Gap 9.2 (7.0-16.0) 02/16/18 05:21 BUN 13 mg/dL (7-25) 02/16/18 05:21 Creatinine 0.9 mg/dL (0.7-1.3) 02/16/18 05:21 Est GFR ( Amer) > 60.0 ml/min (>90) 02/16/18 05:21 Est GFR (Non-Af Amer) > 60.0 ml/min 02/16/18 05:21 BUN/Creatinine Ratio 14.4 02/16/18 05:21 Glucose 92 mg/dL (70-105) 02/16/18 05:21 POC Glucose 124 MG/DL (70 - 105) H 02/13/18 21:45 Hemoglobin A1c % 5.0 % (4.0-6.0) 02/13/18 08:40 Whole Bld Lactic Acid 1.16 mmol/L (0.60-1.99) 02/16/18 11:48 Calcium 8.4 mg/dL (8.6-10.3) L 02/16/18 05:21 Magnesium 2.0 mg/dL (1.9-2.7) 02/14/18 06:00 Total Bilirubin 0.2 mg/dL (0.3-1.0) L 02/16/18 05:21 AST 16 U/L (13-39) 02/16/18 05:21 ALT 13 U/L (7-52) 02/16/18 05:21 Alkaline Phosphatase 55 U/L (34-104) 02/16/18 05:21 Creatine Kinase 29 U/L (30-223) L 02/13/18 08:38 Troponin I < 0.01 ng/mL (0.01-0.05) L 02/13/18 08:38 B-Natriuretic Peptide 31.3 pg/mL (5.0-100.0) 02/13/18 08:38 Total Protein 5.3 gm/dL (6.0-8.3) L 02/16/18 05:21 Albumin 3.1 gm/dL (4.2-5.5) L 02/16/18 05:21 Globulin 2.2 gm/dL 02/16/18 05:21 Albumin/Globulin Ratio 1.4 (1.0-1.8) 02/16/18 05:21 Triglycerides 150 mg/dL (<150) 02/13/18 08:38 Cholesterol 186 mg/dL (<200) 02/13/18 08:38 LDL Cholesterol Direct 131 mg/dL (75-193) 02/13/18 08:38 HDL Cholesterol 37 mg/dL (23-92) 02/13/18 08:38 Amylase 38 U/L (29-103) 02/13/18 08:38 Lipase 16 U/L (11-82) 02/13/18 08:38 Urine Source CATH 02/13/18 10:15 Urine Color YELLOW 02/13/18 10:15 Urine Clarity CLOUDY (CLEAR) 02/13/18 10:15 Urine pH 6.0 (4.6 - 8.0) 02/13/18 10:15 Ur Specific [place] 1.025 (1.005-1.030) 02/13/18 10:15 Urine Protein 100 mg/dL (NEGATIVE) H 02/13/18 10:15 Urine Glucose (UA) NEGATIVE mg/dL (NEGATIVE) 02/13/18 10:15 Urine Ketones 40 mg/dL (NEGATIVE) H 02/13/18 10:15 Urine Blood MODERATE (NEGATIVE) H 02/13/18 10:15 Urine Nitrate NEGATIVE (NEGATIVE) 02/13/18 10:15 Urine Bilirubin NEGATIVE (NEGATIVE) 02/13/18 10:15 Urine Urobilinogen 1.0 E.U./dL (0.2 - 1.0) 02/13/18 10:15 Ur Leukocyte Esterase MODERATE (NEGATIVE) H 02/13/18 10:15 Urine RBC 10-25 /hpf (0-5) H 02/13/18 10:15 Urine WBC 25-50 /hpf (0-5) H 02/13/18 10:15 Ur Epithelial Cells NONE SEEN /lpf (FEW) 02/13/18 10:15 Urine Bacteria FEW /hpf (NONE SEEN) 02/13/18 10:15 Stool Occult Blood NEGATIVE (NEGATIVE) 02/16/18 10:32 - Physical Exam Vitals and I&O: Vital Signs Temp 97.4 F 02/16/18 08:00 Pulse 78 02/16/18 09:17 Resp 20 02/16/18 08:00 BP 107/57 02/16/18 09:17 Pulse Ox 96 02/16/18 08:00 Intake & Output 02/15/18 02/16/18 02/16/18 18:59 06:59 18:59 Intake Total 1500 1250 Balance 1500 1250 Weight (lbs) 71.668 kg 75.07 kg Intake: Intake, IV Amount 1000 1000 D5-0.45NS 1,000 ml @ 50 1000 1000 mls/hr IV .Q20H [facility] Rx#: [id number] Oral 500 250 Other: # Voids 3 3 # Bowel Movements 1 1 Weight Source Bedscale Bedscale Active Medications: Current Medications Atenolol (Tenormin) 25 mg PO DAILY [facility] Stop: 04/15/18 08:59 Last Admin: 02/16/18 09:17 Dose: Not Given Escitalopram Oxalate (Lexapro) 5 mg PO HS [facility]; Protocol Stop: 04/14/18 20:59 Last Admin: 02/15/18 21:55 Dose: 5 mg Ferrous Sulfate (Iron) 325 mg PO DAILY [facility] Stop: 04/15/18 08:59 Last Admin: 02/16/18 09:18 Dose: 325 mg Dextrose/Sodium Chloride (D5-0.45ns) 1,000 mls @ 50 mls/hr IV .Q20H [facility] Stop: 04/14/18 12:29 Last Admin: 02/16/18 06:17 Dose: 50 mls/hr Ceftriaxone Sodium 1 gm/ (Sodium Chloride) 50 mls @ 100 mls/hr IV Q24HR [facility] Stop: 04/15/18 20:59 Last Admin: 02/15/18 21:55 Dose: 100 mls/hr Lorazepam (Ativan) 0.5 mg PO Q6H PRN; Protocol PRN Reason: Agitation Stop: 04/14/18 11:44 Last Admin: 02/15/18 22:14 Dose: 0.5 mg Lorazepam (Ativan) 1 mg PO BID [facility]; Protocol Stop: 04/15/18 08:59 Last Admin: 02/16/18 09:18 Dose: 1 mg Mineral Oil (Mineral Oil 30 Ml) 30 ml PO BID [facility] Stop: 04/16/18 16:59 Last Admin: 02/16/18 09:19 Dose: 30 ml Pantoprazole Sodium (Protonix) 40 mg IVP BID [facility] Stop: 04/14/18 17:29 Last Admin: 02/16/18 09:21 Dose: 40 mg Quetiapine Fumarate (Seroquel) 25 mg PO BID [facility]; Protocol Stop: 04/14/18 16:59 Last Admin: 02/16/18 09:18 Dose: 25 mg Quetiapine Fumarate (Seroquel) 300 mg PO HS [facility]; Protocol Stop: 04/14/18 20:59 Last Admin: 02/15/18 21:54 Dose: 300 mg Sennosides (Senna Plus 50 Mg-8.6 Mg) 1 tab PO BID [facility] Stop: 04/15/18 08:59 Last Admin: 02/16/18 09:17 Dose: 1 tab General: no acute distress, well developed, well nourished HEENT: atraumatic, normocephalic, EOMI Neck: supple, no thyromegaly Cardiovascular: S1S2, regular Lungs: clear to auscultation bilaterally, clear to percussion, crackles Abdomen: soft, no tender, no distended, no rebound Extremities: no cyanosis, no clubbing, no edema Neurological: awake - Procedures Procedures: Procedures Procedure Code Date BLOOD TRANSFUSION SERVICE 36853 06/05/03 COLONOSCOPY W/LESION REMOVAL 95162 06/05/03 EGD BIOPSY SINGLE/MULTIPLE 22607 12/20/17 EGD DIAGNOSTIC BRUSH WASH 67929 08/09/00 ENDOSC POLYPECTOMY OF LG INTEST 45.42 06/05/03 ESOPHAGOGASTRODUODENOSCOPY [EGD] W/CLOSED BIOPSY 45.16 06/05/03 EXCISION OF STOMACH, ENDO, DIAGN [id number] 12/20/17 OTHER ENDOSCOPY OF SM INTEST 45.13 08/09/00 PACKED CELL TRANSFUSION 99.04 06/05/03 Infectious Disease Assmt/Plan - Assessment Assessment: 1. Sepsis. 2. UTI . 3. Hypertension. 4. CAD. 5. Dyslipidemia. 6. PUD/GERD. - Plan Plan: Continue IV fluid and continue Rocephin at this time. Nutritional Asmnt/Malnutr-PDOC - Dietary Evaluation Malnutrition Findings (Please click <Entered> for more info): Nutritional Asmnt/Malnutrition Start: 02/14/18 15: 38 Text: Status: Complete Freq: Protocol: Document 02/14/18 15:38 LCHENG (Rec: 02/14/18 15:58 [email or web address]) Nutritional Asmnt/Malnutrition Patient General Information Nutritional Screening High Risk Consult Diagnosis urosepsis Pertinent Medical Hx/Surgical Hx HTN, CAD, dyslipidemia, PUD/ GERD, depression, bipolar Subjective Information Pt seen sitting up in bed having lunch, emotional and crying, confused, not able to get more infomarion from pt. Per EMR, pt consumed 100% op Current Diet Order/ Nutrition Support soft/bland Pertinent Medications D5-0.45ns, iron, protonix, seroquel, senna Pertinent Labs 02/14 K 3.4, Cl 108, glucose 120 (improving) 02/13 BUN 28, glucose 182, POC 120, A1c 5.0 Nutritional Hx/Data Height 1.65 m Height (Calculated Centimeters) 165.1 Current Weight (lbs) 71.668 kg Weight (Calculated Kilograms) 71.7 Weight (Calculated Grams) 77070.6 [place] Body Weight 136 Body Mass Index (BMI) 26.2 Weight Status Approriate GI Symptoms GI Symptoms None Last BM not indicated Difficult in: None Skin Integrity/Comment: erythema, redness to back Current %PO Good (75-100%) Estimated Nutritional Goals Calories/Kcals/Kg 25-30 based on IBW 62kg Kcals Calculated 2554-3041 Protein g/k-1.1 Protein Calculated 62-68 Fluid: ml 1550-1860ml (1ml/kcal) Nutritional Problem 1. Problem Problem altered nutrition related labs Etiology endocrine dysfunction Signs/Symptoms: glucose 120-182 Malnutrition Alert Is there a minimum of two criteria No selected? Query Text:Check all the applicable criteria. A minimum of two criteria are recommended for diagnosis of either severe or non-severe malnutrition. Malnutrition Related to Morbid Obesity Malnutrition related to morbid obesity No Intervention/Recommendation Comments 1. Continue with current diet as ordered. If glucose continue high, will consider adding CCHO diet. 2. Monitor PO intake, wt, labs and skin integrity 3. F/U as moderate risk in 3-5 days, 02/17-02/19 Expected Outcomes/Goals Expected Outcomes/Goals 1. PO intake to meet at least 75% of nutritional needs. 2. Wt stability, skin to remain intact, labs to approach WNL.
[2018-02-16] MEDS: Amoxicillin/Clavulanat 875/125 Tab PO SCH (17:27)
[2018-02-16] MEDS: Escitalopram Oxalate 5 mg Tab PO SCH (20:18)
[2018-02-17 06:31] LABS: % BASOPHILS 0.7 % (0.0-2.0); % EOSINOPHILS 4.4 % (0.0-5.0); % LYMPHOCYTES 26.2 % (20.0-50.0); % MONOCYTES 6.5 % (2.0-10.0); % NEUTROPHILS 62.2 % (40.0-80.0); BASOPHILE ABSOLUTE 0.1 Th/cumm (0-0.2); EOSINOPHILE ABSOLUTE 0.3 Th/cmm (0.1-0.4); HEMATOCRIT 27.5 % (41.0-60); HEMOGLOBIN 9.1 gm/dL (12-16); MEAN CELL VOLUME 84.5 fl (80-99); MEAN CORPUSCULAR HEMOGLOBIN 28.1 pg (27.0-31.0); MEAN CORPUSCULAR HGB CONC 33.2 pg (28.0-36.0); MEAN PLATELET VOLUME 7.2 fl; MONOCYTE ABSOLUTE 0.5 Th/cmm (0.3-1.0); NEUTROPHILE ABSOLUTE 4.6 Th/cmm (1.8-8.0); PLATELET COUNT 250 Th/cmm (150-400); RED BLOOD COUNT 3.25 Mil/cmm (3.80-5.80); RED CELL DISTRIBUTION WIDTH 14.1 % (11.5-20.0); WHITE BLOOD COUNT 7.5 Th/cmm (4.8-10.8)
[2018-02-17 06:42] LABS: ALB/GLOB RATIO 1.3 (1.0-1.8); ALKALINE PHOSPHATASE 59 U/L (34-104); ANION GAP 7.2 (7.0-16.0); BILIRUBIN,TOTAL 0.2 mg/dL (0.3-1.0); BUN - UREA NITROGEN 16 mg/dL (7-25); CALCIUM SERUM 8.3 mg/dL (8.6-10.3); CARBON DIOXIDE 27.8 mEq/L (21.0-31.0); CHLORIDE 106 mEq/L (98-107); GFR AFRICAN-AMERICAN > 60.0 ml/min (>90); GFR NON AFRICAN-AMERICAN > 60.0 ml/min; GLUCOSE 105 mg/dL (70-105); SGOT 14 U/L (13-39); SGPT/ALT 12 U/L (7-52); SODIUM SERUM 137 mEq/L (136-145); TOTAL PROTEIN,SERUM 5.3 gm/dL (6.0-8.3)
--- NOTE | 2018-02-17 08:21 | General Progress Note ---
Subjective - Review of Systems Service Date: 02/17/18 Subjective: Patient doing well today. no further GI upset. Patient is currently stable. No complaints. Objective - Results Result Diagrams: 02/17/18 05:40 02/17/18 05:40 Recent Labs: Laboratory Last Values WBC 7.5 Th/cmm (4.8-10.8) 02/17/18 05:40 RBC 3.25 Mil/cmm (3.80-5.80) L 02/17/18 05:40 Hgb 9.1 gm/dL (12-16) L 02/17/18 05:40 Hct 27.5 % (41.0-60) L 02/17/18 05:40 MCV 84.5 fl (80-99) 02/17/18 05:40 MCH 28.1 pg (27.0-31.0) 02/17/18 05:40 MCHC Differential 33.2 pg (28.0-36.0) 02/17/18 05:40 RDW 14.1 % (11.5-20.0) 02/17/18 05:40 Plt Count 250 Th/cmm (150-400) 02/17/18 05:40 MPV 7.2 fl 02/17/18 05:40 Neutrophils % 62.2 % (40.0-80.0) 02/17/18 05:40 Lymphocytes % 26.2 % (20.0-50.0) 02/17/18 05:40 Monocytes % 6.5 % (2.0-10.0) 02/17/18 05:40 Eosinophils % 4.4 % (0.0-5.0) 02/17/18 05:40 Basophils % 0.7 % (0.0-2.0) 02/17/18 05:40 PT 10.4 SECONDS (9.5-11.5) 02/16/18 05:21 INR 1.00 (0.5-1.4) 02/16/18 05:21 Sodium 137 mEq/L (136-145) 02/17/18 05:40 Potassium 4.0 mEq/L (3.5-5.1) 02/17/18 05:40 Chloride 106 mEq/L (98-107) 02/17/18 05:40 Carbon Dioxide 27.8 mEq/L (21.0-31.0) 02/17/18 05:40 Anion Gap 7.2 (7.0-16.0) 02/17/18 05:40 BUN 16 mg/dL (7-25) 02/17/18 05:40 Creatinine 1.0 mg/dL (0.7-1.3) 02/17/18 05:40 Est GFR ( Amer) > 60.0 ml/min (>90) 02/17/18 05:40 Est GFR (Non-Af Amer) > 60.0 ml/min 02/17/18 05:40 BUN/Creatinine Ratio 16.0 02/17/18 05:40 Glucose 105 mg/dL (70-105) 02/17/18 05:40 POC Glucose 124 MG/DL (70 - 105) H 02/13/18 21:45 Hemoglobin A1c % 5.0 % (4.0-6.0) 02/13/18 08:40 Whole Bld Lactic Acid 1.16 mmol/L (0.60-1.99) 02/16/18 11:48 Calcium 8.3 mg/dL (8.6-10.3) L 02/17/18 05:40 Magnesium 2.0 mg/dL (1.9-2.7) 02/14/18 06:00 Total Bilirubin 0.2 mg/dL (0.3-1.0) L 02/17/18 05:40 AST 14 U/L (13-39) 02/17/18 05:40 ALT 12 U/L (7-52) 02/17/18 05:40 Alkaline Phosphatase 59 U/L (34-104) 02/17/18 05:40 Creatine Kinase 29 U/L (30-223) L 02/13/18 08:38 Troponin I < 0.01 ng/mL (0.01-0.05) L 02/13/18 08:38 B-Natriuretic Peptide 31.3 pg/mL (5.0-100.0) 02/13/18 08:38 Total Protein 5.3 gm/dL (6.0-8.3) L 02/17/18 05:40 Albumin 3.0 gm/dL (4.2-5.5) L 02/17/18 05:40 Globulin 2.3 gm/dL 02/17/18 05:40 Albumin/Globulin Ratio 1.3 (1.0-1.8) 02/17/18 05:40 Triglycerides 150 mg/dL (<150) 02/13/18 08:38 Cholesterol 186 mg/dL (<200) 02/13/18 08:38 LDL Cholesterol Direct 131 mg/dL (75-193) 02/13/18 08:38 HDL Cholesterol 37 mg/dL (23-92) 02/13/18 08:38 Amylase 38 U/L (29-103) 02/13/18 08:38 Lipase 16 U/L (11-82) 02/13/18 08:38 Urine Source CATH 02/13/18 10:15 Urine Color YELLOW 02/13/18 10:15 Urine Clarity CLOUDY (CLEAR) 02/13/18 10:15 Urine pH 6.0 (4.6 - 8.0) 02/13/18 10:15 Ur Specific [place] 1.025 (1.005-1.030) 02/13/18 10:15 Urine Protein 100 mg/dL (NEGATIVE) H 02/13/18 10:15 Urine Glucose (UA) NEGATIVE mg/dL (NEGATIVE) 02/13/18 10:15 Urine Ketones 40 mg/dL (NEGATIVE) H 02/13/18 10:15 Urine Blood MODERATE (NEGATIVE) H 02/13/18 10:15 Urine Nitrate NEGATIVE (NEGATIVE) 02/13/18 10:15 Urine Bilirubin NEGATIVE (NEGATIVE) 02/13/18 10:15 Urine Urobilinogen 1.0 E.U./dL (0.2 - 1.0) 02/13/18 10:15 Ur Leukocyte Esterase MODERATE (NEGATIVE) H 02/13/18 10:15 Urine RBC 10-25 /hpf (0-5) H 02/13/18 10:15 Urine WBC 25-50 /hpf (0-5) H 02/13/18 10:15 Ur Epithelial Cells NONE SEEN /lpf (FEW) 02/13/18 10:15 Urine Bacteria FEW /hpf (NONE SEEN) 02/13/18 10:15 Stool Occult Blood NEGATIVE (NEGATIVE) 02/16/18 10:32 - Physical Exam Vitals and I&O: Vital Signs Temp 98.2 F 02/17/18 04:00 Pulse 82 02/17/18 04:00 Resp 20 02/17/18 04:00 BP 124/82 02/17/18 04:00 Pulse Ox 98 02/17/18 04:00 Intake & Output 02/16/18 02/17/18 02/17/18 18:59 06:59 18:59 Other: Stool Characteristics Soft Active Medications: Current Medications Amoxicillin/Clavulanate Potassium (Augmentin 875-125mg) 1 tab PO BID [facility] Stop: 04/17/18 16:59 Last Admin: 02/16/18 17:27 Dose: 1 tab Atenolol (Tenormin) 25 mg PO DAILY [facility] Stop: 04/15/18 08:59 Last Admin: 02/16/18 09:17 Dose: Not Given Escitalopram Oxalate (Lexapro) 5 mg PO HS [facility]; Protocol Stop: 04/14/18 20:59 Last Admin: 02/16/18 20:18 Dose: 5 mg Ferrous Sulfate (Iron) 325 mg PO DAILY [facility] Stop: 04/15/18 08:59 Last Admin: 02/16/18 09:18 Dose: 325 mg Dextrose/Sodium Chloride (D5-0.45ns) 1,000 mls @ 50 mls/hr IV .Q20H [facility] Stop: 04/14/18 12:29 Last Admin: 02/16/18 06:17 Dose: 50 mls/hr Lorazepam (Ativan) 0.5 mg PO Q6H PRN; Protocol PRN Reason: Agitation Stop: 04/14/18 11:44 Last Admin: 02/16/18 20:18 Dose: 0.5 mg Lorazepam (Ativan) 1 mg PO BID [facility]; Protocol Stop: 04/15/18 08:59 Last Admin: 02/16/18 17:27 Dose: 1 mg Mineral Oil (Mineral Oil 30 Ml) 30 ml PO BID [facility] Stop: 04/16/18 16:59 Last Admin: 02/16/18 17:27 Dose: 30 ml Pantoprazole Sodium (Protonix) 40 mg IVP BID [facility] Stop: 04/14/18 17:29 Last Admin: 02/16/18 17:27 Dose: 40 mg Quetiapine Fumarate (Seroquel) 25 mg PO BID [facility]; Protocol Stop: 04/14/18 16:59 Last Admin: 02/16/18 17:28 Dose: 25 mg Quetiapine Fumarate (Seroquel) 300 mg PO HS [facility]; Protocol Stop: 04/14/18 20:59 Last Admin: 02/16/18 20:18 Dose: 300 mg Sennosides (Senna Plus 50 Mg-8.6 Mg) 1 tab PO BID [facility] Stop: 04/15/18 08:59 Last Admin: 02/16/18 17:27 Dose: 1 tab General: Alert, Oriented x3, No acute distress HEENT: Atraumatic, PERRLA, EOMI Neck: Supple Cardiovascular: Regular rate, Normal S1, Normal S2 Lungs: Clear to auscultation Abdomen: Bowel sounds, Soft Extremities: no Clubbing, no Cyanosis, no Edema Neurological: Normal gait, Normal speech - Procedures Procedures: Procedures Procedure Code Date BLOOD TRANSFUSION SERVICE 81236 06/05/03 COLONOSCOPY W/LESION REMOVAL 58628 06/05/03 EGD BIOPSY SINGLE/MULTIPLE 20556 12/20/17 EGD DIAGNOSTIC BRUSH WASH 53131 08/09/00 ENDOSC POLYPECTOMY OF LG INTEST 45.42 06/05/03 ESOPHAGOGASTRODUODENOSCOPY [EGD] W/CLOSED BIOPSY 45.16 06/05/03 EXCISION OF STOMACH, ENDO, DIAGN [id number] 12/20/17 OTHER ENDOSCOPY OF SM INTEST 45.13 08/09/00 PACKED CELL TRANSFUSION 99.04 06/05/03 Assessment/Plan - Assessment Assessment: Gastritis Anemia Hb 9 stable. Stool occult neg UTI +Enterococcus ... sensitive to Rocephin Dehydration improved constipation ... resolved hypokalemia ... resolved HTN ..stable CAD Dyslipidemia PUD/GERD - Plan Plan: will dc back to SNF DC Rocephin and change to Augmentin PO Nutritional Asmnt/Malnutr-PDOC - Dietary Evaluation Malnutrition Findings (Please click <Entered> for more info): Nutritional Asmnt/Malnutrition Start: 02/14/18 15: 38 Text: Status: Complete Freq: Protocol: Document 02/14/18 15:38 LCHENG (Rec: 02/14/18 15:58 [email or web address]) Nutritional Asmnt/Malnutrition Patient General Information Nutritional Screening High Risk Consult Diagnosis urosepsis Pertinent Medical Hx/Surgical Hx HTN, CAD, dyslipidemia, PUD/ GERD, depression, bipolar Subjective Information Pt seen sitting up in bed having lunch, emotional and crying, confused, not able to get more infomarion from pt. Per EMR, pt consumed 100% op Current Diet Order/ Nutrition Support soft/bland Pertinent Medications D5-0.45ns, iron, protonix, seroquel, senna Pertinent Labs 02/14 K 3.4, Cl 108, glucose 120 (improving) 02/13 BUN 28, glucose 182, POC 120, A1c 5.0 Nutritional Hx/Data Height 1.65 m Height (Calculated Centimeters) 165.1 Current Weight (lbs) 71.668 kg Weight (Calculated Kilograms) 71.7 Weight (Calculated Grams) 83999.6 [place] Body Weight 136 Body Mass Index (BMI) 26.2 Weight Status Approriate GI Symptoms GI Symptoms None Last BM not indicated Difficult in: None Skin Integrity/Comment: erythema, redness to back Current %PO Good (75-100%) Estimated Nutritional Goals Calories/Kcals/Kg 25-30 based on IBW 62kg Kcals Calculated 2119-0460 Protein g/k-1.1 Protein Calculated 62-68 Fluid: ml 1550-1860ml (1ml/kcal) Nutritional Problem 1. Problem Problem altered nutrition related labs Etiology endocrine dysfunction Signs/Symptoms: glucose 120-182 Malnutrition Alert Is there a minimum of two criteria No selected? Query Text:Check all the applicable criteria. A minimum of two criteria are recommended for diagnosis of either severe or non-severe malnutrition. Malnutrition Related to Morbid Obesity Malnutrition related to morbid obesity No Intervention/Recommendation Comments 1. Continue with current diet as ordered. If glucose continue high, will consider adding CCHO diet. 2. Monitor PO intake, wt, labs and skin integrity 3. F/U as moderate risk in 3-5 days, 02/17-02/19 Expected Outcomes/Goals Expected Outcomes/Goals 1. PO intake to meet at least 75% of nutritional needs. 2. Wt stability, skin to remain intact, labs to approach WNL.
[2018-02-17] MEDS: Ferrous Sulfate 325 MG TAB PO SCH (09:26)
[2018-02-17] MEDS: Docusate Sodium/Senna Tab PO SCH ×2 (09:26→16:19)
[2018-02-17] MEDS: Amoxicillin/Clavulanat 875/125 Tab PO SCH ×2 (09:26→16:19)
[2018-02-17] MEDS: Pantoprazole 40 mg EC Tab PO SCH ×2 (12:25→16:19)
--- NOTE | 2018-02-17 17:38 | Progress Notes ---
DATE: 02/16/2018 The patient is somewhat upset today. Note, he is in a bad mood. Brother noting he seems to be fairly stable. The patient denying any paranoia. He has no fevers. Tolerant of medications. He states he is sleeping quite okay but brother notes that last night the patient did not sleep very well it seems. The patient is tolerant of treatment. No agitation, no escalation of behaviors, following directions. ASSESSMENT: The patient with fair ADLs. Speech slowed. Mood: "Bad." Affect flat. Thought processes were awake, alert and engaged. No SI, no HI. No psychosis. PROVISIONAL DIAGNOSIS: No change. RECOMMENDATIONS AND PLAN: I spoke with brother today. Continue to monitor closely. Continue medications at current dose. JOB# [id number]
--- NOTE | 2018-02-19 07:13 | Discharge Summary ---
DATE OF DISCHARGE: 02/17/2018 PRELIMINARY DIAGNOSES: 1. Hematemesis. 2. Possible upper GI bleed. 3. UTI. 4. Sepsis. 5. Leukocytosis. 6. Dehydration. 7. Hypertension. 8. Coronary artery disease. 9. Dyslipidemia. 10. History of peptic ulcer disease, gastroesophageal reflux disease. DISCHARGE DIAGNOSES: 1. Gastroesophageal reflux disease. 2. UTI positive for enterococcus. 3. Leukocytosis, now resolved. 4. Dehydration, now resolved. 5. Hypertension. 6. Coronary artery disease. 7. Dyslipidemia. 8. Psych history of depression, anxiety and bipolar disorder. BRIEF HISTORY OF PRESENT ILLNESS: This is a 67-year-old male who presents to [facility] ER from [facility] for 1-day history of nausea, vomiting and hematemesis. While in the ER, the patient had some initial lab work, which revealed hemoglobin of 13.3 and hematocrit of 40.8, BUN was noted to be 28, creatinine 1.1, lactic acid was noted to be 3.12. UA showed moderate blood and leuko esterase with moderate rbc's 10-25 cells and wbc's 25-50. The patient had some initial lab work done in the ER, see dictated report. The patient was subsequently admitted for further evaluation and treatment. HOSPITAL COURSE: The patient improved during his hospital stay, was seen and evaluated by GI, see dictated report. A KUB was ordered initially, which revealed a moderate amount of stool with possible fecal impaction. The patient was given stool softeners. Repeat KUB showed improvement. The patient initially had hemoglobin of 13.3, the following day on 02/14/2018 his hemoglobin had dropped to 10.1, but had stabilized during the remainder of his stay ranging from 9.8-9.0. The patient was placed on Protonix 40 mg twice daily. The patient also was noted to have low potassium of 3.4, noted on 02/14/2018 and given potassium supplements with repeat potassium level done on 02/15/2018 which was 3.7. As noted before, the patient had a urine test, which was positive. Culture came back positive for Enterococcus faecalis. Initial antibiotic was Rocephin, which was subsequently changed to Augmentin p.o. The patient was subsequently discharged in stable condition to have continued care at [facility]. JOB# [id number]
== END 2018-02-17 16:27 | DRG 871 ==
LOC: ER 07:55 → TELE 10:30 → MSI 02-16 10:16
PROVIDERS: ADMIT Family Medicine; ATTEND Family Medicine
DX: A41.9 Sepsis, unspecified organism (principal); K29.71 Gastritis, unspecified, with bleeding; N39.0 Urinary tract infection, site not specified; E86.0 Dehydration; I10 Essential (primary) hypertension; I25.10 Atherosclerotic heart disease of native coronary artery without angina pectoris; E78.5 Hyperlipidemia, unspecified; K21.9 Gastro-esophageal reflux disease without esophagitis; F32.9 Major depressive disorder, single episode, unspecified; K59.00 Constipation, unspecified; E87.6 Hypokalemia; D64.9 Anemia, unspecified; B95.2 Enterococcus as the cause of diseases classified elsewhere; F20.9 Schizophrenia, unspecified; F41.9 Anxiety disorder, unspecified
CPT/HCPCS: 36415-UA; 71045-TC; 74000-TC; 80053-TC; 80061-TC; 81001-TC; 82150-TC; 82270-TC; 82550-TC; 82948-90; 83036-90; 83605; 83690-TC; 83735-TC; 83880-TC; 84484-TC; 85025-TC; 85610-TC; 87086-90; 93005; 94760; C9113; J0696; J1200; J1630; J2060; J7030; Z7610

== ENCOUNTER 2018-03-23 21:37 | Inpatient (IN) | payer MEDICARE, MEDICAID ==
--- NOTE | 2018-03-23 22:40 | ED Physician Chart ---
ED Chief Complaint/HPI - Patient Information Date Seen:: 03/23/18 Time Seen:: 22:40 Chief Complaint:: uncontrollable behavior History of Present Illness:: At his group home facility patient has been striking out at staff, scratching his face and banging his head Allergies:: Allergies Allergy/AdvReac Type Severity Reaction Status Date / Time No Known Allergies Allergy Verified 02/13/18 08:17 Historian:: Patient, EMS Review:: Transfer documents Reviewed ED Review of Systems - Review of Systems General/Constitutional: No fever Skin: Skin lesions Head: No headache Eyes: No loss of vision ENT: No earache Neck: No neck pain, No swelling Pulmonary: No SOB GI: No nausea, No vomiting G/U: No dysuria Musculoskeletal: No bone or joint pain Endocrine: No polyuria Psychiatric: Prior psych history Hematopoietic: Bruising Allergic/Immuno: No urticaria Neurological: No syncope ED Past Medical History - Past Medical History Past Medical History: HTN, Other (status post sepsis; dysphagia; esophagitis; gastritis; anxiety) Family History: Other (not available) Social History: Care Facility Surgical History: other (unavailable) Psychiatricy History: Depression Medication: Reviewed Family Medical History - Family Member Mother History Unknown: Yes Hx Family Psychiatric Problems: Yes ED Physical Exam - Physical Examination General/Constitutional: Well-developed, well-nourished, Alert Other Gen/Cons comments:: Alert and oriented to the correct month and year Other Head comments:: Periorbital abrasions Eyes: Lids, conjuctiva normal Other Skin comments:: See above ENMT: External ears, nose nl Other ENMT comments:: 2 out of 4 poor dental hygiene Neck: No nuchal rigidity Respiratory: Nl effort/Exclusion Cardio Vascular: RRR GI: No tenderness/rebounding/guarding : No CVA tenderness Extremities: No tenderness or effusion Neuro/Psych: No focal deficits ED Labs/Radiology/EKG Results - Lab Results Comments:: Laboratory Results - last 24 hr 03/23/18 03/23/18 22:50 22:50 WBC 11.6 H RBC 4.25 Hgb 10.9 L Hct 32.9 L MCV 77.4 L MCH 25.7 L MCHC Differential 33.3 RDW 14.4 Plt Count 354 MPV 7.8 Neutrophils % 65.2 Lymphocytes % 25.6 Monocytes % 7.2 Eosinophils % 1.6 Basophils % 0.4 Sodium 146 H Potassium 3.4 L Chloride 114 H Carbon Dioxide 25.0 Anion Gap 10.4 BUN 27 H Creatinine 1.1 Est GFR ( Amer) > 60.0 Est GFR (Non-Af Amer) > 60.0 BUN/Creatinine Ratio 24.5 Glucose 125 H Calcium 9.3 Total Bilirubin 0.2 L AST 40 H ALT 19 Alkaline Phosphatase 63 Total Protein 6.8 Albumin 4.0 L Globulin 2.8 Albumin/Globulin Ratio 1.4 Triglycerides 218 H Cholesterol 171 LDL Cholesterol Direct 116 HDL Cholesterol 29 - Radiology Results Results: CT head showed age indeterminate infarction in the left caudate nucleus; no acute hemorrhage or fracture - EKG Interpretations Rate & Rhythm: normal sinus rhythm [place]: normal Comments:: Inverted T waves in anterior leads ED Septic Shock - . 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
[2018-03-23 23:00] LABS: HEMOGLOBIN 10.9 gm/dL (12-16); RED CELL DISTRIBUTION WIDTH 14.4 % (11.5-20.0)
[2018-03-23 23:07] LABS: HEMATOCRIT 32.9 % (41.0-60); MEAN CELL VOLUME 77.4 fl (80-99); MEAN CORPUSCULAR HEMOGLOBIN 25.7 pg (27.0-31.0); MEAN CORPUSCULAR HGB CONC 33.3 pg (28.0-36.0); MEAN PLATELET VOLUME 7.8 fl; PLATELET COUNT 354 Th/cmm (150-400); RED BLOOD COUNT 4.25 Mil/cmm (3.80-5.80); WHITE BLOOD COUNT 11.6 Th/cmm (4.8-10.8)
[2018-03-23 23:12] LABS: % LYMPHOCYTES 25.6 % (20.0-50.0); % NEUTROPHILS 65.2 % (40.0-80.0)
[2018-03-23 23:13] LABS: % BASOPHILS 0.4 % (0.0-2.0); % EOSINOPHILS 1.6 % (0.0-5.0); % MONOCYTES 7.2 % (2.0-10.0); EOSINOPHILE ABSOLUTE 0.1 Th/cmm (0.1-0.4); LYMPHOCYTE ABSOLUTE 1.5 Th/cmm (1.5-3.0); MONOCYTE ABSOLUTE 0.4 Th/cmm (0.3-1.0); NEUTROPHILE ABSOLUTE 3.9 Th/cmm (1.8-8.0)
[2018-03-23 23:17] LABS: ALB/GLOB RATIO 1.4 (1.0-1.8); ALKALINE PHOSPHATASE 63 U/L (34-104); ANION GAP 10.4 (7.0-16.0); BILIRUBIN,TOTAL 0.2 mg/dL (0.3-1.0); BUN - UREA NITROGEN 27 mg/dL (7-25); CALCIUM SERUM 9.3 mg/dL (8.6-10.3); CHLORIDE 114 mEq/L (98-107); CHOLESTEROL 171 mg/dL (<200); CREATININE - SERUM 1.1 mg/dL (0.7-1.3); GFR AFRICAN-AMERICAN > 60.0 ml/min (>90); GFR NON AFRICAN-AMERICAN > 60.0 ml/min; GLUCOSE 125 mg/dL (70-105); HDL -HIGH DENSITY LIPOPROTEIN 29 mg/dL (23-92); POTASSIUM SERUM 3.4 mEq/L (3.5-5.1); SGOT 40 U/L (13-39); SGPT/ALT 19 U/L (7-52); SODIUM SERUM 146 mEq/L (136-145); TOTAL PROTEIN,SERUM 6.8 gm/dL (6.0-8.3); TRIGLYCERIDES 218 mg/dL (<150)
[2018-03-24] MEDS ORDERED: Maalox 30 mL Cup PO PRN (01:48)
[2018-03-24] MEDS ORDERED: Magnesium Hydroxide (MOM) 30 mL UDC PO PRN (01:48)
[2018-03-24 01:53] VITALS: BP 140/72
--- NOTE | 2018-03-24 07:05 | History and Physical ---
History of Present Illness - HPI Chief Complaint: uncontrollable behavior HPI: 67 y/o male who presents to [facility] for change in behavior noted at the SNF. Patient was noted to have increased aggression and hitting his head into the wall. Patinet had a past medical history of sepsis, weakness, dysphagia, esophagitis, gastritis, anemia, psychosis, depression and anxiety. While in the ER, patient was initially evaluated by the ER physician and labwork revealed the following ED Labs/Radiology/EKG Results - Lab Results Comments:: Laboratory Results - last 24 hr 03/23/18 03/23/18 22:50 22:50 WBC 11.6 H RBC 4.25 Hgb 10.9 L Hct 32.9 L MCV 77.4 L MCH 25.7 L MCHC Differential 33.3 RDW 14.4 Plt Count 354 MPV 7.8 Neutrophils % 65.2 Lymphocytes % 25.6 Monocytes % 7.2 Eosinophils % 1.6 Basophils % 0.4 Sodium 146 H Potassium 3.4 L Chloride 114 H Carbon Dioxide 25.0 Anion Gap 10.4 BUN 27 H Creatinine 1.1 Est GFR ( Amer) > 60.0 Est GFR (Non-Af Amer) > 60.0 BUN/Creatinine Ratio 24.5 Glucose 125 H Calcium 9.3 Total Bilirubin 0.2 L AST 40 H ALT 19 Alkaline Phosphatase 63 Total Protein 6.8 Albumin 4.0 L Globulin 2.8 Albumin/Globulin Ratio 1.4 Triglycerides 218 H Cholesterol 171 LDL Cholesterol Direct 116 HDL Cholesterol [address] head with revealed the following. - Radiology Results Results: CT head showed age indeterminate infarction in the left caudate nucleus; no acute hemorrhage or fracture Vital Signs: Last Vital Signs Temp 98.7 F 03/24/18 06:52 Pulse 57 03/24/18 06:52 Resp 19 03/24/18 06:52 BP 114/66 03/24/18 06:52 Pulse Ox 99 03/24/18 06:52 Past Medical History Cardiovascular: Report: HTN Pulmonary: Report: No Pertinent Hx [employer]: Report: No Pertinent Hx GI: Report: GERD, Gastritis, Other (esophagitis, dysphagia) Psych: Report: Anxiety, Depression, Psychosis Musculoskeletal: Report: Weakness Rheumatologic: Report: No pertinent Hx Infectious Disease: Report: No Pertinent Hx Renal/: Report: No Pertinent Hx Endocrine: Report: No Pertinent Hx Dermatology: Report: No Pertinent Hx Other History: anemia - Past Surgical History Past Surgical History: No pertinent Hx Family Medical History - Family Member Mother History Unknown: Yes Ethnicity: Unknown Living Status: Unknown Hx Family Psychiatric Problems: Yes Social History Smoke: No Alcohol: None Drugs: None Lives: [facility] - Medications Home Medications: Home Medication Medication Instructions Recorded Type Atenolol [Tenormin*] 25 mg PO DAILY #0 tab 12/23/17 Rx Ferrous Sulfate [Iron] 325 mg PO DAILY #0 tab 12/23/17 Rx QUEtiapine Fumarate [SEROquel] 25 mg PO BID tab 12/23/17 Rx QUEtiapine Fumarate [SEROquel] 300 mg PO HS tab 12/23/17 Rx Lorazepam [Ativan] 1 mg PO BID 02/13/18 History Acetaminophen [Tylenol] 650 mg PO Q4HR PRN 03/23/18 History Escitalopram Oxalate [Lexapro] 10 mg PO HS 03/23/18 History Lorazepam [Ativan] 1 mg IM DAILY PRN 03/23/18 History - Allergies Allergies/Adverse Reactions: Allergies Allergy/AdvReac Type Severity Reaction Status Date / Time No Known Allergies Allergy Verified 03/23/18 22:39 Review of Systems - Review of Systems Constitutional: Report: No Significant Eyes: Report: No Significant ENT: Report: No Significant Respiratory: Report: No Significant Cardiovascular: Report: No Significant Gastrointestinal: Report: No Significant Genitourinary: Report: No Significant Musculoskeletal: Report: No Significant Skin: Report: No Significant Neurological: Report: No Significant Physical Exam - Physical Exam HEENT: Report: Ears Nose Throat within normal limits, Pharnyx within normal limits Neck: Report: Within normal limits Cardiovascular Systems: Report: +s1/s2 noted, Regular, Rate and Rhythm Respiratory: Report: Breath Sounds are within normal limits Abdomen: Report: Non-tender to palpation Back: Report: Inspection of back is within normal limits. Extremities: Report: Non-tender to palpation. Skin: Report: Color of skin is within normal limits Neuro/Psych: Report: Mood affect is within normal limits, A+Ox3 - Lab Results All Lab Results last 24 hours: Laboratory Results - last 24 hr 03/23/18 03/23/18 03/23/18 22:50 22:50 22:50 WBC 11.6 H RBC 4.25 Hgb 10.9 L Hct 32.9 L MCV 77.4 L MCH 25.7 L MCHC Differential 33.3 RDW 14.4 Plt Count 354 MPV 7.8 Neutrophils % 65.2 Lymphocytes % 25.6 Monocytes % 7.2 Eosinophils % 1.6 Basophils % 0.4 Sodium 146 H Potassium 3.4 L Chloride 114 H Carbon Dioxide 25.0 Anion Gap 10.4 BUN 27 H Creatinine 1.1 Est GFR ( Amer) > 60.0 Est GFR (Non-Af Amer) > 60.0 BUN/Creatinine Ratio 24.5 Glucose 125 H Calcium 9.3 Total Bilirubin 0.2 L AST 40 H ALT 19 Alkaline Phosphatase 63 Troponin I Total Protein 6.8 Albumin 4.0 L Globulin 2.8 Albumin/Globulin Ratio 1.4 Triglycerides 218 H Cholesterol 171 LDL Cholesterol Direct 116 HDL Cholesterol 29 TSH 1.70 03/23/18 22:50 WBC RBC Hgb Hct MCV MCH MCHC Differential RDW Plt Count MPV Neutrophils % Lymphocytes % Monocytes % Eosinophils % Basophils % Sodium Potassium Chloride Carbon Dioxide Anion Gap BUN Creatinine Est GFR ( Amer) Est GFR (Non-Af Amer) BUN/Creatinine Ratio Glucose Calcium Total Bilirubin AST ALT Alkaline Phosphatase Troponin I 0.02 Total Protein Albumin Globulin Albumin/Globulin Ratio Triglycerides Cholesterol LDL Cholesterol Direct HDL Cholesterol TSH - Assessment Assessment: acute psychosis HTN blunt facial trauma with facial abrasians depression anxiety disorder anemia gastritis esophagitis GERD - Plan Plan: continue current treatment.
--- NOTE | 2018-03-24 08:44 | Diagnostic Imaging Report ---
CT scan of the brain without contrast History: Facial trauma Total DLP equals 88 1 CTDI equals 34.9 Axial sections were obtained from the base of the skull to the vertex. There is a normal ventricular system size. No focal parenchymal lesions are seen. No evidence of any mass effect or shift of midline structures. No extra-axial masses or abnormal fluid collections. 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 Impression: Negative examination
[2018-03-24] MEDS: Ferrous Sulfate 325 MG TAB PO SCH (09:52)
[2018-03-24] MEDS: Pantoprazole 40 mg EC Tab PO SCH (09:52)
[2018-03-24] MEDS: Multivitamin Tab PO SCH (09:52)
--- NOTE | 2018-03-24 20:17 | Psychiatric Evaluation ---
DATE OF SERVICE: 03/24/2018 JUSTIFICATION FOR HOSPITALIZATION: 5150 hold, danger to others, danger to self, aggressive, agitated, combative, self-mutilating behaviors. CHIEF COMPLAINT: Fine. HISTORY OF PRESENT ILLNESS: A 67-year-old male with history of mental illness, likely schizophrenia. [facility], also self-mutilating, scratching himself, excoriations noted all over his face. The patient states he feels "fine" but staff notes, otherwise he has been yelling, screaming, aggressive, brother at bedside, noting his brother has been decompensating, is very worried about him. Fair sleep, fair appetite. PAST PSYCHIATRIC HISTORY: Admissions in the past, paranoias. FAMILY HISTORY: Noncontributory. SOCIAL HISTORY: The [facility] is living at [facility] in [place]. Not . Brother involved. No drugs, no alcohol, no tobacco. MEDICATIONS: Noted. MEDICAL HISTORY: Please see full H and P. Legal: None. MENTAL STATUS EXAMINATION: Stated age, multiple excoriations on his face. Mood "okay." Affect flat. Thought processes were disengaged. No overt SI. No overt HI, but he appears quite paranoid, psychotic, scratching himself, poor insight, poor judgment, very poor impulse control. PROVISIONAL DIAGNOSES: Likely schizophrenia, anxiety, unspecified; mood, unspecified. Under medical please see full H and P. ESTIMATED LENGTH OF STAY: 7-10 days. Functional impairments. The patient cannot live on his own. ASSESSMENT: The patient combative, psychotic, paranoid, scratching himself, self-destructive. PLAN: We will continue to monitor. Recommend initiation of Haldol. Treatment plan includes group as well as milieu therapy. CONDITION FOR DISCHARGE: Improved mood, improved affect, better control of his psychotic symptoms. [facility]# [id number]
--- NOTE | 2018-03-25 05:22 | General Progress Note ---
Subjective - Review of Systems Service Date: 03/25/18 Subjective: Awake, alert, but confused VS T 99.1 P 65 BP 113/75 R 20 Objective - Results Result Diagrams: 03/23/18 22:50 03/23/18 22:50 Recent Labs: Laboratory Last Values WBC 11.6 Th/cmm (4.8-10.8) H 03/23/18 22:50 RBC 4.25 Mil/cmm (3.80-5.80) 03/23/18 22:50 Hgb 10.9 gm/dL (12-16) L 03/23/18 22:50 Hct 32.9 % (41.0-60) L 03/23/18 22:50 MCV 77.4 fl (80-99) L 03/23/18 22:50 MCH 25.7 pg (27.0-31.0) L 03/23/18 22:50 MCHC Differential 33.3 pg (28.0-36.0) 03/23/18 22:50 RDW 14.4 % (11.5-20.0) 03/23/18 22:50 Plt Count 354 Th/cmm (150-400) 03/23/18 22:50 MPV 7.8 fl 03/23/18 22:50 Neutrophils % 65.2 % (40.0-80.0) 03/23/18 22:50 Lymphocytes % 25.6 % (20.0-50.0) 03/23/18 22:50 Monocytes % 7.2 % (2.0-10.0) 03/23/18 22:50 Eosinophils % 1.6 % (0.0-5.0) 03/23/18 22:50 Basophils % 0.4 % (0.0-2.0) 03/23/18 22:50 Sodium 146 mEq/L (136-145) H 03/23/18 22:50 Potassium 3.4 mEq/L (3.5-5.1) L 03/23/18 22:50 Chloride 114 mEq/L (98-107) H 03/23/18 22:50 Carbon Dioxide 25.0 mEq/L (21.0-31.0) 03/23/18 22:50 Anion Gap 10.4 (7.0-16.0) 03/23/18 22:50 BUN 27 mg/dL (7-25) H 03/23/18 22:50 Creatinine 1.1 mg/dL (0.7-1.3) 03/23/18 22:50 Est GFR ( Amer) > 60.0 ml/min (>90) 03/23/18 22:50 Est GFR (Non-Af Amer) > 60.0 ml/min 03/23/18 22:50 BUN/Creatinine Ratio 24.5 03/23/18 22:50 Glucose 125 mg/dL (70-105) H 03/23/18 22:50 POC Glucose 117 MG/DL (70 - 105) H 03/24/18 11:53 Calcium 9.3 mg/dL (8.6-10.3) 03/23/18 22:50 Total Bilirubin 0.2 mg/dL (0.3-1.0) L 03/23/18 22:50 AST 40 U/L (13-39) H 03/23/18 22:50 ALT 19 U/L (7-52) 03/23/18 22:50 Alkaline Phosphatase 63 U/L (34-104) 03/23/18 22:50 Troponin I 0.02 ng/mL (0.01-0.05) 03/23/18 22:50 Total Protein 6.8 gm/dL (6.0-8.3) 03/23/18 22:50 Albumin 4.0 gm/dL (4.2-5.5) L 03/23/18 22:50 Globulin 2.8 gm/dL 03/23/18 22:50 Albumin/Globulin Ratio 1.4 (1.0-1.8) 03/23/18 22:50 Triglycerides 218 mg/dL (<150) H 03/23/18 22:50 Cholesterol 171 mg/dL (<200) 03/23/18 22:50 LDL Cholesterol Direct 116 mg/dL (75-193) 03/23/18 22:50 HDL Cholesterol 29 mg/dL (23-92) 03/23/18 22:50 TSH 1.70 uIU/ml (0.34-5.60) 03/23/18 22:50 RPR NONREACTIVE (NONREACTIVE) 03/23/18 22:50 - Physical Exam Vitals and I&O: Vital Signs Temp 99.1 F 03/24/18 20:06 Pulse 65 03/24/18 20:06 Resp 20 03/24/18 20:06 BP 113/75 03/24/18 20:06 Pulse Ox 95 03/24/18 20:06 Intake & Output 03/24/18 03/24/18 03/25/18 06:59 18:59 06:59 Intake Total 250 120 Balance 250 120 Weight (lbs) 68.039 kg Intake: Oral 250 120 Other: # Voids 2 3 # Bowel Movements 0 0 Weight Source Patient stated Active Medications: Current Medications Acetaminophen (Tylenol) 650 mg PO Q4HR PRN PRN Reason: Mild Pain / Temp above 100 Stop: 05/23/18 01:47 Al Hydrox/Mg Hydrox/Simethicone (Maalox) 30 ml PO Q4HR PRN PRN Reason: GI DISTRESS Stop: 05/23/18 01:47 Atenolol (Tenormin) 25 mg PO DAILY [facility] Stop: 05/23/18 08:59 Last Admin: 03/24/18 09:51 Dose: 25 mg Cephalexin Monohydrate (Keflex) 500 mg PO TID [facility] Stop: 03/29/18 14:01 Last Admin: 03/24/18 21:14 Dose: 500 mg Escitalopram Oxalate (Lexapro) 10 mg PO HS [facility]; Protocol Stop: 05/23/18 20:59 Last Admin: 03/24/18 21:13 Dose: 10 mg Ferrous Sulfate (Iron) 325 mg PO DAILY [facility] Stop: 05/23/18 08:59 Last Admin: 03/24/18 09:52 Dose: 325 mg Lorazepam (Ativan) 0.5 mg PO Q4HR PRN; Protocol PRN Reason: Anxiety Stop: 04/23/18 01:47 Magnesium Hydroxide (Milk Of Magnesia) 30 ml PO HS PRN PRN Reason: Constipation Multivitamins/Vitamin C (Theragran) 1 tab PO DAILY [facility] Stop: 05/23/18 08:59 Last Admin: 03/24/18 09:52 Dose: 1 tab Pantoprazole Sodium (Protonix) 40 mg PO DAILY [facility] Stop: 05/23/18 08:59 Last Admin: 03/24/18 09:52 Dose: 40 mg Quetiapine Fumarate (Seroquel) 25 mg PO BID [facility]; Protocol Stop: 05/23/18 08:59 Last Admin: 03/24/18 17:21 Dose: 25 mg Quetiapine Fumarate (Seroquel) 300 mg PO HS [facility]; Protocol Stop: 05/23/18 20:59 Last Admin: 03/24/18 21:14 Dose: 300 mg Silver Sulfadiazine (Ssd) 1 appl TP BID [facility]; Protocol Stop: 05/24/18 08:59 Zolpidem Tartrate (Ambien) 5 mg PO HS PRN PRN Reason: Insomnia Stop: 05/23/18 01:47 Last Admin: 03/24/18 21:13 Dose: 5 mg General: Alert, Oriented x3, No acute distress HEENT: Atraumatic, PERRLA, EOMI Neck: Supple Cardiovascular: Regular rate, Normal S1, Normal S2 Lungs: Clear to auscultation Abdomen: Bowel sounds, Soft Extremities: no Clubbing, no Cyanosis, no Edema Neurological: Normal gait, Normal speech - Procedures Procedures: Procedures Procedure Code Date BLOOD TRANSFUSION SERVICE 11410 06/05/03 COLONOSCOPY W/LESION REMOVAL 55309 06/05/03 EGD BIOPSY SINGLE/MULTIPLE 64129 12/20/17 EGD DIAGNOSTIC BRUSH WASH 27116 08/09/00 ENDOSC POLYPECTOMY OF LG INTEST 45.42 06/05/03 ESOPHAGOGASTRODUODENOSCOPY [EGD] W/CLOSED BIOPSY 45.16 06/05/03 EXCISION OF STOMACH, ENDO, DIAGN [id number] 12/20/17 OTHER ENDOSCOPY OF SM INTEST 45.13 08/09/00 PACKED CELL TRANSFUSION 99.04 06/05/03 Assessment/Plan - Assessment Assessment: acute psychosis HTN blunt facial trauma with facial abrasians depression anxiety disorder anemia gastritis esophagitis GERD thermal burn - Plan Plan: continue current treatment. will add Silvadene Cream Keflex 500mg PO TID
[2018-03-25] MEDS: Ferrous Sulfate 325 MG TAB PO SCH (09:00)
[2018-03-25] MEDS: Multivitamin Tab PO SCH (09:00)
[2018-03-25] MEDS: Pantoprazole 40 mg EC Tab PO SCH (09:01)
[2018-03-25 18:08] LABS: A1C % 5.1 % (4.0-6.0)
--- NOTE | 2018-03-26 07:40 | General Progress Note ---
Subjective - Review of Systems Service Date: 03/26/18 Subjective: Awake, alert, but confused VS T 97.2 P 68 BP 126/64 R 19 Objective - Results Result Diagrams: 03/23/18 22:50 03/23/18 22:50 Recent Labs: Laboratory Last Values WBC 11.6 Th/cmm (4.8-10.8) H 03/23/18 22:50 RBC 4.25 Mil/cmm (3.80-5.80) 03/23/18 22:50 Hgb 10.9 gm/dL (12-16) L 03/23/18 22:50 Hct 32.9 % (41.0-60) L 03/23/18 22:50 MCV 77.4 fl (80-99) L 03/23/18 22:50 MCH 25.7 pg (27.0-31.0) L 03/23/18 22:50 MCHC Differential 33.3 pg (28.0-36.0) 03/23/18 22:50 RDW 14.4 % (11.5-20.0) 03/23/18 22:50 Plt Count 354 Th/cmm (150-400) 03/23/18 22:50 MPV 7.8 fl 03/23/18 22:50 Neutrophils % 65.2 % (40.0-80.0) 03/23/18 22:50 Lymphocytes % 25.6 % (20.0-50.0) 03/23/18 22:50 Monocytes % 7.2 % (2.0-10.0) 03/23/18 22:50 Eosinophils % 1.6 % (0.0-5.0) 03/23/18 22:50 Basophils % 0.4 % (0.0-2.0) 03/23/18 22:50 Sodium 146 mEq/L (136-145) H 03/23/18 22:50 Potassium 3.4 mEq/L (3.5-5.1) L 03/23/18 22:50 Chloride 114 mEq/L (98-107) H 03/23/18 22:50 Carbon Dioxide 25.0 mEq/L (21.0-31.0) 03/23/18 22:50 Anion Gap 10.4 (7.0-16.0) 03/23/18 22:50 BUN 27 mg/dL (7-25) H 03/23/18 22:50 Creatinine 1.1 mg/dL (0.7-1.3) 03/23/18 22:50 Est GFR ( Amer) > 60.0 ml/min (>90) 03/23/18 22:50 Est GFR (Non-Af Amer) > 60.0 ml/min 03/23/18 22:50 BUN/Creatinine Ratio 24.5 03/23/18 22:50 Glucose 125 mg/dL (70-105) H 03/23/18 22:50 POC Glucose 117 MG/DL (70 - 105) H 03/24/18 11:53 Hemoglobin A1c % 5.1 % (4.0-6.0) 03/23/18 22:50 Calcium 9.3 mg/dL (8.6-10.3) 03/23/18 22:50 Total Bilirubin 0.2 mg/dL (0.3-1.0) L 03/23/18 22:50 AST 40 U/L (13-39) H 03/23/18 22:50 ALT 19 U/L (7-52) 03/23/18 22:50 Alkaline Phosphatase 63 U/L (34-104) 03/23/18 22:50 Troponin I 0.02 ng/mL (0.01-0.05) 03/23/18 22:50 Total Protein 6.8 gm/dL (6.0-8.3) 03/23/18 22:50 Albumin 4.0 gm/dL (4.2-5.5) L 03/23/18 22:50 Globulin 2.8 gm/dL 03/23/18 22:50 Albumin/Globulin Ratio 1.4 (1.0-1.8) 03/23/18 22:50 Triglycerides 218 mg/dL (<150) H 03/23/18 22:50 Cholesterol 171 mg/dL (<200) 03/23/18 22:50 LDL Cholesterol Direct 116 mg/dL (75-193) 03/23/18 22:50 HDL Cholesterol 29 mg/dL (23-92) 03/23/18 22:50 TSH 1.70 uIU/ml (0.34-5.60) 03/23/18 22:50 RPR NONREACTIVE (NONREACTIVE) 03/23/18 22:50 - Physical Exam Vitals and I&O: Vital Signs Temp 97.2 F 03/26/18 06:57 Pulse 68 03/26/18 06:57 Resp 19 03/26/18 06:57 BP 126/64 03/26/18 06:57 Pulse Ox 96 03/26/18 06:57 Active Medications: Current Medications Acetaminophen (Tylenol) 650 mg PO Q4HR PRN PRN Reason: Mild Pain / Temp above 100 Stop: 05/23/18 01:47 Last Admin: 03/25/18 16:15 Dose: 650 mg Al Hydrox/Mg Hydrox/Simethicone (Maalox) 30 ml PO Q4HR PRN PRN Reason: GI DISTRESS Stop: 05/23/18 01:47 Atenolol (Tenormin) 25 mg PO DAILY [facility] Stop: 05/23/18 08:59 Last Admin: 03/25/18 08:55 Dose: 25 mg Cephalexin Monohydrate (Keflex) 500 mg PO TID [facility] Stop: 03/29/18 14:01 Last Admin: 03/25/18 20:36 Dose: 500 mg Escitalopram Oxalate (Lexapro) 10 mg PO HS [facility]; Protocol Stop: 05/23/18 20:59 Last Admin: 03/25/18 20:36 Dose: 10 mg Ferrous Sulfate (Iron) 325 mg PO DAILY [facility] Stop: 05/23/18 08:59 Last Admin: 03/25/18 09:00 Dose: 325 mg Lorazepam (Ativan) 0.5 mg PO Q4HR PRN; Protocol PRN Reason: Anxiety Stop: 04/23/18 01:47 Magnesium Hydroxide (Milk Of Magnesia) 30 ml PO HS PRN PRN Reason: Constipation Multivitamins/Vitamin C (Theragran) 1 tab PO DAILY [facility] Stop: 05/23/18 08:59 Last Admin: 03/25/18 09:00 Dose: 1 tab Pantoprazole Sodium (Protonix) 40 mg PO DAILY [facility] Stop: 05/23/18 08:59 Last Admin: 03/25/18 09:01 Dose: 40 mg Quetiapine Fumarate (Seroquel) 25 mg PO BID [facility]; Protocol Stop: 05/23/18 08:59 Last Admin: 03/25/18 16:16 Dose: 25 mg Quetiapine Fumarate (Seroquel) 300 mg PO HS [facility]; Protocol Stop: 05/23/18 20:59 Last Admin: 03/25/18 20:36 Dose: 300 mg Silver Sulfadiazine (Ssd) 1 appl TP BID [facility]; Protocol Stop: 05/24/18 08:59 Last Admin: 03/25/18 16:16 Dose: 1 appl Zolpidem Tartrate (Ambien) 5 mg PO HS PRN PRN Reason: Insomnia Stop: 05/23/18 01:47 Last Admin: 03/25/18 20:37 Dose: 5 mg General: Alert, Oriented x3, No acute distress HEENT: Atraumatic, PERRLA, EOMI Neck: Supple Cardiovascular: Regular rate, Normal S1, Normal S2 Lungs: Clear to auscultation Abdomen: Bowel sounds, Soft Extremities: no Clubbing, no Cyanosis, no Edema Neurological: Normal gait, Normal speech - Procedures Procedures: Procedures Procedure Code Date BLOOD TRANSFUSION SERVICE 82864 06/05/03 COLONOSCOPY W/LESION REMOVAL 74858 06/05/03 EGD BIOPSY SINGLE/MULTIPLE 61121 12/20/17 EGD DIAGNOSTIC BRUSH WASH 71179 08/09/00 ENDOSC POLYPECTOMY OF LG INTEST 45.42 06/05/03 ESOPHAGOGASTRODUODENOSCOPY [EGD] W/CLOSED BIOPSY 45.16 06/05/03 EXCISION OF STOMACH, ENDO, DIAGN [id number] 12/20/17 OTHER ENDOSCOPY OF SM INTEST 45.13 08/09/00 PACKED CELL TRANSFUSION 99.04 06/05/03 Assessment/Plan - Assessment Assessment: acute psychosis HTN blunt facial trauma with facial abrasians depression anxiety disorder anemia gastritis esophagitis GERD thermal burn - Plan Plan: continue current treatment. will add Silvadene Cream Keflex 500mg PO TID
[2018-03-26] MEDS: Ferrous Sulfate 325 MG TAB PO SCH (09:03)
[2018-03-26] MEDS: Pantoprazole 40 mg EC Tab PO SCH (09:04)
[2018-03-26] MEDS: Multivitamin Tab PO SCH (09:04)
--- NOTE | 2018-03-26 19:43 | Progress Notes ---
DATE: 03/26/2018 SUBJECTIVE: Chart reviewed and the patient interviewed. Also discussed the patient's condition with the staff and reviewed records and labs. The patient is still withdrawn and isolative. The patient also is still in a depressed mood. The patient also is still easily agitated and is still aggressive and combative with others and with the staff and needs lots of redirections. Otherwise, the patient is compliant with taking medications with no side effects of medications. ASSESSMENT: The patient is still agitated and depressed. TREATMENT PLAN: Continue Seroquel and Lexapro and continue adjusting the dose. Also, continue to monitor his behavior and continue to work on behavioral modification and continue to follow up. JOB# [id number]
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
[2018-03-27] MEDS: Pantoprazole 40 mg EC Tab PO SCH (09:19)
[2018-03-27] MEDS: Multivitamin Tab PO SCH (09:19)
[2018-03-27] MEDS: Ferrous Sulfate 325 MG TAB PO SCH (09:20)
--- NOTE | 2018-03-27 12:59 | Progress Notes ---
DATE: 03/27/2018 SUBJECTIVE: The patient is currently in the hospital, withdrawn and isolative. Covering himself with a sheet. I tried to wake him up, he gets very upset "I am going to cut your head off." Still aggressive, combative, threatening, nursing staff noting he is mostly in his bed, appearing paranoid, sometimes agitated, confused, childlike, yelling outbursts, verbal outbursts and sleeping fairly well most of the day. Eating with some prompting. Seroquel dosing was noted Lexapro as well. ASSESSMENT: The patient remains asymptomatic, ongoing psychotic symptoms, highly paranoid, further noted today he felt that the patient was much calmer after Haldol dosing. We will initiate Haldol. We will continue to monitor. The patient remains symptomatic, aggressive, not safe for a lower level of care. JOB# [id number] MTDD
--- NOTE | 2018-03-27 13:43 | Progress Notes ---
DATE: 03/25/2018 SUBJECTIVE: The patient interviewed. Case was discussed with staff and chart reviewed. Per the staff, the patient has been isolated, withdrawn and also refusing some medications. The patient is interviewed this morning at bedside. The patient states that the date is March and is unable to state the year. The patient otherwise states that he is feeling "terrible". The patient states that he feels depressed. He also states that he feels hopeless and also reports that he has a bad headache. The patient also reports that he is feeling suicidal. MENTAL STATUS EXAMINATION: The patient is lying in bed, appears stated age. He has intermittent eye contact. Speech is soft and minimal. It is guarded. His mood and affect, he reports as feeling depressed and also with constricted affect. His thought process remains somewhat loose. He does report suicidal ideations. He denies any homicidal ideations. He does seem to be internally preoccupied. He also seems to be very paranoid and suspicious. He is alert and oriented to person and place and he believed that the date is March. His insight, judgment and impulse control remain poor. ASSESSMENT: This is a 67-year-old male admitted to [facility]. The patient at this time continues with acute psychosis. The patient has loose thought process. The patient has mood swings. The patient has ongoing depression with suicidal ideation. PLAN: We will continue the patient's acute hospitalization. Continue medications as prescribed. Encourage the patient to verbalize his needs. Encourage the patient to participate in group and milieu therapy. Encourage the patient to work with drug abuse social worker and residential case manager for discharge planning and need for any community resources. [facility]# [id number] CESARIO
[2018-03-27] MEDS ORDERED: Haloperidol Lactate 5 mg/mL 1mL Vial IM ONE (18:40)
[2018-03-27] MEDS ORDERED: Haloperidol Lactate 5 mg/mL 1mL Vial ONE (18:42)
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
[2018-03-28] MEDS: Ferrous Sulfate 325 MG TAB PO SCH (08:07)
[2018-03-28] MEDS: Pantoprazole 40 mg EC Tab PO SCH (08:08)
[2018-03-28] MEDS: Multivitamin Tab PO SCH (08:08)
--- NOTE | 2018-03-28 17:04 | Progress Notes ---
DATE: 03/28/2018 SUBJECTIVE: The patient in the hospital, very aggressive, agitated at times, lashing out at staff. Requiring emergency medications today, for example, Haldol cocktail due to agitation, yelling, cursing, trying to hurt staff. The patient unruly, very irritable, yelled at me yesterday, he thrashed his arms at me yesterday essentially out of control, highly impulsive and unpredictable behaviors. PLAN: The patient remains symptomatic. I will be increasing his Haldol dosing today. Given his ongoing symptoms, he is not safe for discharge. Staff noting he remains pretty combative, not safe, forgetful at times, confused, still suspicious, trying to hit staff. JOB# [id number]
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
[2018-03-29] MEDS: Pantoprazole 40 mg EC Tab PO SCH (08:26)
[2018-03-29] MEDS: Ferrous Sulfate 325 MG TAB PO SCH (08:26)
[2018-03-29] MEDS: Multivitamin Tab PO SCH (08:27)
--- NOTE | 2018-03-29 13:42 | Progress Notes ---
DATE: 03/29/2018 The patient required emergency medications yesterday, yelling, screaming, combative, still yelling, very suspicious, irritable, highly impulsive, unpredictable, essentially unapproachable, lashes out, not wanting to talk. Medications were noted. No overt side effects. Currently on Haldol. ASSESSMENT: The patient remains symptomatic, paranoid, aggressive, not safe for discharge, required emergency medications over the past 24 hours. [facility]# [id number]
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
[2018-03-30] MEDS: Multivitamin Tab PO SCH (09:01)
[2018-03-30] MEDS: Ferrous Sulfate 325 MG TAB PO SCH (09:01)
[2018-03-30] MEDS: Pantoprazole 40 mg EC Tab PO SCH (09:01)
[2018-03-30] MEDS ORDERED: Haloperidol Lactate 5 mg/mL 1mL Vial ONE (18:00)
[2018-03-30] MEDS ORDERED: Haloperidol Lactate 5 mg/mL 1mL Vial IM ONE (18:07)
--- NOTE | 2018-03-30 19:43 | Progress Notes ---
DATE: 03/30/2018 SUBJECTIVE: The patient remains irritable, agitated, highly impulsive, unpredictable, covers his body in a sheet. If I try to remove the sheet he "gets very mad" starts yelling and screaming, not making any sense. Medications were noted. He is somewhat calmer today, but remains very angry, childlike behaviors. Staff noting that at times he is combative. Sleeping fairly well, mostly stays to himself. Ate breakfast, but not eating lunch. No overt side effects noted. Medications were noted. ASSESSMENT: The patient remains upset, irritable, highly impulsive, lashing out at staff. PLAN: Increase Haldol today. Given ongoing symptoms, he is not safe for discharge. JOB# [id number]
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
[2018-03-31] MEDS: Ferrous Sulfate 325 MG TAB PO SCH (09:06)
[2018-03-31] MEDS: Multivitamin Tab PO SCH (09:06)
[2018-03-31] MEDS: Pantoprazole 40 mg EC Tab PO SCH (09:07)
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
[2018-03-31] MEDS: Escitalopram Oxalate 10 MG, Escitalopram Oxalate 5 MG PO SCH (21:50)
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
[2018-04-01] MEDS: Pantoprazole 40 mg EC Tab PO SCH (08:53)
[2018-04-01] MEDS: Ferrous Sulfate 325 MG TAB PO SCH (08:53)
[2018-04-01] MEDS: Multivitamin Tab PO SCH (08:53)
[2018-04-01] MEDS: Escitalopram Oxalate 10 MG, Escitalopram Oxalate 5 MG PO SCH (21:00)
--- NOTE | 2018-04-01 23:53 | Progress Notes ---
DATE: 04/01/[address] Hanna. Case was discussed with staff of the patient, reviewed records. 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 He was readmitted. He has been refusing to communicate acting bizarre, paranoid, agitated, isolating himself, had to be medicated on emergency basis, continues to have poor insight. He is compliant with the medication with no side effects, no sedation or nausea. He is on Lexapro 15 mg daily and Seroquel 25 mg twice a day and 400 mg at bedtime. No sedation, no nausea, no extrapyramidal symptoms. We will continue to work with the patient in group therapy, milieu therapy, and adjust the medications as needed. JOB# [id number]
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
[2018-04-02] MEDS: Pantoprazole 40 mg EC Tab PO SCH (08:12)
[2018-04-02] MEDS: Ferrous Sulfate 325 MG TAB PO SCH (08:12)
[2018-04-02] MEDS: Multivitamin Tab PO SCH (08:13)
[2018-04-02] MEDS ORDERED: Haloperidol Lactate 5 mg/mL 1mL Vial ONE (12:48)
[2018-04-02] MEDS ORDERED: Haloperidol Lactate 5 mg/mL 1mL Vial IM ONE (12:56)
[2018-04-02] MEDS: Escitalopram Oxalate 10 MG, Escitalopram Oxalate 5 MG PO SCH (21:17)
--- NOTE | 2018-04-02 21:43 | Progress Notes ---
DATE: 04/02/2018 COVERING FOR: Ervin Hanna M.D. PROGRESS IN THE UNIT: Case was discussed with staff of the patient, reviewed records. The patient continues to stay in bed, hardly participates in any conversation. He continues to have poor insight. He continues to be acting bizarre, easily agitated, isolated. He continues to have poor insight. He is compliant with the medication with no side effects, no sedation, no nausea, no extrapyramidal symptoms. PLAN: We will continue the patient in group therapy and milieu therapy, adjust medications as needed. JOB# [id number]
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
[2018-04-03] MEDS: Ferrous Sulfate 325 MG TAB PO SCH (08:44)
[2018-04-03] MEDS: Pantoprazole 40 mg EC Tab PO SCH (08:44)
[2018-04-03] MEDS: Multivitamin Tab PO SCH (08:44)
--- NOTE | 2018-04-03 11:27 | Progress Notes ---
DATE: 04/03/2018 SUBJECTIVE: The patient is currently in the hospital, telling me that he has been acting this way because he is "not happy." He states he misses his brother. He continues to act bizarre, easily agitated, thrashing around, yelling at times, disgruntled, slept about 6-1/2 hours. No behavioral outbursts overnight, but still with ongoing behavioral outbursts, mostly covering himself with a blanket mumbling, hyperverbal, saying things under his breath, requiring prompting for ADLs, prompting to take his medications, but he is taking his medications. ASSESSMENT: The patient remains depressed, withdrawn. He is still symptomatic. Recent dose increase of Lexapro, stating that he is not happy. Medications were noted. We will monitor. Continue to titrate and adjust medications. The patient remains impulsive, highly unpredictable. JOB# [id number]
[2018-04-03] MEDS: Escitalopram Oxalate 10 MG, Escitalopram Oxalate 5 MG PO SCH (20:41)
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
[2018-04-04] MEDS: Multivitamin Tab PO SCH (09:15)
[2018-04-04] MEDS: Ferrous Sulfate 325 MG TAB PO SCH (09:16)
[2018-04-04] MEDS: Pantoprazole 40 mg EC Tab PO SCH (09:16)
[2018-04-04] MEDS: Escitalopram Oxalate 10 MG, Escitalopram Oxalate 5 MG PO SCH (21:12)
--- NOTE | 2018-04-04 23:04 | Progress Notes ---
DATE: 04/04/2018 SUBJECTIVE: The patient is currently in the hospital, seems to be somewhat calmer, less outbursts, less aggression, less agitation. He is less paranoid today. I am able to talk to with him without him lashing out or threatening me. The patient slept well, still covering himself with a blanket yesterday told me he felt sad and was unhappy still sometimes cursing at staff stating "leave me alone." Seems to be tolerant of medications, currently I did switch him over to Haldol because he has done well with emergency doses of Haldol. Brother was noting that he was calmer. Staff noting he was calmer. The patient is sleeping well. He remains pretty isolative, withdrawn. ASSESSMENT: The patient is improving, significantly calmer, more cooperative, still with some outbursts, but no violent behaviors. PLAN: We will increase Haldol, monitor for further 24 hours to see if there is any consistency and improvements. JOB# [id number]
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
[2018-04-05] MEDS: Ferrous Sulfate 325 MG TAB PO SCH (09:07)
[2018-04-05] MEDS: Multivitamin Tab PO SCH (09:07)
[2018-04-05] MEDS: Pantoprazole 40 mg EC Tab PO SCH (09:07)
--- NOTE | 2018-04-05 09:43 | Discharge Summary ---
DATE OF DISCHARGE: 04/05/2018 JUSTIFICATION FOR HOSPITALIZATION: 5150 hold, danger to others, danger to self, aggressive, self-mutilating behaviors. HISTORY OF PRESENT ILLNESS: This is a 67-year-old male with history of mental illness, aggressive, combative toward others, self-mutilating, scratching himself, paranoid, brother concerned. The patient has been decompensating, yelling and screaming. PAST PSYCHIATRIC HISTORY: Admissions in the past. SOCIAL HISTORY: The patient is living at a alf in [place], not . Brother involved. MEDICATIONS: Noted. MEDICAL HISTORY: Noted. LEGAL: None. MENTAL STATUS EXAMINATION: Please see full psych eval for details. PROVISIONAL DIAGNOSES: Schizophrenia, anxiety, unspecified; mood, unspecified. Under medical please see full H and P. HOSPITAL COURSE: After initial assessment, the patient restarted on medications. Medications were adjusted including Seroquel, Haldol, added Lexapro. Over the course of the hospitalization, his mood improved, affect improved, calmer, more cooperative, no longer trying to mutilate himself. Toward the latter end of his hospitalization, he was no longer combative, no longer yelling or screaming. No longer paranoid, taking his medications. By 04/05/2018, he was devoid of any aggressive or violent symptoms and he was discharged. CONDITION UPON DISCHARGE: Improved, allowing ADLs, eating fairly well. Better eye contact. Speech within normal limits. Speech decreased content. Mood "okay." Affect flat. Thought processes were away, colored, engaged, somewhat disoriented, impoverished thought processes, no SI, no HI. No psychotic symptoms. Insight and judgment somewhat better, better medication compliance. DISCHARGE DIAGNOSIS: Schizophrenia. Under medical please see full H and P; also mood, unspecified; rule out obsessive compulsive disorder. Under medical please see full H and P. PROGNOSIS: The patient follows up with outpatient mental health services and remains compliant with treatment. Prognosis will improve, otherwise guarded. JOB# [id number]
== END 2018-04-05 18:00 | DRG 885 ==
LOC: ER 21:37 → GERO2 23:55
PROVIDERS: ADMIT Psychiatry & Neurology Psychiatry; ATTEND Psychiatry & Neurology Psychiatry
DX: F20.9 Schizophrenia, unspecified (principal); I10 Essential (primary) hypertension; R13.10 Dysphagia, unspecified; F41.9 Anxiety disorder, unspecified; F32.9 Major depressive disorder, single episode, unspecified; S00.81XA Abrasion of other part of head, initial encounter; D64.9 Anemia, unspecified; K21.0 Gastro-esophageal reflux disease with esophagitis; K29.70 Gastritis, unspecified, without bleeding; T30.0 Burn of unspecified body region, unspecified degree; F42.9 Obsessive-compulsive disorder, unspecified; X58.XXXA Exposure to other specified factors, initial encounter; Y93.89 Activity, other specified; Y92.89 Other specified places as the place of occurrence of the external cause; Y99.8 Other external cause status; Z79.899 Other long term (current) drug therapy
CPT/HCPCS: 36415-UA; 70450-TC; 80053-TC; 80061-TC; 82948-90; 83036-90; 84443-TC; 84484-TC; 85025-TC; 86592-TC; 93005; J1200; J1630; J2060; Z7610